=== PATIENT | female | born 1970 | race Caucasian/White ===

== ENCOUNTER → 2017-11-25 16:17 | Outpatient (CLI) | payer BC, SELFPAY ==
[2017-11-25 17:17] LABS: Absolute Lymphocyte Count 2.31 X10^3/ul (0.83-4.51); Absolute Neutrophil Count 5.2 X10^3/uL (2.0-7.7); Basophil# 0.01 X10^3/uL; Basophil% 0.1 % (0-1); Eosinophil# 0.13 X10^3/uL; Eosinophils% 1.6 % (0-5); Hematocrit 34.6 % (37-47); Hemoglobin 10.7 g/dl (12.0-15.0); Lymphocyte # 2.31 X10^3/ul (4.0); Lymphocyte % 28.3 % (19-41); Mean Corp Hgb Conc 30.9 g/gl (32-36); Mean Corpuscular Hgb 23.4 pg (27.0-32.0); Mean Corpuscular Volume 75.7 fL (81-99); Mean Platelet Vol. 10.3 fl (6.2-12.0); Monocyte# 0.49 X10^3/uL; Neutrophil # 5.16 X10^3/uL (2.7-7.7); Neutrophil % 63.4 % (47-70); Platelet Count 249 K/mm3 (150-450); RBC Distribution Width CV 15.3 % (11.6-14.6); RBC Distribution Width SD 42.1 fl (35.1-43.9); Red Blood Count 4.57 M/mm3 (4.2-5.4); White Blood Count 8.2 K/mm3 (4.4-11.0)
[2017-11-25 17:18] LABS: POSITIVE COUNT NO; POSITIVE DIFFERENTIAL NO; POSITIVE MORPHOLOGY NO
[2017-11-25 17:54] LABS: Vitamin D,25 Hydroxy 13.1 ng/mL (19.95-100.01)
[2017-11-25 18:09] LABS: Iron 28 ug/dL (50-170); T4 Free Direct 0.64 ng/dL (0.76-1.46)
== END ==
PROVIDERS: Family Provider Family Medicine; PCP Family Medicine; Visit Provider Family Medicine
DX: E03.9 Hypothyroidism, unspecified (principal); E55.9 Vitamin D deficiency, unspecified; D50.9 Iron deficiency anemia, unspecified
CPT/HCPCS: 36415; 82306; 83540; 84439; 84443; 85025

== ENCOUNTER → 2017-12-26 10:25 | Outpatient (CLI) | payer BC, SELFPAY ==
--- NOTE | 2017-12-26 10:29 | RAD_ITS ---
STUDY: X-RAY CHEST REASON FOR EXAM: Female, 47 years old. Cough TECHNIQUE: Frontal and lateral views of the chest. COMPARISON: 05/31/2013. FINDINGS: The lungs are clear and expanded. There is no demonstrated pleural abnormality. Normal size heart. Normal mediastinum and jad. Normal visualized pulmonary arteries. Normal visualized aortic arch and descending thoracic aorta. Normal visualized thoracic spine. Normal visualized ribs, clavicles, and shoulders. There is no demonstrated abnormality of the visualized soft tissue structures of the upper abdomen. RAD/Chest PA and Lateral IMPRESSION: No acute cardiopulmonary disease. Electronically Signed: Ren Dejesus DO at 0:02 EDT , Service support ,
== END ==
PROVIDERS: Family Provider Family Medicine; PCP Family Medicine; Visit Provider Family Medicine
DX: R05 Cough (principal); R06.2 Wheezing
CPT/HCPCS: 71046

== ENCOUNTER → 2018-01-09 16:23 | Outpatient (CLI) | payer BC, SELFPAY ==
[2018-01-09 17:20] LABS: Absolute Lymphocyte Count 1.72 X10^3/ul (0.83-4.51); Absolute Neutrophil Count 3.3 X10^3/uL (2.0-7.7); Basophil# 0.01 X10^3/uL; Basophil% 0.2 % (0-1); Eosinophil# 0.15 X10^3/uL; Eosinophils% 2.7 % (0-5); Hematocrit 34.7 % (37-47); Hemoglobin 10.8 g/dl (12.0-15.0); Lymphocyte # 1.72 X10^3/ul (4.0); Lymphocyte % 30.6 % (19-41); Mean Corp Hgb Conc 31.1 g/gl (32-36); Mean Corpuscular Hgb 24.2 pg (27.0-32.0); Mean Corpuscular Volume 77.8 fL (81-99); Mean Platelet Vol. 10.7 fl (6.2-12.0); Monocyte# 0.37 X10^3/uL; Monocyte% 6.6 % (0-10); Neutrophil # 3.34 X10^3/uL (2.7-7.7); Neutrophil % 59.4 % (47-70); POSITIVE COUNT NO; POSITIVE DIFFERENTIAL NO; POSITIVE MORPHOLOGY NO; Platelet Count 193 K/mm3 (150-450); RBC Distribution Width CV 15.9 % (11.6-14.6); RBC Distribution Width SD 45.4 fl (35.1-43.9); Red Blood Count 4.46 M/mm3 (4.2-5.4); White Blood Count 5.6 K/mm3 (4.4-11.0)
[2018-01-09 17:52] LABS: Ferritin 28 ng/mL (8-252); Iron 66 ug/dL (50-170); T4 Free Direct 1.11 ng/dL (0.76-1.46); Thyroid Stim Hormone (TSH) 1.41 uIU/mL (0.358-3.74)
[2018-01-09 17:58] LABS: Vitamin D,25 Hydroxy 26.2 ng/mL (29.95-100.01)
== END ==
PROVIDERS: Family Provider Family Medicine; PCP Family Medicine; Visit Provider Family Medicine
DX: E03.9 Hypothyroidism, unspecified (principal); D50.9 Iron deficiency anemia, unspecified; E55.9 Vitamin D deficiency, unspecified
CPT/HCPCS: 36415; 82306; 82728; 83540; 84439; 84443; 85025

== ENCOUNTER 2018-08-02 08:00 | Outpatient (RCR) | payer BC, SELFPAY ==
--- OUTSIDE RECORDS SUMMARY | 2018-07-26 08:49 | XMS RPT_ITS ---
:1970 Author Organization OHIP Support Name Relationship Address Phone BARBASOL Unavailable [address] + [place] [address] MARY CARMEN MCDANIELS Unavailable [address] + [place] [address] BARBAS[facility] Unavailable [address] + [place] [address] BRODWOFF, ANGELA Unavailable [address] + [place] [address] [facility]BAS[facility] Unavailable [address] + [place] [address] BRODWOFF, ANGELA Unavailable [address] + [place] [address] BARBAS[facility] Unavailable [address] + [place] [address] BRODWOFF, ANGELA Unavailable [address] + [facility] [place] [address] BARBASOL Unavailable [address] + [place] [address] BRODWOFF, ANGELA Unavailable [address] + [place] [address] BARBASOL Unavailable [address] + [place] [address] BRODWOFF, ANGELA Unavailable [address] + [place] [address] BARBASOL Unavailable [address] + [place] [address] BRODWOFF, ANGELA Unavailable [address] + [place] [address] BARBAS[facility] Unavailable [address] + [place] [address] BRODWOFF, ANGELA Unavailable [address] + [facility] [place] [address] BARBASOL Unavailable [address] + [place] [address] BRODWOFF, ANGELA Unavailable [address] + [facility] [place] [address] BARBASOL Unavailable [address] + [place] [address] BRODWOFF, ANGELA Unavailable [address] + [place] [address] BARBASOL Unavailable [address] + [place] [address] BRODWOFF, ANGELA Unavailable [address] + [place] [address] Care Team Providers Name Role Phone Justen Harris Attending Unavailable Steven, Justen Primary Care Unavailable Ellie Hinson Attending Unavailable Steven, Justen Primary Care Unavailable Osito Arteaga Attending Unavailable Osito Arteaga Attending Unavailable Justen Harris Attending Unavailable Steven, Justen Primary Care Unavailable Bne Fitzpatrick Attending Unavailable Steven, Justen Referring Unavailable Ben Fitzpatrick Attending Unavailable Justen Harris Referring Unavailable Justen Harris Primary Care Unavailable Steven, Justen Attending Unavailable Steven, Justen Primary Care Unavailable Justen Harris Attending Unavailable Steven, Justen Primary Care Unavailable Steven, Justen Attending Unavailable Steven, Justen Primary Care Unavailable Christopher Murphy Attending Unavailable Christopher Murphy Referring Unavailable Justen Harris Primary Care Unavailable PROBLEMS PROBLEMS DATE TYPE CONDITION / CODE ATTENDING STATUS SOURCE 01/09/2018 Unknown E03.9 - Justen Harris Active [place] Hypothyroidism, Community unspecified / Hospital E03.9(ICD-10) Repository 01/09/2018 Unknown E55.9 - Vitamin D Justen Harris Active [place] deficiency, Community unspecified / Hospital E55.9(ICD-10) Repository 01/09/2018 Unknown D50.9 - Iron Justen Harris Active [place] deficiency Community anemia, Hospital unspecified / Repository D50.9(ICD-10) 09/15/2017 Unknown R13.10 - Jsuten Harris Active [place] Dysphagia, Community unspecified / Hospital R13.10(ICD-10) Repository 09/07/2017 Unknown ENCNTR SCREEN Osito Arteaga Active [place] MAMMOGRAM FOR [facility] MALIGNANT Hospital NEOPLASM OF Repository BREAST / Z12.31(ICD-10) 09/06/2017 Unknown ENCOUNTER FOR Osito Arteaga Active [place] SCREENING FOR [facility] MALIGNANT Hospital NEOPLASM OF Repository CERVIX / Z12.4(ICD-10) 09/06/2017 Unknown PAIN IN RIGHT EusebiaEllie courtney Active [place] LOWER LEG / Community M79.661(ICD-10) Hospital Repository PROCEDURES PROCEDURES No Procedure Records FoundRESULTS RESULTS CBC W/DIFF, AUTOMATED Collected: 01/09/2018 Status: F Source: [place] 4:24 PM [facility] REPOSITORY TYPE CODE TESTS RESULT OUT OF RANGE REFERENCE UNITS LAB L100.1000 Normal 4.4-11.0 K/mm3 WBC 5.6 LAB L100.1200 Normal 4.2-5.4 M/mm3 RBC 4.46 LAB L100.1300 Low 12.0-15.0 g/dl HGB 10.8 LAB L100.1400 Low 37-47 % HCT 34.7 LAB L100.1500 Low 81-99 fL MCV 77.8 LAB L100.1600 Low 27.0-32.0 pg MCH 24.2 LAB L100.1700 Low 32-36 g/gl MCHC 31.1 LAB L100.1810 High 11.6-14.6 % RDW 15.9 CV LAB L100.1820 High 35.1-43.9 fl RDW 45.4 SD LAB L100.1900 Normal 150-450 K/mm3 PLT 193 LAB L100.2000 Normal 6.2-12.0 fl MPV 10.7 LAB L100.2100 Normal 47-70 % NEUT% 59.4 LAB L100.2200 Normal 19-41 % LY% 30.6 LAB L100.2300 Normal 0-10 % MONO% 6.6 LAB L100.2400 Normal 0-5 % EO% 2.7 LAB L100.2500 Normal 0-1 % BASO% 0.2 LAB L100.2550 Normal 0.0-0.9 % IM 0.500 GRAN % Result Comment: IG% - Immature Granulocytes (promyelocytes, myelocytes and metamyelocytes) > 1% indicates that a LEFT SHIFT is Present. LAB L100.2620 Normal 2.0-7.7 X10 3/uL Absolute Neut 3.3 LAB L100.2720 Normal 0.83-4.51 X10 3/ul Absolute Lymph 1.72 Performed By: #### L100.0100 #### [facility] [address] [place], [address] THYROID STIM HORMONE Collected: 01/09/2018 Status: F Source: [place] (TSH) 4:24 PM [facility] REPOSITORY TYPE CODE TESTS RESULT OUT OF RANGE REFERENCE UNITS LAB L501.9520 Normal 0.358-3.74 uIU/mL TSH 1.41 Performed By: #### L501.9520, L503.6150, L503.6550, L506.0400 #### [facility] [address] [place], [place], [address] IRON Collected: 01/09/2018 Status: F Source: [place] 4:24 PM [facility] REPOSITORY TYPE CODE TESTS RESULT OUT OF RANGE REFERENCE UNITS LAB L503.6150 Normal 50-170 ug/dL IRON 66 Performed By: #### L501.9520, L503.6150, L503.6550, L506.0400 #### [facility] [address] [place], [place], [id number] (080) FERRITIN Collected: 01/09/2018 Status: F Source: [place] 4:24 PM [facility] REPOSITORY TYPE CODE TESTS RESULT OUT OF RANGE REFERENCE UNITS LAB L503.6550 Normal 8-252 ng/mL FERRITIN 28 Performed By: #### L501.9520, L503.6150, L503.6550, L506.0400 #### [facility] [address] [place], [address] T4 FREE DIRECT Collected: 01/09/2018 Status: F Source: [place] 4:24 PM [facility] REPOSITORY TYPE CODE TESTS RESULT OUT OF RANGE REFERENCE UNITS LAB L506.0400 Normal 0.76-1.46 ng/dL T4 FREE 1.11 DIRECT Performed By: #### L501.9520, L503.6150, L503.6550, L506.0400 #### [facility] [address] [place], [address] VITAMIN D,25 HYDROXY Collected: 01/09/2018 Status: F Source: [place] 4:24 PM [facility] REPOSITORY TYPE CODE TESTS RESULT OUT OF REFERENCE UNITS RANGE LAB L506.1000 Low 29.95-100.01 ng/mL Vitamin D 26.2 25-OH Result Comment: Vitamin D 25(OH) Status Range Deficiency <20 ng/mL (50nmol/L) Insuffciency 20 - 30 ng/mL (50 - 75 nmol/L) Sufficiency 30 - 100 ng/mL (75 - 250 nmol/L) Toxicity >100 ng/mL (>250 nmol/L) Performed By: #### L506.1000 #### [facility] [address] [place], [address] CHEST PA AND LATERAL Observed: 12/26/2017 Status: F Source: [place] 10:29 AM [facility] REPOSITORY [facility]ENTERIm[facility] [id number] [address]Guubl PA and LateralMR#: [id number] Acct: [id number]: CHARO RIZVI Rep #: [id number]: 1970 F 47 From: Ren JoséCP: Justen Harris Status: REG CLIStudy: Chest PA and Lateral Date of Exam: 12/26/17Exam# [id number] Ordering Dr: Justen Harris MDSTUDY: X-RAY CHESTREASON FOR EXAM: Female, 47 years old. CoughTECHNIQUE: Frontal and lateral views of the chest.COMPARISON: 05/31/2013. FINDINGS:The lungs are clear and expanded. There is no demonstrated pleuralabnormality.Normal size heart. Normal mediastinum and jad. Normal visualizedpulmonary arteries. Normal visualized aortic arch and descending thoracicaorta.Normal visualized thoracic spine. Normal visualized ribs, clavicles, andshoulders.There is no demonstrated abnormality of the visualized soft tissuestructures of the upper abdomen. ORDER #: [id number] RAD/Chest PA and LateralIMPRESSION:No acute cardiopulmonary disease.Electronically Signed:Ren Dejesus, [id number] at 0:02 EDTTel , Service support , GT: Justen Harris Team Member:Signed CBC W/DIFF, AUTOMATED Collected: 11/25/2017 Status: F Source: [place] 4:20 PM [facility] REPOSITORY TYPE CODE TESTS RESULT OUT OF RANGE REFERENCE UNITS LAB L100.1000 Normal 4.4-11.0 K/mm3 WBC 8.2 LAB L100.1200 Normal 4.2-5.4 M/mm3 RBC 4.57 LAB L100.1300 Low 12.0-15.0 g/dl HGB 10.7 LAB L100.1400 Low 37-47 % HCT 34.6 LAB L100.1500 Low 81-99 fL MCV 75.7 LAB L100.1600 Low 27.0-32.0 pg MCH 23.4 LAB L100.1700 Low 32-36 g/gl MCHC 30.9 LAB L100.1810 High 11.6-14.6 % RDW 15.3 CV LAB L100.1820 Normal 35.1-43.9 fl RDW 42.1 SD LAB L100.1900 Normal 150-450 K/mm3 PLT 249 LAB L100.2000 Normal 6.2-12.0 fl MPV 10.3 LAB L100.2100 Normal 47-70 % NEUT% 63.4 LAB L100.2200 Normal 19-41 % LY% 28.3 LAB L100.2300 Normal 0-10 % MONO% 6.0 LAB L100.2400 Normal 0-5 % EO% 1.6 LAB L100.2500 Normal 0-1 % BASO% 0.1 LAB L100.2550 Normal 0.0-0.9 % IM 0.600 GRAN % Result Comment: IG% - Immature Granulocytes (promyelocytes, myelocytes and metamyelocytes) > 1% indicates that a LEFT SHIFT is Present. LAB L100.2620 Normal 2.0-7.7 X10 3/uL Absolute Neut 5.2 LAB L100.2720 Normal 0.83-4.51 X10 3/ul Absolute Lymph 2.31 Performed By: #### L100.0100 #### [facility] [address] [place], [address] VITAMIN D,25 HYDROXY Collected: 11/25/2017 Status: F Source: [place] 4:20 PM [facility] REPOSITORY TYPE CODE TESTS RESULT OUT OF REFERENCE UNITS RANGE LAB L506.1000 Low 19.95-100.01 ng/mL Vitamin D 13.1 25-OH Result Comment: Vitamin D 25(OH) Status Range Deficiency <20 ng/mL (50nmol/L) Insuffciency 20 - 30 ng/mL (50 - 75 nmol/L) Sufficiency 30 - 100 ng/mL (75 - 250 nmol/L) Toxicity >100 ng/mL (>250 nmol/L) Performed By: #### L506.1000 #### [facility] [place], [address] THYROID STIM HORMONE Collected: 11/25/2017 Status: F Source: [place] (TSH) 4:20 PM [facility] REPOSITORY TYPE CODE TESTS RESULT OUT OF RANGE REFERENCE UNITS LAB L501.9520 High 0.358-3.74 uIU/mL TSH 18.60 Performed By: #### L501.9520, L503.6150, L506.0400 #### [facility] [place], [address] IRON Collected: 11/25/2017 Status: F Source: [place] 4:20 PM [facility] REPOSITORY TYPE CODE TESTS RESULT OUT OF RANGE REFERENCE UNITS LAB L503.6150 Low 50-170 ug/dL IRON 28 Performed By: #### L501.9520, L503.6150, L506.0400 #### [facility] [address] [place], [address] T4 FREE DIRECT Collected: 11/25/2017 Status: F Source: [place] 4:20 PM [facility] REPOSITORY TYPE CODE TESTS RESULT OUT OF REFERENCE UNITS RANGE LAB L506.0400 Low 0.76-1.46 ng/dL T4 FREE 0.64 DIRECT Performed By: #### L501.9520, L503.6150, L506.0400 #### [facility] [address] [place], [address] SURGERY VISIT REPORT Observed: 10/11/2017 Status: F Source: [place] 1:20 PM [facility] REPOSITORY [place] [facility] [address] [place] [address] [place] [address] [phone] VISITDate of Service: 10/07/17MR#: [id number] Acct: [id number]: CHARO RIZVI Rep #: [id number]: 1970 Provider: Ben Fitzpatrick MDAge/Sex: 47/F Location[facility].WSAStatus: SignedIntakeVital Signs10/07/17 Height 5 ft 1 in10/07/17 Weight: 185 lb 4 oz10/07/17 Body Mass Index (BMI) 34.9IntakeVisit Reasons: Thyroid NoduleChief Complaint: thyroid noduleInterpreter Required: NoIs patient in pain?: NoAllergiescefazolin [From Anc] Allergy (Verified 10/07/17 09:34)Hivescodeine Allergy (Verified 10/07/17 09:34)OtherMedicationsCyanocobalamin (Vitamin B-12) [Vitamin B-12] 3,000 mcg PO BID 11/24/16 [History Qcpghniot73/29/17]Ergocalciferol [Vitamin D] 50,000 unit PO MOWEFR 11/24/16 [History Confirmed 10/07/17]levothyroxine 137 mcg capsule 137 mcg PO ONCE cap 10/04/17 [History Confirmed 10/07/17]Is last menstrual period known: NoPost menopausal: NoPatient : NoPFSHMedical History Multiple thyroid nodules (Acute)Iron deficiency anemia (Acute)Osteoarthritis (Acute)Vitamin D deficiency (Acute)Hypothyroidism (Acute)Gastritis and duodenitis (Acute)Right upper quadrant pain (Acute)Laceration of left hand (Inactive)Surgical History S/P knee surgery (Acute)S/P rotator cuff repair (Acute)S/P section (Acute)S/P thyroid biopsy (Acute)S/P tonsillectomy (Acute)Family HistoryFather Heart diseaseDiabetesMother COPD (chronic obstructive pulmonary disease)Social HistorySmoking Status: Never smokersecond hand exposure: Noalcohol intake: current alcohol intake frequency: holidays/special occasions onlysubstance use type: does not usecaffeine: Yesseatbelt use: alwaysHPIHPIHPI: CHARO RIZVI, is a 47 F who presents to the office today for a second opinion withregards to her left thyroid ultrasound. [facility] a nodule measuring 10 mm x 8 mm x 7 mm and anothersubcentimeter nodule on the left side and on the right side there was no demonstrated nodules.Patient had a fine-needle aspiration done of the left thyroid nodule on 04/29/[address] Anton.This came back consistent with chronic lymphocytic thyroiditis. Patient has had no difficultywith her voice no anterior neck pain.ROSGeneralGeneral: Yes weight change and fatigue;no appetite, colon cancer, breast cancer or weaknessHEENTHEENT: Yes difficulty swallowing;no eye injury, eye surgery, swollen glands or hoarsenessEndoEndocrine: Yes thyroid disease;no diabetes mellitus, thyroid cancer, Hair loss, heat intolerance or cold intoleranceSkinSkin: No rash or changing molesBreastBreast: No left breast lump, right breast lump, nipple discharge, breast pain, abnormalmammogram, abnormal US or breast enlargementMuscMusculoskeletal: Yes rheumatoid arthritis;no back problems, arthritis, gout or joint painCardioCardiovascular: Yes murmur;no pacemaker, heart disease, atrial fibrillation, high blood pressure, heart attack, heartstent, palpitations, shortness of breat with exertion or chest painPsychPsychiatric: No depression, anxiety or hearing voicesRespRespiratory: No shortness of breath, No sleep apnea, No cough, No COPD, No asthma, Noemphysema, No wheezingGastroGastrointestinal: No abdominal pain, No nausea or vomiting, No diarrhea, No constipation, Noblood in stool, No acid reflux, No hemorrhoids, No ulcers, Yes gallbladder problem, Noblack,tarry stoolsHemaHematologic: No blood thinners, No blood disorders, No bleeding, Yes anemia, No blood clotsNeuroNeurologic: No system reviewed and no additional complaints, except as docu, No as per HPI, Noabnormal walking, No abnormal hearing, No abnormal movements, No abnormal speech, No behavioralchanges, No burning sensations, No confusion, No seizure-like activity, No unsteadiness, Nodizziness, No localized weakness, No frequent falls, No headache(s), No lack of coordination,No loss of vision, No memory loss, No numbness, No other visual disturbances, No radiatingpain, No restless legs, No sensory deficit, No fainting, No tingling, No tremor(s), Noweakness, No otherExamNeckOther: The thyroid shows no hard palpable nodules. It is smooth and supple in nature. Thereis no lymphadenopathy on either side.ChestBreast Palpation: No nipple dischargeCardioHeart Sounds: murmurAssessment AND PlanProblems1. Multiple thyroid nodules E04.2PlanAt this point the patient only needs to have yearly thyroid ultrasounds. There is no need torepeat a fine-needle aspiration at this time. The patient should remain on her Levoxyl at hercurrent dose. If the nodules grow by more than 20% or new nodules grow that are larger than acentimeter repeat fine-needle aspirations will need to be performed.10/11/17 1320 <Electronically signed by Ben Fitzpatrick MD>Date Ben CHANGosigner Signature: Date (if applicable)CC: Justen Harris THYROID Observed: 09/15/2017 Status: F Source: [place] 5[facility]18 PM [facility]Im[facility] [id number] [place] [address]HqjxpvxHX#: [id number] Acct: [id number]: CHARO RIZVI Sergey Rep #: [id number]: 1970 F 47 From: Jose Montanez MDPCP: Justen Harris Status: REG CLIStudy: Thyroid Date of Exam: 09/15/17Exam# [id number] Ordering Dr: Justen Harris MDSTUDY: THYROID ULTRASOUNDREASON FOR EXAM: Female, 47 years old. Thyroid noduleTECHNIQUE: Ultrasound evaluation of the thyroid was performed withreal-time and static ward-scale imaging.COMPARISON: Ultrasound of April 15, 2015 FINDINGS:RIGHT LOBE: The right lobe of the thyroid gland measures 4.3 x 1.5 x 1.1cm. There is a heterogeneous echotexture. There are no demonstrated solid,cystic or complex lesions.LEFT LOBE: The left lobe of the thyroid gland measures 4.5 x 1.4 x 1.5 cm.There is a heterogeneous echotexture. 2 nodules are noted. The largestmeasures 10 x 8 x 7 mm. Is noted in the inferior pole. The lesion issolid with regular margins and aline nodular doppler flow.ISTHMUS: The isthmus measures 3 mm. . ORDER #: [id number] US/ThyroidIMPRESSION:Stable left thyroid nodule.Both thyroid lobes appear heterogeneous.Electronically Signed:Jose Montanez MD at 21:51 ESTTel , Service support , JI: Justen Harris Team Member:Signed SCREENING MAMM (CAD), Observed: 09/06/2017 Status: F Source: [place] BILAT 4:53 PM [facility] REPOSITORY [facility]ENTERImaging [id number] [place] [address]XJVYSYKTR MAMM (CAD), BILATMR#: [id number] Acct: [id number]: CHARO RIZVI Rep #: [id number]: 1970 F 47 From: Alphonso Pierre [facility] CENTERCP: Status: REG CLIStudy: SCREENING MAMM (CAD), BILAT Date of Exam: 09/06/17Exam# [id number] Ordering Dr: Osito Arteaga MDMAMMOGRAPHY - BILATERAL SCREENINGREASON FOR EXAM: Female, 47 years old. Routine annual screeningexamination.PERTINENT HISTORY: Non-contributory.TECHNIQUE: Digital examination. Mediolateral oblique (MLO) andcraniocaudad (CC) views of both breasts were obtained, along with 3-Dtomosynthesis. CAD: CAD was performed on this study.COMPARISON: 2009 FINDINGS:Breast Density: Scattered fibroglandular densities.There are no dominant masses or suspicious calcifications.No other significant abnormalities are identified. There has been nosignificant change since the prior study. ORDER #: [id number] HPBI/SCREENING MAMM (CAD), BILATIMPRESSION:Stable bilateral screening mammogram. Yearly follow-up mammogramrecommended. (A) ASSESSMENT CATEGORY:BIRADS Category 2: Benign. A letter regarding these results will be sentto the patient by the facility within 30 days.FW6Qcynulhivruee 10% of breast cancers are not detected by mammography. Anormal mammogram should not delay biopsy of a clinically suspiciousabnormality.[id number] Signed:Herson Pierre MD at 7:54 ESTTel , Service support , QG: Osito Arteaga MD Team Member:Signed PAP I-G HPV HI Collected: 08/23/2017 Status: F Source: [place] RISK 4:30 PM [facility] REPOSITORY Order Comment: CYTOLOGY INFORMATION:THIS IS A CORRECTED ORDER!- CLINICAL INFORMATION:- DATE LMP/MENOPAUSE: 08/10/17 LMP- COLLECTION VIAL: Thin Prep Vial- PURCHASING ADMINISTRATOR SOURCE: CERVICAL/ENDOCERVICAL- COLLECTION TECHNIQUE: BRUSH/SPATULASpecimen Comment: [id number] Comment: No. of containers..01 ThinPrep Vial TYPE CODE TESTS RESULT OUT OF RANGE REFERENCE UNITS LAB L7400.0800 Normal . DIAGN Comment Result Comment: NEGATIVE FOR INTRAEPITHELIAL LESION AND MALIGNANCY. LAB L7400.0900 Normal . ADEQ Comment Result Comment: Satisfactory for evaluation. Endocervical and/or squamous metaplastic cells (endocervical component) are present. LAB L7400.1400 Normal . PERFORM Comment Result Comment: Malissa Lemos Certified Medicine Aide (ASCP) LAB L7400.2575 Normal . TEST Comment METHOD Result Comment: This liquid based ThinPrep(R) pap test was screened with the use of an image guided system. LAB L7400.2600 Normal . COMM . LAB L7400.2700 Normal . PAPSMR Comment Result Comment: The Pap smear is a screening test designed to aid in the detection of premalignant and malignant conditions of the uterine cervix. It is not a diagnostic procedure and should not be used as the sole means of detecting cervical cancer. Both false-positive and false-negative reports do occur. LAB L7400.2950 Normal Negative HPV Negative HC,HGH RISK Result Comment: This high-risk HPV test detects thirteen high-risk types (16/18/31/33/35/39/45/51/52/56/58/59/68) without differentiation. Performed at: - [facility] [id number] Field Service Consultant: Jade Jane MD, Phone: [phone] Performed at: =[facility] [id number] Field Service Consultant: Jade Jane MD, Phone: [phone] Performed By: #### L7400.0375 #### [facility] (refer to report for specific site) refer to report for address and phone number VENOUS DUPLEX LOWER Observed: 08/07/2017 Status: F Source: [place] EXTREMITY 9:38 AM [facility] REPOSITORY [facility]ENTERCardiovascular [id number] [place] [address]Fqddjq Duplex US, Epmwdbzczx10/27/17 1641MR#: [id number] Acct: [id number]: CHARO RIZVI Rep #: [id number]: 1970 47 From: Gustabo Soni MDAttending Dr: Ellie Hinson Status: REG CLIOrdering Dr: Ellie Hinson Date: 08/05/17Location: [facility] Sex: F CAdmitted:Reason For Study: PAINRIGHTGSV is normal.CFV is compressible, spontaneous, phasic,competent and demonstrates normalaugmentation.FV is compressible, spontaneous, phasic,competent and demonstrates normalaugmentation.POP V is compressible, spontaneous, phasic,competent and demonstrates normalaugmentation.T/P Trunk is compressible.PTV is compressible.RT PerV is compressible.ProcedureExam performed in department.A preliminary report was called and/or faxedto ELLIE HINSON.Interpretation SummaryDeep veins of the right lower extremity are patent and compressible segmentally. There is noevidence of right lower extremity deep vein thrombosis. Valvular competence appears intactwithinthe proximal deep venous system on the right . The right greater saphenous vein appears patentandcompressible segmentally. Ordering Physician: Elizabeth HinsoneReferring Physician: JUSTEN HARRISPerformed By: Alisa Echavarria RDCS, RVT 08/07/17 0938Date Gustabo Soni [facility]: Ellie Harris Date Dictated: 08/05/17 1641Date Transcribed: 08/07/17 0938Transcriptionist:Signed ALLERGIES ALLERGIES DATE TYPE / CODE NAME / CODE REACTION SEVERITY SOURCE 10/07/2017 Drug codeine/F006 Other Unknown [place] [facility] Allergy/4160 [id number]([place] [id number](SNOMED M) Repository CT) 10/07/2017 Drug cefazolin/F0 Hives Unknown [place] [facility] Allergy/4160 [id number]([place] [id number](SNOMED ORM) Repository CT) 11/24/2016 Drug codeine/F006 Other [place] [facility] Allergy/4160 955101([place] [address](SNOMED M) Repository CT) 11/24/2016 Drug cefazolin/F0 Hives [place] [facility] Allergy/4160 [id number]([place] [address](SNOMED ORM) Repository CT) ENCOUNTERS ENCOUNTERS ADMIT/DISCHARGE ACCOUNT ADMITTING ENCOUNTER LOCATION SOURCE NUMBER CLASS 07/26/2018 [id number] Ambulatory [place] [facility] ing:PT Repository 01/11/2018 [id number] Amb[place] [facility] ing:LAB.FUTUR Repository E 01/09/2018 [id number] Ambulatory [place] [facility] ing:LAB.FUTUR Repository E 12/26/2017 [id number] [place] [facility] ing:HPRAD Repository 11/25/2017 [id number] Ambulatory [place] [facility] ing:BFHLAB Repository 10/07/2017/ [id number] Ambulatory [facility] [place] [facility] Repository 09/23/2017 [id number] Ambulatory BMSBuilding:B [place] [facility] Repository 09/15/2017 [id number] Ambulatory [place] [facility] ing:US Repository 09/06/2017 [id number] Ambulatory [place] [facility] ing:BI Repository 08/23/2017 [id number] Ambulatory [place] [facility] ing:LABSPEC Repository 08/05/2017 [id number] Ambulatory [place] [facility] ing:[facility] Repository PAYERS PAYERS ENCOUNTER GUARANTOR PAYER SUBSCRIBER SOURCE 07/26/2018 CHARO R Primary CHARO R Allen [id number] Insurance:ANTHEMPolic GREGANDOB: Community [address] y Number: [id number] [id number] Repository [address]Ljk: (330) Date:4765-72-18KC [phone] () [id number], [place] [address]CE: 07/26/2018 Secondary CHARO R Allen Insurance:[facility] PACKAGE GREGANDOB: [facility] Number: [id number] Hospital [id number] Repository Date:2018-07-25 07/26/2018 Tertiary NOT GIVENUNK Cutler Insurance:SELF PAY [facility] Number: Effective Repository Date:2018-07-25 01/11/2018 CHARO R Primary CHARO R Cutler [id number] Insurance:ANTHEMPolic GREGANDOB: Community [address] y Number: [id number], [place] [id number] Repository 4[address]Mgc: (330) Date:2254-63-11IS [phone] () [id number], [place] [address]MW: 01/11/2018 Secondary NOT GIVENUNK Allen Insurance:SELF PAY [facility] Number: Effective Repository Date:2018-01-11 01/09/2018 CHARO R Primary CHARO R Cutler [id number] Insurance:ANTHEMPolic GREGANDOB: Community [address] y Number: [id number], [place] [id number] Repository [address]Ocr: (330) Date:8290-84-62OE [phone] () 476144CMCKMPZ, [place] [address]NZ: 01/09/2018 Secondary NOT GIVENUNK [place] Insurance:SELF [facility]Y [facility] Effective Repository Date:2017-12-01 12/26/2017 CHARO R Primary CHARO Villa [id number] Insurance:ANTHEMPolic GREGANDOB: Community [address] y Number: [id number], [place] [id number] Repository [address]17[address]Fwm: (330) Date:6356-77-43FD [phone] () [address] [place] [address]JY: 12/26/2017 Secondary NOT GIVENUNK Cutler Insurance:SELF PAY [facility]: Effective Repository Date:2017-12-26 11/25/2017 CHARO Sergey Primary CHARO Villa [id number] Insurance:ANTHEMPolic GREGANDOB: Community [address] y Number: [id number], [place] [id number] Repository [address]Soq: (330) Date:4429-46-58VJ [phone] () [address] [place] [address]MB: 11/25/2017 Secondary NOT GIVENUNK Cutler Insurance:SELF PAY [facility] Number: Effective Repository Date:2017-05-20 10/07/2017 CHARO Rincon Primary CHARO Villa [id number] Insurance:ANTHEMPolic GREGANDOB: Community [address] y Number: [id number], [place] [id number] Repository [address]Fnc: (330) Date:4042-16-86CG [phone] () [id number] [place] [address]GT: 10/07/2017 Secondary NOT GIVENUNK Allen Insurance:SELF PAY [facility] Number: Effective Repository Date:2017-10-06 09/23/2017 Charo Rincon Primary Charo Villa [id number] Insurance:ANTHEMPolic GreganDOB: Community [address] y Number: [id number], [place] [id number] Repository [address]Slj: (330) Date:4847-49-54TK [phone] (HP) [id number], [place] [address]GD: 09/23/2017 Secondary NOT GIVENUNK Allen Insurance:SELF PAY [facility] Number: Effective Repository Date:2017-09-22 09/15/2017 Charo R Primary Charo R Allen [id number] Insurance:ANTHEMPolic GreganDOB: Community [address] y Number: [id number], [place] [id number] Repository [address]Non: (330) Date:3549-75-16CZ [phone] () [id number], [place] [address]GE: 09/15/2017 Secondary NOT GIVENUNK Allen Insurance:SELF PAY [facility] Number: Effective Repository Date:2017-09-10 09/06/2017 CHARO R Primary CHARO R Allen [id number] Insurance:ANTHEMPolic GREGANDOB: Community [address] y Number: [id number], [place] [id number] Repository [address]Pdu: (330) Date:0402-98-50OD [phone] () [id number], [place] [address]VV: 08/23/2017 CHARO R Primary CHARO R Allen [id number] Insurance:ANTHEMPolic GREGANDOB: Community [address] y Number: [id number], [place] [id number] Repository [address]Uvh: (330) Date:8930-39-30YF [phone] () [id number], [place] [address]TH: 08/05/2017 CHARO R Primary CHARO R Allen [id number] Insurance:ANTHEMPolic GREGANDOB: Community [address] y Number: [id number], [place] [id number] Repository [address]Ofx: (330) Date:2377-19-11MJ [phone] () [id number] HENSLEY [address]DA:
--- NOTE | 2018-07-26 09:20 | HP.PTEVAL ---
Patient's Visit Information SINA RIZVI is a 48 year old F referred to Physical Therapy by Christopher Murphy MD with a diagnosis of BPPV. Date of Evaluation: 07/26/18 Physical Therapist: Christopher Diaz DPT, OC - Visit Plan Frequency: 1-2x /Week Duration: 2-4 Weeks Plan: 1-2x/week x2-4 for positional treatments and progression of activity back to work. - Subjective Subjective: Vertigo since Tuesday(has had it in the past). Was at work and noticed feeling off when driving backwards. Bent over and she spun for 30 seconds. Feels Ok when not spinning. Increased frequency over the weekend. Nauseated that night. Tried some self maneuvers btu worse on tuesday. Lying down still sucks. Walking is OK. Turning sucks. Saw Dr. Murphy yesterday and has R BPPV. Sleeping is not good due to dizzyness. 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 Hobbies include playing with [employer] whcih is not happening due to dizzyness. Balance is only an issue when spinning, otherwise is good. - Objective Walks well and I, transfers I. 4/5 UE strength,. C/S aROM WFL and without pain but hesitant to look up. - R hallpike and + L hallpike looks possible downward torsional nystagmus and treated with L Ric x 3 today. - Goals Goal 1:: Abolish dizzyness with bed transfers adn positional testing. Goal Time Frame: 2-4 Weeks Goal 2:: Pt safe and feel ready to return to work. Goal Time Frame: 2-4 Weeks - Rehabilitation Potential Physical Therapy Diagnosis: B. PPV R anterior canal. Rehabilitation Potential: Good - Anticipated Interventions Patient/Client Instruction: Educate patient on: Condition, Plan of Care For the Purpose of:: To increase tolerance to activity/condition/position Comment: positional treatment and activity progression For the Purpose of:: To increase tolerance to activity/condition/position, To reduce risk of recurrence Thank you for the opportunity to evaluate your patient. For Medicare and Medicare HMO plans, please review the plan of care and approve it. It will need to be FAXED BACK to us at [phone] for Medicare purposes. Please let me know if there are questions or concerns regarding this plan of care. Physician Signature: Date:
--- NOTE | 2018-07-26 09:25 | HP.PTEVAL ---
Patient's Visit Information SINA RIZVI is a 48 year old F referred to Physical Therapy by Christopher Murphy MD with a diagnosis of BPPV. Date of Evaluation: 07/26/18 Physical Therapist: Christopher Diaz DPT, OC - Visit Plan Frequency: 1-2x /Week Duration: 2-4 Weeks Plan: 1-2x/week x2-4 for positional treatments and progression of activity back to work. - Subjective Subjective: Vertigo since Tuesday(has had it in the past). Was at work and noticed feeling off when driving backwards. Bent over and she spun for 30 seconds. Feels Ok when not spinning. Increased frequency over the weekend. Nauseated that night. Tried some self maneuvers btu worse on tuesday. Lying down still sucks. Walking is OK. Turning sucks. Saw Dr. Murphy yesterday and has R BPPV. Sleeping is not good due to dizzyness. 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 Hobbies include playing with [employer] whcih is not happening due to dizzyness. Balance is only an issue when spinning, otherwise is good. - Objective Walks well and I, transfers I. 4/5 UE strength,. C/S aROM WFL and without pain but hesitant to look up. - R hallpike and + L hallpike looks possible downward torsional nystagmus and treated with L Ric x 3 today. - Goals Goal 1:: Abolish dizzyness with bed transfers adn positional testing. Goal Time Frame: 2-4 Weeks Goal 2:: Pt safe and feel ready to return to work. Goal Time Frame: 2-4 Weeks - Rehabilitation Potential Physical Therapy Diagnosis: BPPV L anterior canal. Rehabilitation Potential: Good - Anticipated Interventions Patient/Client Instruction: Educate patient on: Condition, Plan of Care For the Purpose of:: To increase tolerance to activity/condition/position Comment: positional treatment and activity progression For the Purpose of:: To increase tolerance to activity/condition/position, To reduce risk of recurrence Thank you for the opportunity to evaluate your patient. For Medicare and Medicare HMO plans, please review the plan of care and approve it. It will need to be FAXED BACK to us at [phone] for Medicare purposes. Please let me know if there are questions or concerns regarding this plan of care. Physician Signature: Date:
--- NOTE | 2018-08-02 08:26 | HP.PTREVAL ---
Christopher Murphy MD, It has been my pleasure to treat SINA RIZVI over the last 4 visits for BPPV. Please see the progress note below for an update on the physical therapy plan of care! Subjective: Feels better for the most part throughout day. Brief encounters of dizzyness sitting up in the morning. Getds it upon arising in the morning and each time she got up last night.(6x) Objective/Function: No nystagmus with either hallpike however right hallpiek did have asymmetrical quick 1-2 second dizziness. No other dizzyness with MSQ positions except for slightly with head nods and up from each knee for 1-2 quick seconds. OVERALL MUCH BETTER AT 90+% AND BALANCE IS NORMAL ACCORDING TO FGA. LIKELY LARRY AND READY TO RETURN TO WORK, EDUCATED ON MINIMIZING HEAD MOVEMENT MUCH POSSIBLE UNTIL HOME EXERCISES ARE SYMPTOM FREE. Plan Plan: WILL CONTINUE FOLLOW UPS UNTIL DIZZYNESS ABOLISHED OR NO OBVIOUS PROGRESS. Goals Goal 1:: Abolish dizzyness with bed transfers adn positional testing. Goal Time Frame: 2-4 Weeks Goal Progress: Progressing Goal 2:: Pt safe and feel ready to return to work. Goal Time Frame: 2-4 Weeks Goal Progress: Goal Met Anticipated Interventions Patient/Client Instruction: Educate patient on: Condition, Plan of Care For the Purpose of:: To increase tolerance to activity/condition/position Comment: positional treatment and activity progression For the Purpose of:: To increase tolerance to activity/condition/position, To reduce risk of recurrence Please do not hesitate to contact me at [phone] by phone or if you have questions or concerns regarding this new plan of care! Sincerely, Christopher Diaz, CATY, OC
--- NOTE | 2018-09-22 14:17 | HP.PT.NRP ---
HP - Discharge Summary (1) - Patient Information SINA RIZVI was seen in my office for initial evaluation on 07/26/18. The following Plan of Care was established for this patient: Initial Frequency: 1-2x /Week Initial Duration: 2-4 Weeks - Anticipated Interventions Patient/Client Instruction: Educate patient on: Condition, Plan of Care For the Purpose of:: To increase tolerance to activity/condition/position For the Purpose of:: To increase tolerance to activity/condition/position, To reduce risk of recurrence This patient was last seen in our office 08/02/18. Pertinent comments regarding their Physical therapy will appear below: Pt seen 4 visits of positional treatments and was 90% better. Was to continue weekly follow ups but did not attend any further visits. At this point it has been over 6 weeks and I will discontinue due to nonattendance. At this point I will be discontinuing this patient from physical therapy. I would be happy to see this patient again in the future if found appropriate by the physician. Thank you! Christopher Diaz, DPT, OCS, CSCS
== END 2018-08-02 19:00 | disposition home or self-care (01) ==
LOC: PT 08:00
PROVIDERS: Family Provider Family Medicine; PCP Family Medicine; Referring Provider Otolaryngology; Visit Provider Otolaryngology
DX: H81.11 Benign paroxysmal vertigo, right ear (principal)
CPT/HCPCS: 97161; 97530

== ENCOUNTER → 2018-08-29 15:33 | Outpatient (CLI) | payer BC, SELFPAY ==
[2018-08-29 17:36] LABS: Absolute Lymphocyte Count 2.02 X10^3/ul (0.83-4.51); Absolute Neutrophil Count 3.8 X10^3/uL (2.0-7.7); Basophil# 0.02 X10^3/uL; Basophil% 0.3 % (0-1); Eosinophil# 0.07 X10^3/uL; Eosinophils% 1.1 % (0-5); Hematocrit 34.9 % (37-47); Lymphocyte # 2.02 X10^3/ul (4.0); Lymphocyte % 32.1 % (19-41); Mean Corp Hgb Conc 31.5 g/gl (32-36); Mean Corpuscular Hgb 24.9 pg (27.0-32.0); Mean Platelet Vol. 11.5 fl (6.2-12.0); Monocyte# 0.36 X10^3/uL; Monocyte% 5.7 % (0-10); Neutrophil # 3.78 X10^3/uL (2.7-7.7); Neutrophil % 60.2 % (47-70); Platelet Count 265 K/mm3 (150-450); RBC Distribution Width SD 42.4 fl (35.1-43.9); Red Blood Count 4.42 M/mm3 (4.2-5.4); White Blood Count 6.3 K/mm3 (4.4-11.0)
[2018-08-29 17:38] LABS: POSITIVE COUNT NO; POSITIVE DIFFERENTIAL NO; POSITIVE MORPHOLOGY NO
[2018-08-29 18:03] LABS: Iron 40 ug/dL (50-170); T4 Free Direct 1.23 ng/dL (0.76-1.46); Thyroid Stim Hormone (TSH) 0.84 uIU/mL (0.358-3.74)
[2018-08-29 18:09] LABS: Vitamin D,25 Hydroxy 19.7 ng/mL (29.95-100.01)
== END ==
PROVIDERS: Family Provider Family Medicine; PCP Family Medicine; Visit Provider Family Medicine
DX: E03.9 Hypothyroidism, unspecified (principal); E55.9 Vitamin D deficiency, unspecified; D50.9 Iron deficiency anemia, unspecified
CPT/HCPCS: 36415; 82306; 83540; 84439; 84443; 85025

== ENCOUNTER → 2018-12-07 16:15 | Outpatient (CLI) | payer BC, SELFPAY ==
[2018-12-04 15:15] VITALS: BMI 34.9
--- NOTE | 2018-12-07 16:22 | RAD_ITS ---
STUDY: X-RAY - THORACIC SPINE REASON FOR EXAM: Female, 48 years old. Back pain. Lump. TECHNIQUE: 3 view(s) of the thoracic spine were obtained. COMPARISON: None. FINDINGS: Normal kyphosis of the thoracic spine. There is a mild dextroscoliosis with convexity T10. There is multilevel endplate spondylosis of the thoracic vertebrae. There is multilevel disc space narrowing of the thoracic spine. There is no evidence of acute fracture or loss of vertebral axial height. The soft tissue structures are unremarkable. RAD/Thoracic Spine 3 Views IMPRESSION: Degenerative changes of the thoracic spine without acute fracture or subluxation. Electronically Signed: Kaden Gay DO at 23:52 EST Tel [phone], Service support ,
--- NOTE | 2018-12-07 16:31 | MRI_ITS ---
HISTORY: painful lump on back marked with bead, c/o burning, numbness and tingling TECHNIQUE: Multiplanar and multisequence MR images of the lumbar spine. IV Contrast dosage and agent: 10 cc Gadavist. COMPARISON: CT abdomen pelvis 11/24/16. FINDINGS: # of images incl. paperwork: 189 No mass or other abnormality is evident adjacent to the marker on the skin to the right of midline posteriorly at the level of the L1 vertebral body. No abnormal enhancement. No fracture or abnormal signal in the vertebrae. Alignment anatomic. Conus medullaris terminates at the level of the L1 superior endplate with normal contour and signal. Disc height and signal preserved. Multilevel mild bilateral facet degeneration. No significant spinal canal or foraminal narrowing. No compression of the cauda equina or nerve roots. MRI/Spine Lumbar W/WO Contrast IMPRESSION: No acute or concerning findings. No etiology for the patient's symptoms identified. at 1953 Reported and signed by: Garret Beatty MD Electronically Signed: Garret Beatty, at 19:52 EST Tel , Service support ,
== END ==
LOC: MRI 16:17
PROVIDERS: Family Provider Family Medicine; PCP Family Medicine; Referring Provider Physician Assistant; Visit Provider Physician Assistant
DX: R20.0 Anesthesia of skin (principal); R20.2 Paresthesia of skin
CPT/HCPCS: 72072; 72158; A9585

== ENCOUNTER 2018-12-29 08:41 | Day surgery (SDC) | payer BC, SELFPAY ==
[2018-12-08 13:45] VITALS: BMI 34.9
[2018-12-29] VITALS (8 sets, daily range): BP systolic 93–139; BP diastolic 62–91; PULSE 65–77; RESP 16; TEMP 36.7–37.5; O2SAT 91–98; BMI 37.3
--- NOTE | 2018-12-29 11:00 | MASS_PTH ---
PATIENT: GARRISON BRANDON LOC: [facility] [place] U#:[id number] AGE/SX: 48/F ROOM: RE12/29/[address]: Dr. Ben Fitzpatrick MD : 1970 BED: DIS: 12/29/2018 SPEC #: [id number] RECD: 12/29/18 16:10 STATUS: CRIS SARA #: [id number] BRADLY: 12/29/18 11:[address]: Ben Fitzpatrick DEPT: SURGICAL PATHOLOGY RECD BY: Ulysses Nunes ENTERED: 01/01/19 12:58 SP TYPE: Mass OTHR DR: Dr. Giuliano Harris MD Tissues: Back, NOS Procedures: Surgery Specimen Level IV HEADER OPERATION: Excision mass lower back PRE-OP DIAGNOSIS: Subcutaneous mass right lower back TISSUE SUBMITTED: Subcutaneous mass right lower back MICROSCOPIC DIAGNOSIS Soft tissue mass of right lower back, excision: Mature adipose tissue consistent with lipoma. AM:anuradha 01/02/19 MICROSCOPIC DESCRIPTION Slides are reviewed. GROSS DESCRIPTION Received in fixative is one container labeled with the patient's name and designated subcutaneous mass of right lower back. The specimen consists of an irregular piece of adipose tissue measuring 4.5 x 2 x 2 cm. The external surface is inked. Sections reveal yellow adipose cut surfaces without areas of hemorrhage, necrosis or cystic degeneration. Laundry Route Driver sections are submitted in two cassettes. / SJ:anuradha 01/01/19 TC:1 CPT: 23812
[2018-12-29] MEDS: Bupivacaine Mpf 0.5% 30 ML VIAL (11:21)
--- NOTE | 2018-12-29 11:31 | PCM.OPRPT ---
Problem List (1) Lesion of subcutaneous tissue Status: Acute Report of Operation Date of Procedure: 12/29/18 Pre-Operative Diagnosis: 4 cm of subcutaneous tissue of right lower back Post-Operative Diagnosis: Same Surgery/Procedure Performed:: Excision of a 4 cm subcutaneous lesion of right deep back Type of Anesthesia:: Local MAC Anesthesiologist: Joe García Estimated Blood Loss (mL): < 5 cc Description of Procedure: Patient came into the operating room and placed in the prone position. Her right lower back area was sterilely prepped draped in usual fashion. Local was injected. A 6 cm incision was made. Dissection was carried down fatty lesion was taken out from the subcutaneous tissue all the way down to the deep external fascia of the lower back muscles. Electrocautery was used for good hemostasis. I injected local all around the cavity. Cavity was brought together with deep dermal stitches of 3-0 Vicryl. Running 4-0 Monocryl on the skin. Steri-Strips were applied. Sterile dressings were applied. The patient tolerated the procedure well. - Admit VTE Documentation VTE Present on Admission: No VTE Mechan Device Prophylaxis: SCD's VTE Pharm Prophylaxis ordered?: No Reason prophylaxis not ordered:: Treatment Not Indicated
--- NOTE | 2018-12-29 11:35 | DCINST_ITS ---
Discharge Diet: Light diet - advance as tolerated - If you have questions about your diet instructions, please talk to your doctor. Discharge Activity: May Not Drive - for 1 week or while taking narcotic pain medicine. May shower in (days): 1 Lifting Restrictions: 10 pounds Call your doctor if your incision/area has: Continuous Slow Oozing, Sudden Increased Bleeding, Increased Pain/ Swelling, Increased Redness, Foul Smelling Discharge Call your doctor if you observe: Fever of 101 or Higher Suture Line Care: Avoid Pulling/Pushing, Avoid Pinching/Bending Additional Dressing/Incision Instructions:: Change or remove dressing in 4 days. Leave steri-strips in place for 1 week. Allergies/Adverse Reactions: Allergies cefazolin [From Anc] Allergy (Verified 12/29/18 09:19) Hives codeine Allergy (Verified 12/29/18 09:19) Other Medications to take at Discharge Cyanocobalamin (Vitamin B-12) [Vitamin B-12] 3,000 mcg PO DAILY 11/24/16 Ergocalciferol [Vitamin D] 50,000 unit PO MOWEFR 11/24/16 levothyroxine 137 mcg capsule 137 mcg PO ONCE cap 10/04/17 Oxycodone HCl/Acetaminophen [Percocet 5/325] 1 - 2 tab PO Q4H PRN PRN 6 Days #30 tab 12/29/18 The following prescriptions were given: Oxycodone HCl/Acetaminophen [Percocet 5/325] 1 - 2 tab PO Q4H PRN PRN 6 Days #30 tab PRN Reason: Pain Primary Care Physician: Giuliano Harris MD [Primary Care Provider] - Test Results: Test results from this visit will be discussed in further detail at your follow- up appointment, if applicable. Please Follow Up With: Ben Fitzpatrick MD - [phone] When: Call to make an appointment to be seen in about 10 days.
== END 2018-12-29 13:10 | disposition home or self-care (01) ==
LOC: SDC 08:44 → AC 08:44
PROVIDERS: Family Provider Family Medicine; PCP Family Medicine; Referring Provider Surgery; Visit Provider Surgery
PROC: (CPT 11404; principal; 2018-12-29 10:45)
DX: L98.8 Other specified disorders of the skin and subcutaneous tissue (principal); D50.9 Iron deficiency anemia, unspecified; E03.9 Hypothyroidism, unspecified; E04.1 Nontoxic single thyroid nodule; Z79.899 Other long term (current) drug therapy
CPT/HCPCS: 11404; 12032; 88305; J7120; J2405

== ENCOUNTER → 2019-01-30 | Outpatient (CLI) | payer BC, SELFPAY ==
[2018-12-29 09:12] VITALS: BMI 37.3
[2019-01-30 15:23] LABS: Absolute Lymphocyte Count 1.58 X10^3/ul (0.83-4.51); Absolute Neutrophil Count 6.2 X10^3/uL (2.0-7.7); Basophil# 0.01 X10^3/uL; Basophil% 0.1 % (0-1); Eosinophil# 0.07 X10^3/uL; Eosinophils% 0.8 % (0-5); Hematocrit 38.6 % (37-47); Hemoglobin 12.3 g/dl (12.0-15.0); Lymphocyte # 1.58 X10^3/ul (4.0); Lymphocyte % 18.6 % (19-41); Mean Corp Hgb Conc 31.9 g/gl (32-36); Mean Corpuscular Hgb 24.9 pg (27.0-32.0); Mean Corpuscular Volume 78.1 fL (81-99); Mean Platelet Vol. 10.9 fl (6.2-12.0); Monocyte# 0.56 X10^3/uL; Monocyte% 6.6 % (0-10); Neutrophil # 6.24 X10^3/uL (2.7-7.7); Neutrophil % 73.4 % (47-70); Platelet Count 235 K/mm3 (150-450); RBC Distribution Width CV 14.9 % (11.6-14.6); Red Blood Count 4.94 M/mm3 (4.2-5.4); White Blood Count 8.5 K/mm3 (4.4-11.0)
[2019-01-30 15:30] LABS: POSITIVE COUNT NO; POSITIVE DIFFERENTIAL NO; POSITIVE MORPHOLOGY NO
[2019-01-30 15:42] LABS: Iron 49 ug/dL (50-170); T4 Free Direct 1.37 ng/dL (0.76-1.46); Thyroid Stim Hormone (TSH) 0.28 uIU/mL (0.358-3.74)
== END | disposition home or self-care (01) ==
LOC: LAB.FUTURE 11:32
PROVIDERS: Family Provider Family Medicine; PCP Family Medicine; Visit Provider Family Medicine
DX: E03.9 Hypothyroidism, unspecified (principal); E55.9 Vitamin D deficiency, unspecified; D50.9 Iron deficiency anemia, unspecified
CPT/HCPCS: 36415; 82306; 83540; 84439; 84443; 85025

== ENCOUNTER → 2019-02-13 | Outpatient (CLI) | payer BC, SELFPAY ==
[2018-12-29 09:12] VITALS: BMI 37.3
[2019-02-13 17:46] LABS: Follicle Stimulating Hormone 38.7 mIU/mL
[2019-02-20 10:07] LABS: HPV HC, High Risk Negative (Negative)
== END | disposition home or self-care (01) ==
LOC: WOBLAB 16:04
PROVIDERS: Visit Provider Obstetrics & Gynecology
DX: N92.5 Other specified irregular menstruation (principal); Z12.4 Encounter for screening for malignant neoplasm of cervix
CPT/HCPCS: 36415; 83001; 87624; 88175; G0145

== ENCOUNTER → 2019-03-08 | Outpatient (CLI) | payer BC, SELFPAY ==
[2018-12-29 09:12] VITALS: BMI 37.3
--- NOTE | 2019-03-08 16:31 | BI_ITS ---
MAMMOGRAPHY - BILATERAL SCREENING REASON FOR EXAM: Female, 48 years old. Routine annual screening examination. PERTINENT HISTORY: Non-contributory. TECHNIQUE: Digital bilateral breast zhao (3D mammographic acquisition) in the CC and MLO projections. 2-D mediolateral oblique (MLO) and craniocaudad (CC) views of both breasts were obtained. CAD: Full Field Digital Mammography with Computer Added Detection was performed. COMPARISON: Comparison is made with prior study dated September 06, 2017. FINDINGS: Breast Composition: The breasts are heterogeneously dense, which may obscure small masses. There are no dominant masses or suspicious calcifications. No other significant abnormalities are identified. There has been no significant change since the prior study. BI/SCREENING MAMM (CAD), BILAT IMPRESSION: Stable bilateral screening mammogram. Yearly follow-up mammogram recommended. (A) ASSESSMENT CATEGORY: BIRADS Category 1: Negative. A letter regarding these results will be sent to the patient by the facility within 30 days. Approximately 10% of breast cancers are not detected by mammography. A normal mammogram should not delay biopsy of a clinically suspicious abnormality. [id number] Electronically Signed: Donta Rainey, at 8:19 EDT , Service support ,
== END | disposition home or self-care (01) ==
LOC: OPBI 16:30
PROVIDERS: Family Provider Family Medicine; PCP Family Medicine; Referring Provider Obstetrics & Gynecology; Visit Provider Obstetrics & Gynecology
DX: Z12.31 Encounter for screening mammogram for malignant neoplasm of breast (principal)
CPT/HCPCS: 77063; 77067

== ENCOUNTER → 2019-03-19 | Outpatient (CLI) | payer BC, SELFPAY ==
[2018-12-29 09:12] VITALS: BMI 37.3
[2019-03-19 18:06] LABS: 24H Urine Creat. Total Vol. 2.75 L; 24HR. Urine Creatinine 1.89 g/24 HR (0.70-1.90)
== END | disposition home or self-care (01) ==
LOC: LAB.FUTURE 16:45
PROVIDERS: Family Provider Family Medicine; PCP Family Medicine; Referring Provider Internal Medicine Endocrinology, Diabetes & Metabolism; Visit Provider Internal Medicine Endocrinology, Diabetes & Metabolism
DX: E27.9 Disorder of adrenal gland, unspecified (principal)
CPT/HCPCS: 81050; 82530; 82570; 83497

== ENCOUNTER → 2019-04-27 | Outpatient (CLI) | payer OTHER, SELFPAY ==
[2018-12-29 09:12] VITALS: BMI 37.3
[2019-04-27 15:51] LABS: Absolute Lymphocyte Count 2.86 X10^3/uL (0.83-4.51); Absolute Neutrophil Count 7.9 X10^3/uL (2.0-7.7); Basophil# 0.05 X10^3/uL; Basophil% 0.4 % (0-1); Eosinophil# 0.13 X10^3/uL; Eosinophils% 1.1 % (0-5); Hematocrit 38.1 % (37-47); Hemoglobin 12.3 g/dL (12.0-15.0); Lymphocyte # 2.86 X10^3/ul (4.0); Mean Corp Hgb Conc 32.3 g/dL (32-36); Mean Corpuscular Hgb 25.4 pg (27.0-32.0); Mean Corpuscular Volume 78.7 fL (81-99); Mean Platelet Vol. 10.2 fl (6.2-12.0); Monocyte# 0.82 X10^3/uL; Monocyte% 6.9 % (0-10); NRBC Flagged by Analyzer 0 % (0-5); Neutrophil # 7.89 X10^3/uL (2.7-7.7); Neutrophil % 66.2 % (47-70); Platelet Count 268 K/mm3 (150-450); RBC Distribution Width CV 15.3 % (11.6-14.6); RBC Distribution Width SD 43.2 fl (35.1-43.9); Red Blood Count 4.84 M/mm3 (4.2-5.4); White Blood Count 11.9 K/mm3 (4.4-11.0)
[2019-04-27 16:31] LABS: Anion Gap 4 (5-15); BUN 14 mg/dL (7-18); BUN/Creat Ratio 15.7 RATIO (10-20); Calcium,Total 8.9 mg/dL (8.5-10.1); Chloride 102 mmol/L (98-107); Creatinine, Serum 0.89 mg/dL (0.55-1.02); EST Glomerular Filtration Rate 71 mL/min (>60); Est Glom Filt Rate - Afr Amer 86 mL/min (>60); Glucose 106 mg/dL (74-106); Iron 39 ug/dL (50-170); Potassium 3.9 mmol/L (3.5-5.1); Sodium Level 136 mmol/L (136-145); Vitamin B12 389 pg/mL (211-911); Vitamin D,25 Hydroxy 56.3 ng/mL (29.95-100.01)
== END | disposition home or self-care (01) ==
LOC: LAB 15:35
PROVIDERS: Family Provider Family Medicine; PCP Family Medicine; Referring Provider Internal Medicine Endocrinology, Diabetes & Metabolism; Visit Provider Internal Medicine Endocrinology, Diabetes & Metabolism
DX: E03.8 Other specified hypothyroidism (principal); E55.9 Vitamin D deficiency, unspecified; E61.1 Iron deficiency; D51.3 Other dietary vitamin B12 deficiency anemia
CPT/HCPCS: 36415; 80048; 82306; 82607; 83540; 84443; 85025

== ENCOUNTER → 2019-05-26 | Outpatient (CLI) | payer OTHER, SELFPAY ==
[2018-12-29 09:12] VITALS: BMI 37.3
[2019-05-26 08:50] LABS: Anion Gap 5 (5-15); BUN 8 mg/dL (7-18); BUN/Creat Ratio 9.9 RATIO (10-20); Chloride 107 mmol/L (98-107); Creatinine, Serum 0.81 mg/dL (0.55-1.02); EST Glomerular Filtration Rate 79 mL/min (>60); Est Glom Filt Rate - Afr Amer 96 mL/min (>60); Glucose 162 mg/dL (74-106); Potassium 4.2 mmol/L (3.5-5.1); Sodium Level 140 mmol/L (136-145)
[2019-05-28 09:30] LABS: PTHIN 78.7 pg/mL (18.4-80.1)
== END | disposition home or self-care (01) ==
LOC: LAB 07:49
PROVIDERS: Family Provider Family Medicine; PCP Family Medicine; Referring Provider Internal Medicine Endocrinology, Diabetes & Metabolism; Visit Provider Internal Medicine Endocrinology, Diabetes & Metabolism
DX: E03.8 Other specified hypothyroidism (principal); E21.5 Disorder of parathyroid gland, unspecified; E27.9 Disorder of adrenal gland, unspecified; E34.0 Carcinoid syndrome
CPT/HCPCS: 36415; 80048; 83970

== ENCOUNTER → 2019-05-28 | Outpatient (CLI) | payer OTHER, SELFPAY ==
[2018-12-29 09:12] VITALS: BMI 37.3
[2019-05-28 18:35] LABS: 24HR. Urine Creatinine 1.54 g/24 HR (0.70-1.90)
[2019-06-04 13:41] LABS: Cortisol, Free 24Ur 9 ug/24 hr (6-42); Cortisol, Urinary Free 4 ug/L (Undefined)
== END | disposition home or self-care (01) ==
PROVIDERS: Family Provider Family Medicine; PCP Family Medicine; Referring Provider Internal Medicine Endocrinology, Diabetes & Metabolism; Visit Provider Internal Medicine Endocrinology, Diabetes & Metabolism
DX: E03.8 Other specified hypothyroidism (principal); E34.0 Carcinoid syndrome; E21.5 Disorder of parathyroid gland, unspecified; E27.9 Disorder of adrenal gland, unspecified
CPT/HCPCS: 81050; 82530; 82570

== ENCOUNTER → 2019-07-30 | Outpatient (CLI) | payer OTHER, SELFPAY ==
[2018-12-29 09:12] VITALS: BMI 37.3
[2019-07-30 17:49] LABS: PTHIN 107.7 pg/mL (18.4-80.1)
[2019-07-30 17:50] LABS: Vitamin D,25 Hydroxy 31.6 ng/mL (29.95-100.01)
[2019-07-30 17:52] LABS: ALB/GLOB Ratio 1.1 RATIO (0.9-2.4); AST(SGOT) 63 U/L (15-37); Alanine Aminotransfer ALT/SGPT 91 U/L (13-56); Albumin, Serum 3.8 g/dL (3.2-5.0); Alkaline Phosphatase 86 U/L (45-117); Anion Gap 6 (5-15); BUN 12 mg/dL (7-18); BUN/Creat Ratio 16.7 RATIO (10-20); Calcium,Total 8.4 mg/dL (8.5-10.1); Chloride 105 mmol/L (98-107); Cholesterol 162 mg/dL (200); Creatinine, Serum 0.72 mg/dL (0.55-1.02); EST Glomerular Filtration Rate 91 mL/min (>60); Est Glom Filt Rate - Afr Amer 111 mL/min (>60); Globulin 3.5 g/dL (2.2-4.2); Glucose 81 mg/dL (74-106); High Density Lipoprotein 38 mg/dL; Potassium 3.9 mmol/L (3.5-5.1); Protein, Total 7.3 g/dL (6.4-8.2); Sodium Level 140 mmol/L (136-145); Thyroid Stim Hormone (TSH) 5.14 uIU/mL (0.358-3.74); Triglycerides 291 mg/dL; Very Low Density Lipoprotein 58 mg/dL (5-40)
== END | disposition home or self-care (01) ==
LOC: LAB 16:15
PROVIDERS: Family Provider Family Medicine; PCP Family Medicine; Referring Provider Nurse Practitioner Adult Health; Visit Provider Nurse Practitioner Adult Health
DX: E11.9 Type 2 diabetes mellitus without complications (principal); E78.2 Mixed hyperlipidemia; E55.9 Vitamin D deficiency, unspecified; E03.8 Other specified hypothyroidism
CPT/HCPCS: 36415; 80053; 80061; 82306; 83970; 84443

== ENCOUNTER → 2019-09-29 09:34 | Outpatient (CLI) | payer OTHER, SELFPAY ==
[2018-12-29 09:12] VITALS: BMI 37.3
[2019-09-29 10:34] LABS: ALB/GLOB Ratio 1.1 RATIO (0.9-2.4); AST(SGOT) 57 U/L (15-37); Alanine Aminotransfer ALT/SGPT 94 U/L (13-56); Albumin, Serum 4.1 g/dL (3.2-5.0); Alkaline Phosphatase 84 U/L (45-117); Anion Gap 3 (5-15); BUN 14 mg/dL (7-18); BUN/Creat Ratio 19.3 RATIO (10-20); Calcium,Total 9.5 mg/dL (8.5-10.1); Chloride 108 mmol/L (98-107); Creatinine, Serum 0.73 mg/dL (0.55-1.02); EST Glomerular Filtration Rate 90 mL/min (>60); Est Glom Filt Rate - Afr Amer 109 mL/min (>60); Globulin 3.7 g/dL (2.2-4.2); Glucose 109 mg/dL (74-106); Hemoglobin A1c 5.7 % (4.2-6.3); Potassium 4.2 mmol/L (3.5-5.1); Protein, Total 7.8 g/dL (6.4-8.2); Sodium Level 141 mmol/L (136-145)
[2019-10-01 09:32] LABS: Vitamin D,25 Hydroxy 54.6 ng/mL (29.95-100.01)
[2019-10-01 09:33] LABS: PTHIN 47.7 pg/mL (18.4-80.1)
== END ==
PROVIDERS: Family Provider Family Medicine; PCP Family Medicine; Referring Provider Internal Medicine Endocrinology, Diabetes & Metabolism; Visit Provider Internal Medicine Endocrinology, Diabetes & Metabolism
DX: E11.9 Type 2 diabetes mellitus without complications (principal); E55.9 Vitamin D deficiency, unspecified; E03.8 Other specified hypothyroidism
CPT/HCPCS: 36415; 80053; 82306; 83036; 83970; 84443

== ENCOUNTER 2020-01-10 22:08 | Emergency (ER) | payer OTHER, SELFPAY ==
[2018-12-29 09:12] VITALS: BMI 37.3
[2020-01-10 22:09] VITALS: BP 160/86; PULSE 90; RESP 16; TEMP 36.7; O2SAT 98; BMI 33.4
--- NOTE | 2020-01-10 22:42 | ED.VISSUMM ---
- ER Visit Summary Date of Service: 01/10/20 Chief Complaint: Atraumatic right lower leg calf pain History of Present Illness: The patient is a 49 F history of thyroid disease. Patient states for about 2 weeks she is developed atraumatic right calf pain. Denies any fall, trauma or injury. No prior history. She is never had a DVT or PE. She denies any recent travel surgery or immobilization. No chest pain or shortness of breath. Physical Examination: Middle-aged female no acute distress vital signs stable afebrile. Pulse ox 98% on room air no signs hypoxia. HEENT exam unremarkable. Lungs clear to auscultation. Heart regular rhythm no murmur. Abdomen soft nontender. Normal bowel sounds no peritoneal signs. Moving all 4 extremities. She does have tenderness to the posterior aspect of her right calf and also mild swelling. Right calf is slightly larger than the left. There is no pitting edema. Right foot is neurovascular intact with normal DP pulse. The thigh and inguinal region are nontender. There is no redness or streaks. There is no swelling above the knee. Neurologically she is awake and alert with no focal motor deficits. Test Results: Noninvasive study right lower extremity shows a 4 cm Hartley's cyst in the right calf. No DVT. Read by the radiologist. Emergency Department Course and Treatment: Patient has no history of trauma. Has pain and swelling in her right calf. DVT is in the differential and ultrasound is being obtained. Treatment Plan: Discussed test results with patient. Ice and elevate right calf. Motrin for pain. Follow-up. Disposition: Discharge Impression: Acute atraumatic right calf pain This note was generated with Droidhen dictation software. It may contain incorrect words, spelling, and punctuation that were not noted in review of the chart prior to signing ED Disposition - Plan for ED Patient: Referrals: Giuliano Harris MD [Primary Care Provider] -
--- NOTE | 2020-01-10 22:44 | US_ITS ---
STUDY: VENOUS DOPPLER ULTRASOUND - RIGHT LOWER EXTREMITY REASON FOR EXAM: Female, 49 years old. RT CALF PAIN MEDIAL X 2 WEEKS TECHNIQUE: Ultrasound evaluation of the deep vein system to include recinos-scale imaging and compression was performed. Recinos-scale imaging and Doppler sonographic evaluation, including duplex spectral analysis and qualitative color flow sonography, was performed. COMPARISON: None. FINDINGS: Common Femoral Vein: Normal compression, spontaneity and augmentation. Normal color Doppler. Common Femoral Vein/Greater Saphenous Junction: Normal compression, spontaneity and augmentation. Normal color Doppler. Deep Femoral Vein: Normal compression, spontaneity and augmentation. Normal color Doppler. Femoral Proximal: Normal compression, spontaneity and augmentation. Normal color Doppler. Femoral Middle: Normal compression, spontaneity and augmentation. Normal color Doppler. Femoral Distal: Normal compression, spontaneity and augmentation. Normal color Doppler. Popliteal Vein: Normal compression, spontaneity and augmentation. Normal color Doppler. Posterior Tibial Vein: Normal compression, spontaneity and augmentation. Normal color Doppler. Peroneal Vein: Normal compression, spontaneity and augmentation. Normal color Doppler. 4.4 cm Hartley cyst. US/Venous Duplex Imag/Limited/Uni IMPRESSION: No DVT is detected. 4.4 cm Hartley cyst. Electronically Signed: Shola Mitchell MD at 23:26 EDT Tel , Service support ,
--- NOTE | 2020-01-10 23:37 | ED.DEP ---
ED Disposition - Plan for ED Patient: Disposition: Home or Assisted Living Instructions: ED Cyst Hartley Referrals: Giuliano Harris MD [Primary Care Provider] - 1 Week Frankie Peres MD [STAFF PHYSICIAN] - 1 Week Additional Instructions: Ice and elevate right calf. Motrin for pain and swelling. Follow-up with either your primary care physician or an orthopedic physician. You have what is called a Hartley's cyst which is a fluid-filled area in your right calf. Typically these are resolved. Occasionally they need surgical intervention.
== END 2020-01-10 23:51 | disposition home or self-care (01) ==
PROVIDERS: Emergency Provider Emergency Medicine; PCP Family Medicine
DX: M71.21 Synovial cyst of popliteal space [Baker], right knee (principal)
CPT/HCPCS: 93971; 99282

== ENCOUNTER → 2020-02-01 | Outpatient (CLI) | payer OTHER, SELFPAY ==
[2020-01-10 22:09] VITALS: BMI 33.4
[2020-02-01 10:51] LABS: Hemoglobin A1c 5.7 % (4.2-6.3)
[2020-02-01 10:58] LABS: AST(SGOT) 26 U/L (15-37); Alanine Aminotransfer ALT/SGPT 47 U/L (13-56); Anion Gap 5 (5-15); BUN 13 mg/dL (7-18); BUN/Creat Ratio 18.8 RATIO (10-20); Calcium,Total 9.1 mg/dL (8.5-10.1); Chloride 102 mmol/L (98-107); Cholesterol 208 mg/dL (200); Creatinine, Serum 0.69 mg/dL (0.55-1.02); EST Glomerular Filtration Rate 95 mL/min (>60); Est Glom Filt Rate - Afr Amer 115 mL/min (>60); Glucose 95 mg/dL (74-106); High Density Lipoprotein 63 mg/dL; Potassium 4.2 mmol/L (3.5-5.1); Sodium Level 136 mmol/L (136-145); Triglycerides 200 mg/dL; Very Low Density Lipoprotein 40 mg/dL (5-40)
== END | disposition home or self-care (01) ==
LOC: LAB 09:45
PROVIDERS: PCP Family Medicine; Referring Provider Internal Medicine Endocrinology, Diabetes & Metabolism; Visit Provider Internal Medicine Endocrinology, Diabetes & Metabolism
DX: E11.9 Type 2 diabetes mellitus without complications (principal); E78.2 Mixed hyperlipidemia; Z79.84 Long term (current) use of oral hypoglycemic drugs
CPT/HCPCS: 36415; 80048; 80061; 83036; 84450; 84460

== ENCOUNTER → 2020-06-27 | Outpatient (CLI) | payer BC, SELFPAY ==
[2020-06-27 09:11] LABS: PTHIN 99.1 pg/mL (18.4-80.1)
[2020-06-27 09:16] LABS: Hemoglobin A1c 5.2 % (3.8-5.6)
[2020-06-27 09:26] LABS: AST(SGOT) 19 U/L (15-37); Alanine Aminotransfer ALT/SGPT 30 U/L (13-56); Anion Gap 4 (5-15); BUN 15 mg/dL (7-18); BUN/Creat Ratio 22.1 RATIO (10-20); Calcium,Total 8.9 mg/dL (8.5-10.1); Chloride 108 mmol/L (98-107); Creatinine, Serum 0.68 mg/dL (0.55-1.02); EST Glomerular Filtration Rate 97 mL/min (>60); Est Glom Filt Rate - Afr Amer 117 mL/min (>60); Glucose 102 mg/dL (74-106); Potassium 4.1 mmol/L (3.5-5.1); Sodium Level 141 mmol/L (136-145); Thyroid Stim Hormone (TSH) 2.83 uIU/mL (0.358-3.74)
== END | disposition home or self-care (01) ==
LOC: LAB 07:27
PROVIDERS: PCP Family Medicine; Referring Provider Internal Medicine Endocrinology, Diabetes & Metabolism; Visit Provider Internal Medicine Endocrinology, Diabetes & Metabolism
DX: E03.8 Other specified hypothyroidism (principal); E11.9 Type 2 diabetes mellitus without complications; E21.1 Secondary hyperparathyroidism, not elsewhere classified; E55.9 Vitamin D deficiency, unspecified
CPT/HCPCS: 36415; 80048; 82306; 83036; 83970; 84443; 84450; 84460

== ENCOUNTER 2020-07-06 14:26 | Emergency (ER) | payer BC, SELFPAY ==
[2020-07-06 14:28] VITALS: BP 140/92; PULSE 97; RESP 18; TEMP 36.6; O2SAT 97; BMI 31.8
--- NOTE | 2020-07-06 14:37 | ED.VIS.UPPEX ---
History of Present Illness Informant: Patient Occurred: Today Mechanism/Context: Incised Onset: Today Context: Sudden Onset Timing: Continuous Quality of Pain: Throbbing Location: Left ring finger Current Severity: Moderate Maximum Severity: Moderate Worsened by: Movement Relieved by: Nothing Associated Symptoms: Negative for: Parasthesia, Weakness, Loss of Funtion Narrative: 50-year-old [id number] female presents to the emergency department with a laceration to her left ring finger. This occurred just prior to arrival with a molding line operator. Unable to get bleeding stopped at home. She is not on a blood thinner. Denies numbness tingling or weakness. She denies any other injuries. Unknown last tetanus immunization. Tetanus Immunization: Unknown Prior similar symptoms: No Recent Illness/Hospitalization: No <Viral Moore - Last Filed: 07/06/20 15:02> <Christopher Rivas - Last Filed: 07/06/20 15:11> Chief Complaint: Laceration Past Medical History Prior records reviewed: Yes Past Medical History: - - Iron deficiency anemia and hypothyroidism Surgical History: tonsillectomy, - - Lives: With Family Smoking Status: Never smoker Alcohol: Occasional Drugs: None - Family History Maternal Family History: Family History (Last Reviewed 01/08/19 @ 08:19 by Susan Chilel) Father Heart disease Diabetes Mother COPD (chronic obstructive pulmonary disease) Family History: Reports: No pertinent history <Viral Moore - Last Filed: 07/06/20 15:02> - Family History Maternal Family History: Family History (Last Reviewed 01/08/19 @ 08:19 by Susan Chilel) Father Heart disease Diabetes Mother COPD (chronic obstructive pulmonary disease) <Christopher Rivas - Last Filed: 07/06/20 15:11> - Allergies and Home Meds Allergies/Adverse Reactions: Allergies cefazolin [From Anc] Allergy (Verified 07/06/20 14:30) Hives codeine Allergy (Verified 07/06/20 14:30) Other Primary Care Physician: Giuliano Harris MD [Primary Care Provider] - Review of Systems All systems negative except as indicated General: Denies: Chills, Fever, Sweats Eyes: Denies: Visual changes - bilaterally, Diplopia ENT: Denies: Rhinorrhea, Sore throat Cardiovascular: Denies: Chest pain, Palpitations Respiratory: Denies: Dyspnea, Cough, Dyspnea on exertion Gastrointestinal: Denies: Abdominal pain, Nausea, Vomiting, Diarrhea, Melena, Hematochezia Genitourinary: Denies: Dysuria, Hematuria, Frequency Musculoskeletal: Reports: Extremity Pain. Denies: Back pain, Swelling Skin: Reports: Wounds. Denies: Rash, Abscess, Abrasions Neurological: Denies: Headache, Weakness, Parasthesia, Numbness <Viral Moore - Last Filed: 07/06/20 15:02> Physical Exam Vital Signs/Narrative: Vital Signs Temp Pulse Resp BP Pulse Ox 07/06/20 14:28 97.8 F 97 18 140/92 H 97 Inital Vital Signs reviewed: Yes Left Hand: - - Patient has a skin a avulsion left ring finger distal fingertip that is superficial but it did also remove the very distal medial aspect of the fingernail. There is mild active bleeding. She has normal sensation throughout her left ring finger. Her capillary refill is normal. Her two-point discrimination was normal. She has full active flexion and extension at the MCP, PIP and DIP joint of the left ring finger. There are no other injuries noted of the left hand. Her radial pulse was normal General: Well nourished, Well developed Head: Normocephalic, Atraumatic Eyes: Perrl, EOMI ENT: No Trauma, Moist Mucous Membranes Neck: Nontender, Full ROM Cardiovascular: Regular rate, Regular rhythm, No murmurs Respiratory: No distress, CTA bilaterally, Chest nontender Abdomen: Soft, Nontender, Nondistended, Normal bowel sounds Back: Nontender Skin: Normal color, No rash Neurological: Alert, Oriented x3, Cranial nerves II-XII grossly intact, Normal Strength, Normal Sensation Psychological: Normal affect <Viral Moore - Last Filed: 07/06/20 15:02> Vital Signs/Narrative: Vital Signs Temp Pulse Resp BP Pulse Ox 07/06/20 14:28 97.8 F 97 18 140/92 H 97 <Christopher Rivas - Last Filed: 07/06/20 15:11> Diagnostic/Tx/Re-eval - Medical Decision Making Patient's tetanus was updated. Patient has a avulsion of her fingertip and it did avulsed part of the nail. There is no evidence of laceration that would require repair. I held pressure for about 5 or 10 minutes and the bleeding slowed down significantly. I then applied Gelfoam and a pressure dressing. Discussed with patient elevation and proper wound care signs of infection to monitor for and the importance of close follow-up with her primary care physician. <Viral Moore - Last Filed: 07/06/20 15:02> - Medical Decision Making Patient was seen with me. I did a [id number] examination with the patient. Patient presents with a laceration to her left ring finger that occurred today. Patient was using a molding line operator when it slipped and she cut her left ring finger. Patient is unsure of her last tetanus. Patient states the bleeding has been persistent. Patient denies any paresthesias or weakness. Vital signs are stable. Patient is afebrile. Patient is in no acute distress. Skin is warm and dry. There is a 1 cm diameter avulsion laceration with loss of tissue over the tip of the left ring finger on the radial aspect. There is mild bleeding noted. There are no foreign bodies noted. Sensation was intact light touch in all digits. Capillary refill is less than 2 seconds in all digits. There is full range of motion of the PIP, DIP, and MP joints of the left ring finger. Patient was given a tetanus booster. The wound was cleaned. Gelfoam dressing was applied. Patient was instructed to keep the finger elevated. Patient was instructed to follow-up with her primary care physician in 5 to 7 days. Patient understood and was agreeable with the plan. All questions were answered. <Christopher Rivas - Last Filed: 07/06/20 15:11> ED Disposition <Viral Moore - Last Filed: 07/06/20 15:02> <Christopher Rivas - Last Filed: 07/06/20 15:11> - Plan for ED Patient: Disposition: Home or Assisted Living Diagnosis: Fingertip avulsion, nail avulsion ring finger Instructions: ED AVULSION LACERATION Referrals: Giuliano Harris MD [Primary Care Provider] -
[2020-07-06] MEDS: Diphth,Pertuss(Acell),Tet Vac 0.5 ML Vial IM (14:56)
[2020-07-06] MEDS: Gelfoam 12-7 MM Sponge (1) 1 EACH TP (14:57)
== END 2020-07-06 15:54 | disposition home or self-care (01) ==
LOC: ED 15:05
PROVIDERS: Emergency Provider Physician Assistant Medical; PCP Family Medicine
DX: S61.315A Laceration without foreign body of left ring finger with damage to nail, initial encounter (principal); E03.9 Hypothyroidism, unspecified; D50.9 Iron deficiency anemia, unspecified; Z79.899 Other long term (current) drug therapy; Z23 Encounter for immunization; W27.4XXA Contact with kitchen utensil, initial encounter; Y93.9 Activity, unspecified; Y92.000 Kitchen of unspecified non-institutional (private) residence as the place of occurrence of the external cause; Y99.8 Other external cause status
CPT/HCPCS: 90471; 90715; 99283

== ENCOUNTER → 2020-07-25 | Outpatient (CLI) | payer BC, SELFPAY ==
[2020-07-06 14:28] VITALS: BMI 31.8
[2020-07-25 10:43] LABS: Anion Gap 3 (5-15); BUN 18 mg/dL (7-18); BUN/Creat Ratio 25.1 RATIO (10-20); Calcium,Total 8.9 mg/dL (8.5-10.1); Chloride 110 mmol/L (98-107); Creatinine, Serum 0.72 mg/dL (0.55-1.02); EST Glomerular Filtration Rate 91 mL/min (>60); Est Glom Filt Rate - Afr Amer 110 mL/min (>60); Glucose 90 mg/dL (74-106); Potassium 4.2 mmol/L (3.5-5.1); Sodium Level 141 mmol/L (136-145)
== END | disposition home or self-care (01) ==
PROVIDERS: PCP Family Medicine; Referring Provider Internal Medicine Endocrinology, Diabetes & Metabolism; Visit Provider Internal Medicine Endocrinology, Diabetes & Metabolism
DX: E11.9 Type 2 diabetes mellitus without complications (principal)
CPT/HCPCS: 36415; 80048

== ENCOUNTER 2020-08-06 23:33 | Emergency (ER) | payer BC, SELFPAY ==
[2020-08-06 23:34] VITALS: BP 158/90; PULSE 94; RESP 15; O2SAT 98
[2020-08-06 23:35] VITALS: BP 158/90; PULSE 92; RESP 17; TEMP 36.7; O2SAT 99; BMI 30.3
--- NOTE | 2020-08-06 23:36 | ED.RN ---
pt evens Arroyo phone number [phone] for pt updates.
--- NOTE | 2020-08-06 23:37 | ED.DCSUM_ITS ---
History of Present Illness Chief Complaint: Allergic Reaction Informant: Patient Onset: Today Context: Sudden Onset Timing: Continuous Current Severity: Mild Maximum Severity: Severe Narrative: The patient is a 50-year-old female who presents to the emergency department with allergic reaction. Patient states that she was in her home. She states that she opened her screen door to be fell onto her right thumb. She was stung. Within 6 minutes, she began to feel short of breath and lightheaded. She was also nauseated. On squad arrival, she was hypoxic and hypotensive. She was given IM epi with almost immediate symptomatic improvement. On arrival, the patient states she is feeling markedly improved. She did receive Zofran and 25 mg of Benadryl in route. Patient states she is never had to use an EpiPen before. 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 She is otherwise been in her normal state of h ealth. Prior similar symptoms: No Recent Illness/Hospitalization: No Past Medical History - Allergies and Home Meds Allergies/Adverse Reactions: Allergies bee venom protein (honey bee) Allergy (Verified 08/06/20 23:35) Anaphylaxis cefazolin [From Ancef] Allergy (Verified 08/06/20 23:35) Hives codeine Allergy (Verified 08/06/20 23:35) Other Primary Care Physician: Giuliano Harris MD [Primary Care Provider] - Prior records reviewed: Yes Past Medical History: - - Raissa's Surgical History: tonsillectomy, - - Smoking Status: Never smoker - Family History Maternal Family History: Family History (Last Reviewed 01/08/19 @ 08:19 by Susan Chilel) Father Heart disease Diabetes Mother COPD (chronic obstructive pulmonary disease) Family History: Reports: No pertinent history Review of Systems General: Denies: Chills, Fever, Sweats Eyes: Denies: Visual changes - bilaterally, Diplopia ENT: Denies: Rhinorrhea, Sore throat Cardiovascular: Denies: Chest pain, Palpitations Respiratory: Reports: Cough. Denies: Dyspnea, Dyspnea on exertion Gastrointestinal: Reports: Nausea. Denies: Abdominal pain, Vomiting, Diarrhea, Melena, Hematochezia Genitourinary: Denies: Dysuria, Hematuria, Frequency Musculoskeletal: Denies: Back pain, Extremity Pain Skin: Denies: Rash, Wounds Neurological: Denies: Headache, Weakness, Numbness Physical Exam Inital Vital Signs reviewed: Yes General: Well nourished, Well developed, No Acute Distress Head: Normocephalic, Atraumatic Eyes: Perrl, EOMI ENT: Moist mucous membranes, No rhinorrhea Neck: Supple, Nontender Cardiovascular: Regular rate, Regular rhythm, No murmurs Respiratory: No distress, CTA bilaterally, Chest nontender Abdomen: Soft, Nontender, Nondistended, Normal bowel sounds Back: Nontender, Normal Inspection Extremities: Nontender, No edema Skin: Normal color, No rash Neurological: Alert, Oriented x3, Cranial nerves II-XII grossly intact, Normal Strength, Normal Sensation Psychological: Normal affect, Normal Mood Diagnostic/Tx/Re-eval - Medical Decision Making The patient presents with allergic reaction to bee sting. She did receive epinephrine in route. On arrival, she is feeling markedly improved. Patient was given Benadryl, Solu-Medrol, and Pepcid. As she did receive epi, plan will be for 4-hour observation. The patient has been frequently reevaluated and is resting comfortably. At the 2-hour eunice, she has no evidence of rebound anaphylaxis. We will continue to observe the patient. If she continues to do well, the patient will be discharged with an EpiPen and a continued prednisone burst. She is comfortable with this plan of care. Impression 1. 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
[2020-08-06] MEDS: DiphenhydrAMINE 50 MG/ML Syringe 25 MG IV (23:45)
[2020-08-06] MEDS: MethylPREDNISolone 125 MG/2 ML Vial IV (23:45)
[2020-08-06] MEDS: 0.9% Normal Saline 1,000 ML 1000 ML IV (23:45)
[2020-08-06] MEDS: Famotidine 200 MG/20 ML MDV 20 MG in 0.9% Normal Saline (Pres. free 8 ML 300 MG IV (23:50)
[2020-08-07 00:34] VITALS: BP 130/75; PULSE 85; RESP 14; O2SAT 96
[2020-08-07 01:00] VITALS: BP 123/82; PULSE 85; RESP 16; O2SAT 99
[2020-08-07 02:11] VITALS: BP 131/77; PULSE 73; RESP 17; O2SAT 95
== END 2020-08-07 03:04 | disposition home or self-care (01) ==
PROVIDERS: Emergency Provider Emergency Medicine; PCP Family Medicine
DX: T63.441A Toxic effect of venom of bees, accidental (unintentional), initial encounter (principal); T78.2XXA Anaphylactic shock, unspecified, initial encounter
CPT/HCPCS: 96361; 96374; 96375; 99285; J7030; J3490

== ENCOUNTER → 2020-08-11 17:32 | Outpatient (CLI) | payer BC, SELFPAY ==
[2020-08-06 23:35] VITALS: BMI 30.3
== END ==
PROVIDERS: PCP Family Medicine; Referring Provider Physician Assistant; Visit Provider Physician Assistant
DX: Z11.59 Encounter for screening for other viral diseases (principal)
CPT/HCPCS: 87635; C9803; U0003

== ENCOUNTER → 2020-09-30 06:52 | Outpatient (CLI) | payer BC, SELFPAY ==
[2020-09-30 07:45] LABS: AST(SGOT) 15 U/L (15-37); Alanine Aminotransfer ALT/SGPT 22 U/L (13-56); Anion Gap 6 (5-15); BUN 14 mg/dL (7-18); Calcium,Total 9.3 mg/dL (8.5-10.1); Chloride 104 mmol/L (98-107); Creatinine, Serum 0.56 mg/dL (0.55-1.02); EST Glomerular Filtration Rate 121 mL/min (>60); Est Glom Filt Rate - Afr Amer 146 mL/min (>60); Glucose 100 mg/dL (74-106); Potassium 4.4 mmol/L (3.5-5.1); Sodium Level 139 mmol/L (136-145); Thyroid Stim Hormone (TSH) 0.11 uIU/mL (0.358-3.74)
[2020-09-30 09:27] LABS: PTHIN 52.9 pg/mL (18.4-80.1)
== END ==
PROVIDERS: PCP Family Medicine; Referring Provider Internal Medicine Endocrinology, Diabetes & Metabolism; Visit Provider Internal Medicine Endocrinology, Diabetes & Metabolism
DX: E11.9 Type 2 diabetes mellitus without complications (principal); E04.2 Nontoxic multinodular goiter; E21.1 Secondary hyperparathyroidism, not elsewhere classified
CPT/HCPCS: 36415; 80048; 83970; 84443; 84450; 84460

== ENCOUNTER → 2020-12-05 06:49 | Outpatient (CLI) | payer OTHER, SELFPAY ==
[2020-12-05 08:30] LABS: Thyroid Stim Hormone (TSH) 0.33 uIU/mL (0.358-3.74)
== END ==
PROVIDERS: PCP Family Medicine; Referring Provider Internal Medicine Endocrinology, Diabetes & Metabolism; Visit Provider Internal Medicine Endocrinology, Diabetes & Metabolism
DX: E11.9 Type 2 diabetes mellitus without complications (principal)
CPT/HCPCS: 36415; 84443

== ENCOUNTER → 2021-01-31 08:33 | Outpatient (CLI) | payer OTHER, SELFPAY ==
[2021-01-31 10:09] LABS: Hemoglobin A1c 5.5 % (3.8-5.6)
[2021-01-31 10:32] LABS: AST(SGOT) 21 U/L (15-37); Alanine Aminotransfer ALT/SGPT 31 U/L (13-56); Anion Gap 5 (5-15); BUN 17 mg/dL (7-18); BUN/Creat Ratio 27.4 RATIO (10-20); Calcium,Total 8.8 mg/dL (8.5-10.1); Chloride 104 mmol/L (98-107); Cholesterol 207 mg/dL (200); Creatinine, Serum 0.62 mg/dL (0.55-1.02); EST Glomerular Filtration Rate 108 mL/min (>60); Est Glom Filt Rate - Afr Amer 130 mL/min (>60); Glucose 104 mg/dL (74-106); High Density Lipoprotein 58 mg/dL; Potassium 4.1 mmol/L (3.5-5.1); Sodium Level 138 mmol/L (136-145); Thyroid Stim Hormone (TSH) 2.17 uIU/mL (0.358-3.74); Triglycerides 149 mg/dL; Very Low Density Lipoprotein 30 mg/dL (5-40)
[2021-02-02 08:49] LABS: PTHIN 70.6 pg/mL (18.4-80.1)
[2021-02-02 08:51] LABS: Vitamin D,25 Hydroxy 60.3 ng/mL
== END ==
PROVIDERS: PCP Family Medicine; Referring Provider Internal Medicine Endocrinology, Diabetes & Metabolism; Visit Provider Internal Medicine Endocrinology, Diabetes & Metabolism
DX: E11.9 Type 2 diabetes mellitus without complications (principal); E03.8 Other specified hypothyroidism; E78.2 Mixed hyperlipidemia; E21.1 Secondary hyperparathyroidism, not elsewhere classified; E55.9 Vitamin D deficiency, unspecified
CPT/HCPCS: 36415; 80048; 80061; 82306; 83036; 83970; 84443; 84450; 84460

== ENCOUNTER → 2021-02-13 13:28 | Outpatient (CLI) | payer OTHER, SELFPAY ==
--- NOTE | 2021-02-13 13:31 | BI_ITS ---
MAMMOGRAPHY - BILATERAL SCREENING REASON FOR EXAM: Female, 50 years old. Routine annual screening examination. PERTINENT HISTORY: Non-contributory. TECHNIQUE: Digital bilateral breast kate (3D mammographic acquisition) in the CC and MLO projections. 2-D mediolateral oblique (MLO) and craniocaudad (CC) views of both breasts were obtained. CAD: Full Field Digital Mammography with Computer Added Detection was performed. COMPARISON: Comparison is made with prior study dated 03/08/2019 and 09/06/2017. FINDINGS: Breast Composition: The breasts are heterogeneously dense, which may obscure small masses. There are no dominant masses or suspicious calcifications. No other significant abnormalities are identified. There has been no significant change since the prior study. BI/SCRN MAMM (CAD)W/KATE BILAT IMPRESSION: Stable bilateral screening mammogram. Yearly follow-up mammogram recommended. (A) ASSESSMENT CATEGORY: BIRADS Category 1: Negative. A letter regarding these results will be sent to the patient by the facility within 30 days. Approximately 10% of breast cancers are not detected by mammography. A normal mammogram should not delay biopsy of a clinically suspicious abnormality. [id number] Electronically Signed: Donta Rainey MD at 14:20 EDT , Service support ,
== END ==
PROVIDERS: PCP Family Medicine; Referring Provider Obstetrics & Gynecology; Visit Provider Obstetrics & Gynecology
DX: Z01.419 Encounter for gynecological examination (general) (routine) without abnormal findings (principal); Z12.31 Encounter for screening mammogram for malignant neoplasm of breast
CPT/HCPCS: 77063; 77067

== ENCOUNTER → 2021-07-01 12:44 | Outpatient (CLI) | payer OTHER, SELFPAY ==
--- NOTE | 2021-07-01 12:50 | STEWCON_ITS ---
Reason For Study: Chest Pain; Dyspnea; Palpitations Stress Results Protocol: Scotty Protocol WITH DEFINITY Maximum Predicted HR: 168 bpm Target HR: 143 bpm % Maximum Predicted HR: 103 % DurationHeart Rate Stage (mm:ss) (bpm) BP Comment Baseline 76 122/78No Chest Pain; 4 ML Diluted Definity Scotty Protocol Stage I 3:00 123 142/70No Chest Pain Scotty Protocol Stage II 3:00 136 158/66No Chest Pain; Mild Dyspnea Scotty Protocol Stage III 3:00 141 160/68Chest Bubbles; Mild Dyspnea Scotty Protocol Stage IV 0:30 173 / Chest Bubbles; Moderate Dyspnea Recovery 100 126/70No Chest Pain; No Dyspnea Stress Duration: 9:30 mm:ss Maximum Stress HR: 173 bpm METS: 11 Baseline Echocardiogram Findings Stress Echo Wall motion Data Resting WM Intermediate WM Stress WM ECHO/Stress Test Echo W/Contrast Interpretation Summary Exercise stress echocardiogram. Resting EKG demonstrates normal sinus rhythm with a rate of 76 bpm normal inter vals are noted resting blood pressure is 122/78 mmHg. The patient exercised according to regul ar Scotty protocol for a total duration of 9 minutes and 30 seconds. Patient completed 30 seconds into stage IV of the Scotty protocol. The maximum heart rate attained was 173 bpm which was 102% of m aximum. Heart rate the maximum workload was 11.6 metabolic equivalents. At rest there were no ST o r T wave changes noted to suggest ischemia and at peak exercise nonspecific ST changes were note d with did not meet the criteria for ischemia. Test was terminated due to the target heart rate poli ng achieved. The peak blood pressure was 160/68 mmHg which is a normal blood pressure response to exe rcise. Rate-pressure product was 22,560. Stress echocardiogram demonstrated preserved ejection fraction at rest with an estimated ejection fraction of 55%. Definity was used to enhance image. The patient exercised and at peak exercise Definity enhanced images were obtained with reduction in low ventricular cavity size and peaking of ejection fraction of approximately 65%. No wall motion abnormalities were noted . The patient experienced moderate dyspnea at peak exercise. Conclusion: Normal exercise stress echocardiogram with no EKG or echocardiographic criteria for ischemia at a high workload Ordering Physician: Giuliano Harris Referring Physician: Kedar Mo Performed By: Atul Patel RCS
== END ==
PROVIDERS: PCP Family Medicine; Referring Provider Family Medicine; Visit Provider Family Medicine
DX: R07.89 Other chest pain (principal); R00.2 Palpitations; Z82.49 Family history of ischemic heart disease and other diseases of the circulatory system
CPT/HCPCS: 93017; 93350; Q9957; A4216; C8928; J3490

== ENCOUNTER → 2021-08-08 10:10 | Outpatient (CLI) | payer OTHER, SELFPAY ==
[2021-08-08 11:17] LABS: AST(SGOT) 37 U/L (15-37); Alanine Aminotransfer ALT/SGPT 54 U/L (13-56); Anion Gap 8 (5-15); BUN 14 mg/dL (7-18); BUN/Creat Ratio 17.9 RATIO (10-20); Calcium,Total 8.7 mg/dL (8.5-10.1); Chloride 104 mmol/L (98-107); Creatinine, Serum 0.78 mg/dL (0.55-1.02); EST Glomerular Filtration Rate 82 mL/min (>60); Est Glom Filt Rate - Afr Amer 100 mL/min (>60); Glucose 123 mg/dL (74-106); Sodium Level 138 mmol/L (136-145); Thyroid Stim Hormone (TSH) 0.79 uIU/mL (0.358-3.74)
[2021-08-10 10:36] LABS: PTHIN 66.8 pg/mL (18.4-80.1)
[2021-08-10 10:37] LABS: Vitamin D,25 Hydroxy 44.5 ng/mL
== END ==
PROVIDERS: PCP Family Medicine; Referring Provider Internal Medicine Endocrinology, Diabetes & Metabolism; Visit Provider Internal Medicine Endocrinology, Diabetes & Metabolism
DX: E11.9 Type 2 diabetes mellitus without complications (principal); E03.8 Other specified hypothyroidism; E21.1 Secondary hyperparathyroidism, not elsewhere classified; E55.9 Vitamin D deficiency, unspecified
CPT/HCPCS: 36415; 80048; 82306; 83970; 84443; 84450; 84460

== ENCOUNTER 2021-12-11 07:06 | Outpatient (CLI) | payer OTHER, SELFPAY ==
[2021-12-11 07:48] LABS: Hemoglobin A1c 5.7 % (3.8-5.6)
[2021-12-11 07:54] LABS: AST(SGOT) 29 U/L (15-37); Alanine Aminotransfer ALT/SGPT 55 U/L (13-56); Anion Gap 3 (5-15); BUN 18 mg/dL (7-18); BUN/Creat Ratio 28.6 RATIO (10-20); Chloride 107 mmol/L (98-107); Cholesterol 191 mg/dL (200); Creatinine, Serum 0.63 mg/dL (0.55-1.02); EST Glomerular Filtration Rate 105 mL/min (>60); Est Glom Filt Rate - Afr Amer 127 mL/min (>60); Glucose 121 mg/dL (74-106); High Density Lipoprotein 49 mg/dL; Potassium 4.1 mmol/L (3.5-5.1); Sodium Level 140 mmol/L (136-145); Thyroid Stim Hormone (TSH) 2.54 uIU/mL (0.358-3.74); Triglycerides 129 mg/dL; Very Low Density Lipoprotein 26 mg/dL (5-40)
[2021-12-11 07:56] LABS: Microalbumin,Random Urine 9.5 mg/L (NO RANGE EST.); Microalbumin:Creatinine Ratio 9.2 mg/g CRE (<30 mg/g CRE)
== END 2021-12-11 23:59 | disposition home or self-care (01) ==
LOC: LAB 07:08
PROVIDERS: PCP Family Medicine; Referring Provider Internal Medicine Endocrinology, Diabetes & Metabolism; Visit Provider Internal Medicine Endocrinology, Diabetes & Metabolism
DX: E11.9 Type 2 diabetes mellitus without complications (principal); E04.2 Nontoxic multinodular goiter; E78.2 Mixed hyperlipidemia
CPT/HCPCS: 36415; 80048; 80061; 82043; 82570; 83036; 84443; 84450; 84460

== ENCOUNTER → 2022-04-16 | Outpatient (CLI) | payer OTHER, SELFPAY ==
--- NOTE | 2022-04-16 08:08 | BI_ITS ---
MAMMOGRAPHY - BILATERAL SCREENING REASON FOR EXAM: Female, 52 years old. Routine annual screening examination. PERTINENT HISTORY: Non-contributory. TECHNIQUE: Digital bilateral breast kate (3D mammographic acquisition) in the CC and MLO projections. 2-D mediolateral oblique (MLO) and craniocaudad (CC) views of both breasts were obtained. CAD: Full Field Digital Mammography with Computer Added Detection was performed. COMPARISON: Comparison is made with prior study dated 02/13/2021 and 03/08/2019. FINDINGS: Breast Composition: The breasts are heterogeneously dense, which may obscure small masses. There are no dominant masses or suspicious calcifications. No other significant abnormalities are identified. There has been no significant change since the prior study. BI/SCRN MAMM (CAD)W/KATE BILAT IMPRESSION: Stable bilateral screening mammogram. Yearly follow-up mammogram recommended. (A) ASSESSMENT CATEGORY: BIRADS Category 1: Negative. A letter regarding these results will be sent to the patient by the facility within 30 days. Approximately 10% of breast cancers are not detected by mammography. A normal mammogram should not delay biopsy of a clinically suspicious abnormality. [id number] Electronically Signed: Donta Rainey MD at 9:00 EDT ,
[2022-04-16 08:58] LABS: Hemoglobin A1c 5.8 % (3.8-5.6)
[2022-04-16 09:11] LABS: Vitamin D,25 Hydroxy 36.5 ng/mL
[2022-04-16 09:33] LABS: AST(SGOT) 32 U/L (15-37); Alanine Aminotransfer ALT/SGPT 47 U/L (13-56); Anion Gap 3 (5-15); BUN 16 mg/dL (7-18); BUN/Creat Ratio 25.6 RATIO (10-20); Chloride 109 mmol/L (98-107); Cholesterol 186 mg/dL (200); Creatinine, Serum 0.62 mg/dL (0.55-1.02); EST Glomerular Filtration Rate 106 mL/min (>60); Est Glom Filt Rate - Afr Amer 128 mL/min (>60); Glucose 113 mg/dL (74-106); High Density Lipoprotein 50 mg/dL; Potassium 3.9 mmol/L (3.5-5.1); Sodium Level 139 mmol/L (136-145); Triglycerides 136 mg/dL; Very Low Density Lipoprotein 27 mg/dL (5-40)
[2022-04-17 08:49] LABS: PTHIN 76.5 pg/mL (18.4-80.1)
== END | disposition home or self-care (01) ==
LOC: OPBI 08:07
PROVIDERS: PCP Family Medicine; Referring Provider Obstetrics & Gynecology; Visit Provider Obstetrics & Gynecology
DX: Z12.31 Encounter for screening mammogram for malignant neoplasm of breast (principal); E21.1 Secondary hyperparathyroidism, not elsewhere classified; E11.9 Type 2 diabetes mellitus without complications; E78.2 Mixed hyperlipidemia; E55.9 Vitamin D deficiency, unspecified; E03.8 Other specified hypothyroidism; N95.1 Menopausal and female climacteric states; Z79.890 Hormone replacement therapy
CPT/HCPCS: 36415; 77063; 77067; 80048; 80061; 82306; 83036; 83970; 84443; 84450; 84460

== ENCOUNTER → 2022-10-05 | Outpatient (CLI) | payer OTHER, SELFPAY ==
[2022-10-05 17:28] LABS: Hemoglobin A1c 5.8 % (3.8-5.6)
[2022-10-05 17:46] LABS: AST(SGOT) 42 U/L (15-37); Alanine Aminotransfer ALT/SGPT 71 U/L (13-56); Anion Gap 2 (5-15); BUN 14 mg/dL (7-18); BUN/Creat Ratio 19.4 RATIO (10-20); Calcium,Total 9.4 mg/dL (8.5-10.1); Chloride 108 mmol/L (98-107); Creatinine, Serum 0.72 mg/dL (0.55-1.02); EST Glomerular Filtration Rate 90 mL/min (>60); Est Glom Filt Rate - Afr Amer 108 mL/min (>60); Glucose 99 mg/dL (74-106); Potassium 3.7 mmol/L (3.5-5.1); Sodium Level 142 mmol/L (136-145); Thyroid Stim Hormone (TSH) 1.07 uIU/mL (0.358-3.74)
== END | disposition home or self-care (01) ==
LOC: LAB 16:08
PROVIDERS: PCP Family Medicine; Referring Provider Internal Medicine Endocrinology, Diabetes & Metabolism; Visit Provider Internal Medicine Endocrinology, Diabetes & Metabolism
DX: E11.9 Type 2 diabetes mellitus without complications (principal); E03.8 Other specified hypothyroidism
CPT/HCPCS: 36415; 80048; 83036; 84443; 84450; 84460

== ENCOUNTER → 2022-10-22 | Outpatient (CLI) | payer OTHER, SELFPAY ==
[2022-10-22 11:51] LABS: AST(SGOT) 44 U/L (15-37); Alanine Aminotransfer ALT/SGPT 79 U/L (13-56); Albumin, Serum 3.8 g/dL (3.2-5.0); Alkaline Phosphatase 89 U/L (45-117); Globulin 3.8 g/dL (2.2-4.2); Protein, Total 7.6 g/dL (6.4-8.2)
== END | disposition home or self-care (01) ==
LOC: LAB 10:47
PROVIDERS: PCP Family Medicine; Visit Provider Internal Medicine Endocrinology, Diabetes & Metabolism
DX: R94.5 Abnormal results of liver function studies (principal)
CPT/HCPCS: 36415; 80076

== ENCOUNTER → 2022-10-29 | Outpatient (CLI) | payer OTHER, SELFPAY ==
--- NOTE | 2022-10-29 07:19 | US_ITS ---
EXAM: US ABDOMEN LIMITED, RIGHT UPPER QUADRANT CLINICAL INDICATION: ABN LIVER FUNCTION TECHNIQUE: Real-time ultrasound of the right upper quadrant with image documentation. This report was created using [employer] report generation technology. COMPARISON: None. FINDINGS: LIVER: Liver echogenicity appears increased suggesting diffuse parenchymal liver disease, likely steatosis. No intrahepatic biliary ductal dilation. GALLBLADDER: 10 mm gallstone noted. No gallbladder wall thickening is demonstrated. No pericholecystic fluid. Negative sonographic Kelley''s sign. COMMON BILE DUCT: Unremarkable as visualized. The proximal common bile duct is within normal limits for the patient''s age. PANCREAS: Unremarkable as visualized. No focal abnormality is demonstrated in the pancreas. No pancreatic ductal dilatation. RIGHT KIDNEY: Normal. There is no hydronephrosis. No shadowing calculus. No focal lesion or perinephric collection is demonstrated. US/Abdomen Limited IMPRESSION: 1. Cholelithiasis. 2. Parenchymal liver disease, likely steatosis. Electronically Signed: Galileo Pruitt MD at 9:39 EST ,
== END | disposition home or self-care (01) ==
LOC: US 07:16
PROVIDERS: PCP Family Medicine; Referring Provider Internal Medicine Endocrinology, Diabetes & Metabolism; Visit Provider Internal Medicine Endocrinology, Diabetes & Metabolism
DX: K80.20 Calculus of gallbladder without cholecystitis without obstruction (principal); K76.9 Liver disease, unspecified; R94.5 Abnormal results of liver function studies
CPT/HCPCS: 76705

== ENCOUNTER → 2023-02-05 | Outpatient (CLI) | payer OTHER, SELFPAY ==
[2023-02-05 10:48] LABS: Hemoglobin A1c 5.8 % (3.8-5.6)
[2023-02-05 11:00] LABS: Microalbumin,Random Urine 11.1 mg/L (NO RANGE EST.)
[2023-02-05 11:02] LABS: AST(SGOT) 48 U/L (15-37); Alanine Aminotransfer ALT/SGPT 85 U/L (13-56); Anion Gap 5 (5-15); BUN 15 mg/dL (7-18); BUN/Creat Ratio 23.9 RATIO (10-20); Calcium,Total 8.9 mg/dL (8.5-10.1); Chloride 105 mmol/L (98-107); Cholesterol 204 mg/dL (200); Creatinine, Serum 0.63 mg/dL (0.55-1.02); EST Glomerular Filtration Rate 105 mL/min (>60); Est Glom Filt Rate - Afr Amer 127 mL/min (>60); Glucose 116 mg/dL (74-106); High Density Lipoprotein 60 mg/dL; Sodium Level 138 mmol/L (136-145); Thyroid Stim Hormone (TSH) 2.77 uIU/mL (0.358-3.74); Triglycerides 121 mg/dL; Very Low Density Lipoprotein 24 mg/dL (5-40)
== END | disposition home or self-care (01) ==
LOC: LAB 09:30
PROVIDERS: Referring Provider Internal Medicine Endocrinology, Diabetes & Metabolism; Visit Provider Internal Medicine Endocrinology, Diabetes & Metabolism
DX: E11.9 Type 2 diabetes mellitus without complications (principal); E21.1 Secondary hyperparathyroidism, not elsewhere classified; E78.2 Mixed hyperlipidemia; E04.2 Nontoxic multinodular goiter; E55.9 Vitamin D deficiency, unspecified
CPT/HCPCS: 36415; 80048; 80061; 82043; 82652; 83036; 83970; 84443; 84450; 84460

== ENCOUNTER → 2023-05-06 | Outpatient (CLI) | payer OTHER, SELFPAY ==
--- NOTE | 2023-05-06 13:28 | BI_ITS ---
MAMMOGRAPHY - BILATERAL SCREENING REASON FOR EXAM: Female, 53 years old. Routine annual screening examination. PERTINENT HISTORY: Non-contributory. TECHNIQUE: Digital bilateral breast kate (3D mammographic acquisition) in the CC and MLO projections. 2-D mediolateral oblique (MLO) and craniocaudad (CC) views of both breasts were obtained. CAD: Full Field Digital Mammography with Computer Added Detection was performed. COMPARISON: Comparison is made with prior study dated April 16, 2022 and February 13, 2021. FINDINGS: Breast Composition: The breasts are heterogeneously dense, which may obscure small masses. There are no dominant masses or suspicious calcifications. No other significant abnormalities are identified. There has been no significant change since the prior study. BI/SCRN MAMM (CAD)W/KATE BILAT IMPRESSION: Stable bilateral screening mammogram. Yearly follow-up mammogram recommended. (A) ASSESSMENT CATEGORY: BIRADS Category 1: Negative. A letter regarding these results will be sent to the patient by the facility within 30 days. Approximately 10% of breast cancers are not detected by mammography. A normal mammogram should not delay biopsy of a clinically suspicious abnormality. [id number] Electronically Signed: Donta Rainey MD at 14:23 EDT ,
== END | disposition home or self-care (01) ==
LOC: OPBI 13:26
PROVIDERS: PCP Nurse Practitioner Family; Referring Provider Nurse Practitioner Family; Visit Provider Nurse Practitioner Family
DX: Z12.31 Encounter for screening mammogram for malignant neoplasm of breast (principal)
CPT/HCPCS: 77063; 77067

== ENCOUNTER → 2023-10-11 | Outpatient (CLI) | payer OTHER, SELFPAY ==
[2023-10-11 17:14] LABS: Vitamin D,25 Hydroxy 30.3 ng/mL
[2023-10-11 17:15] LABS: Hemoglobin A1c 5.6 % (3.8-5.6)
[2023-10-11 17:23] LABS: AST(SGOT) 28 U/L (15-37); Alanine Aminotransfer ALT/SGPT 60 U/L (13-56); Anion Gap 4 (5-15); BUN 13 mg/dL (7-18); BUN/Creat Ratio 21.2 RATIO (10-20); Chloride 106 mmol/L (98-107); Creatinine, Serum 0.61 mg/dL (0.55-1.02); EST Glomerular Filtration Rate 108 mL/min (>60); Est Glom Filt Rate - Afr Amer 130 mL/min (>60); Glucose 117 mg/dL (74-106); Potassium 4.1 mmol/L (3.5-5.1); Sodium Level 140 mmol/L (136-145); Thyroid Stim Hormone (TSH) 0.25 uIU/mL (0.358-3.74)
--- OUTSIDE RECORDS SUMMARY | 2023-10-11 18:04 | XMS RPT_ITS | CCD ---
Author Name Unknown Address [address] [place] [address] Organization [facility] Care Team Providers Care Manager Car Name Role Phone ETHEL SNEED DR Attending Unavailable ETHEL SNEED DR Admitting Unavailable JUSTEN HARRIS MD Consulting Unavailable ETHEL SNEED DR Primary Care Unavailable PROVIDER, UNKNOWN Consulting Unavailable ETHEL SNEED DR Primary Care Unavailable ETHEL SNEED DR Attending Unavailable JUSTEN HARRIS MD Consulting Unavailable ETHEL SNEED DR Admitting Unavailable PROVIDER, UNKNOWN Consulting Unavailable ETHEL SNEED DR Attending Unavailable ETHEL SNEED DR Admitting Unavailable JUSTEN HARRIS MD Consulting Unavailable ETHEL SNEED DR Primary Care Unavailable PROVIDER, UNKNOWN Consulting Unavailable Justen Harris Unavailable [phone] Arden Petty Unavailable Unavailable Arden Petty Attending Unavailable Dr. Justen Harris Primary Care Unavail able No, Physician Primary Care Provider Unavailabl ELLE Avendaño Admitting Unavailable ELLE MARQUES Referring Unavailable NO, PHYSICIAN Primary Care Unavailable ELLE MARQUES Attending Unavailable NO, PHYSICIAN Primary Care Unavailable NO, PHYSICIAN Primary Care Unavailable ENRIKE BLANC Attending Unavailab ENRIKE Mayen Admitting Unavailab le NO, PHYSICIAN Primary Care Unavailable MAHESH SALAS Attending Unavailable Allergies Allergy Classification Reported Allergen(s) Allergy Type Date of Onset Reaction(s) Facility (4 sources) ceFAZolin; Translations: [CEFAZOLIN] Drug Allergy 3 [facility] Repository (4 sources) Codeine; Translations: [CODEINE] Drug Allergy 7 [facility] Repository (1 source) BEE STING; Translations: [BEE STING] Propensity to adverse reactions (disorder) [facility] Repository (1 source) Bee/Wasp/Ant venom Anaphylaxis [facility] (5 sources) ceFAZolin Drug Allergy 3 Unknown, Hives [facility] (5 sources) Codeine Drug Allergy 7 Hives, Other (See Comments) [facility] (7 sources) Bee Venom Protein (Honey Bee); Translations: [BEE VENOM PROTEIN (HONEY BEE)] Propensity to adverse reactions to drug 3 Unknown [facility] (3 sources) KIWI; Translations: [KIWI] Propensity to adverse reactions to drug (disorder) 3 Anaphylaxis [facility] Repository Medications Current Medications Medication Drug Class(es) Dates Sig (Normalized) Sig (Original) aspirin 81 mg oral tablet (1 source) Platelet Aggregation Inhibitor, Nonsteroidal Anti-inflammatory Drug take 1 tablet by mouth once daily aspirin 81 mg oral tablet ; 1 tab(s) orally once a day Quantity: 0 Refills: 0 Ordered: 02-Jun-2022 Emily Smith Generic Substitution Allowed calcitriol 0.57119 mg oral capsule (5 sources) Vitamin D3 Analog Start: 05-13-2023 take 1 capsule by mouth once daily calcitrioL (ROCALTROL) 0.25 MCG capsule Take 1 (one) capsule (0.25 mcg total) by mouth daily . 0 05/13/2023 Active Problems Active Problems Problem Classification Problem Date Documented Da te Episodic/Chronic Complication of device; implant or graft (9 sources) Pain; Translations: [Pain due to internal orthopedic prosthetic devices, implants and grafts, initial encounter] Onset: 05-24-2023 05-25-2023 Episodic Diabetes mellitus without complication (1 source) Type 2 diabetes mellitus without complications; Translations: [Type 2 diabetes mellitus without complications] Onset: 08-18-2020 Chronic Nonspecific chest pain (6 sources) Atypical chest pain; Translations: [Other chest pain] Onset: 06-02-2022 06-02-2022 Episodic Nutritional deficiencies (3 sources) Vitamin D deficiency; Translations: [Vitamin D deficiency, unspecified] Onset: 08-21-2018 05-25-2023 Chronic Osteoarthritis (6 sources) Bilateral post-traumatic osteoarthritis of knee; Translations: [Osteoarthritis] Onset: 08-18-2020 05-25-2023 Chronic Other bone disease and musculoskeletal deformities (1 source) Costal chondritis; Translations: [Tietze's disease] 06-02-2022 Episodic Other connective tissue disease (5 sources) Triggering of digit; Translations: [Trigger finger, right middle finger] Onset: 06-15-2023 05-25-2023 Episodic Other connective tissue disease (2 sources) Trigger finger, unspecified finger; Translations: [Trigger finger, unspecified finger] Onset: 05-24-2023 Episodic Other connective tissue disease (2 sources) Trigger finger, right middle finger; Translations: [Trigger finger, right middle finger] Onset: 06-15-2023 Episodic Other lower respiratory disease (1 source) Nodule of lung; Translations: [Solitary pulmonary nodule] 06-02-2022 Episodic Thyroid disorders (2 sources) Hypothyroidism, unspecified; Translations: [Hypothyroidism, unspecified] Onset: 08-18-2020 Chronic Unclassified (2 sources) CHEST PRESSURE 06-02-2022 Past or Other Problems Problem Classification Problem Date Documented Da te Episodic/Chronic Cardiac dysrhythmias (1 source) Palpitations; Translations: [Palpitations] Onset: 06-02-2022 Episodic Malaise and fatigue (1 source) Other malaise; Translations: [Other malaise] Onset: 06-02-2022 Episodic Other aftercare (1 source) manager long term care (current) use of aspirin; Translations: [manager long term care (current) use of aspirin] Onset: 06-02-2022 Episodic Other bone disease and musculoskeletal deformities (1 source) Chondrocostal junction syndrome [Tietze]; Translations: [Chondrocostal junction syndrome [Tietze]] Onset: 06-02-2022 Episodic Other lower respiratory disease (1 source) Solitary pulmonary nodule; Translations: [Solitary pulmonary nodule] Onset: 06-02-2022 Episodic Results Test Name Value Interpretation Reference Range Facil it Vital Signs Date Time Vital Sign Value Performing Clinician Facility 05-24-2023 14:58-0400 Body height 154.9 cm Elle Marques COMMERCIAL LOAN ANALYST Work Phone: [facility] 05-24-2023 14:58-0400 Body mass index (BMI) [Ratio] 35.52 kg/m2 Elle Jerald COMMERCIAL LOAN ANALYST Work Phone: [facility] 05-24-2023 14:58-0400 Body weight 85.28 kg Elle Jerald COMMERCIAL LOAN ANALYST Work Phone: [facility] 06-02-2022 15:15-0400 Diastolic blood pressure 80 mm[Hg] Justen Harris Other Phone: [facility] 06-02-2022 15:15-0400 Heart rate 82 /min Justen Harris Other Phone: [facility] 06-02-2022 15:15-0400 Respiratory rate 15 /min Justen Harris Other Phone: [facility] 06-02-2022 15:15-0400 SaO2% (BldA) [Mass fraction] 96 % Justen Harris Other Phone: [facility] 06-02-2022 15:15-0400 Systolic blood pressure 132 mm[Hg] Justen Harris Other Phone: [facility] 06-02-2022 11:26-0400 Body height 154.9 cm Justen Harris Other Phone: [facility] 06-02-2022 11:26-0400 Body temperature 98.06 [degF] Justen Harris Other Phone: [facility] 06-02-2022 11:26-0400 Body weight 86.3 kg Justen Harris Other Phone: [facility] Encounters Encounter Date Encounter Type Care Provider Facility Start: 07-22-2023 End: 07-22-2023 Postop follow up visit related to original px Enrike Blanc MD Work Phone: [facility] Procedures Date Procedure Procedure Detail Performing Clinician Start: 06-02-2022 End: 06-02-2022 EKG impression Arden Petty Plan of Treatment Date Care Activity Detail Author Start: 07-06-2030 Tetanus vaccination Tetanus: Every 10yrs [facility] Start: 07-22-2023 End: 07-22-2023 Follow-up encounter 07/22/2023 1:15 PM EDT Follow-Up [facility] [address] [place] [id number] Enrike Blanc MD [address] [place] [address] [facility] Start: 07-08-2023 Subsequent hospital visit by physician 07/08/2023 Hospital Encounter [facility] [address] [place] [id number] Enrike Blanc MD [address] [place] [address] [facility] Start: 06-10-2023 COVID-19 Vaccine ( season) COVID-19 Vaccine ( season) [facility] Start: 06-10-2023 Influenza vaccination Sequential Influenza Vaccine (#1) [facility] Start: 09-24-2021 COVID-19 Vaccine (2 - Booster for Shawn series) COVID-19 Vaccine (2 - Booster for Shawn series) [facility] Start: 2019 Administration of herpes zoster vaccine Zoster Vaccines (1 of 2) [facility] Start: 2019 Screening for malignant neoplasm of colon [facility] Start: 2009 Screening for malignant neoplasm of breast Mammogram [facility] Start: 1990 Screening for malignant neoplasm of cervix Pap Smear [facility] Start: 1987 Hepatitis C screening Hepatitis C Screening [facility] Start: 1984 HIV screening HIV Screening [facility] Start: 1981 Depression screening using PHQ-9 (Patient Health Questionnaire 9) score Depression Screening (PHQ-2/9) [facility] Start: 1979 Diabetic foot examination Foot Exam [facility] Start: 1979 Glaucoma screening Diabetic Eye Exam [facility] Start: 1979 Urine screening for protein Urine Microalbumin [facility] Start: 1972 History and physical examination, annual for health maintenance Wellness Visit [facility] Start: 1969 Hemoglobin A1c measurement A1C [facility] Start: 1969 Screening for malignant neoplasm of colon [facility] HARDWARE REMOVAL UPP ER EXTREMITY HARDWARE REMOVAL UPPER EXTREMITY Trigger middle finger of right hand Painful orthopaedic hardware (HCC) [facility] Payers Date Payer Category Payer [employer] ( and others) [id number] 2023 Unknown 2023 Unknown [id number] 1970 Unknown [id number] 1970 Unknown [id number] 1970 Unknown [id number] 1970 Unknown [id number] 1970 Unknown [id number] 1970 Unknown [id number] 1970 Unknown [id number] 1970 Unknown [id number] Unknown [id number] Social History Date Type Detail Facility [facility] Tobacco smoking consumption unknown [facility] Start: 05-24-2023 Tobacco smoking status NHIS Never smoked tobacco [facility] Start: 05-24-2023 Tobacco use and exposure Smokeless tobacco non-user [facility] Start: 05-24-2023 End: 07-24-2023 Alcohol intake Ex-drinker (finding) [facility] Start: 05-24-2023 End: 07-24-2023 History of Social function [facility] Start: 05-24-2023 End: 07-24-2023 Tobacco use panel [facility] Start: 1970 Sex Assigned At Not on file [facility] Start: 05-23-2023 Gender identity Identifies as female gender (finding) [facility] Start: 05-23-2023 Sexual orientation Heterosexual (finding) [facility] History of Present illness Narrative 07-24-2023 Enrike Blanc MD - 07/24/2023 9:35 AM EDT Note Date & Type Note Facility 07-24-2023 History of Presen t illness Narrative Charo comes in today for followup of her hardware removal of her right 5th finger and her right 3rd finger trigger release. Wound is healed. No signs of infection. No DVT signs or symptoms. Good range of motion of the hand. IMPRESSION Two weeks status post hardware removal and trigger finger release, right hand. PLAN She will do activity as tolerated, local wound care. I will see her on a p.r.n. basis. documented in this encounter [facility] History of Present illness Narrative 05-25-2023 Araseli Mccall MA - 05/25/2023 11:28 AM EDT Note Date & Type Note Facility 05-25-2023 History of Presen t illness Narrative I called Charo to let her know our electrical electronics technician would be giving her a call to schedule her trigger release and hardware removal surgery in 10 to 14 days patient was understanding. documented in this encounter [facility] History of Present illness Narrative 05-25-2023 Elle Marques CNP - 05/25/2023 8:33 AM EDT Note Date & Type Note Facility 05-25-2023 History of Presen t illness Narrative Formatting of this note is different fro m the original. Images from the original note were not included. [facility] [address] [facility] [address] [facility] [id number] Chief Complaint Patient presents with Right Hand - Pain Charo Walker, 53-year-old female, presents to the office today for right hand pain. There is 2 separate things that she is complained about today. The first is being trigger finger of the middle and ring fingers. She does report that the middle finger is substantially worse than the ring finger. She is having periods of where it is getting stuck and she physically has to pull it straight. She denies any injury to the hand or the fingers. She reports this has been going on for the last couple of months but is becoming more troublesome and interfering in her everyday activities. Her second concern today is in the fifth metacarpal area. She does have a history of a boxer fracture repair about 20 years ago. She states she is had increasing pain along the ulnar side of the hand. She states that she can feel the hardware and when she bumps that hand it is extraordinarily painful. She is also noticed decreased range of motion in the pinky finger over the last couple of years. The patient's past medical history, surgical history, social history, family history, medications and allergies were reviewed with the patient today and are available in the chart for further review. Allergies Allergen Reactions Ancef [Cefazolin] Unknown Bee Venom Protein (Honey Bee) Unknown Codeine Hives and Other (See Comments) chest pain Current Outpatient Medications: calcitrioL (ROCALTROL) 0.25 MCG capsule, Take 1 (one) capsule (0.25 mcg total) by mouth daily ., Disp: , Rfl: levothyroxine (SYNTHROID, LEVOTHROID) 150 MCG tablet, Take 1 (one) tablet (150 mcg total) by mouth daily ., Disp: , Rfl: Past Medical History: Diagnosis Date Disease of thyroid gland Past Surgical History: Procedure Laterality Date SECTION, CLASSIC HAND SURGERY KNEE SURGERY Social History Socioeconomic History Marital status: Tobacco Use Smoking status: Never Smokeless tobacco: Never Substance and Sexual Activity Alcohol use: Not Currently Drug use: Not Currently ROS: Review of Systems Constitutional: Negative for activity change and fatigue. HENT: Negative for congestion, hearing loss and trouble swallowing. Eyes: Negative for visual disturbance. Respiratory: Negative for chest tightness and shortness of breath. Cardiovascular: Negative for chest pain and palpitations. Gastrointestinal: Negative for abdominal pain, diarrhea, nausea and vomiting. Endocrine: Negative for polydipsia, polyphagia and polyuria. Genitourinary: Negative for decreased urine volume, difficulty urinating and hematuria. Musculoskeletal: Positive for arthralgias and myalgias. Negative for joint swelling. Skin: Negative for color change, rash and wound. Allergic/Immunologic: Negative for immunocompromised state. Neurological: Negative for dizziness, weakness, light-headedness and numbness. Hematological: Does not bruise/bleed easily. Psychiatric/Behavioral: Negative for confusion and sleep disturbance. The patient is not nervous/anxious. PE: Physical Exam Constitutional: Appearance: She is well-developed. HENT: Head: Normocephalic. Eyes: Pupils: Pupils are equal, round, and reactive to light. Cardiovascular: Rate and Rhythm: Normal rate and regular rhythm. Pulmonary: Effort: Pulmonary effort is normal. Breath sounds: Normal breath sounds. Abdominal: General: Bowel sounds are normal. Palpations: Abdomen is soft. Musculoskeletal: Right hand: Tenderness and bony tenderness present. Decreased range of motion. Decreased strength. Normal pulse. Hands: Cervical back: Normal range of motion and neck supple. Comments: Decreased range of motion in the fifth MCP joint. Upon extension there is significant catching in the middle finger. Skin: General: Skin is warm and dry. Neurological: Mental Status: She is alert and oriented to person, place, and time. Imaging: Right hand: No acute fracture or dislocation. Prior ORIF of the fifth metacarpal with migration of one of the screws. Assessment/Plan: After examination and reviewing the patient x-ray images we discussed treatment options for both the trigger finger as well as the hand. I did speak with Dr. Blanc and he has more than happy to go ahead with hardware removal in addition to the trigger finger release surgery. The office will contact the patient to schedule this in approximately 10 to 14 days. I am more than happy to see her back if needed prior to surgery. documented in this encounter [facility] Evaluation note Note Date & Type Note Facility documented in this encounter [facility] Evaluation note Note Date & Type Note Facility documented in this encounter [facility] Evaluation note Note Date & Type Note Facility documented in this encounter [facility] Summary Purpose Family History No Family History Records FoundNo Family History Records FoundNo Family History Records FoundNo Family History Records FoundNo Family History Records FoundNo Family History Records FoundNo Family History Records Found Advance Directives No Advanced Directives Records FoundNo Advanced Directives Records FoundNo Advanced Directives Records FoundNo Advanced Directives Records FoundNo Advanced Directives Records FoundNo Advanced Directives Records FoundNo Advanced Directives Records Found Hospital Course Note [facility] DISCHARGE SUMMARY NAME ACCOUNT SEX AGE ADMIT DISCHARGE PT MED. RECORD# NUMBER DATE DATE TYPE CHARO RIZVI [id number] F [id number] 08/18/20 2 [id number] ROOM: 206MS DATE OF : 1970 ATTENDING PHYSICIAN: Ethel Sneed PROGRESS NOTE/DISCHARGE SUMMARY ADMITTING DIAGNOSIS: Knee replacement. FINAL DIAGNOSES: 1. Right and left knee replacement for arthritis. 2. Hypothyroidism. PROCEDURES: Right and left total knee replacement on August 18, 2020. HOSPITAL COURSE: The patient is postoperative day #1 from bilateral knee replacement. She is feeling well. She denies chest pain or shortness of breath. No productive cough. She did get some sleep last night. She is planning on discharge to home later today. She is hoping for home physical therapy. She is seen with her present. PHYSICAL EXAMINATION: Vital signs are reviewed. T-max is 100.2. TC is 98.6. Nursing summary sheet reviewed. The patient's right and left knee bandage is on, clean and dry. The right knee had no bloody drai (more content not included)... Additional Source Comments INFORMATION SOURCE (unrecogn ized section and content) DATE CREATED AUTHOR AUTHOR'S ORGANIZ ATION 08/25/2020 [facility] DATE CREATED AUTHOR AUTHOR'S ORGANIZ ATION 02/15/2021 [facility] DATE CREATED AUTHOR AUTHOR'S ORGANIZ ATION 09/07/2022 [facility] DATE CREATED AUTHOR AUTHOR'S ORGANIZ ATION 05/28/2023 [facility] DATE CREATED AUTHOR AUTHOR'S ORGANIZ ATION 07/15/2023 [facility] DATE CREATED AUTHOR AUTHOR'S ORGANIZ ATION 07/15/2023 [facility] <item> Privacy Markings (unrecogniz ed section and content) Section Author: Maria Teresa Power PROHIBITION ON REDISCLOSURE OF CONFIDENTIAL INFORMATION This notice accompanies a disclosure of information concerning a client made to you with the consent of such client. Care Teams (unrecognized sec tion and content) Manager Car Relationship Specialty Start Date End Date No, Physician [facility] PCP - General 05/24/23 Manager Car Relationship Specialty Start Date End Date No, Physician [facility] PCP - General 05/24/23 Manager Car Relationship Specialty Start Date End Date No, Physician [facility] PCP - General 05/24/23 Reason for Visit (unrecogniz ed section and content) Reason Comments Follow-up Suture / Staple Removal Wound Check FOR RECORDS PERTAINING TO PATIENTS WHO ARE OR HAVE BEEN ENROLLED IN A CHEMICAL DEPENDENCY/SUBSTANCEABUSE PROGRAM, SOME INFORMATION MAY BE OMITTED. This clinical summary was aggregated from multiple sources. Caution should be exercised in using it in the provision of clinical care. This summary normalizes information from multiple sources, and as a consequence, information in this document may materially change the coding, format and clinical context of patient data. In addition, data may be omitted in some cases. CLINICAL DECISIONS SHOULD BE BASED ON THE PRIMARY CLINICAL RECORDS. [facility] [employer] [facility]. provides no warranty or guarantee of the accuracy or completeness of information in this document.
[2023-10-12 09:31] LABS: PTHIN 68.9 pg/mL (18.4-80.1)
== END | disposition home or self-care (01) ==
LOC: LAB 15:34
PROVIDERS: PCP Nurse Practitioner Family; Referring Provider Internal Medicine Endocrinology, Diabetes & Metabolism; Visit Provider Internal Medicine Endocrinology, Diabetes & Metabolism
DX: E11.9 Type 2 diabetes mellitus without complications (principal); E21.1 Secondary hyperparathyroidism, not elsewhere classified; E03.8 Other specified hypothyroidism; E55.9 Vitamin D deficiency, unspecified
CPT/HCPCS: 36415; 80048; 82306; 83036; 83970; 84443; 84450; 84460

== ENCOUNTER → 2024-04-13 | Outpatient (CLI) | payer OTHER, SELFPAY ==
--- NOTE | 2024-04-13 10:50 | RAD_ITS ---
INDICATION: ARTHRITIS EXAMINATION/TECHNIQUE: X-RAY - LEFT XR Hand Min 3 Views 3 VIEWS COMPARISON: No relevant prior comparison study available FINDINGS: SOFT TISSUES: No soft tissue swelling or gas. No radiopaque foreign body. BONES/JOINTS: No acute fracture or subluxation.. Normal alignment. Preservation of the joint space.. No sclerotic or destructive changes observed. RAD/Hand Min 3 Views IMPRESSION: Unremarkable examination. Electronically Signed: Kelvin Cruz MD at 11:41 EDT ,
== END | disposition home or self-care (01) ==
LOC: RAD 10:41
PROVIDERS: PCP Nurse Practitioner Family; Referring Provider Nurse Practitioner Family; Visit Provider Nurse Practitioner Family
DX: M79.642 Pain in left hand (principal); M67.442 Ganglion, left hand
CPT/HCPCS: 73130

== ENCOUNTER → 2024-05-18 | Outpatient (CLI) | payer OTHER, SELFPAY ==
--- NOTE | 2024-05-18 07:46 | BI_ITS ---
MAMMOGRAPHY - BILATERAL SCREENING 3-D TOMOSYNTHESIS REASON FOR EXAM: Female, 54 years old. SCREENING PERTINENT HISTORY: No significant family history. TECHNIQUE: 2-D mammograms and 3-D Tomosynthesis of the breast (s) were performed. CAD was performed. COMPARISON: 05/06/2023 FINDINGS: The breast composition is heterogeneously dense that can obscure small breast masses. Scattered benign calcifications are seen. No dense spiculated masses or suspicious microcalcifications are identified. No architectural distortion is identified. There is no skin thickening or retraction. There has been no significant change since the prior study. BI/SCRN MAMM (CAD)W/KATE BILAT IMPRESSION: No mammographic signs of malignancy. Routine yearly mammograms recommended. ASSESSMENT CATEGORY: BIRADS Category 1: Negative. A letter regarding these results will be sent to the patient by the facility within 30 days. FOLLOW UP RECOMMENDATION: Yearly follow up mammogram recommended. (A) Approximately 10% of breast cancers are not detected by mammography. A normal mammogram should not delay biopsy of a clinically suspicious abnormality. Electronically Signed: Piter Iverson MD at 13:43 EDT ,
== END | disposition home or self-care (01) ==
PROVIDERS: PCP Nurse Practitioner Family; Referring Provider Obstetrics & Gynecology; Visit Provider Obstetrics & Gynecology
DX: Z12.31 Encounter for screening mammogram for malignant neoplasm of breast (principal)
CPT/HCPCS: 77063; 77067

== ENCOUNTER → 2024-05-29 | Outpatient (CLI) | payer OTHER, SELFPAY ==
[2024-05-29 07:42] LABS: AST(SGOT) 59 U/L (15-37); Alanine Aminotransfer ALT/SGPT 103 U/L (13-56); Anion Gap 4 (5-15); BUN 12 mg/dL (7-18); BUN/Creat Ratio 16.6 RATIO (10-20); Calcium,Total 9.3 mg/dL (8.5-10.1); Chloride 108 mmol/L (98-107); Cholesterol 207 mg/dL (200); Creatinine, Serum 0.72 mg/dL (0.55-1.02); EST Glomerular Filtration Rate 89 mL/min (>60); Est Glom Filt Rate - Afr Amer 107 mL/min (>60); Glucose 129 mg/dL (74-106); High Density Lipoprotein 52 mg/dL; Potassium 4.3 mmol/L (3.5-5.1); Sodium Level 139 mmol/L (136-145); Triglycerides 205 mg/dL; Very Low Density Lipoprotein 41 mg/dL (5-40)
[2024-05-29 08:15] LABS: Microalbumin,Random Urine 11.1 mg/L (NO RANGE EST.); Microalbumin:Creatinine Ratio 11.6 mg/g CRE (<30 mg/g CRE)
[2024-05-29 08:57] LABS: PTHIN 87.6 pg/mL (18.4-80.1)
[2024-05-29 09:01] LABS: Vitamin D,25 Hydroxy 49.7 ng/mL
[2024-05-29 14:09] LABS: Hemoglobin A1c 5.9 % (3.8-5.6)
== END | disposition home or self-care (01) ==
LOC: LAB 06:06
PROVIDERS: PCP Nurse Practitioner Family; Referring Provider Internal Medicine Endocrinology, Diabetes & Metabolism; Visit Provider Internal Medicine Endocrinology, Diabetes & Metabolism
DX: E11.9 Type 2 diabetes mellitus without complications (principal); E78.2 Mixed hyperlipidemia; E03.8 Other specified hypothyroidism; E21.1 Secondary hyperparathyroidism, not elsewhere classified; E55.9 Vitamin D deficiency, unspecified
CPT/HCPCS: 36415; 80048; 80061; 82043; 82306; 82570; 83036; 83970; 84443; 84450; 84460

== ENCOUNTER → 2024-06-04 | Outpatient (CLI) | payer OTHER, SELFPAY ==
--- NOTE | 2024-06-04 12:20 | RAD_ITS ---
STUDY: X-RAY - CERVICAL SPINE REASON FOR EXAM: Female, 54 years old. NECK PAIN, ASSESS ALIGNMENT OF DISC SPACE TECHNIQUE: 5 view(s) of the cervical spine were obtained including oblique views. COMPARISON: None FINDINGS: Normal anterior atlantoaxial articulation. Normal odontoid process. There is straightening of the normal cervical lordosis. Marked degree of disc space narrowing and spondylosis at the C5-C6 and C6-C7 levels. Normal disc space heights. Normal visualized intervertebral neuroforamina. Calcified left cervical lymph nodes. RAD/Cerv Spine 4 or 5 Views IMPRESSION: Marked degree of disc space narrowing and spondylosis at the C5-C6 and C6-C7 levels. Straightening of the normal cervical lordosis. Calcified left cervical lymph nodes. Electronically Signed: Donta Rainey MD at 12:44 EDT ,
== END | disposition home or self-care (01) ==
LOC: RAD 12:03
PROVIDERS: PCP Nurse Practitioner Family; Referring Provider Nurse Practitioner Family; Visit Provider Nurse Practitioner Family
DX: M54.2 Cervicalgia (principal)
CPT/HCPCS: 72050

== ENCOUNTER → 2024-06-08 | Outpatient (CLI) | payer OTHER, SELFPAY ==
--- NOTE | 2024-06-08 09:53 | US_ITS ---
STUDY: THYROID ULTRASOUND REASON FOR EXAM: Female, 54 years old. History of Raissa''s disease. TECHNIQUE: Ultrasound evaluation of the thyroid was performed with real-time and static ward-scale imaging. COMPARISON: Comparison is made with prior study dated September 15, 2017. FINDINGS: RIGHT LOBE: The right lobe of the thyroid gland measures 4 cm x 1.2 cm x 1.1 cm. There is a heterogeneous echotexture. There are no demonstrated solid, cystic or complex lesions. LEFT LOBE: The left lobe of the thyroid gland measures 4.3 cm x 1.2 cm x 1.5 cm. There is a heterogeneous echotexture. There are no demonstrated solid, cystic or complex lesions. ISTHMUS: The isthmus measures 2 mm. The regional lymph nodes are normal. US/Thyroid IMPRESSION: Heterogeneous echotexture of both lobes of the thyroid gland. No solid or cystic lesion is seen. Electronically Signed: Donta Rainey MD at 14:47 EDT ,
== END | disposition home or self-care (01) ==
LOC: US 09:51
PROVIDERS: PCP Nurse Practitioner Family; Referring Provider Nurse Practitioner Family; Visit Provider Nurse Practitioner Family
DX: E04.2 Nontoxic multinodular goiter (principal); I89.8 Other specified noninfective disorders of lymphatic vessels and lymph nodes
CPT/HCPCS: 76536

== ENCOUNTER → 2024-08-18 | Outpatient (CLI) | payer OTHER, SELFPAY ==
[2024-08-18 08:25] LABS: AST(SGOT) 43 U/L (15-37); Alanine Aminotransfer ALT/SGPT 67 U/L (13-56); Anion Gap 5 (5-15); BUN 16 mg/dL (7-18); BUN/Creat Ratio 25.6 RATIO (10-20); Calcium,Total 8.9 mg/dL (8.5-10.1); Chloride 108 mmol/L (98-107); Creatinine, Serum 0.62 mg/dL (0.55-1.02); EST Glomerular Filtration Rate 105 mL/min (>60); Est Glom Filt Rate - Afr Amer 127 mL/min (>60); Glucose 127 mg/dL (74-106); Potassium 4.3 mmol/L (3.5-5.1); Sodium Level 140 mmol/L (136-145); Thyroid Stim Hormone (TSH) 0.059 uIU/mL (0.358-3.740)
[2024-08-20 08:18] LABS: PTHIN 65.7 pg/mL (18.4-80.1)
== END | disposition home or self-care (01) ==
LOC: LAB 07:36
PROVIDERS: PCP Nurse Practitioner Family; Referring Provider Internal Medicine Endocrinology, Diabetes & Metabolism; Visit Provider Internal Medicine Endocrinology, Diabetes & Metabolism
DX: E11.9 Type 2 diabetes mellitus without complications (principal); E21.1 Secondary hyperparathyroidism, not elsewhere classified
CPT/HCPCS: 36415; 80048; 83970; 84443; 84450; 84460

== ENCOUNTER → 2024-09-28 | Outpatient (CLI) | payer OTHER, SELFPAY ==
--- NOTE | 2024-09-28 09:48 | RAD_ITS ---
INDICATION: ASSESS VERTBRAL ALIGNMENT DISC SPACE EXAMINATION/TECHNIQUE: X-RAY - RIGHT XR Hip Unilateral with Pelvis when performed; 2-3 Views COMPARISON: None. FINDINGS: No acute fracture or malalignment. No blastic or lytic lesions. Mild degenerative changes of the bilateral hips. The soft tissues are unremarkable. RAD/HIP, UNI W/ Pelvis 2-3 Views IMPRESSION: No acute radiographic abnormalities. Mild degenerative changes of the bilateral hips. Electronically Signed: Yeyo Olea MD at 17:59 EST ,
--- NOTE | 2024-09-28 09:48 | RAD_ITS ---
STUDY: X-RAY - LUMBAR SPINE REASON FOR EXAM: Female, 54 years old. Radiating low back pain TECHNIQUE: 4 view(s) of the lumbar spine were obtained. COMPARISON: None FINDINGS: Normal lumbar lordosis. There is no substantial scoliosis. There is a normal alignment of the vertebrae. There is multilevel endplate spondylosis of the lumbar vertebrae. Mild disc space narrowing. There is no demonstrated fracture. The soft tissue structures are unremarkable. RAD/Lumbar Spine 2 or 3 Views IMPRESSION: Mild degenerative changes, no acute findings Electronically Signed: Herson Pierre MD at 11:32 EST ,
== END | disposition home or self-care (01) ==
LOC: RAD 09:40
PROVIDERS: PCP Nurse Practitioner Family; Referring Provider Nurse Practitioner Family; Visit Provider Nurse Practitioner Family
DX: M25.551 Pain in right hip (principal); M54.31 Sciatica, right side
CPT/HCPCS: 72100; 73502

== ENCOUNTER → 2024-10-09 | Outpatient (CLI) | payer OTHER, SELFPAY ==
[2024-10-09 10:18] LABS: PTHIN 105.9 pg/mL (18.4-80.1)
[2024-10-09 10:23] LABS: Vitamin D,25 Hydroxy 67.1 ng/mL
[2024-10-09 10:28] LABS: Hemoglobin A1c 5.5 % (3.8-5.6)
[2024-10-09 10:50] LABS: AST(SGOT) 21 U/L (15-37); Alanine Aminotransfer ALT/SGPT 33 U/L (13-56); Anion Gap 6 (5-15); BUN 15 mg/dL (7-18); BUN/Creat Ratio 22.2 RATIO (10-20); Calcium,Total 8.8 mg/dL (8.5-10.1); Chloride 106 mmol/L (98-107); Cholesterol 193 mg/dL (200); Creatinine, Serum 0.68 mg/dL (0.55-1.02); EST Glomerular Filtration Rate 96 mL/min (>60); Est Glom Filt Rate - Afr Amer 116 mL/min (>60); Glucose 109 mg/dL (74-106); High Density Lipoprotein 51 mg/dL; Sodium Level 139 mmol/L (136-145); Triglycerides 237 mg/dL; Very Low Density Lipoprotein 47 mg/dL (5-40)
== END | disposition home or self-care (01) ==
LOC: LAB 09:11
PROVIDERS: PCP Nurse Practitioner Family; Referring Provider Internal Medicine Endocrinology, Diabetes & Metabolism; Visit Provider Internal Medicine Endocrinology, Diabetes & Metabolism
DX: E11.9 Type 2 diabetes mellitus without complications (principal); E03.8 Other specified hypothyroidism; E55.9 Vitamin D deficiency, unspecified; E21.1 Secondary hyperparathyroidism, not elsewhere classified; E78.2 Mixed hyperlipidemia
CPT/HCPCS: 36415; 80048; 80061; 82306; 83036; 83970; 84443; 84450; 84460

== ENCOUNTER → 2024-12-07 | Outpatient (CLI) | payer OTHER, SELFPAY ==
[2024-12-07 09:09] LABS: PTHIN 55 pg/mL (11-61)
== END | disposition home or self-care (01) ==
LOC: LAB 06:55
PROVIDERS: PCP Nurse Practitioner Family
DX: E21.1 Secondary hyperparathyroidism, not elsewhere classified (principal)
CPT/HCPCS: 36415; 83970

== ENCOUNTER → 2025-01-19 | Outpatient (CLI) | payer OTHER, SELFPAY ==
--- NOTE | 2025-01-19 08:00 | MRI_ITS ---
PROCEDURE: SPINE LUMBAR (ROUTINE) 01/19/2025 REASON FOR EXAM: SCIATICIA PAIN TECHNIQUE: Multiplaner MRI of the lumbar spine performed without contrast. Multiple pulse sequences were obtained. COMPARISON: None FINDINGS: Vertebral body heights are within normal limits. Negative for fracture or marrow replacement. Alignment is within normal limits. Conus medullaris is intact and terminates at L1. No paraspinal mass. L1-2: No focal disc abnormality, spinal stenosis or foraminal narrowing. L2-3: No focal disc abnormality, spinal stenosis or foraminal narrowing. L3-4: No focal disc abnormality, spinal stenosis or foraminal narrowing. L4-5: Minimal posterior disc bulge. Mild bilateral facet arthrosis. No significant spinal stenosis or foraminal narrowing. L5-S1: Minimal posterior disc bulge. Mild bilateral facet arthrosis. No significant spinal stenosis or foraminal narrowing. MRI/Spine Lumbar (Routine) IMPRESSION: No significant spinal stenosis or foraminal narrowing. Reading Location: [facility]
== END | disposition home or self-care (01) ==
LOC: MRI 07:21
PROVIDERS: PCP Nurse Practitioner Family; Referring Provider Nurse Practitioner Family; Visit Provider Nurse Practitioner Family
DX: M54.31 Sciatica, right side (principal)
CPT/HCPCS: 72148

== ENCOUNTER → 2025-02-09 | Outpatient (CLI) | payer OTHER, SELFPAY ==
[2025-02-09 08:36] LABS: PTHIN 59 pg/mL (11-61)
[2025-02-09 08:47] LABS: AST(SGOT) 24 U/L (<=31); Alanine Aminotransfer ALT/SGPT 28 U/L (<=34); Anion Gap 10 (5-15); BUN 11 mg/dL (4-19); Calcium,Total 9.7 mg/dL (7.6-11.0); Carbon Dioxide 26.3 mmol/L (21.0-32.0); Chloride 104 mmol/L (98-108); Creatinine, Serum 0.62 mg/dL (0.70-1.20); EST Glomerular Filtration Rate 105 (>60); Glucose 109 mg/dL (70-99); Potassium 4.5 mmol/L (3.3-5.1); Sodium Level 139 mmol/L (133-145)
[2025-02-09 12:11] LABS: Cholesterol 200 mg/dL (<=200); High Density Lipoprotein 44 mg/dL; Low Density Lipoprotein Calc. 105 mg/dL; Triglycerides 254 mg/dL; Very Low Density Lipoprotein 51 mg/dL (5-40); cholesterol:hdl ratio screen 4.54
[2025-02-09 12:33] LABS: Hemoglobin A1c 5.4 % (<=5.6)
== END | disposition home or self-care (01) ==
LOC: LAB 07:47
PROVIDERS: PCP Nurse Practitioner Family; Referring Provider Internal Medicine Endocrinology, Diabetes & Metabolism; Visit Provider Internal Medicine Endocrinology, Diabetes & Metabolism
DX: E11.9 Type 2 diabetes mellitus without complications (principal); E78.2 Mixed hyperlipidemia; E04.2 Nontoxic multinodular goiter; E21.1 Secondary hyperparathyroidism, not elsewhere classified; E55.9 Vitamin D deficiency, unspecified
CPT/HCPCS: 36415; 80048; 80061; 82306; 83036; 83970; 84443; 84450; 84460

== ENCOUNTER → 2025-03-29 | Outpatient (CLI) | payer OTHER, SELFPAY ==
--- NOTE | 2025-03-29 07:17 | EKG12_ITS ---
Test Reason : THYROID Blood Pressure : */* mmHG Vent. Rate : 69 BPM Atrial Rate : 69 BPM P-R Int : 152 ms QRS Dur : 74 ms QT Int : 370 ms P-R-T Axes : 36 12 62 degrees QTcB Int : 396 ms Normal sinus rhythm Normal ECG When compared with ECG of 31-May-2013 16:19, No significant change was found Confirmed by BLANCHE JO, JUANITA ([id number]), photo editor DEANGELO MAGANA ([id number]) on 04/02/2025 6:42:48 AM Referred By: Ivette Barton Confirmed By: JUANITA MANCIA MD
--- OUTSIDE RECORDS SUMMARY | 2025-03-29 07:20 | XMS RPT_ITS | CCD ---
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 Name Role Phone FRANKIE SNEED DR Attending Unavailable FRANKIE SNEED DR Admitting Unavailable GIULIANO HARRIS MD Consulting Unavailable FRANKIE SNEED DR Primary Care Unavailable PROVIDER, UNKNOWN Consulting Unavailable FRANKIE SNEED DR Primary Care Unavailable FRANKIE SNEED DR Attending Unavailable GIULIANO HARRIS MD Consulting Unavailable FRANKIE SNEED DR Admitting Unavailable PROVIDER, UNKNOWN Consulting Unavailable FRANKIE SNEED DR Attending Unavailable FRANKIE SNEED DR Admitting Unavailable GIULIANO HARRIS MD Consulting Unavailable FRANKIE SNEED DR Primary Care Unavailable PROVIDER, UNKNOWN Consulting Unavailable Giuliano Harris Unavailable [phone] Seymour Callejas Unavailable Unavailable Seymour Callejas Attending Unavailable Dr. Giuliano Harris Primary Care Unavail able No, Physician Primary Care Provider UnavailALISA Gonzales Admitting Unavailable ALISA MARQUES Referring Unavailable NO, PHYSICIAN Primary Care Unavailable ALISA MARQUES Attending Unavailable NO, PHYSICIAN Primary Care Unavailable NO, PHYSICIAN Primary Care Unavailable ENRIKE MCGEE Attending Unavailab ENRIKE Mayen Admitting Unavailab Charlie JO, IGULIANO Primary Care Physician [phone] CLAUDETTE ARTEAGA MD Attending Unavailable GIULIANO HARRIS MD Primary Care Unavailable MAHESH SALAS Attending Unavailable MARION, TATUM Primary Care Unavailable Marion SCREEN VENT BINDER-C, Tatum Primary Care Provider Marion SCREEN VENT BINDER-C, Tatum Attending Provider Marion SCREEN VENT BINDER-C, Tatum Referring Provider [phone] Mick JO, Dr. Steele Attending Provider Dr. Ivette Barton MD Referring Provider HOLDEN PERALTA Attending Provider HOLDEN PERALTA Referring Provider Marion SCREEN VENT BINDER-C, Tatum Primary Care Provider [phone] Marion SCREEN VENT BINDER-C, Tatum Attending Provider Marion SCREEN VENT BINDER-C, Tatum Referring Provider Mick JO, Dr. Steele Attending Provider Dr. Ivette Barton MD Referring Provider YEATER, GARRISON Attending Unavailable YEATER, GARRISON Referring Unavailable Marion, Tatum Primary Care Unavailable Marion, Tatum Attending Unavailable Marion, Tatum Referring Unavailable Marion, Tatum Primary Care Unavailable MickIvette gonzalez Attending Unavailable Mick, Ivette Referring Unavailable Marion, Tatum Primary Care Unavailable Marion, Tatum Primary Care Unavailable Marion, Tatum Attending Unavailable Marion, Tatum Referring Unavailable MickIvette gonzalez Attending Unavailable Mick, Ivette Referring Unavailable Marion, Tatum Primary Care Unavailable Marion, Tatum Primary Care Unavailable SealsClaudette E Attending Unavailable Seals, Claudette E Referring Unavailable Marion, Tatum Primary Care Unavailable MickIvette gonzalez Attending Unavailable Mick, Ivette Referring Unavailable Marion, Tatum Primary Care Unavailable Marion, Tatum Attending Unavailable Marion, Tatum Referring Unavailable Marion, Tatum Primary Care Unavailable Marion, Tatum Attending Unavailable Marion, Tatum Referring Unavailable Marion, Tatum Primary Care Unavailable Ivette Barton Attending Unavailable Mick, Ivette Referring Unavailable Marion, Tatum Attending Unavailable Marion, Attum Referring Unavailable Marion, Tatum Primary Care Unavailable MickNorie Attending Unavailable Mick, Ivette Referring Unavailable Marion, Tatum Primary Care Unavailable Allergies Allergy Classification Reported Allergen(s) Allergy Type Date of Onset Reaction(s) Facility (4 sources) ceFAZolin; Translations: [CEFAZOLIN] Drug Allergy 3 [facility] Repository (4 sources) Codeine; Translations: [CODEINE] Drug Allergy 7 [facility] Repository (1 source) BEE STING; Translations: [BEE STING] Propensity to adverse reactions (disorder) [facility] Repository (16 sources) ceFAZolin; Translations: [cefazolin] Drug Allergy 0 Unknown, Hives [facility] Work Phone: (16 sources) Codeine; Translations: [codeine] Drug Allergy 7 Hives, Other (See Comments) [facility] Work Phone: (17 sources) bee venom protein (honey bee); Translations: [BEE VENOM PROTEIN (HONEY BEE)] Allergy to substance 0 Unknown [facility] (2 sources) Bee/Wasp/Ant venom Anaphylaxis [facility] (3 sources) KIWI; Translations: [KIWI] Propensity to adverse reactions to drug (disorder) 3 Anaphylaxis [facility] Repository (1 source) ceFAZolin Drug Allergy 0 [facility] (1 source) Codeine Drug Allergy 0 [facility] (1 source) bee venom protein (honey bee) Drug allergy (disorder) 0 [facility] Repository Medications Current Medications Medication Drug Class(es) Dates Sig (Normalized) Sig (Original) aspirin 81 mg oral tablet (2 sources) Platelet Aggregation Inhibitor, Nonsteroidal Anti-inflammatory Drug Start: 02-05-2021 Aspirin Low Dose 81 mg oral tablet, chewable Dose : 81 mg = 1 tab(s), Chewed, qDay, 0 Refill(s) Start Date: 02/05/21 Status: Ordered calcitriol 0.46262 mg oral capsule (6 sources) Vitamin D3 Analog Start: 05-13-2023 take 1 capsule by mouth once daily calcitrioL (ROCALTROL) 0.25 MCG capsule Take 1 (one) capsule (0.25 mcg total) by mouth daily . 0 05/13/2023 Active Start: 02-18-2022 take 1 capsule by mo ut once daily calcitriol 0.25 mcg oral capsule take 1 capsule by mouth once daily (ON TUESDAY, TUESDAY, TUESDAY, TUESDAY, AND TUESDAY) Start Date: 02/18/22 Status: Ordered calcitriol 0.25 mcg oral capsule ; 1 cap(s) orally Tuesday, Tuesday, and Tuesday, Tuesday and Tuesday Quantity: 0 Refills: 0 Ordered: 02-Jun-2022 Emily Smith Generic Substitution Allowed cholecalciferol 0.05 mg oral tablet (1 source) Vitamin D cholecalciferol, vitamin D3, (Vitamin D3) 50 mcg (2,000 unit) Tab Take 400 Units by mouth . 0 Active Clobetasol (1 source) Corticosteroid Start : 05-07 End: 07-06 clobetasol 0.05% topical cream Apply 1 edi, Topical, BID, Apply twice daily until symptoms resolve then once every 2 days, X 30 day(s), # 45 gram(s), 1 Refill(s), [id number], Cream, 155, cm, 05/07/24 11:44:00 EDT, Height, 89.9, kg, 05/07/24 11:44:00 EDT, Dosing Weight Start Date: 05/07/24 Stop Date: 07/06/24 Status: Ordered [id number] 0.3 ml EPINEPHrine 1 mg/ml auto-injector (11 sources) alpha-Adrenergic Agonist, beta-Adrenergic Agonist, Catecholamine Start : 08-07 inject 0.3 mg by intramuscular injection once Epinephrine 0.3 MG syringe Active 0.3 mg IM ONE TIME 2 August 07, 2020 12:00am EPINEPHrine 0.1 mg injectable kit ; 1 dose(s) injectable , As Needed Quantity: 0 Refills: 0 Ordered: 02-Jun-2022 Emily Smith Generic Substitution Allowed ergocalciferol 1.25 mg oral capsule (11 sources) Provitamin D2 Compound Start: 11-24-2016 Ergocalciferol (Shila min D2) 50,000 UNIT capsule Active 52941 U PO MOWEFR November 24, 2016 1:00am Vitamin D2 1.25 mg (50,000 intl units) oral capsule ; 1 cap(s) orally 2 times a week Quantity: 0 Refills: 0 Ordered: 02-Jun-2022 Emily Smith Generic Substitution Allowed ibuprofen 600 mg oral tablet (1 source) Nonsteroidal Anti-inflammatory Drug Start: 06-02-2022 End: 06-11-2022 take 1 tablet by mouth three times daily at mealtime IBU 600 mg oral tablet ; 1 tab(s) orally 3 times a day Quantity: 30 Refills: 0 Ordered: 02-Jun-2022 MalindaSeymour Start: 02-Jun-2022 End: 11-Jun-2022 Generic Substitution Allowed Comments: Do not take this drug if you are .It is very important that you take or use this exactly as directed. Do not skip doses or discontinue unless directed by your doctor.May cause drowsiness or dizziness.Obtain medical advice before taking any non-prescription drugs as some may affect the action of this medication.Take with food or milk. Comment on above: Do not take this allan g if you are .It is very important that you take or use this exactly as directed. Do not skip doses or discontinue unless directed by your doctor.May cause drowsiness or dizziness.Obtain medical advice before taking any non-prescription drugs as some may affect the action of this medication.Take with food or milk. levothyroxine sodium 0.15 mg oral tablet (20 sources) l-Thyroxine Start: 02-18-2022 levothyroxine 150 mcg (0.15 mg) oral tablet TAKE 1/2 TABLET BY MOUTH TUESDAY, 1 TABLET ONCE DAILY TUESDAY - TUESDAY Start Date: 02/18/22 Status: Ordered Start: 01-10-2020 take 1 tablet by aaron th once daily Levothyroxine 150 MCG tablet Active 150 ug PO DAILY January 10, 2020 12:00am Start: 05-27-2016 End: 10-04-2017 take 1 tablet by mouth once daily Levothyroxine 112 MCG tablet Discontinued 112 ug PO DAILY May 27, 2016 12:00am October 04, 2017 11:52am take 1 tablet by aaron th once daily levothyroxine 150 mcg (0.15 mg) oral tablet ; 1 tab(s) orally once a day Quantity: 0 Refills: 0 Ordered: 02-Jun-2022 Emily Smith Generic Substitution Allowed predniSONE 20 mg oral tablet (10 sources) Start: 08-07-2020 take 2 tablets by mouth once daily at mealtime Prednisone 20 MG tablet Active 40 mg PO DAILY August 07, 2020 12:00am With food Start: 08-07-2020 take 40 mg by mouth once daily at mealtime Prednisone Active 40 MG PO DAILY August 06, 2020 11:00pm With food vitamin B12 (11 sources) Vitamin B12 Start: 02-05-2021 Vitamin B12 0 Refill(s) Start Date: 02/05/21 Status: Ordered Start: 11-24-2016 take 3 tablets by mo uth once daily Cyanocobalamin (Vitamin B-12) 1,000 MCG tablet Active 3000 ug PO DAILY November 24, 2016 1:00am Start: 11-24-2016 take 3000 ug by mout h once daily Cyanocobalamin (Vitamin B-12) Active 3000 MCG PO DAILY November 24, 2016 12:00am Vitamin D2 1.25 mg (50,000 intl units) oral capsule (1 source) Start: 02-18-2022 take 1 capsule by mouth two times weekly Vitamin D2 1.25 mg (50,000 intl units) oral capsule take 1 capsule by mouth two times a week Start Date: 02/18/22 Status: Ordered Completed/Discontinued Medications Medication Drug Class(es) Dates Sig (Normalized) Sig (Original) acetaminophen 325 mg / oxyCODONE hydrochloride 5 mg oral tablet (20 sources) Opioid Agonist Start: 12-29-2018 End: 01-04-2019 Oxycodone-Acetamino phen 1 TABLET tablet Discontinued 1 - 2 {tbl} PO EVERY 4 HOURS NEEDED as needed for Pain 08 04December 29, 2018 12:00am January 03, 2019 12:00am January 04, 2019 12:08am Start: 12-29-2018 End: 01-04-2019 take 1 tablet by mouth every four hours as needed Oxycodone-Acetaminophen Discontinued 1 - 2 TABLET PO EVERY 4 HOURS NEEDED 30 December 28, 2018 11:00pm January 03, 2019 11:08pm Start: 11-26-2016 End: 10-07-2017 Oxycodone-Acetaminophen 1 TA BLET tablet Discontinued 1 - 2 {tbl} PO EVERY 4 HOURS NEEDED as needed for Pain November 26, 2016 1:00am October 07, 2017 10:34am Start: 11-26-2016 End: 10-07-2017 take 1 tablet by mouth every four hours as needed Oxycodone-Acetaminophen Discontinued 1 - 2 TABLET PO EVERY 4 HOURS NEEDED 40 November 26, 2016 12:00am October 07, 2017 9:34am estradiol 0.1 mg/ml vaginal cream (1 source) Estrogen Start: 02-18-2022 End: 07-18-2022 Estrace Vaginal 0.1 mg/g vaginal cream 1 gram(s), Vaginal, qDay, # 42.5 gram(s), 4 Refill(s), [facility]acy: [id number], 153, cm, 02/18/22 8:29:00 EDT, Height Start Date: 02/18/22 Stop Date: 07/18/22 Status: Ordered estrogens, conjugated (jail) 0.3 mg / medroxyPROGESTERone acetate 1.5 mg oral tablet (2 sources) Progestin, Estrogen Start: 06-03-2022 End: 10-01-2022 take 1 tablet by mouth once daily Prempro 0.3 mg-1.5 mg oral tablet Dose = 1 tab(s), Oral, qDay, # 60 tab(s), 1 Refill(s), Pharmacy: [facility] #[id number], 153, cm, 02/18/22 8:29:00 EDT, Height Start Date: 06/03/22 Stop Date: 10/01/22 Status: Ordered take 1 tablet by aaron once daily after dinner Prempro 0.45 mg-1.5 mg oral tablet ; 1 tab(s) orally once a day, after dinner Quantity: 0 Refills: 0 Ordered: 02-Jun-2022 Emily Smith Generic Substitution Allowed pantoprazole 40 mg delayed release oral tablet (10 sources) Proton Pump Inhibitor Start: 11-26-2016 End: 10-07-2017 take 1 tablet by mouth twice daily Pantoprazole 40 MG tablet Discontinued 40 mg PO TWICE A DAY 60 November 26, 2016 1:00am October 07, 2017 10:34am sucralfate 1000 mg oral tablet (10 sources) Aluminum Complex Start: 11-26-2016 End: 10-07-2017 take 1 tablet by mouth four times daily Sucralfate 1 GM tablet Discontinued 1 g PO 4 TIMES DAILY 120 November 26, 2016 1:00am October 07, 2017 10:34am Problems Active Problems Problem Classification Problem Date Documented Date Episodic/Chronic Abdominal pain (10 sources) Right upper quadrant pain; Translations: [Right upper quadrant pain] 12-29-2018 Episodic Complication of device; implant or graft (9 sources) Pain; Translations: [Pain due to internal orthopedic prosthetic devices, implants and grafts, initial encounter] Onset: 05-24-2023 05-25-2023 Episodic Deficiency and other anemia (10 sources) Iron deficiency anemia; Translations: [Iron deficiency anemia, unspecified] 12-29-2018 Episodic Diabetes mellitus without complication (3 sources) Type 2 diabetes mellitus without complications; Translations: [Type 2 diabetes mellitus without complications] Onset: 08-18-2020 Chronic Gastritis and duodenitis (10 sources) Gastroduodenitis; Translations: [Gastroduodenitis, unspecified, without bleeding] 12-29-2018 Episodic Nutritional deficiencies (13 sources) Vitamin D deficiency; Translations: [Vitamin D deficiency, unspecified] Onset: 08-21-2018 12-29-2018 Chronic Open wounds of extremities (20 sources) Traumatic amputation of fingertip; Translations: [Unspecified open wound of unspecified finger without damage to nail, initial encounter] 07-07-2020 Episodic Osteoarthritis (16 sources) Bilateral post-traumatic osteoarthritis of knee; Translations: [Osteoarthritis] Onset: 08-18-2020 12-29-2018 Chronic Other bone disease and musculoskeletal deformities [...] right middle finger] Onset: 06-15-2023 Episodic Other endocrine disorders (1 source) Secondary hyperparathyroidism, not elsewhere classified; Translations: [Secondary hyperparathyroidism, not elsewhere classified] Onset: 12-20-2024 Chronic Other lower respiratory disease (1 source) Nodule of lung; Translations: [Solitary pulmonary nodule] 06-02-2022 Episodic Other skin disorders (10 sources) Disorder of subcutaneous tissue; Translations: [Disorder of the skin and subcutaneous tissue, unspecified] 07-06-2020 Episodic Residual codes; unclassified (9 sources) Past history of procedure; Translations: [Other specified postprocedural states] 01-08-2019 Episodic Spondylosis; intervertebral disc disorders; other back problems (4 sources) Sciatica, right side; Translations: [Cervicalgia] Onset: 06-16-2024 Episodic Thyroid disorders (20 sources) Hypothyroidism, unspecified; Translations: [Multinodular goiter] Onset: 08-18-2020 12-29-2018 Chronic Unclassified (2 sources) CHEST PRESSURE 06-02-2022 Comment on above: CHEST PRESSURE Unclassified (1 source) Costochondritis 06-02-2022 Unclassified (1 source) Lung nodule 06-02-2022 Unclassified (1 source) Contact with and (suspected) exposure to COVID-19; Translations: [Contact with and (suspected) exposure to COVID-19] Onset: 06-02-2022 Unclassified (1 source) Patient encounter status 05-07-2024 Past or Other Problems Problem Classification Problem Date Documented Da te Episodic/Chronic Cardiac dysrhythmias (1 source) Palpitations; Translations: [Palpitations] Onset: 06-02-2022 Episodic Malaise and fatigue (1 source) Other malaise; Translations: [Other malaise] Onset: 06-02-2022 Episodic Nonspecific chest pain (4 sources) Atypical chest pain; Translations: [Other chest pain] Onset: 06-02-2022 06-02-2022 Episodic Other aftercare (1 source) MCFP (current) use of aspirin; Translations: [MCFP (current) use of aspirin] Onset: 06-02-2022 Episodic Other bone disease and musculoskeletal deformities (1 source) Chondrocostal junction syndrome [Tietze]; Translations: [Chondrocostal junction syndrome [Tietze]] Onset: 06-02-2022 Episodic Other connective tissue disease (1 source) Pain in left hand; Translations: [Pain in left hand] Onset: 04-25-2024 Episodic Other lower respiratory disease (1 source) Solitary pulmonary nodule; Translations: [Solitary pulmonary nodule] Onset: 06-02-2022 Episodic Other non-traumatic joint disorders (1 source) Pain in right hip; Translations: [Pain in right hip] Onset: 11-01-2024 Episodic Other screening for suspected conditions (not mental disorders or infectious disease) (1 source) Encounter for screening mammogram for malignant neoplasm of breast; Translations: [Encounter for screening mammogram for malignant neoplasm of breast] Onset: 06-15-2024 Episodic Results Test Name Value Interpretation Reference Range Facility AST(SGOT)on 02-09-2025 AST [Catalytic activity/Vol] 24 U/L Normal <=31 [facility] Comment on above: Performed By: #### L 501.4405, L506.1000, L500.2500, L509.1000, L501.9520, L501.9985, L501.4100, L500.4100 #### [facility] [address], [place], [id number] [phone] Alanine Aminotransferas (SGP T)on 02-09-2025 ALT [Catalytic activity/Vol] 28 U/L Normal <=34 [facility] Comment on above: Performed By: #### L 501.4405, L506.1000, L500.2500, L509.1000, L501.9520, L501.9985, L501.4100, L500.4100 #### [facility] [address], [place], [id number] Anion gap in Serum or Plasma Ordered By: Ivette Barton on 02-09-2025 Anion gap [Moles/Vol] 10 mmol/L - [facility] BUN/creatinine ratioOrdered By: Ivette Barton on 02-09-2025 Urea nitrogen/Creatinine [Mass ratio] 18.0 mg/mg - [facility] Basic Metabolic Profile (BMP )on 02-09-2025 BUN/CRE 18.0 RATIO Normal - [facility] Comment on above: Performed By: #### L 509.1000, L501.4100, L500.4100, L501.9520, L501.9985, L500.2500, L501.4405, L506.1001 #### [facility] [address] [facility] [place], [place], [id number] Calcium [Mass/Vol] 9.7 mg/dL Normal 7.6-11.0 [facility] Comment on above: Performed By: #### L 509.1000, L501.4100, L500.4100, L501.9520, L501.9985, L500.2500, L501.4405, L506.1001 #### [facility] [address] [place], [address] Chloride [Moles/Vol] 104 mmol/L Normal 98-108 [facility] Comment on above: Performed By: #### L 509.1000, L501.4100, L500.4100, L501.9520, L501.9985, L500.2500, L501.4405, L506.1001 #### [facility] [address] [place], [address] CO2 [Moles/Vol] 26.3 mmol/L Normal 21.0-32.0 [facility] Comment on above: Performed By: #### L 509.1000, L501.4100, L500.4100, L501.9520, L501.9985, L500.2500, L501.4405, L506.1001 #### [facility] [address] [place], [address] Creatinine [Mass/Vol] 0.62 mg/dL Low 0.70-1.20 [facility] Comment on above: Performed By: #### L 509.1000, L501.4100, L500.4100, L501.9520, L501.9985, L500.2500, L501.4405, L506.1001 #### [facility] [address] [place], [address] GAP 10 Normal 5-15 [facility] Comment on above: Performed By: #### L 509.1000, L501.4100, L500.4100, L501.9520, L501.9985, L500.2500, L501.4405, L506.1001 #### [facility] [address] [place], [address] GFR/1.73 sq M.predicted among non-blacks MDRD (S/P/Bld) [Vol rate/Area] 105 mL/min/{1.73_m2} Normal >60 [facility] Comment on above: Result Comment: mL/m in/1.73m2 CKD-EPI Creatinine Equation (2020) Performed By: #### L 509.1000, L501.4100, L500.4100, L501.9520, L501.9985, L500.2500, L501.4405, L506.1001 #### [facility] [address] [place], [address] Glucose [Mass/Vol] 109 mg/dL High 70-99 [facility] Comment on above: Performed By: #### L 509.1000, L501.4100, L500.4100, L501.9520, L501.9985, L500.2500, L501.4405, L506.1001 #### [facility] [address] [place], [address] Potassium [Moles/Vol] 4.5 mmol/L Normal 3.3-5.1 [facility] Comment on above: Performed By: #### L 509.1000, L501.4100, L500.4100, L501.9520, L501.9985, L500.2500, L501.4405, L506.1001 #### [facility] [address] [place], [address] Sodium [Moles/Vol] 139 mmol/L Normal 133-145 [facility] Comment on above: Performed By: #### L 509.1000, L501.4100, L500.4100, L501.9520, L501.9985, L500.2500, L501.4405, L506.1001 #### [facility] [address] [place], [address] Urea nitrogen [Mass/Vol] 11 mg/dL Normal 4-19 [facility] Comment on above: Performed By: #### L 509.1000, L501.4100, L500.4100, L501.9520, L501.9985, L500.2500, L501.4405, L506.1001 #### [facility] [address] [place], [place], [id number] Calculated very low density lipoprotein (VLDL) cholesterol measurementOrdered By: Ivette Barton on 02-09-2025 Calculated very low density lipoprotein (VLDL) cholesterol measurement 51 mg/dL High 5-40 [facility] Carbon dioxide, total [Moles /volume] in Central venous bloodOrdered By: Ivette Barton on 02-09-2025 CO2 [Moles/Vol] 26.3 mmol/L 21.0-32.0 [facility] Chloride assayOrdered By: Nikki Barton on 02-09-2025 Chloride [Moles/Vol] 104 mmol/L 98-108 [facility] Glomerular filtration rate ( GFR) estimation/1.73 sq m using serum, plasma, or whole bOrdered By: Ivette Barton on 02-09-2025 GFR/1.73 sq M.predicted among non-blacks MDRD (S/P/Bld) [Vol rate/Area] 105 mL/min/{1.73_m2} >60 [facility] Comment on above: mL/min/1.73m2 CKD-EP I Creatinine Equation (2020) Hemoglobin A1con 02-09-2025 HbA1c (Bld) [Mass fraction] 5.4 % Normal <=5.6 [facility] Comment on above: Result Comment: Norm al < 5.7 % Prediabetic 5.7 - 6.4 % Diabetic >or= 6.5 % Please note range changes. Performed By: #### L 501.4405, L506.1000, L500.2500, L509.1000, L501.9520, L501.9985, L501.4100, L500.4100 #### [facility] [address] [place], [place], [id number] Hemoglobin A1c percentageOrd ered By: Ivette Barton on 02-09-2025 HbA1c (Bld) [Mass fraction] 5.4 % <5.7 [facility] Comment on above: Normal < 5.7 % Predi abetic 5.7 - 6.4 % Diabetic >or= 6.5 % Please note range changes. LDL calc ser/plasOrdered By: Ivette Barton on 02-09-2025 Cholesterol in LDL [Mass/Vol] 105 mg/dL [facility] Comment on above: Qlljpscoms=556-289 m g/dL & Higher Kvre=101 mg/dL or greater Laboratory - Chemistry and C hemistry - challengeOrdered By: Ivette Barton on 02-09-2025 AST [Catalytic activity/Vol] 24 U/L <32 [facility] Lipid Profileon 02-09-2025 CHOL:HDL 4.54 Normal [facility] Comment on above: Performed By: #### L 501.4405, L506.1000, L500.2500, L509.1000, L501.9520, L501.9985, L501.4100, L500.4100 #### [facility] [address] [place], [address] ([phone]) Cholesterol [Mass/Vol] 200 mg/dL Normal <=200 [facility] Comment on above: Result Comment: Chol esterol level, Desirable <200 mg/dL Borderline high cholesterol 200-239 mg/dL High cholesterol >=240 mg/dL Recommendations of the NCEP Adult Treatment Panel for the following risk-cutoff thresholds for the [place] population. Performed By: #### L 501.4405, L506.1000, L500.2500, L509.1000, L501.9520, L501.9985, L501.4100, L500.4100 #### [facility] [address] [place], [phone] Cholesterol in HDL [Mass/Vol] 44 mg/dL Normal [facility] Comment on above: Result Comment: Kathie onal Cholesterol Education Program (NCEP) guidelines: <40 mg/dL: Low HDL-cholesterol (major risk factor for CHD) >= 60 mg/dL: High HDL-cholesterol (negative risk factor for CHD) HDL-cholesterol is affected by a number of factors, e.g. smoking, exercise, hormones, sex and age. Performed By: #### L 501.4405, L506.1000, L500.2500, L509.1000, L501.9520, L501.9985, L501.4100, L500.4100 #### [facility] [address] [place], [address] Cholesterol in LDL [Mass/Vol] 105 mg/dL Normal [facility] Comment on above: Result Comment: Bord xcipbn=139-472 mg/dL Higher Puya=666 mg/dL or greater Performed By: #### L 501.4405, L506.1000, L500.2500, L509.1000, L501.9520, L501.9985, L501.4100, L500.4100 #### [facility] [address] [place], [address] Cholesterol in VLDL [Mass/Vol] 51 mg/dL High 5-40 [facility] Comment on above: Performed By: #### L 501.4405, L506.1000, L500.2500, L509.1000, L501.9520, L501.9985, L501.4100, L500.4100 #### [facility] [address] [place], [address] Triglyceride [Mass/Vol] 254 mg/dL High [facility] Comment on above: Result Comment: The drugs N-Acetylcysteine and Metamizole may falsely depress this assay. Normal range: <150 mg/dL Borderline High: 150-199 mg/dL High: 200-499 mg/dL Very High: >500 mg/dL Performed By: #### L 501.4405, L506.1000, L500.2500, L509.1000, L501.9520, L501.9985, L501.4100, L500.4100 #### [facility] [address] [place], [address] PTHINon 02-09-2025 PTH 59 pg/mL Normal 11-61 [facility] Comment on above: Performed By: #### L 509.1000, L501.4100, L500.4100, L501.9520, L501.9985, L500.2500, L501.4405, L506.1001 #### [facility] [address] [place], [address] Potassium measurement (mass/ volume)Ordered By: Ivette Barton on 02-09-2025 Potassium (Unsp spec) [Mass/Vol] 4.5 mmol/L 3.3-5.1 [facility] Screening total cholesterol/ high density lipoprotein (HDL) cholesterol ratioOrdered By: Ivette Barton on 02-09-2025 Cholesterol.total/Cho lesterol in HDL [Mass ratio] 4.54 {ratio} [facility] Serum creatinine measurement (mass/volume)Ordered By: Ivette Barton on 02-09-2025 Creatinine [Mass/Vol] 0.62 mg/dL Low 0.70-1.20 [facility] Serum glucose measurement (m ass/volume)Ordered By: Ivette Barton on 02-09-2025 Glucose [Mass/Vol] 109 mg/dL High 70-99 [facility] Serum or plasma alanine tubbs otransferase (ALT) measurementOrdered By: Ivette Barton on 02-09-2025 ALT [Catalytic activity/Vol] 28 U/L <35 [facility] Serum or plasma calcium will urement (mass/volume)Ordered By: Ivette Barton on 02-09-2025 Calcium [Mass/Vol] 9.7 mg/dL 7.6-11.0 [facility] Serum or plasma cholesterol in HDL measurement (mass/volume)Ordered By: Ivette Barton on 02-09-2025 Cholesterol in HDL [Mass/Vol] 44 mg/dL >40 [facility] Comment on above: National Cholesterol Education Program (NCEP) guidelines:<40 mg/dL: Low HDL-cholesterol (major risk factor for CHD)>= 60 mg/dL: High HDL-cholesterol (negative risk factor for CHD)HDL-cholesterol is affected by a number of factors, e.g. smoking, exercise, hormones, sex and age. Serum or plasma cholesterol measurement (mass/volume)Ordered By: Ivette Barton on 02-09-2025 Cholesterol [Mass/Vol] 200 mg/dL <201 [facility] Comment on above: Cholesterol level, D esirable <200 mg/dLBorderline high cholesterol 200-239 mg/dLHigh cholesterol >=240 mg/dLRecommendations of the NCEP Adult Treatment Panel for the following risk-cutoff thresholds for the [place] population. Serum or plasma urea nitroge n measurement (mass/volume)Ordered By: Ivette Barton on 02-09-2025 Urea nitrogen [Mass/Vol] 11 mg/dL 4-19 [facility] Sodium levelOrdered By: Chau Barton on 02-09-2025 Sodium [Moles/Vol] 139 mmol/L 133-145 [facility] TSH DL <= 0.005 mIU/L QnOrde red By: Ivette Barton on 02-09-2025 TSH Qn 2.550 uIU/mL 0.300-4.200 [facility] Thyroid Stim Hormone (TSH)on 02-09-2025 TSH 2.550 uIU/mL Normal 0.300-4.200 [facility] Comment on above: Performed By: #### L 501.4405, L506.1000, L500.2500, L509.1000, L501.9520, L501.9985, L501.4100, L500.4100 #### [facility] [address] [place] [address]. [place], [address] Triglycerides measurementOrd ered By: Ivette Barton on 02-09-2025 Triglyceride [Mass/Vol] 254 mg/dL High <199 [facility] Comment on above: The drugs N-Acetylcy steine and Metamizole may falsely depress this assay. Normal range: <150 mg/dLBorderline High: 150-199 mg/dLHigh: 200-499 mg/dLVery High: >500 mg/dL Vitamin D,25 Hydroxyon 02-09 Vitamin D 25-OH 89.0 ng/mL Normal 30-100 [facility] Comment on above: Result Comment: Shila min D Status Deficiency: <20 ng/mL (50nmol/L) Insufficiency: 20-30 ng/mL (50-75 nmol/L) Sufficiency: 30-100 ng/mL (75-250 nmol/L) Toxicity: >100 ng/mL (>250 nmol/L) Performed By: #### L 501.4405, L506.1000, L500.2500, L509.1000, L501.9520, L501.9985, L501.4100, L500.4100 #### [facility] [address] [facility] [place], [place], [address] Magnetic resonance imaging r eportOrdered By: Vinnie Ferraro on 01-19-2025 Study report [facility] Imaging Services [address] [place], [place] [address] Spine Lumbar (Routine) MR#: [id number] Acct: [id number] Name: ROMAGARRISON WILLIAN Rep #: [id number] : 1970 F 54 From: Laz Ferraro DO PCP: LIGIA Romero Status: REG CLI Study:Spine Lumbar (Routine) Date of Exam: 01/19/25 Exam# [id number] Ordering Dr: Ra cinda Stevens PROCEDURE: SPINE LUMBAR (ROUTINE) 01/19/2025 REASON FOR EXAM: SCIATICIA PAIN TECHNIQUE: Multiplaner MRI of the lumbar spine performed without contrast. Multiple pulse sequences were obtained. COMPARISON: None FINDINGS: Vertebral body heights are within normal limits. Negative for fracture or marrow replacement. Alignment is within normal limits. Conus medullaris is intact and terminates at L1. No paraspinal mass. L1-2: No focal disc abnormality, spinal stenosis or foraminal narrowing. L2-3: No focal disc abnormality, spinal stenosis or foraminal narrowing. L3-4: No focal disc abnormality, spinal stenosis or foraminal narrowing. L4-5: Minimal posterior disc bulge. Mild bilateral facet arthrosis. No significant spinal stenosis or foraminal narrowing. L5-S1: Minimal posterior disc bulge. Mild bilateral facet arthrosis. No significant spinal stenosis or foraminal narrowing. MRI/Spine Lumbar (Routine) IMPRESSION: No significant spinal stenosis or foraminal narrowing. Reading Location: [facility] CC: LIGIA Stevens ~ [employer] Consultant: Signed [facility] Spine Lumbar (Routine)on Spine Lumbar (Routine) [facility] Imaging Services [address] [place] [address] Spine Lumbar (Routine) MR#: [id number] Acct: [id number] Name: GARRISON WALKER Rep #: [id number] : 1970 F 54 From: Vinnie Kohler PCP: LIGIA Romero Status: REG CLI Study: Spine Lumbar (Routine) Date of Exam: 01/19/25 Exam# [id number] Ordering Dr: Tatum Stevens PROCEDURE: SPINE LUMBAR (ROUTINE) 01/19/2025 REASON FOR EXAM: SCIATICIA PAIN TECHNIQUE: Multiplaner MRI of the lumbar spine performed without contrast. Multiple pulse sequences were obtained. COMPARISON: None FINDINGS: Vertebral body heights are within normal limits. Negative for fracture or marrow replacement. Alignment is within normal limits. Conus medullaris is intact and terminates at L1. No paraspinal mass. L1-2: No focal disc abnormality, spinal stenosis or foraminal narrowing. L2-3: No focal disc abnormality, spinal stenosis or foraminal narrowing. L3-4: No focal disc abnormality, spinal stenosis or foraminal narrowing. L4-5: Minimal posterior disc bulge. Mild bilateral facet arthrosis. No significant spinal stenosis or foraminal narrowing. L5-S1: Minimal posterior disc bulge. Mild bilateral facet arthrosis. No significant spinal stenosis or foraminal narrowing. MRI/Spine Lumbar (Routine) IMPRESSION: No significant spinal stenosis or foraminal narrowing. Reading Location: [facility] CC: LIGIA Stevens [employer] Consultant: Signed Normal [facility] Intact parathyroid hormone ( iPTH) measurementon 12-07-2024 Parathyroid Hormone (Intact) 55 pg/mL [facility] PTHINon 12-07-2024 PTH 55 pg/mL Normal [facility] Comment on above: Performed By: #### L 501.4405, L506.1000, L500.2500, L509.1000, L501.9520, L501.9985, L501.4100, L500.4100 #### [facility] [address] [place], [address] [id number] DOrdered By: Marlene Barton on 10-09-2024 Vitamin D 25-Hydroxy 67.1 ng/mL [facility] Comment on above: Vitamin D 25(OH) Sta tus Range Deficiency <20 ng/mL (50nmol/L) Insufficiency 20 - 30 ng/mL (50 - 75 nmol/L) Sufficiency 30 - 100 ng/mL (75 - 250 nmol/L) Toxicity >100 ng/mL (>250 nmol/L) AST(SGOT)on 10-09-2024 AST [Catalytic activity/Vol] 21 U/L Normal 15-37 [facility] Comment on above: Performed By: #### L 501.4405, L506.1000, L500.2500, L509.1000, L501.9520, L501.9985, L501.4100, L500.4100 #### [facility] [address] [place], [address] Alanine Aminotransferas (SGP T)on 10-09-2024 ALT [Catalytic activity/Vol] 33 U/L Normal 13-56 [facility] Comment on above: Performed By: #### L 501.4405, L506.1000, L500.2500, L509.1000, L501.9520, L501.9985, L501.4100, L500.4100 #### [facility] [address] [place], [address] Basic Metabolic Profile (BMP )on 10-09-2024 BUN/CRE 22.2 RATIO High 10-20 [facility] Comment on above: Performed By: #### L 501.4405, L506.1000, L500.2500, L509.1000, L501.9520, L501.9985, L501.4100, L500.4100 #### [facility] [address] [place], [address] CA,Total 8.8 mg/dL Normal 8.5-10.1 [facility] Comment on above: Performed By: #### L 501.4405, L506.1000, L500.2500, L509.1000, L501.9520, L501.9985, L501.4100, L500.4100 #### [facility] [address] [place], [address] Chloride [Moles/Vol] 106 mmol/L Normal 98-107 [facility] Comment on above: Performed By: #### L 501.4405, L506.1000, L500.2500, L509.1000, L501.9520, L501.9985, L501.4100, L500.4100 #### [facility] [address] [place], [address] CO2 [Moles/Vol] 27.0 mmol/L Normal 21.0-32.0 [facility] Comment on above: Performed By: #### L 501.4405, L506.1000, L500.2500, L509.1000, L501.9520, L501.9985, L501.4100, L500.4100 #### [facility] [address] [place], [address] Creatinine [Mass/Vol] 0.68 mg/dL Normal 0.55-1.02 [facility] Comment on above: Result Comment: The validity of the calculated GFR GFRAA in patients over 70 years has not been determined. Clinical correlation is essential. Performed By: #### L 501.4405, L506.1000, L500.2500, L509.1000, L501.9520, L501.9985, L501.4100, L500.4100 #### [facility] [address] [place], [address] EST GFR - AA 116 mL/min Normal >60 [facility] Comment on above: Result Comment: Afri can [place] GFR Calc Performed By: #### L 501.4405, L506.1000, L500.2500, L509.1000, L501.9520, L501.9985, L501.4100, L500.4100 #### [facility] [address] [place], [address] GAP 6 Normal 5-15 [facility] Comment on above: Performed By: #### L 501.4405, L506.1000, L500.2500, L509.1000, L501.9520, L501.9985, L501.4100, L500.4100 #### [facility] [address] [place], [address] (639) GFR/1.73 sq M.predicted among non-blacks MDRD (S/P/Bld) [Vol rate/Area] 96 mL/min/{1.73_m2} Normal >60 [facility] Comment on above: Result Comment: Non- GFR Calc Performed By: #### L 501.4405, L506.1000, L500.2500, L509.1000, L501.9520, L501.9985, L501.4100, L500.4100 #### [facility] [address] [place], [address] (980) Glucose [Mass/Vol] 109 mg/dL High 74-106 [facility] Comment on above: Result Comment: Fast ing Glucose result from 100 to 125 mg/dL suggests IMPAIRED HOMEOSTASIS per A.D.A. criteria. Performed By: #### L 501.4405, L506.1000, L500.2500, L509.1000, L501.9520, L501.9985, L501.4100, L500.4100 #### [facility] [address] [place], [address] (457) Potassium [Moles/Vol] 4.0 mmol/L Normal 3.5-5.1 [facility] Comment on above: Performed By: #### L 501.4405, L506.1000, L500.2500, L509.1000, L501.9520, L501.9985, L501.4100, L500.4100 #### [facility] [address] [place], [address] Sodium [Moles/Vol] 139 mmol/L Normal 136-145 [facility] Comment on above: Performed By: #### L 501.4405, L506.1000, L500.2500, L509.1000, L501.9520, L501.9985, L501.4100, L500.4100 #### [facility] [address] [place], [address] Urea nitrogen [Mass/Vol] 15 mg/dL Normal 7-18 [facility] Comment on above: Performed By: #### L 501.4405, L506.1000, L500.2500, L509.1000, L501.9520, L501.9985, L501.4100, L500.4100 #### [facility] [address] [facility] [place], [address] Blood urea nitrogen (BUN)/cr eatinine ratioOrdered By: Ivette Barton on 10-09-2024 Urea nitrogen/Creatinine [Mass ratio] 22.2 mg/mg High 10-20 [facility] Carbon dioxide measurementOr dered By: Ivette Barton on 10-09-2024 CO2 [Moles/Vol] 27.0 mmol/L 21.0-32.0 [facility] Chloride measurementOrdered By: Ivette Barton on 10-09-2024 Chloride [Moles/Vol] 106 mmol/L 98-107 [facility] Estimated glomerular filtrat ion rate (GFR) AmericanOrdered By: Ivette Barton on 10-09-2024 Estimated GFR (MDRD) Amer 116 mL/min >60 [facility] Comment on above: GFR Calc Glomerular filtration rate ( GFR) estimationOrdered By: Ivette Barton on 10-09-2024 Estimated GFR (MDRD) Non-Af Amer 96 mL/min >60 [facility] Comment on above: Non- GFR Calc Glucose measurementOrdered B y: Ivette Barton on 10-09-2024 Glucose [Mass/Vol] 109 mg/dL High 74-106 [facility] Comment on above: Fasting Glucose resu lt from 100 to 125 mg/dL suggests IMPAIRED HOMEOSTASIS per A.D.A. criteria. Hemoglobin A1con 10-09-2024 HbA1c (Bld) [Mass fraction] 5.5 % Normal 3.8-5.6 [facility] Comment on above: Result Comment: Norm al < 5.7 % Prediabetic 5.7 - 6.4 % Diabetic >or= 6.5 % Please note range changes. Performed By: #### L 501.4405, L506.1000, L500.2500, L509.1000, L501.9520, L501.9985, L501.4100, L500.4100 #### [facility] [address] [place], [address] Hemoglobin A1c percentageOrd ered By: Ivette Barton on 10-09-2024 HbA1c (Bld) [Mass fraction] 5.5 % 3.8-5.6 [facility] Comment on above: Normal < 5.7 % Predi abetic 5.7 - 6.4 % Diabetic >or= 6.5 % Please note range changes. High density lipoprotein (HD L) measurementOrdered By: Ivette Barton on 10-09-2024 Cholesterol in HDL [Mass/Vol] 51 mg/dL >40 [facility] Comment on above: The drugs N-Acetylcy steine and Metamizole may falsely depress this assay. Reference Range HDL <40 mg/dL Low HDL Cholesterol HDL >or= 60 mg/dL High HDL Cholesterol Intact parathyroid hormone ( iPTH) measurementOrdered By: Ivette Barton on 10-09-2024 Parathyroid Hormone (Intact) 105.9 pg/mL High 18.4-80.1 [facility] - Chemistry and C hemistry - challengeOrdered By: Ivette Barton on 10-09-2024 AST [Catalytic activity/Vol] 21 U/L 15-37 [facility] Lipid Profileon 10-09-2024 Cholesterol [Mass/Vol] 193 mg/dL Normal 200 [facility] Comment on above: Result Comment: <200 mg/dL Desirable 200-240 mg/dL Borderline >240 mg/dL High Risk Performed By: #### L 501.4405, L506.1000, L500.2500, L509.1000, L501.9520, L501.9985, L501.4100, L500.4100 #### [facility] [address] [place], [address] Cholesterol in HDL [Mass/Vol] 51 mg/dL Normal [facility] Comment on above: Result Comment: The drugs N-Acetylcysteine and Metamizole may falsely depress this assay. Reference Range HDL <40 mg/dL Low HDL Cholesterol HDL >or= 60 mg/dL High HDL Cholesterol Performed By: #### L 501.4405, L506.1000, L500.2500, L509.1000, L501.9520, L501.9985, L501.4100, L500.4100 #### [facility] [address] [place], [address] Cholesterol in LDL [Mass/Vol] 95 mg/dL Normal 0-130 [facility] Comment on above: Performed By: #### L 501.4405, L506.1000, L500.2500, L509.1000, L501.9520, L501.9985, L501.4100, L500.4100 #### [facility] [address] [place], [address] Cholesterol in VLDL [Mass/Vol] 47 mg/dL High 5-40 [facility] Comment on above: Performed By: #### L 501.4405, L506.1000, L500.2500, L509.1000, L501.9520, L501.9985, L501.4100, L500.4100 #### [facility] [address] [place], [place], [address] Triglyceride [Mass/Vol] 237 mg/dL High [facility] Comment on above: Result Comment: The drugs N-Acetylcysteine and Metamizole may falsely depress this assay. Serum Triglycerides Reference Interval Normal <150 mg/dL Borderline high 150 - 199 mg/dL High 200 - 499 mg/dL Very High > or = 500 mg/dL Performed By: #### L 501.4405, L506.1000, L500.2500, L509.1000, L501.9520, L501.9985, L501.4100, L500.4100 #### [facility] [address] [place], [place], [address] Low density lipoprotein (LDL ) cholesterol measurementOrdered By: Ivette Barton on 10-09-2024 Cholesterol in LDL [Mass/Vol] 95 mg/dL 0-130 [facility] PTHINon 10-09-2024 PTH 105.9 pg/mL High 18.4-80.1 [facility] Comment on above: Performed By: #### L 501.4405, L506.1000, L500.2500, L509.1000, L501.9520, L501.9985, L501.4100, L500.4100 #### [facility] [address] [place], [place], [address] Potassium measurementOrdered By: Ivette Barton on 10-09-2024 Potassium [Moles/Vol] 4.0 mmol/L 3.5-5.1 [facility] Serum anion gap measurementO rdered By: Ivette Barton on 10-09-2024 Anion gap [Moles/Vol] 6 mmol/L 5-15 [facility] Serum or plasma alanine tubbs otransferase (ALT) measurementOrdered By: Ivette Barton on 10-09-2024 ALT [Catalytic activity/Vol] 33 U/L 13-56 [facility] Serum or plasma calcium will urement (mass/volume)Ordered By: Ivette Barton on 10-09-2024 Calcium [Mass/Vol] 8.8 mg/dL 8.5-10.1 [facility] Serum or plasma cholesterol measurement (mass/volume)Ordered By: Ivette Barton on 10-09-2024 Cholesterol [Mass/Vol] 193 mg/dL <200 [facility] Comment on above: <200 mg/dL Desirable 200-240 mg/dL Borderline >240 mg/dL High Risk Serum or plasma creatinine m easurement (mass/volume)Ordered By: Ivette Barton on 10-09-2024 Creatinine [Mass/Vol] 0.68 mg/dL 0.55-1.02 [facility] Comment on above: The validity of the calculated GFR & GFRAA in patients over 70 years has not been determined. Clinical correlation is essential. Serum or plasma urea nitroge n measurement (mass/volume)Ordered By: Ivette Barton on 10-09-2024 Urea nitrogen [Mass/Vol] 15 mg/dL 7-18 [facility] Sodium levelOrdered By: Chau Barton on 10-09-2024 Sodium [Moles/Vol] 139 mmol/L 136-145 [facility] TSH QnOrdered By: Ivette cancino on 10-09-2024 Thyroid Stimulating Hormone (TSH) 0.620 uIU/mL 0.358-3.740 [facility] Thyroid Stim Hormone (TSH)on 10-09-2024 TSH 0.620 uIU/mL Normal 0.358-3.740 [facility] Comment on above: Performed By: #### L 501.4405, L506.1000, L500.2500, L509.1000, L501.9520, L501.9985, L501.4100, L500.4100 #### [facility] [address] [place], [address] Triglycerides measurementOrd ered By: Ivette Barton on 10-09-2024 Triglyceride [Mass/Vol] 237 mg/dL High <199 [facility] Comment on above: The drugs N-Acetylcy steine and Metamizole may falsely depress this assay.Serum Triglycerides Reference Interval Normal <150 mg/dL Borderline high 150 - 199 mg/dL High 200 - 499 mg/dL Very High > or = 500 mg/dL Very low density lipoprotein (VLDL) cholesterol measurementOrdered By: Ivette Barton on 10-09-2024 VLDL Cholesterol 47 mg/dL High 5-40 [facility] Vitamin D,25 Hydroxyon 10-09 Vitamin D 25-OH 67.1 ng/mL Normal [facility] Comment on above: Result Comment: Shila min D 25(OH) Status Range Deficiency <20 ng/mL (50nmol/L) Insufficiency 20 - 30 ng/mL (50 - 75 nmol/L) Sufficiency 30 - 100 ng/mL (75 - 250 nmol/L) Toxicity >100 ng/mL (>250 nmol/L) Performed By: #### L 501.4405, L506.1000, L500.2500, L509.1000, L501.9520, L501.9985, L501.4100, L500.4100 #### [facility] [address] [place], [address] HIP, UNI W/ Pelvis 2-3 Views on 09-28-2024 HIP, UNI W/ Pelvis 2-3 Views [facility] Imaging Services [address] [place] [address] HIP, UNI W/ Pelvis 2-3 Views MR#: [id number] Acct: [id number] Name: GARRISON WALKER Rep #: [id number] : 1970 F 54 From: Yeyo wilburn MD PCP: LIGIA Romero Status: REG CLI Study: HIP, UNI W/ Pelvis 2-3 Views Date of Exam: Exam# [id number] Ordering Dr: Tatum StevensC [id number] INDICATION: ASSESS VERTBRAL ALIGNMENT DISC SPACE EXAMINATION/TECHNIQUE: X-RAY - RIGHT XR Hip Unilateral with Pelvis when performed; 2-3 Views COMPARISON: None. FINDINGS: No acute fracture or malalignment. No blastic or lytic lesions. Mild degenerative changes of the bilateral hips. The soft tissues are unremarkable. RAD/HIP, UNI W/ Pelvis 2-3 Views IMPRESSION: No acute radiographic abnormalities. Mild degenerative changes of the bilateral hips. Electronically Signed: Yeyo Olea MD at 17:59 EST , CC: LIGIA Stevens [employer] Consultant: Signed Normal [facility] Lumbar Spine 2 or 3 Viewson 09-28-2024 Lumbar Spine 2 or 3 Views [facility] Imaging Services [address] [place] [address] Lumbar Spine 2 or 3 Views MR#: [id number] Acct: [id number] Name: GARRISON WALKER Rep #: [id number] : 1970 F 54 From: Alphonso Pierre MD PCP: LIGIA Romero Status: REG CLI Study: Lumbar Spine 2 or 3 Views Date of Exam: Exam# [id number] Ordering Dr: Tatum Stevens [id number] STUDY: X-RAY - LUMBAR SPINE REASON FOR EXAM: Female, 54 years old. Radiating low back pain TECHNIQUE: 4 view(s) of the lumbar spine were obtained. COMPARISON: None FINDINGS: Normal lumbar lordosis. There is no substantial scoliosis. There is a normal alignment of the vertebrae. There is multilevel endplate spondylosis of the lumbar vertebrae. Mild disc space narrowing. There is no demonstrated fracture. The soft tissue structures are unremarkable. RAD/Lumbar Spine 2 or 3 Views IMPRESSION: Mild degenerative changes, no acute findings Electronically Signed: Herson Pierre MD at 11:32 EST , CC: LIGIA Stevens [employer] Consultant: Signed Normal [facility] ED Prov Noteon 09-03-2024 ED Prov Note HPI: 09/03/2024, Time: @GONZALEZ@ Sina Walker is a 54 y.o. female presenting to the ED for pain in right hip radiating down leg, beginning 2 weeks ago. The complaint has been 2 weeks, moderate in severity, and worsened by changing position. And ambulating. No midline pain and no fever or chills or recent instrumentation or surgeries. No known injury ROS: Pertinent positives and negatives are stated within HPI, all other systems reviewed and are negative. - PAST HISTORY - Past Medical History: @[facility]@ Past Surgical History: has a past surgical history that includes section, classic; Total knee arthroplasty (Bilateral); Hand surgery; Knee arthroscopy w/ meniscectomy (Bilateral); and Hardware Removal Upper Extremity (Right, 07/08/2023). Social History: reports that she has never smoked. She has never used smokeless tobacco. She reports that she does not currently use alcohol. She reports that she does not use drugs. Family History: family history is not on file. The patient's home medications have been reviewed. Allergies: Kiwi, Ancef [cefazolin], Bee venom protein (honey bee), and Codeine ------ RESULTS ----- All laboratory and radiology results have been personally reviewed by myself LABS: Results for orders placed or performed during the hospital encounter of 06/23/23 ECG 12- Lead Collection Time: 06/23/23 3:50 PM Result Value Ref Range Ventricular Rate 70 BPM Atrial Rate 70 BPM P-R Interval 170 ms QRS Duration 78 ms Q-T Interval 378 ms QTC Calculation (Bezet) 408 ms P [place] 34 degrees R [place] 10 degrees T [place] 32 degrees POC CBC and Differential Collection Time: 06/23/23 4:05 PM Result Value Ref Range WBC 7.58 4.50 - 11.00 K/mcL RBC 5.04 4.00 - 5.20 M/mcL Hemoglobin 12.4 12.0 - 16.0 g/dL Hematocrit 38.0 36.0 - 46.0 % MCV 75.4 (L) 80.0 - 100.0 fL MCH 24.6 (L) 26.0 - 34.0 pg MCHC 32.6 31.0 - 37.0 g/dL RDW - CV 14.2 11.6 - 14.8 % Platelets 252 150 - 400 K/mcL MPV 10.5 9.4 - 12.4 fL Neutrophils 60.2 % Lymphocytes 30.9 % Monocytes 6.5 % Eosinophils 1.6 % Basophils 0.3 % IG Percent 0.50 % Neutrophils Abs 4.57 1.70 - 7.00 K/mcL Lymphocytes Abs 2.34 0.90 - 4.00 K/mcL Monocytes Abs 0.49 0.30 - 0.90 K/mcL Eosinophils Abs 0.12 0.00 - 0.50 K/mcL Basophils Abs 0.02 0.00 - 0.30 K/mcL IG Absolute 0.04 0.00 - 0.30 K/mcL POC Basic Metabolic Panel Collection Time: 06/23/23 4:10 PM Result Value Ref Range Glucose 103 (H) 65 - 99 mg/dL BUN 17 8 - 25 mg/dL Creatinine 0.55 0.40 - 1.10 mg/dL GFR 109 >=60 mL/min/1.73 m2 Sodium 144 135 - 145 mmol/L Potassium 3.7 3.5 - 5.1 mmol/L Chloride 107 98 - 108 mmol/L TCO2 27 21 - 32 mmol/L Ionized Calcium 4.7 4.5 - 5.3 mg/dL POC Troponin I Collection Time: 06/23/23 4:30 PM Result Value Ref Range Troponin I <0.05 <0.05 ng/mL RADIOLOGY: Interpreted by Radiologist. No orders to display --- NURSING NOTES AND VITALS REVIEWED ----- The nursing notes within the ED encounter and vital signs as below have been reviewed. BP (!) 138/100 Pulse 98 Resp 16 Wt 81.6 kg (180 lb) SpO2 97% BMI 34.01 kg/m Oxygen Saturation Interpretation: Normal -------PHYSICAL EXAM Constitutional/General : Alert and oriented x3, well appearing, non toxic in NAD Head: NC/AT Eyes: PERRL, EOMI Mouth: Oropharynx clear, handling secretions, no trismus Neck: Supple, full ROM, no meningeal signs Pulmonary: Lungs clear to auscultation bilaterally, no wheezes, rales, or rhonchi. Not in respiratory distress Cardiovascular: Regular rate and rhythm, no murmurs, gallops, or rubs. 2+ distal pulses Abdomen: Soft, non tender, non distended, Extremities: Moves all extremities x 4. Warm and well perfused Skin: warm and dry without rash Neurologic: GCS 15, Psych: Normal Affect Low back: Moderate tenderness to palpation over the right posterior superior iliac spine and sciatic notch consistent with sciatica pain, no midline tenderness -------- ED COURSE/MEDICAL DECISION MAKING ------ Medications - No data to display Medical Decision Making: Will treat with Toradol here and send home with Toradol baclofen and lidocaine patches Counseling: The emergency provider has spoken with the patient and discussed today's results, in addition to providing specific details for the plan of care and counseling regarding the diagnosis and prognosis. Questions are answered at this time and they are agreeable with the plan. IMPRESSION AND DISPOSITION IMPRESSION 1. Sciatica of right side DISPOSITION Di (more content not included)... Normal [facility] PTHINon 08-20-2024 PTH 65.7 pg/mL Normal 18.4-80.1 [facility] Comment on above: Performed By: #### L 501.4405, L506.1000, L500.2500, L509.1000, L501.9520, L501.9985, L501.4100, L500.4100 #### [facility] [address] [place], [place], [phone] AST(SGOT)on 08-18-2024 AST [Catalytic activity/Vol] 43 U/L High 15-37 [facility] Comment on above: Performed By: #### L 501.4405, L506.1000, L500.2500, L509.1000, L501.9520, L501.9985, L501.4100, L500.4100 #### [facility] [address] [place], [place], [phone] Alanine Aminotransferas (SGP T)on 08-18-2024 ALT [Catalytic activity/Vol] 67 U/L High 13-56 [facility] Comment on above: Performed By: #### L 501.4405, L506.1000, L500.2500, L509.1000, L501.9520, L501.9985, L501.4100, L500.4100 #### [facility] [address] [facility] [place], [address] Basic Metabolic Profile (BMP )on 08-18-2024 BUN/CRE 25.6 RATIO High 10-20 [facility] Comment on above: Performed By: #### L 501.4405, L506.1000, L500.2500, L509.1000, L501.9520, L501.9985, L501.4100, L500.4100 #### [facility] [address] [place], [address] CA,Total 8.9 mg/dL Normal 8.5-10.1 [facility] Comment on above: Performed By: #### L 501.4405, L506.1000, L500.2500, L509.1000, L501.9520, L501.9985, L501.4100, L500.4100 #### [facility] [address] [place], [address] Chloride [Moles/Vol] 108 mmol/L High 98-107 [facility] Comment on above: Performed By: #### L 501.4405, L506.1000, L500.2500, L509.1000, L501.9520, L501.9985, L501.4100, L500.4100 #### [facility] [address] [place], [address] CO2 [Moles/Vol] 27.0 mmol/L Normal 21.0-32.0 [facility] Comment on above: Performed By: #### L 501.4405, L506.1000, L500.2500, L509.1000, L501.9520, L501.9985, L501.4100, L500.4100 #### [facility] [address] [place], [address] Creatinine [Mass/Vol] 0.62 mg/dL Normal 0.55-1.02 [facility] Comment on above: Result Comment: The validity of the calculated GFR GFRAA in patients over 70 years has not been determined. Clinical correlation is essential. Performed By: #### L 501.4405, L506.1000, L500.2500, L509.1000, L501.9520, L501.9985, L501.4100, L500.4100 #### [facility] [address] [place], [place], [id number] EST GFR - AA 127 mL/min Normal >60 [facility] Comment on above: Result Comment: Afri can Bhutanese GFR Calc Performed By: #### L 501.4405, L506.1000, L500.2500, L509.1000, L501.9520, L501.9985, L501.4100, L500.4100 #### [facility] [address] [place], [address] GAP 5 Normal 5-15 [facility] Comment on above: Performed By: #### L 501.4405, L506.1000, L500.2500, L509.1000, L501.9520, L501.9985, L501.4100, L500.4100 #### [facility] [address] [place], [place], [phone] GFR/1.73 sq M.predicted among non-blacks MDRD (S/P/Bld) [Vol rate/Area] 105 mL/min/{1.73_m2} Normal >60 [facility] Comment on above: Result Comment: Non- GFR Calc Performed By: #### L 501.4405, L506.1000, L500.2500, L509.1000, L501.9520, L501.9985, L501.4100, L500.4100 #### [facility] [address] [place], [place], [id number] Glucose [Mass/Vol] 127 mg/dL High 74-106 [facility] Comment on above: Result Comment: Fast ing Glucose result greater than or equal to 126 mg/dL suggests DIABETES MELLITUS per A.D.A. criteria. Performed By: #### L 501.4405, L506.1000, L500.2500, L509.1000, L501.9520, L501.9985, L501.4100, L500.4100 #### [facility] [address] [place], [address] Potassium [Moles/Vol] 4.3 mmol/L Normal 3.5-5.1 [facility] Comment on above: Performed By: #### L 501.4405, L506.1000, L500.2500, L509.1000, L501.9520, L501.9985, L501.4100, L500.4100 #### [facility] [address] [place], [address] Sodium [Moles/Vol] 140 mmol/L Normal 136-145 [facility] Comment on above: Performed By: #### L 501.4405, L506.1000, L500.2500, L509.1000, L501.9520, L501.9985, L501.4100, L500.4100 #### [facility] [address] [place], [address] Urea nitrogen [Mass/Vol] 16 mg/dL Normal 7-18 [facility] Comment on above: Performed By: #### L 501.4405, L506.1000, L500.2500, L509.1000, L501.9520, L501.9985, L501.4100, L500.4100 #### [facility] [address] [place], [address] Thyroid Stim Hormone (TSH)on 08-18-2024 TSH 0.059 uIU/mL Low 0.358-3.740 [facility] Comment on above: Performed By: #### L 501.4405, L506.1000, L500.2500, L509.1000, L501.9520, L501.9985, L501.4100, L500.4100 #### [facility] [address] [place], [address] Thyroidon 06-08-2024 Thyroid [facility] Services [address] [place], [place] [address] Thyroid MR#: [id number] Acct: [id number] Name: GARRISON WALKER Rep #: [id number] : 1970 F 54 From: Donta dennis MD PCP: LIGIA Romero Status: REG CLI Study: Thyroid Date of Exam: 06/08/24 Exam# [id number] Ordering Dr: Tatum Stevens [id number] STUDY: THYROID ULTRASOUND REASON FOR EXAM: Female, 54 years old. History of Raissa''s disease. TECHNIQUE: Ultrasound evaluation of the thyroid was performed with real-time and static ward-scale imaging. COMPARISON: Comparison is made with prior study dated September 15, 2017. FINDINGS: RIGHT LOBE: The right lobe of the thyroid gland measures 4 cm x 1.2 cm x 1.1 cm. There is a heterogeneous echotexture. There are no demonstrated solid, cystic or complex lesions. LEFT LOBE: The left lobe of the thyroid gland measures 4.3 cm x 1.2 cm x 1.5 cm. There is a heterogeneous echotexture. There are no demonstrated solid, cystic or complex lesions. ISTHMUS: The isthmus measures 2 mm. The regional lymph nodes are normal. US/Thyroid IMPRESSION: Heterogeneous echotexture of both lobes of the thyroid gland. No solid or cystic lesion is seen. Electronically Signed: Donta Rainey MD at 14:47 EDT , CC: LIGIA Stevens [employer] Consultant: Signed Normal [facility] Cerv Spine 4 or 5 Viewson Cerv Spine 4 or 5 Views [facility] Services [address] [place] [address] Cerv Spine 4 or 5 Views MR#: [id number] Acct: [id number] Name: GARRISON WALKER Rep #: [id number] : 1970 F 54 From: Donta dennis MD PCP: LIGIA Romero Status: REG CLI Study: Cerv Spine 4 or 5 Views Date of Exam: 06/04/24 Exam# [id number] Ordering Dr: Tatum Stevens [id number] STUDY: X-RAY - CERVICAL SPINE REASON FOR EXAM: Female, 54 years old. NECK PAIN, ASSESS ALIGNMENT OF DISC SPACE TECHNIQUE: 5 view(s) of the cervical spine were obtained including oblique views. COMPARISON: None FINDINGS: Normal anterior atlantoaxial articulation. Normal odontoid process. There is straightening of the normal cervical lordosis. Marked degree of disc space narrowing and spondylosis at the C5-C6 and C6-C7 levels. Normal disc space heights. Normal visualized intervertebral neuroforamina. Calcified left cervical lymph nodes. RAD/Cerv Spine 4 or 5 Views IMPRESSION: Marked degree of disc space narrowing and spondylosis at the C5-C6 and C6-C7 levels. Straightening of the normal cervical lordosis. Calcified left cervical lymph nodes. Electronically Signed: Donta Rainey MD at 12:44 EDT , CC: LIGIA Stevens [employer] Consultant: Signed Normal [facility] AST(SGOT)on 05-29-2024 AST [Catalytic activity/Vol] 59 U/L High 15-37 [facility] Comment on above: Performed By: #### L 501.4405, L506.1000, L500.2500, L509.1000, L501.9520, L501.9985, L501.4100, L500.4100 #### [facility] [address] [place], [address] Alanine Aminotransferas (SGP T)on 05-29-2024 ALT [Catalytic activity/Vol] 103 U/L High 13-56 [facility] Comment on above: Performed By: #### L 501.4405, L506.1000, L500.2500, L509.1000, L501.9520, L501.9985, L501.4100, L500.4100 #### [facility] [address] [place], [address] Basic Metabolic Profile (BMP )on 05-29-2024 BUN/CRE 16.6 RATIO Normal - [facility] Comment on above: Performed By: #### L 501.4405, L506.1000, L500.2500, L509.1000, L501.9520, L501.9985, L501.4100, L500.4100 #### [facility] [address] [place], [address] CA,Total 9.3 mg/dL Normal 8.5-10.1 [facility] Comment on above: Performed By: #### L 501.4405, L506.1000, L500.2500, L509.1000, L501.9520, L501.9985, L501.4100, L500.4100 #### [facility] [address] [place], [address] Chloride [Moles/Vol] 108 mmol/L High 98-107 [facility] Comment on above: Performed By: #### L 501.4405, L506.1000, L500.2500, L509.1000, L501.9520, L501.9985, L501.4100, L500.4100 #### [facility] [address] [place], [address] CO2 [Moles/Vol] 27.0 mmol/L Normal 21.0-32.0 [facility] Comment on above: Performed By: #### L 501.4405, L506.1000, L500.2500, L509.1000, L501.9520, L501.9985, L501.4100, L500.4100 #### [facility] [address] [place], [address] Creatinine [Mass/Vol] 0.72 mg/dL Normal 0.55-1.02 [facility] Comment on above: Result Comment: The validity of the calculated GFR GFRAA in patients over 70 years has not been determined. Clinical correlation is essential. Performed By: #### L 501.4405, L506.1000, L500.2500, L509.1000, L501.9520, L501.9985, L501.4100, L500.4100 #### [facility] [address] [place], [address] EST GFR - AA 107 mL/min Normal >60 [facility] Comment on above: Result Comment: Afri can Bhutanese GFR Calc Performed By: #### L 501.4405, L506.1000, L500.2500, L509.1000, L501.9520, L501.9985, L501.4100, L500.4100 #### [facility] [address] [place], [address] GAP 4 Low 5-15 [facility] Comment on above: Performed By: #### L 501.4405, L506.1000, L500.2500, L509.1000, L501.9520, L501.9985, L501.4100, L500.4100 #### [facility] [address] [place], [address] GFR/1.73 sq M.predicted among non-blacks MDRD (S/P/Bld) [Vol rate/Area] 89 mL/min/{1.73_m2} Normal >60 [facility] Comment on above: Result Comment: Non- GFR Calc Performed By: #### L 501.4405, L506.1000, L500.2500, L509.1000, L501.9520, L501.9985, L501.4100, L500.4100 #### [facility] [address] [place], [address] Glucose [Mass/Vol] 129 mg/dL High 74-106 [facility] Comment on above: Result Comment: Fast ing Glucose result greater than or equal to 126 mg/dL suggests DIABETES MELLITUS per A.D.A. criteria. Performed By: #### L 501.4405, L506.1000, L500.2500, L509.1000, L501.9520, L501.9985, L501.4100, L500.4100 #### [facility] [address] [place], [address] Potassium [Moles/Vol] 4.3 mmol/L Normal 3.5-5.1 [facility] Comment on above: Performed By: #### L 501.4405, L506.1000, L500.2500, L509.1000, L501.9520, L501.9985, L501.4100, L500.4100 #### [facility] [address] [place], [address] Sodium [Moles/Vol] 139 mmol/L Normal 136-145 [facility] Comment on above: Performed By: #### L 501.4405, L506.1000, L500.2500, L509.1000, L501.9520, L501.9985, L501.4100, L500.4100 #### [facility] [address] [place], [address] Urea nitrogen [Mass/Vol] 12 mg/dL Normal 7-18 [facility] Comment on above: Performed By: #### L 501.4405, L506.1000, L500.2500, L509.1000, L501.9520, L501.9985, L501.4100, L500.4100 #### [facility] [address] [place], [address] Hemoglobin A1con 05-29-2024 HbA1c (Bld) [Mass fraction] 5.9 % High 3.8-5.6 [facility] Comment on above: Result Comment: Norm al < 5.7 % Prediabetic 5.7 - 6.4 % Diabetic >or= 6.5 % Please note range changes. Performed By: #### L 501.4405, L506.1000, L500.2500, L509.1000, L501.9520, L501.9985, L501.4100, L500.4100 #### [facility] [address] [place], [place], [id number] Lipid Profileon 05-29-2024 Cholesterol [Mass/Vol] 207 mg/dL High 200 [facility] Comment on above: Result Comment: <200 mg/dL Desirable 200-240 mg/dL Borderline >240 mg/dL High Risk Performed By: #### L 501.4405, L506.1000, L500.2500, L509.1000, L501.9520, L501.9985, L501.4100, L500.4100 #### [facility] [address] [place], [place], [id number] Cholesterol in HDL [Mass/Vol] 52 mg/dL Normal [facility] Comment on above: Result Comment: The drugs N-Acetylcysteine and Metamizole may falsely depress this assay. Reference Range HDL <40 mg/dL Low HDL Cholesterol HDL >or= 60 mg/dL High HDL Cholesterol Performed By: #### L 501.4405, L506.1000, L500.2500, L509.1000, L501.9520, L501.9985, L501.4100, L500.4100 #### [facility] [address] [place], [address] Cholesterol in LDL [Mass/Vol] 114 mg/dL Normal 0-130 [facility] Comment on above: Performed By: #### L 501.4405, L506.1000, L500.2500, L509.1000, L501.9520, L501.9985, L501.4100, L500.4100 #### [facility] [address] [facility], [address] Cholesterol in VLDL [Mass/Vol] 41 mg/dL High 5-40 [facility] Comment on above: Performed By: #### L 501.4405, L506.1000, L500.2500, L509.1000, L501.9520, L501.9985, L501.4100, L500.4100 #### [facility] [address] [place], [address] Triglyceride [Mass/Vol] 205 mg/dL High [facility] Comment on above: Result Comment: The drugs N-Acetylcysteine and Metamizole may falsely depress this assay. Serum Triglycerides Reference Interval Normal <150 mg/dL Borderline high 150 - 199 mg/dL High 200 - 499 mg/dL Very High > or = 500 mg/dL Performed By: #### L 501.4405, L506.1000, L500.2500, L509.1000, L501.9520, L501.9985, L501.4100, L500.4100 #### [facility] [address] [facility] [place], [address] Microalb:Creat Ratio,Random URon 05-29-2024 Creatinine [Mass/Vol] 95.50 mg/dL Normal NO RAN GE EST. [facility] Comment on above: Performed By: #### L 501.4405, L506.1000, L500.2500, L509.1000, L501.9520, L501.9985, L501.4100, L500.4100 #### [facility] [address] [facility] [place], [address] MALB:CRE 11.6 mg/g CRE Normal <30 mg/g CRE [facility] Comment on above: Performed By: #### L 501.4405, L506.1000, L500.2500, L509.1000, L501.9520, L501.9985, L501.4100, L500.4100 #### [facility] [address] [place], [address] MICROALBUMIN,UR 11.1 mg/L Normal NO RANGE EST. [facility] Comment on above: Performed By: #### L 501.4405, L506.1000, L500.2500, L509.1000, L501.9520, L501.9985, L501.4100, L500.4100 #### [facility] [address] [place], [address] PTHINon 05-29-2024 PTH 87.6 pg/mL High 18.4-80.1 [facility] Comment on above: Performed By: #### L 501.4405, L506.1000, L500.2500, L509.1000, L501.9520, L501.9985, L501.4100, L500.4100 #### [facility] [address] [place], [address] Thyroid Stim Hormone (TSH)on 05-29-2024 TSH 3.350 uIU/mL Normal 0.358-3.740 [facility] Comment on above: Performed By: #### L 501.4405, L506.1000, L500.2500, L509.1000, L501.9520, L501.9985, L501.4100, L500.4100 #### [facility] [address] [place], [address] Vitamin D,25 Hydroxyon 05-29 Vitamin D 25-OH 49.7 ng/mL Normal [facility] Comment on above: Result Comment: Shila min D 25(OH) Status Range Deficiency <20 ng/mL (50nmol/L) Insufficiency 20 - 30 ng/mL (50 - 75 nmol/L) Sufficiency 30 - 100 ng/mL (75 - 250 nmol/L) Toxicity >100 ng/mL (>250 nmol/L) Performed By: #### L 501.4405, L506.1000, L500.2500, L509.1000, L501.9520, L501.9985, L501.4100, L500.4100 #### [facility] [address] [place], [address] SCRN MAMM (CAD)W/JOHN BILATo n 05-18-2024 SCRN MAMM (CAD)W/JOHN BILAT [facility] Imaging Services [address] [place] [address] SCRN MAMM (CAD)W/JOHN BILAT MR#: [id number] Acct: [id number] Name: GARRISON WALKER Rep #: [id number] : 1970 F 54 From: Piter Iverson MD PCP: LIGIA Romero Status: REG CLI Study: SCRN MAMM (CAD)W/JOHN BILAT Date of Exam: 07/03 Exam# [id number] Ordering Dr: Claudette Arteaga [place] [id number] MAMMOGRAPHY - BILATERAL SCREENING 3-D TOMOSYNTHESIS REASON FOR EXAM: Female, 54 years old. SCREENING PERTINENT HISTORY: No significant family history. TECHNIQUE: 2-D mammograms and 3-D Tomosynthesis of the breast (s) were performed. CAD was performed. COMPARISON: 05/06/2023 FINDINGS: The breast composition is heterogeneously dense that can obscure small breast masses. Scattered benign calcifications are seen. No dense spiculated masses or suspicious microcalcifications are identified. No architectural distortion is identified. There is no skin thickening or retraction. There has been no significant change since the prior study. BI/SCRN MAMM (CAD)W/JOHN BILAT IMPRESSION: No mammographic signs of malignancy. Routine yearly mammograms recommended. ASSESSMENT CATEGORY: BIRADS Category 1: Negative. A letter regarding these results will be sent to the patient by the facility within 30 days. FOLLOW UP RECOMMENDATION: Yearly follow up mammogram recommended. (A) Approximately 10% of breast cancers are not detected by mammography. A normal mammogram should not delay biopsy of a clinically suspicious abnormality. Electronically Signed: Piter Iverson MD at 13:43 EDT , CC: LIGIA Stevens; Dr. Claudette Arteaga MD [employer] Consultant: Signed Normal [facility] Cytology Reporton 2023 [facility]er Cytology Report . Pathology Reports Accession: Collected Date/Time: Received Date/Time: Pathologist: [id number] 05/07/2024 12:06 EDT 05/07/2024 18:00 EDT [facility] Cytology Report SPECIMEN: Specimen Description: Liquid Prep w/ HPV Specimen: Cervical/Endocervical Screening or Diagnostic: Screening RELEVANT HISTORY: LMP: 2021 SPECIMEN ADEQUACY: SATISFACTORY FOR EVALUATION Endocervical/Transform ational zone component present INTERPRETATION/RESULTS : NEGATIVE FOR INTRAEPITHELIAL LESION OR MALIGNANCY HIGH RISK HPV TESTING: Event Code Result HPV Interp See Interp HPVN HPV Interp Text: High Risk HPV Typing: NEGATIVE HPV types 16, 18, 31, 33, 35, 39, 45, 51, 52, 56, 58, 59, 66 and 68 DNA were undetectable or below the pre-set threshold. The mishel High-Risk HPV DNA Test is not intended for use as a screening device for Pap normal women under age 30 and is not intended to substitute for regular Pap screening. The mishel High-Risk HPV DNA Test is designed to augment existing methods for the detection of cervical disease and should be used in conjunction with clinical information derived from other diagnostic and screening tests, physical examinations and full medical history in accordance with appropriate patient management procedures. NOTE: A negative result does not preclude the presence of HPV infection because results depend on adequate specimen collection, absence of inhibitors and sufficient DNA to be detected. As of: 05/09/24 14:50 EDT COMMENT: This Pap Test was successfully processed and evaluated with the assistance of the PeerformPrep Test Imaging System. Pathology Reports Accession: Collected Date/Time: Received Date/Time: Pathologist: [id number] 05/07/2024 12:06 EDT 05/07/2024 18:00 EDT Electronically Signed by Pathology report verified by [facility] Screened by: [place] Electronically signed by Miriam LYLES (ASCP) Sign-Out Date: 05/09/2024 14:50 Performing Lab: [facility], [address] [place] [address] Pathology Dept Disclaimer The Pap test is a screening test for cervical cancer. As evidenced by published data, it is subject to both inherent false negative and false positive results. Your patient's results should be interpreted in context with pertinent clinical history including gynecological examination. Normal [facility] ([place]) HPVon 05-09-2024 HPV Interp Normal See Interp HPVN [facility] ([place]) Comment on above: Order Comment: Order placed by AP_HPV_ORDER rule from [id number] Result Comment: High Risk HPV Typing: NEGATIVE HPV types 16, 18, 31, 33, 35, 39, 45, 51, 52, 56, 58, 59, 66 and 68 DNA were undetectable or below the pre-set threshold. The mishel High-Risk HPV DNA Test is not intended for use as a screening device for Pap normal women under age 30 and is not intended to substitute for regular Pap screening. The mishel High-Risk HPV DNA Test is designed to augment existing methods for the detection of cervical disease and should be used in conjunction with clinical information derived from other diagnostic and screening tests, physical examinations and full medical history in accordance with appropriate patient management procedures. NOTE: A negative result does not preclude the presence of HPV infection because results depend on adequate specimen collection, absence of inhibitors and sufficient DNA to be detected. See Interp HPVN Performed By: #### H PV #### [place] [address] HPV Source Cervix Normal [facility] ([place]) Comment on above: Order Comment: Order placed by AP_HPV_ORDER rule from [id number] Performed By: #### H PV #### [place] [address] LABORATORYOrdered By: Win Zavala on 05-07-2024 HPV Interp High Risk HPV Typing : NEGATIVEHPV types 16, 18, 31, 33, 35, 39, 45, 51, 52, 56, 58, 59, 66 and 68 DNA wereundetectable or below the pre-set threshold.The mishel High-Risk HPV DNA Test is not intended for use as a screening device forPap normal women under age 30 and is not intended to substitute for regular Papscreening.The mishel High-Risk HPV DNA Test is designed to augment existing methods for thedetection of cervical disease and should be used in conjunction with clinicalinformation derived from other diagnostic and screening tests, physical examinationsand full medical history in accordance with appropriate patient managementprocedures.N OTE: A negative result does not preclude the presence of HPV infection because resultsdepend on adequate specimen collection, absence of inhibitors and sufficientDNA to be detected. Normal See Interp HPVN Auto Viro/Sero SS Specimen source Nom (Unsp spec) Cervix (05/07/24 12:06 PM) Normal Auto Viro/Sero SS Hand Min 3 Viewson 4 Hand Min 3 Views [facility] Imaging Services [address] [place], [place] [address] Hand Min 3 Views MR#: [id number] Acct: [id number] Name: GRARISON WALKER Rep #: [id number] : 1970 F 54 From: Kelvin Bernardo PCP: LIGIA Romero Status: REG CLI Study: Hand Min 3 Views Date of Exam: 04/13/24 Exam# [id number] Ordering Dr: Tatum Stevens [id number] INDICATION: ARTHRITIS EXAMINATION/TECHNIQUE: X-RAY - LEFT XR Hand Min 3 Views 3 VIEWS COMPARISON: No relevant prior comparison study available FINDINGS: SOFT TISSUES: No soft tissue swelling or gas. No radiopaque foreign body. BONES/JOINTS: No acute fracture or subluxation.. Normal alignment. Preservation of the joint space.. No sclerotic or destructive changes observed. RAD/Hand Min 3 Views IMPRESSION: Unremarkable examination. Electronically Signed: Kelvin Cruz MD at 11:41 EDT , CC: LIGIA Stevens [employer] Consultant: Signed Normal [facility] Basophil percentageOrdered B y: Ivette Barton on 10-11-2023 Chloride [Moles/Vol] 106 mmol/L 98-107 [facility] Glucose [Mass/Vol] 117 mg/dL 74-106 [facility] Comment on above: Fasting Glucose resu lt from 100 to 125 mg/dL suggests IMPAIRED HOMEOSTASIS per A.D.A. criteria. Potassium [Moles/Vol] 4.1 mmol/L 3.5-5.1 [facility] Sodium [Moles/Vol] 140 mmol/L 136-145 [facility] Laboratory - Chemistry and C hemistry - challengeOrdered By: Ivette Barton on 10-11-2023 ALT [Catalytic activity/Vol] 60 U/L 13-56 [facility] CO2 [Moles/Vol] 30.0 mmol/L 21.0-32.0 [facility] Urea nitrogen/Creatinine [Mass ratio] 21.2 mg/mg 10-20 [facility] No Panel InformationOrdered By: Ivette Barton on 10-11-2023 Estimated GFR (MDRD) Amer 130 mL/min >60 [facility] Comment on above: GFR Calc Estimated GFR (MDRD) Non-Af Amer 108 mL/min >60 [facility] Comment on above: Non- GFR Calc Parathyroid Hormone (Intact) 68.9 pg/mL 18.4-80.1 [facility] Thyroid Stimulating Hormone (TSH) 0.25 uIU/mL 0.358-3.74 [facility] Vitamin D 25-Hydroxy 30.3 ng/mL [facility] Comment on above: Vitamin D 25(OH) Sta tus Range Deficiency <20 ng/mL (50nmol/L) Insufficiency 20 - 30 ng/mL (50 - 75 nmol/L) Sufficiency 30 - 100 ng/mL (75 - 250 nmol/L) Toxicity >100 ng/mL (>250 nmol/L) Serum or plasma calcium will urement (mass/volume)Ordered By: Ivette Barton on 10-11-2023 Calcium [Mass/Vol] 9.0 mg/dL 8.5-10.1 [facility] Serum or plasma creatinine m easurement (mass/volume)Ordered By: Ivette Barton on 10-11-2023 Creatinine [Mass/Vol] 0.61 mg/dL 0.55-1.02 [facility] Comment on above: The validity of the calculated GFR & GFRAA in patients over 70 years has not been determined. Clinical correlation is essential. Serum or plasma urea nitroge n measurement (mass/volume)Ordered By: Ivette Barton on 10-11-2023 Urea nitrogen [Mass/Vol] 13 mg/dL 7-18 [facility] Thin prep Papanicolaou smear with manual screeningOrdered By: Ivette Barton on 10-11-2023 Thin prep Papanicolaou smear with manual screening 28 U/L 15-37 [facility] Thin prep Papanicolaou smear with manual screening 4 5-15 [facility] Whole blood hemoglobin A1c/t otal hemoglobin ratio (mass fraction)Ordered By: Ivette Barton on 10-11-2023 HbA1c (Bld) [Mass fraction] 5.6 % 3.8-5.6 [facility] Comment on above: Normal < 5.7 % Predi abetic 5.7 - 6.4 % Diabetic >or= 6.5 % Please note range changes. XR OR HAND RIGHT 2 VIEWSon 0 07-08-2023 XR OR HAND RIGHT 2 VIEWS EXAMINATION: XR OR HAND RIGHT 2 VIEWS HISTORY: HARDWARE REMOVAL COMPARISON: 05/24/2023 IMPRESSION: FINDINGS/ 1. Intraoperative fluoroscopic image demonstrates removal of hardware at the 5th metacarpal. Workstation ID: [id number] Dictated by: KYLE MARK on Sat Jul 09, 2023 12:16:59 AM EDT Transcribed by: KYLE MARK on Sat Jul 09, 2023 12:16:59 AM EDT Finalized by: KYLE MARK on [facility] Jul 09, 2023 12:16:59 AM EDT Normal [facility] Comment on above: Order Comment: Injur y/Trauma or Illness?:Illness/Other How long have you had these symptoms (acute/chronic)?:Unknown Reason for exam?:HARDWARE REMOVAL Type of Exam?:Subsequent/Follow-up Additional signs and symptoms?:R HAND PAIN Fluoro time in minutes:0.02 Fluoro dose in mGy?:0.03 XR HAND RIGHT 3+ VIEWS (SINDHU DARD)on 05-24-2023 XR HAND RIGHT 3+ VIEWS (STANDARD) EXAMINATION: XR HAND RIGHT 3+ VIEWS (STANDARD) 05/24/2023 3:13 pm HISTORY: ORDERING SYSTEM PROVIDED HISTORY: Trigger finger, TECHNOLOGIST PROVIDED HISTORY: Illness/Other Reason for exam: 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 FINDINGS: Changes of internal fixation with plate and screws involving the 5th metacarpal. No acute fracture or dislocation.The joint spaces are well preserved.Unremarkable soft tissues. IMPRESSION: No acute osseous abnormality. 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 Barton on 02-05-2023 Chloride [Moles/Vol] 105 mmol/L 98-107 [facility] Cholesterol [Mass/Vol] 204 mg/dL <200 [facility] Comment on above: <200 mg/dL Desirable 200-240 mg/dL Borderline >240 mg/dL High Risk Glucose [Mass/Vol] 116 mg/dL 74-106 [facility] Comment on above: Fasting Glucose resu lt from 100 to 125 mg/dL suggests IMPAIRED HOMEOSTASIS per A.D.A. criteria. Potassium [Moles/Vol] 4.0 mmol/L 3.5-5.1 [facility] Sodium [Moles/Vol] 138 mmol/L 136-145 [facility] Triglyceride [Mass/Vol] 121 mg/dL <199 [facility] Comment on above: The drugs N-Acetylcy steine and Metamizole may falsely depress this assay.Serum Triglycerides Reference Interval Normal <150 mg/dL Borderline high 150 - 199 mg/dL High 200 - 499 mg/dL Very High > or = 500 mg/dL Laboratory - Chemistry and C hemistry - challengeOrdered By: Dr. Barton on 02-05-2023 ALT [Catalytic activity/Vol] 85 U/L 13-56 [facility] CO2 [Moles/Vol] 28.0 mmol/L 21.0-32.0 [facility] Urea nitrogen/Creatinine [Mass ratio] 23.9 mg/mg 10-20 [facility] No Panel InformationOrdered By: Dr. Barton on 02-05-2023 Estimated GFR (MDRD) Amer 127 mL/min >60 [facility] Comment on above: GFR Calc Estimated GFR (MDRD) Non-Af Amer 105 mL/min >60 [facility] Comment on above: Non- GFR Calc Parathyroid Hormone (Intact) 82.0 pg/mL 18.4-80.1 [facility] Thyroid Stimulating Hormone (TSH) 2.77 uIU/mL 0.358-3.74 [facility] No Panel InformationOrdered By: Ivette Barton on 02-05-2023 Miscellaneous Test See comment [facility] Comment on above: TEST RESULTS LIMITSV itamin D, 25-HydroxyVitamin D, 25-Hydroxy 43.4 ng/mL 30.0-100.0Vitamin D deficiency has been defined by the [place] [employer] and an Endocrine Society practice guideline as alevel of serum 25-OH vitamin D less than 20 ng/mL (1,2).The Endocrine Society went on to further define vitamin Dinsufficiency as a level between 21 and 29 ng/mL (2).1. IOM ([place] [employer]). 2010. Dietary reference intakes for calcium and D. [place]: The National Academies Press.2. Irbahima MF, Abbie SIERRA, Nallely SHEPHERD, et al. Evaluation, treatment, and prevention of vitamin D deficiency: an Endocrine Society clinical practice guideline. JCEM. 2010; 96(7):1911-30. TESTING PERFORMED AT [facility]. ORIGINAL REPORT ON FILE IN LAB CONTAINS ADDITIONAL TEST SITE INFORMATION. Serum or plasma calcitriol m easurement (mass/volume)Ordered By: Dr. Barton on 02-05-2023 1,25-dihydroxyvitamin D3 [Mass/Vol] 100.0 pg/mL 24.8-81.5 [facility] Comment on above: Performed at: [address] [id number] Director: Matthew Fierro MD, Phone: [phone] Serum or plasma calcium will urement (mass/volume)Ordered By: Dr. Barton on 02-05-2023 Calcium [Mass/Vol] 8.9 mg/dL 8.5-10.1 [facility] Serum or plasma cholesterol in HDL measurement (mass/volume)Ordered By: Dr. Barton on 02-05-2023 Cholesterol in HDL [Mass/Vol] 60 mg/dL >40 [facility] Comment on above: The drugs N-Acetylcy steine and Metamizole may falsely depress this assay. Reference Range HDL <40 mg/dL Low HDL Cholesterol HDL >or= 60 mg/dL High HDL Cholesterol Serum or plasma cholesterol in VLDL measurement (mass/volume)Ordered By: Dr. Barton on 02-05-2023 Cholesterol in VLDL [Mass/Vol] 24 mg/dL 5-40 [facility] Serum or plasma creatinine m easurement (mass/volume)Ordered By: Dr. Barton on 02-05-2023 Creatinine [Mass/Vol] 0.63 mg/dL 0.55-1.02 [facility] Comment on above: The validity of the calculated GFR & GFRAA in patients over 70 years has not been determined. Clinical correlation is essential. Serum or plasma low density lipoprotein (LDL) cholesterol measurement (mass/volume)Ordered By: Dr. Barton on 02-05-2023 Cholesterol in LDL [Mass/Vol] 120 mg/dL 0-130 [facility] Serum or plasma urea nitroge n measurement (mass/volume)Ordered By: Dr. Barton on 02-05-2023 Urea nitrogen [Mass/Vol] 15 mg/dL 7-18 [facility] Thin prep Papanicolaou smear with manual screeningOrdered By: Dr. Barton on 02-05-2023 Thin prep Papanicolaou smear with manual screening 48 U/L 15-37 [facility] Thin prep Papanicolaou smear with manual screening 5 5-15 [facility] Thin prep Papanicolaou smear with manual screening 11.1 mg/L NO RANGE EST. [facility] Whole blood hemoglobin A1c/t otal hemoglobin ratio (mass fraction)Ordered By: Dr. Barton on 02-05-2023 HbA1c (Bld) [Mass fraction] 5.8 % 3.8-5.6 [facility] Comment on above: Normal < 5.7 % Predi abetic 5.7 - 6.4 % Diabetic >or= 6.5 % Please note range changes. Basophil percentageOrdered B y: Dr. Barton on 10-22-2022 Bilirubin [Mass/Vol] 0.40 mg/dL 0.20-1.00 [facility] Comment on above: For patients on eltr ombopag therapy, use of Dimension Mcintosh TBIL is not recommended. Protein [Mass/Vol] 7.6 g/dL 6.4-8.2 [facility] Direct bilirubinOrdered By: Dr. Barton on 10-22-2022 Bilirubin.direct [Mass/Vol] 0.10 mg/dL 0.00-0.30 [facility] Laboratory - Chemistry and C hemistry - challengeOrdered By: Dr. Barton on 10-22-2022 ALP [Catalytic activity/Vol] 89 U/L 45-117 [facility] ALT [Catalytic activity/Vol] 79 U/L [facility] Globulin (S) [Mass/Vol] 3.8 g/dL 2.2-4.2 [facility] Serum or plasma albumin will urement (mass/volume)Ordered By: Dr. Barton on 10-22-2022 Albumin [Mass/Vol] 3.8 g/dL 3.2-5.0 [facility] Thin prep Papanicolaou smear with manual screeningOrdered By: Dr. Barton on 10-22-2022 Thin prep Papanicolaou smear with manual screening 44 U/L 15-37 [facility] Basophil percentageOrdered B y: Dr. Barton on 10-05-2022 Chloride [Moles/Vol] 108 mmol/L 98-107 [facility] Glucose [Mass/Vol] 99 mg/dL 74-106 [facility] Potassium [Moles/Vol] 3.7 mmol/L 3.5-5.1 [facility] Sodium [Moles/Vol] 142 mmol/L 136-145 [facility] Laboratory - Chemistry and C hemistry - challengeOrdered By: Dr. Barton on 10-05-2022 ALT [Catalytic activity/Vol] 71 U/L [facility] CO2 [Moles/Vol] 32.0 mmol/L 21.0-32.0 [facility] Urea nitrogen/Creatinine [Mass ratio] 19.4 mg/mg 10-20 [facility] No Panel InformationOrdered By: Dr. Barton on 10-05-2022 Estimated GFR (MDRD) Amer 108 mL/min >60 [facility] Comment on above: GFR Calc Estimated GFR (MDRD) Non-Af Amer 90 mL/min >60 [facility] Comment on above: Non- GFR Calc Thyroid Stimulating Hormone (TSH) 1.07 uIU/mL 0.358-3.74 [facility] Serum or plasma calcium will urement (mass/volume)Ordered By: Dr. Barton on 10-05-2022 Calcium [Mass/Vol] 9.4 mg/dL 8.5-10.1 [facility] Serum or plasma creatinine m easurement (mass/volume)Ordered By: Dr. Barton on 10-05-2022 Creatinine [Mass/Vol] 0.72 mg/dL 0.55-1.02 [facility] Comment on above: The validity of the calculated GFR & GFRAA in patients over 70 years has not been determined. Clinical correlation is essential. Serum or plasma urea nitroge n measurement (mass/volume)Ordered By: Dr. Barton on 10-05-2022 Urea nitrogen [Mass/Vol] 14 mg/dL 7-18 [facility] Thin prep Papanicolaou smear with manual screeningOrdered By: Dr. Barton on 10-05-2022 Thin prep Papanicolaou smear with manual screening 42 U/L 15 [facility] Thin prep Papanicolaou smear with manual screening 2 5-15 [facility] Whole blood hemoglobin A1c/t otal hemoglobin ratio (mass fraction)Ordered By: Dr. Barton on 10-05-2022 HbA1c (Bld) [Mass fraction] 5.8 % 3.8-5.6 [facility] Comment on above: Normal < 5.7 % Predi abetic 5.7 - 6.4 % Diabetic >or= 6.5 % Please note range changes. BASIC METABOLIC PANELon 05-11 Anion gap [Moles/Vol] 12 mmol/L Normal 10 - 20 [facility] Comment on above: Performed By: #### B MP #### [address] [address] Calcium [Mass/Vol] 8.8 mg/dL Normal 8.6 - 10.3 [facility] Comment on above: Performed By: #### B MP #### [address] [address] Chloride [Moles/Vol] 104 mmol/L Normal 98 - 107 [facility] Comment on above: Performed By: #### B MP #### [address] [address] Creatinine [Mass/Vol] 0.62 mg/dL Normal 0.50 - 1.05 [facility] Comment on above: Performed By: #### B MP #### [address] [address] eGFR FEMALE >90 Normal >90 [facility] Comment on above: Result Comment: CALC ULATIONS OF ESTIMATED GFR ARE PERFORMED USING THE 2020 CKD-EPI STUDY REFIT EQUATION WITHOUT THE RACE VARIABLE FOR THE IDMS-TRACEABLE CREATININE METHODS. https://jasn.asnjournals.org/content//ASN.184212 1483 Performed By: #### B MP #### [address] [address] Glucose [Mass/Vol] 102 mg/dL High 74 - 99 [facility] Comment on above: Performed By: #### B MP #### [address] [address] HCO3 (Bld) [Moles/Vol] 27 mmol/L Normal 21 - 32 [facility] Comment on above: Performed By: #### B MP #### [address] [address] Potassium [Moles/Vol] 3.8 mmol/L Normal 3.5 - 5.3 [facility] Comment on above: Performed By: #### B MP #### [address] [address] Sodium [Moles/Vol] 139 mmol/L Normal 136 - 145 [facility] Comment on above: Performed By: #### B MP #### [address] [address] Urea nitrogen [Mass/Vol] 13 mg/dL Normal 6 - 23 [facility] Comment on above: Performed By: #### B MP #### [address] [address] CBC AND DIFFERENTIALon 06-02 Basophils (Bld) [#/Vol] 0.00 10*3/uL Normal 0.00 - 0.10 [facility] Comment on above: Performed By: #### C BCDF #### [address] [address] Basophils/100 WBC (Bld) 0.4 % Normal 0.0 - 2.0 [facility] Comment on above: Performed By: #### C BCDF #### [address] [address] Eosinophils (Bld) [#/Vol] 0.10 10*3/uL Normal 0.00 - 0.70 [facility] Comment on above: Performed By: #### C BCDF #### [address] [address] Eosinophils/100 WBC (Bld) 1.5 % Normal 0.0 - 6.0 [facility] Comment on above: Performed By: #### C BCDF #### [address] [address] Erythrocyte distribution width (RBC) [Ratio] 15.7 % High 11.5 - 14.5 [facility] Comment on above: Performed By: #### C BCDF #### [address] [address] Hematocrit (Bld) [Volume fraction] 36.1 % Normal 36.0 - 46.0 [facility] Comment on above: Performed By: #### C BCDF #### [address] [address] Hemoglobin (Bld) [Mass/Vol] 11.8 g/dL Low 12.0 - 16.0 [facility] Comment on above: Performed By: #### C BCDF #### [address] [address] Lymphocytes (Bld) [#/Vol] 1.90 10*3/uL Normal 1.20 - 4.80 [facility] Comment on above: Performed By: #### C BCDF #### [address] [address] Lymphocytes/100 WBC (Bld) 22.8 % Normal 13.0 - 44.0 [facility] Comment on above: Performed By: #### C BCDF #### [address] [address] MCHC (RBC) [Mass/Vol] 32.7 g/dL Normal 32.0 - 36.0 [facility] Comment on above: Performed By: #### C BCDF #### [address] [address] MCV (RBC) [Entitic vol] 76 fL Low 80 - 100 [facility] Comment on above: Performed By: #### C BCDF #### [address] [address] Monocytes (Bld) [#/Vol] 0.60 10*3/uL Normal 0.10 - 1.00 [facility] Comment on above: Performed By: #### C BCDF #### [address] [address] Monocytes/100 WBC (Bld) 7.0 % Normal 2.0 - 10.0 [facility] Comment on above: Performed By: #### C BCDF #### [address] [address] Neutrophils (Bld) [#/Vol] 5.60 10*3/uL Normal 1.20 - 7.70 [facility] Comment on above: Result Comment: Perc ent differential counts (%) should be interpreted in the context of the absolute cell counts (cells/L). Performed By: #### C BCDF #### [address] [address] Neutrophils/100 WBC (Bld) 68.3 % Normal 40.0 - 80.0 [facility] Comment on above: Performed By: #### C BCDF #### [address] [address] NUCLEATED RBC 0.1 /100 WBC Normal [facility] Comment on above: Performed By: #### C BCDF #### [address] [address] Platelets (Bld) [#/Vol] 185 10*3/uL Normal 150 - 450 [facility] Comment on above: Performed By: #### C BCDF #### [address] [address] RBC 4.76 x10E12/L Normal 4.00 - 5.20 [facility] Comment on above: Performed By: #### C BCDF #### [address] [place] [address] WBC (Bld) [#/Vol] 8.2 10*3/uL Normal 4.4 - 11.3 [facility] Comment on above: Performed By: #### C BCDF #### [address] [place] [address] CHEST 2 VIEW PA AND LATon CHEST 2 VIEW PA AND LAT Patient Name: SINA WALKER STUDY: TH CHEST 2 VIEW PA AND LAT; 06/02/2022 9:44 am INDICATION: CHEST PAIN/LEFT SIDED . COMPARISON: 05/12/2020 ACCESSION NUMBER(S): [id number] ORDERING CLINICIAN: SEYMOUR CALLEJAS FINDINGS: CHEST/LUNGS: The cardiac and mediastinal silhouettes are unchanged in size and configuration. No focal areas of consolidation are noted. No effusion or pneumothorax is seen. UPPER ABDOMEN: No remarkable upper abdominal findings. OSSEOUS STRUCTURES: No acute changes. IMPRESSION: No radiographic evidence of an acute cardiopulmonary process. Electronically signed by: JHOANA WOODWARD MD Normal [facility] CORONAVIRUS 2019 BY PCRon SARS-CoV-2 (COVID-19) RNA KAY+probe Ql (Unsp spec) Not detected Normal Not Detected [facility] Comment on above: Result Comment: . This test has received FDA Emergency Use Authorization (EUA) and has been verified by [facility]. This test is only authorized for the duration of time that circumstances exist to justify the authorization of the emergency use of in vitro diagnostic tests for the detection of SARS-CoV-2 virus and/or diagnosis of COVID-19 infection under section 564(b)(1) of the Act, 21 U.S.C. 360bbb-3(b)(1), unless the authorization is terminated or revoked sooner. [facility] is certified under CLIA-88 as qualified to perform high complexity testing. Testing is performed in the [facility] laboratory located at [address] [place] [address]. SARS-CoV-2/Flu/RSV Multiplex Test: Fact sheet for providers: https://www.fda.gov/media/244934/download Fact sheet for patients: https://www.fda.gov/media/607932/download Performed By: #### C OV19 #### [address] [address] Lab Specimen Source Nasal, Nasopharyngeal Normal [facility] Comment on above: Performed By: #### C OV19 #### [address] [address] [address] ANGIO CHEST FOR PEon 08- CT ANGIO CHEST FOR PE Patient Name: SINA WALKER STUDY: CT ANGIO CHEST FOR PE; 06/02/2022 12:11 pm INDICATION: CP/SOB/+d dIMER . COMPARISON: None. ACCESSION NUMBER(S): [id number] ORDERING CLINICIAN: SEYMOUR CALLEJAS TECHNIQUE: Helical data acquisition of the chest was obtained following the intravenous administration of 75 ml of contrast/Omnipaque 350. Images were reformatted in axial, coronal, and sagittal planes. 3D post processing was performed on an independent workstation and volume rendered images of the pulmonary arteries were created and utilized in the interpretation. FINDINGS: POTENTIAL LIMITATIONS OF THE STUDY: Respiratory motion artifact. HEART AND VESSELS: No filling defects are identified within the pulmonary arteries to indicate the presence of a pulmonary embolism. Please note that some of the subsegmental pulmonary arterial branches could not be adequately evaluated secondary to the limitations described above. The aorta is normal in course and caliber. Heart appears mildly enlarged. No pericardial effusion is seen. MEDIASTINUM AND DANN, LOWER NECK AND AXILLA: The visualized thyroid gland is within normal limits. No evidence of thoracic lymphadenopathy by CT criteria. Esophagus appears within normal limits as seen. LUNGS AND AIRWAYS: The trachea and central airways are patent. No endobronchial lesion. No focal areas of consolidation are noted. No effusion or pneumothorax is seen. 3 mm nodule in the right upper lobe, image 44 of 150. 3 mm subpleural nodule in the right middle lobe, image 74. These are of doubtful clinical significance in a low risk patient. In a high risk patient, a 12 month follow-up CT can be offered. Mild areas of atelectasis and/or scarring. UPPER ABDOMEN: The visualized subdiaphragmatic structures demonstrate no acute abnormality. CHEST WALL AND OSSEOUS STRUCTURES: Degenerative changes. No acute process. IMPRESSION: No evidence of a pulmonary embolism. Incidental findings as above. Electronically signed by: JHOANA WOODWARD MD [facility] Covid 19 Resultson 2 SARS-CoV-2 (COVID-19) RNA KAY+probe Ql (Unsp spec) NEGATIVE COVID-19 Test Coronaviruses are common world-wide and are the cause of many common colds. SARS-COV2 is a new coronavirus that began circulating worldwide in 2019 so we are calling it COVID-19. It has been estimated that four out of five patients with COVID-19 will recover at home without the need for medical attention. Symptoms of COVID-19 may include cough, fever, shortness of breath, loss of taste or smell and other flu-like symptoms including chills, sore muscles, sore throat, and headache. Severe illness is more common in older people and people with other health problems such as high blood pressure, obesity, and immune system problems. If the test is positive, you have COVID-19. You will be contacted by the ordering physicians office and instructed to remain on home isolation, in accordance with CDC guidelines. You may also be contacted by the [facility] to see if any of your close contacts may have been exposed to the virus and need to quarantine. If the test is negative, you likely do not have COVID-19 at this time, but you still may have a different illness that can spread to other people (like Influenza, or the Flu) and could still be at risk for getting COVID-19. We recommend that you stay away from other people to limit the spread of illness until your symptoms are improving and you are fever-free for 24 hours without the use of fever lowering medications such as acetaminophen or ibuprofen. No test is 100% accurate so if you are still concerned you may have COVID-19, talk to your doctor about the need to continue to stay away from others. Medicines Unless your provider told you not to use the following: Acetaminophen (Tylenol and others) is generally safe. Anti-inflammatory medications, such as Ibuprofen (Advil or Motrin) or Naproxen (Aleve) can also be used. Uiax-lwq-xhjqyxq cough and cold medicines can be used according to the instructions on the package. Some xlbq-wfe-aomxomq medicines also contain acetaminophen. Make sure you are not taking more than your recommended dose. For those not hospitalized, there is no specific treatment available for this illness. Antibiotics do not treat Coronaviruses. Follow-Up Follow up with your doctor by scheduling a virtual visit or consider follow-up at one of our urgent care fever clinics. If you are having difficulty breathing, or are very weak and having difficulty standing, this is a medical emergency. Call 911 or have someone take you to the nearest emergency room immediately. If possible, wear a facemask. Additional guidance from the CDC for patients who tested POSITIVE for COVID-19 How to isolate: Isolate yourself in a specific room at home and limit your contact with others. Use a separate bathroom from other members of the household, when possible. Leave home only to get essential medical care. Do not go to work, school or public areas. Avoid using public transportation, ride-sharing, or taxis. Restrict contact with pets and other animals. If you must care for your pet or be around animals while you are sick, wash your hands before and after your interaction and wear a facemask. Make sure that shared spaces in the home have good airflow, such as by an air conditioner or an opened window, weather permitting. Personal Hygiene Procedures: Wear a face mask when in the same room as other people or pets. If a face mask interferes with your breathing, others should wear a mask when sharing space with you. Frequent hand-washing: wash your hands with soap and water for at least 20 seconds. If soap and water are not available, use alcohol-based hand pump operator. Avoid touching your eyes, nose, and mouth with unwashed hands. Household Hygiene Procedures: Avoid sharing personal household items such as dishes, glassware, cups, eating utensils, towels or bedding with other people or pets in your home. After use, these items should be washed with soap and hot water. Disinfect all high-touch surfaces every day with antibacterial cleaning solutions such as Lysol wipes, bleach, cleansers, etc. High-touch surfaces include tabletops, doorknobs, bathroom fixtures, toilets, phones, keyboards, tablets and bedside tables. Immediately clean any surfaces that may have blood, poop or body fluids on them, using antibacterial cleaning solutions such as Lysol wipes, bleach, cleansers, etc. If clothing or bedding come into contact with blood, poop or body fluids, they should be washed immediately. Follow the directions on the laundry detergent and clothing labels but hot water is recommended when possible. Stopping home isolation precautions: If possible, consult your doctor before stopping home isolation precautions. According to the CDC, you can discontinue home isolation precautions when you have met both of these criteria: Your fever and respiratory symptoms have been gone for 24 judi (more content not included)... Normal [facility] D-DIMER, VTE EXCLUSIONon D-DIMER, VTE EXCLUSION 521 ng/mL FEU Abnormal < or = 500 [facility] Comment on above: Result Comment: The VTE Exclusion D-Dimer assay is reported in ng/mL Fibrinogen Equivalent Units (FEU). Per manufacturers instructions for use, a value of less than 500 ng/mL (FEU) may help to exclude DVT or PE in outpatients when the assay is used with a clinical pretest probability assessment. 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 She complains some left-sided chest pain that is been off and on intermittently for at least the last 3 weeks. She complains some pressure sensation at times. Other times it is pleuritic and sharp. She denies any shortness of breath cough congestion fever chills. She has had no nausea or vomiting. No radiation to her back. She had a stress test 1 year ago that was negative. She was seen in the emergency department in May 2020 for cardiac work-up which was also negative. Denies any swelling of her lower legs no history of DVT in the past she denies any cardiac history or hypertension. 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 Patient states she has been having occasion mid-sternal chest pressure with pain under her left rib and under left shoulder blade in back, she also states she has had periods of nausea with pain. patient started on new hormone therapy medication about 3 months prior. When she asked her doctor about it being the issue she was told to come to the ED.)(1). Triage Information: Most recent Vital Sign Value Date Temp (F): 98.2 06-02-2022 09:26 Temp (C): 36.7 06-02-2022 09:26 Heart Rate (beats/min): 83 06-02-2022 09:26 Respirations (breaths/min): 15 06-02-2022 09:26 SpO2 (%): 98 06-02-2022 09:26 BP Systolic (mm Hg): 144 06-02-2022 09:26 BP Diastolic (mm Hg): 83 06-02-2022 09:26 PAST MEDICAL HISTORY ALLERGIES/INTOLERANCES : Allergy Allergen: codeine Type: Drug Reaction: Hives/Urticaria Allergen: Ancef Type: Drug Reaction: Hives/Urticaria Allergen: Bee Stings Type: Environment Reaction: Anaphylaxis HEALTH HISTORY: No documented data. OUTPATIENT MEDICATIONS: Home Medications Review Status for Reconciliation: Complete Med Status: Patient Currently Takes Medications Drug Name: calcitriol 0.25 mcg oral capsule Instructions: 1 cap(s) orally Tuesday, Tuesday, and Tuesday, Tuesday and Tuesday Drug Name: Prempro 0.45 mg-1.5 mg oral tablet Instructions: 1 tab(s) orally once a day, after dinner Drug Name: Vitamin D2 1.25 mg (50,000 intl units) oral capsule Instructions: 1 cap(s) orally 2 times a week Drug Name: levothyroxine 150 mcg (0.15 mg) oral tablet Instructions: 1 tab(s) orally once a day Drug Name: aspirin 81 mg oral tablet Instructions: 1 tab(s) orally once a day Drug Name: EPINEPHrine 0.1 mg injectable kit Instructions: 1 dose(s) injectable , As Needed SIGNIFICANT EVENTS: Past Medical History Description:Hypothyroi d REVIEW OF SYSTEMS CONSTITUTIONAL: POSITIVE for: malaise Negative for: chills, fever and weakness EYES: Negative for: redness ENMTEars: Negative for: pain Nose: Negative for: congestion and discharge Throat/Neck: Negative for: neck pain and neck stiffness CARDIOVASCULAR: POSITIVE for: chest pain and palpitations RESPIRATORY: POSITIVE for: pleuritic chest pain Negative for: cough, dyspnea and wheezing GASTROINTESTINAL: Negative for: abdominal pain, nausea and vomiting; GENITOURINARY: Negative for: dysuria and frequency; INTEGUMENTARY: Negative for: petechiae and rash NEUROLOGICAL: Negative for: altered mental status, dizziness and headache; HEME/LYMPH: Negative for: anemia and easy bleeding All other systems reviewed and are negative PHYSICAL EXAM CONSTITUTIONAL: Well appearing, well nourished, awake, alert, oriented to person, place, time/situation and in no apparent distress. PT Without any dyspnea or tachypnea in no acute discomfort currently HENMT: Airway patent, ears with clear tympanic membranes bilaterally. Nasal mucosa clear. Mouth with normal mucosa. Throat has no vesicles, no oropharyngeal exudates and uvula is midline. Face with no lymph node enlargement. NECK With no nuchal rigidity or adenopathy EYES: Clear bilaterally, pupils equal, round and reactive to light. CARDIOVASCULAR: Normal rate, regular rhythm. Heart sounds S1, S2. No murmurs, rubs or gallops. PMI non-displaced. She does have some chest wall tenderness along the left sternal border that reproduces some of her pain RESPIRATORY: Breath sounds clear and equal bilaterally. No dyspnea or tachypnea no rales rhonchi wheezes people patient is able speak full sentences GASTROINTESTINAL: Abdomen soft, non-distended, no rebound, no guarding. Bowel sounds normal in all 4 quadrants. MUSCULOSKELETAL: Spine appears normal, range of motion is not limited, no muscle or joint tenderness. NEUROLOGICAL: Alert and oriented, no focal deficits, no motor or sensor (more content not included)... Normal [facility] TROPONIN I, HIGH SENSITIVITY on 06-02-2022 TROPONIN I, HIGH SENSITIVITY 3 ng/L Normal 0 - 13 [facility] Comment on above: Result Comment: . Less than 99th percentile of normal range cutoff- Female and children under 18 years old <14 ng/L; Male <21 ng/L: Negative Repeat testing should be performed if clinically indicated. . Female and children under 18 years old 14-50 ng/L; Male 21-50 ng/L: Consistent with possible cardiac damage and possible increased clinical risk. Serial measurements may help to assess extent of myocardial damage. . >50 ng/L: Consistent with cardiac damage, increased clinical risk and myocardial infarction. Serial measurements may help assess extent of myocardial damage. . NOTE: Children less than 1 year old may have higher baseline troponin levels and results should be interpreted in conjunction with the overall clinical context. . NOTE: Troponin I testing is performed using a different testing methodology at [facility] than at other [facility]. Direct result comparisons should only be made within the same method. Performed By: #### T [facility] #### [address] [place] [id number] Triage - EDon 06-02-2022 Triage - ED Quick Triage: Are You no Have You Given In The Last 6 Weeksno Are You Currently Breastfeedingno The patient and/or guardian verbally acknowledges placement for services into the following (when Urgent Care Service hours are operating):emergency department Chart Review: ARRIVAL INFORMATION Mode of Arrival: private vehicle CHIEF COMPLAINT SINA WALKER is a Female patient with a chief complaint of chest pain (Patient to ED reference chest pressure. Patient states she has been having occasion mid-sternal chest pressure with pain under her left rib and under left shoulder blade in back, she also states she has had periods of nausea with pain. patient started on new hormone therapy medication about 3 months prior. When she asked her doctor about it being the issue she was told to come to the ED.). Onset of the Complaint: 12-May-2022 07:00 Triage Date/Time: 02-Jun-2022 09:26 ALEIDA: 2 Pain Rating (0-10): 5 = Moderate Vital Signs: Temperature: 98.2F ( 36.7C) taken temporal Blood Pressure: 144/83 Mean: Heart Rate: 83 Respiratory Rate: 15 Pulse Oximetry: 98% on room air, no respiratory support. Height: 5 feet 1.00 inches. 154.9 CM Weight: 190.2 pounds. Calculated 86.3 kg. (stated) Calculated BMI (kg/m2): 35.967 Calculated BSA (m2) 1.93 [place] Coma Scale: Best Eye Response: (E4) spontaneous Best Motor Response: (M6) obeys commands Best Verbal Response: (V5) oriented [place] Score: 15 [place] Assessment Qualifiers: patient not sedated/intubated Cough lasting greater than 3 weeks: no Allergies: yes Patient has homicidal thoughts: no Symptoms Are Negative For: anxiety, chills, diaphoresis, dyspnea, headache, loss of consciousness, nausea, numbness, pain, tingling and weakness Risk Screens Suicide Risk Screen In the Past Month: Have you wished you were or wished you could go to sleep and not wake up no In the Past Month: Have you had any actual thoughts of killing yourself no In Your Lifetime: Have you ever done anything, started to do anything, or prepared to do anything to end your life no Leigh Fall Scale Screening Has the patient fallen before (or is the patient in the ED as a result of a fall) has not had a fall Does the patient have an impaired gait does not have impaired gait Is the patient cognitively impaired not cognitively impaired Interventions: Leigh Fall Interventions: LOW INTERVENTIONS: *patient oriented to surroundings and call system, * patient/family falls education completed and documented, *patients fall status communicated during bedside handoff, *whiteboard updated, *mode of toileting discussed with patient, *bed in low position with brakes locked, *call light in reach, * non-skid footwear TRAVEL HISTORY Travel History Coronavirus Screening: no exposure or symptoms Travel Exposure History: NO travel to International locations in the past 30 days PAIN Pain Scale Used: ADDIE Pain Rating (0-10): 5 = Moderate Past Medical History: Past Medical History Reviewedyes Electronic Signatures: Claudette Mendoza (EMT-P) (Signed 02-Jun-2022 09:31) Entered: Risk Screens, Pain, Travel History, Chart Review, Scores Authored: Quick Triage, Risk Screens, Pain, Travel History, Chart Review, Scores Luda Castro (CULLEN) (Signed 02-Jun-2022 09:51) Authored: Quick Triage, Chart Review, Past Medical History Last Updated: 02-Jun-2022 09:51 by Luda Castro (CULLEN) [facility] percentageon 2021 Chloride [Moles/Vol] 109 mmol/L 98-107 [facility] Work Phone: Cholesterol [Mass/Vol] 186 mg/dL <200 [facility] Work Phone: Comment on above: <200 mg/dL Desirable 200-240 mg/dL Borderline >240 mg/dL High Risk Glucose [Mass/Vol] 113 mg/dL 74-106 [facility] Work Phone: Comment on above: Fasting Glucose resu lt from 100 to 125 mg/dL suggests IMPAIRED HOMEOSTASIS per A.D.A. criteria. Potassium [Moles/Vol] 3.9 mmol/L 3.5-5.1 [facility] Work Phone: Sodium [Moles/Vol] 139 mmol/L 136-145 [facility] Work Phone: Triglyceride [Mass/Vol] 136 mg/dL <199 [facility] Work Phone: Comment on above: The drugs N-Acetylcy steine and Metamizole may falsely depress this assay.Serum Triglycerides Reference Interval Normal <150 mg/dL Borderline high 150 - 199 mg/dL High 200 - 499 mg/dL Very High > or = 500 mg/dL Laboratory - Chemistry and C hemistry - challengeon 04-16-2022 ALT [Catalytic activity/Vol] 47 U/L 13-56 [facility] Work Phone: CO2 [Moles/Vol] 27.0 mmol/L 21.0-32.0 [facility] Work Phone: Urea nitrogen/Creatinine [Mass ratio] 25.6 mg/mg 10-20 [facility] Work Phone: No Panel Informationon 04-16 Estimated GFR (MDRD) Amer 128 mL/min >60 [facility] Work Phone: Comment on above: GFR Calc Estimated GFR (MDRD) Non-Af Amer 106 mL/min >60 [facility] Work Phone: Comment on above: Non- GFR Calc Parathyroid Hormone (Intact) 76.5 pg/mL 18.4-80.1 [facility] Work Phone: Thyroid Stimulating Hormone (TSH) 4.80 uIU/mL 0.358-3.74 [facility] Work Phone: Vitamin D 25-Hydroxy 36.5 ng/mL [facility] Work Phone: Comment on above: Vitamin D 25(OH) Sta tus Range Deficiency <20 ng/mL (50nmol/L) Insufficiency 20 - 30 ng/mL (50 - 75 nmol/L) Sufficiency 30 - 100 ng/mL (75 - 250 nmol/L) Toxicity >100 ng/mL (>250 nmol/L) Serum or plasma calcium will urement (mass/volume)on 04-16-2022 Calcium [Mass/Vol] 9.0 mg/dL 8.5-10.1 [facility] Work Phone: Serum or plasma cholesterol in HDL measurement (mass/volume)on 04-16-2022 Cholesterol in HDL [Mass/Vol] 50 mg/dL >40 [facility] Work Phone: Comment on above: The drugs N-Acetylcy steine and Metamizole may falsely depress this assay. Reference Range HDL <40 mg/dL Low HDL Cholesterol HDL >or= 60 mg/dL High HDL Cholesterol Serum or plasma cholesterol in VLDL measurement (mass/volume)on 04-16-2022 Cholesterol in VLDL [Mass/Vol] 27 mg/dL 5-40 [facility] Work Phone: Serum or plasma creatinine m easurement (mass/volume)on 04-16-2022 Creatinine [Mass/Vol] 0.62 mg/dL 0.55-1.02 [facility] Work Phone: Comment on above: The validity of the calculated GFR & GFRAA in patients over 70 years has not been determined. Clinical correlation is essential. Serum or plasma low density lipoprotein (LDL) cholesterol measurement (mass/volume)on 04-16-2022 Cholesterol in LDL [Mass/Vol] 109 mg/dL 0-130 [facility] Work Phone: Serum or plasma urea nitroge n measurement (mass/volume)on 04-16-2022 Urea nitrogen [Mass/Vol] 16 mg/dL 7-18 [facility] Work Phone: Thin prep Papanicolaou smear with manual screeningon 04-16-2022 Thin prep Papanicolaou smear with manual screening 32 U/L 15-37 [facility] Work Phone: Thin prep Papanicolaou smear with manual screening 3 5-15 [facility] Work Phone: Whole blood hemoglobin A1c/t otal hemoglobin ratio (mass fraction)on 04-16-2022 HbA1c (Bld) [Mass fraction] 5.8 % 3.8-5.6 [facility] Work Phone: Comment on above: Normal < 5.7 % Predi abetic 5.7 - 6.4 % Diabetic >or= 6.5 % Please note range changes. BMP with eGFRon 08-19-2020 Age - Reported 50 years Normal [facility] Comment on above: Performed By: #### 2 [id number] #### [facility],[address] [place] [address]8591 Anion gap [Moles/Vol] 10 mmol/L Normal 10 - 20 [facility] Comment on above: Performed By: #### 2 [id number] #### [facility],[address] [place] [address] 87973 Calcium [Mass/Vol] 8.1 mg/dL Low 8.5 - 10.1 [facility] Comment on above: Performed By: #### 2 54659 #### [facility],[address] [place] [address] 81728 Chloride [Moles/Vol] 100 mmol/L Normal 98 - 107 [facility] Comment on above: Performed By: #### 2 [id number] #### [facility],[address] [place] [address] 85849 CO2 [Moles/Vol] 27.3 mmol/L Normal 21.0 - 32.0 [facility] Comment on above: Performed By: #### 2 82550 #### [facility],[address] [place] [address] 75430 Creatinine [Mass/Vol] 0.6 mg/dL Normal 0.5 - 1.0 [facility] Comment on above: Performed By: #### 2 62945 #### [facility],[address] [place] [address] 16654 GFR/1.73 sq M predicted among non-blacks MDRD (S/P/Bld) [Vol rate/Area] Normal [facility] Comment on above: Result Comment: BASI C METABOLIC PANEL Performed By: #### 2 27132 #### [facility],[address] [place] [address] 02633 GFR/1.73 sq M predicted among non-blacks MDRD (S/P/Bld) [Vol rate/Area] mL/min/{1.73_m2} Normal 60 - 999 [facility] Comment on above: Result Comment: ACCO RDING TO THE NATIONAL KIDNEY DISEASE EDUCATION PROGRAM(NKDE), A NORMAL eGFR IS A VALUE GREATER THAN OR EQUAL TO 60 ML/MIN/1.73 SQ METERS. CHRONIC KIDNEY DISEASE: <60mL/MIN/1.73 SQ METERS KIDNEY FAILURE: <15mL/MIN/1.73 SQ METERS THIS TEST SHOULD ONLY BE USED FOR PATIENTS 18 YEARS OF AGE AND OLDER. Performed By: #### 2 02067 #### [facility],[address] [place] [address] 82400 Glucose [Mass/Vol] 102 mg/dL Normal 74 - 106 [facility] Comment on above: Performed By: #### 2 67983 #### [facility],[address] [place] [address] 23572 Potassium [Moles/Vol] 3.9 mmol/L Normal 3.5 - 5.1 [facility] Comment on above: Performed By: #### 2 79801 #### [facility],[address] [place] [address] 54662 Sodium [Moles/Vol] 133 mmol/L Low 136 - 145 [facility] Comment on above: Performed By: #### 2 94245 #### [facility],[address] [place] [address] Urea nitrogen [Mass/Vol] 9 mg/dL Normal 7 - 18 [facility] Comment on above: Performed By: #### 2 31012 #### [facility],[address] [place] [address] CBC + DIFFon 08-19-2020 Basophils (Bld) [#/Vol] 0.00 x10EE3/UL Normal 0.00 - 0.10 [facility] Comment on above: Performed By: #### 2 99670 #### [facility],[address] [place] [address] 11615 Basophils/100 WBC (Bld) 0.3 % Normal 0.0 - 2.0 [facility] Comment on above: Performed By: #### 2 06832 #### [facility],[address] [place] [address] CBC + DIFF Normal [facility] Comment on above: Result Comment: CBC- COMPLETE BLOOD COUNT Performed By: #### 2 85225 #### [facility],[address] [place], [place] [id number] Eosinophils (Bld) [#/Vol] 0.10 x10EE3/UL Normal 0.00 - 0.50 [facility] Comment on above: Performed By: #### 2 84997 #### [facility],[address] [place] [address] 44085 Eosinophils/100 WBC (Bld) 1.4 % Normal 0.0 - 7.0 [facility] Comment on above: Performed By: #### 2 49796 #### [facility],[address] [place] [address] Erythrocyte distribution width (RBC) [Ratio] 15.0 % Normal 12.0 - 15.6 [facility] Comment on above: Performed By: #### 2 82219 #### [facility],[address] [place] [address] 99768 Hematocrit (Bld) [Volume fraction] 27.7 % Low 34.0 - 46.0 [facility] Comment on above: Performed By: #### 2 52087 #### [facility],[address] [place] [address] 39757 Hemoglobin (Bld) [Mass/Vol] 9.4 g/dL Low 12.0 - 16.0 [facility] Comment on above: Performed By: #### 2 51191 #### [facility],[address] [place] [address] 68472 Lymphocytes (Bld) [#/Vol] 1.10 x10EE3/UL Normal 0.80 - 2.80 [facility] Comment on above: Performed By: #### 2 64269 #### [facility],[address] [place] [address] 14190 Lymphocytes/100 WBC (Bld) 11.6 % Low 20.0 - 45.0 [facility] Comment on above: Performed By: #### 2 74145 #### [facility],[address] [place] [address] 07207 MANUAL DIFF N/A Normal [facility] Comment on above: Performed By: #### 2 42591 #### [facility],[address] [place] [address] 80966 MCH (RBC) [Entitic mass] 26 pg Low 27 - 33 [facility] Comment on above: Performed By: #### 2 33859 #### [facility],[address] [place] [address] 42521 MCHC (RBC) [Mass/Vol] 34 X10 3 Normal 32 - 36 [facility] Comment on above: Performed By: #### 2 97437 #### [facility],[address] [place] [address] 56682 MCV (RBC) [Entitic vol] 76 fL Low 80 - 99 [facility] Comment on above: Performed By: #### 2 71198 #### [facility],[address] [place] [address] 45221 Monocytes (Bld) [#/Vol] 0.80 x10EE3/UL Normal 0.20 - 1.00 [facility] Comment on above: Performed By: #### 2 37306 #### [facility],[address] [place] [address] 39817 MONOS % 8.2 % Normal 0.0 - 10.0 [facility] Comment on above: Performed By: #### 2 48786 #### [facility],[address] [place] [address] 33242 Morphology Kenneth (Bld) [Interp] N/A Normal [facility] Comment on above: Performed By: #### 2 96658 #### [address] [address] Neutrophils (Bld) [#/Vol] 7.40 x10EE3/UL High 1.50 - 7.10 [facility] Comment on above: Performed By: #### 2 91088 #### [facility],[address] [place] [address] 76028 Neutrophils/100 WBC (Bld) 78.5 % High 46.0 - 76.0 [facility] Comment on above: Performed By: #### 2 69465 #### [facility],[address] [place] [address] 54061 Platelet mean volume (Bld) [Entitic vol] 9.0 fL Normal 6.6 - 10.5 [facility] Comment on above: Result Comment: AUTO MATED DIFFERENTIAL Performed By: #### 2 38468 #### [address] [address] Platelets (Bld) [#/Vol] 185 x10EE3/UL Normal 150 - 450 [facility] Comment on above: Performed By: #### 2 92604 #### [facility],[address] [place] [address] 64195 RBC (Bld) [#/Vol] 3.64 x 10EE6/UL Low 4.10 - 5.30 J oel [facility] Comment on above: Performed By: #### 2 63218 #### [facility],[address] [place] [address] 04663 WBC (Bld) [#/Vol] 9.4 x 10EE3/UL Normal 4.5 - 10.8 Jhoana crawford [facility] Comment on above: Performed By: #### 2 [id number] #### [facility],[address] [place] [address] 14349 OPERATIVE PROCEDURESon 08-19 OPERATIVE PROCEDURES [facility] OPERATIVE REPORT NAME ACCOUNT SEX AGE ADMIT DISCHARGE PT MED. RECORD# NUMBER DATE DATE TYPE MIKEY [id number] F 50 08/18/20 2 SINA [id number] ROOM: [id number] DATE OF : 1970 DICTATING PHYSICIAN: Frankie Sneed DATE OF SURGERY: August 18, 2020 SURGEON: Frankie Sneed MD SCRAPPER: Ellie Laws PA-C./RANDY Chambers. ANESTHESIOLOGIST: Halie Jones MD ANESTHETIC: Duramorph spinal. PREOPERATIVE DIAGNOSIS: Right knee and left knee posttraumatic arthritis. POSTOPERATIVE DIAGNOSIS: Right knee and left knee posttraumatic arthritis. OPERATION PERFORMED: Right and left total knee replacement. COMPLICATIONS: None. ESTIMATED BLOOD LOSS: 150. SPECIAL MEDICATIONS: Vancomycin. INDICATIONS FOR SURGERY: The patient is a 50-year-old female with a history of severe bilateral knee pain. She has had previous surgeries. Due to persistent and progressive knee pain, posttraumatic arthritis, she wished to have surgery. Appropriate informed consent was obtained and signed. FINDINGS: Findings were consistent with bilateral knee posttraumatic arthritis. She underwent standard anterior approach of the knee followed by a cemented ConforMIS total knee replacement. We did the right knee first. Right knee had placed the pre-made tibia and femur cemented in place. The patella was a 29 mm symmetric insert. The inserts for the tibial tray corresponded with 6C, 6.1 mm of medial polyethylene and 8.4 mm of lateral polyethylene. On the left side, we did 6A polyethylene inserts corresponding with 6.1 medial and 6.5 lateral, 29 symmetric patella was also placed on the left knee. She underwent standard wound closure in layers followed by cholo followed by a Mepilex dressing. Page 1 of 3 SINA JENSEN Operative Report SINA JENSEN : 1970 assistant customer service manager, physician microbiology lab assistant, was utilized throughout the entire procedure. She helped with patient positioning, holding of limb, holding of retractors. She helped with exposure throughout. She helped with closing of the right knee while the surgeon and second microbiology lab assistant proceeded with the left knee. She also helped with closing of the left knee. Without rn surgical, surgical time would have been significantly increased. Surgical outcome could have been less optimal. DESCRIPTION OF OPERATION: The patient was taken to the OR and transferred to the OR table. She was given a spinal anesthetic with Duramorph. Appropriate timeout was performed. Driscoll catheter was placed. All her bony prominences were well-padded. Both upper thighs were well-padded. Tourniquet was applied. Both lower extremities were prepped, padded, and draped in the usual orthopedic sterile fashion for the procedure. We began on the right knee. Vancomycin was still being infiltrated. We started without a tourniquet on the right knee. A midline incision was carried through skin and subcutaneous tissue bringing us down on the extensor mechanism. Medial parapatellar arthrotomy was carried out. Straw-colored joint fluid was evacuated. Bleeding was controlled with the Bovie. We raised a sleeve of tissue off the upper medial tibia and resected some of the infrapatellar fat pad. We removed degenerative medial and lateral menisci. We removed tissue off the anterior aspect of the distal femur. We removed the ACL, we preserved the collateral ligaments. We took cartilage off the distal femur at the appropriate locations. We used the cutting system for the femur. We did the appropriate anterior, posterior, and Chamfer cuts on the femur with the help of the microbiology lab assistant. Once this was done, we went to the tibia. Posterior cruciate ligament retractor was placed. Collateral ligament protectors placed. External alignment guide was utilized. Appropriate posterior slope was built in. Cut was carried out on the upper tibia with the block in place. Bony fragment was removed. We removed bone spurs posteromedial and posterolateral aspect of the knee. We placed our femoral trial. We placed our tibial trial and allowed it to free float. We were happy with our construct. At this point, bone spurs were removed at the tibia, femur, and patella. We checked our external alignment. We pinned the tibial block. We used a drill and a punch on the tibia. We then everted the patella. We measured it, and appropriate resection was carried out leaving us a 14 mm thick patella. We decided on a 29 patella. Drill guide was held by the surgeon while the microbiology lab assistant drilled 3 holes through that. Once that was done, trial was removed. The wound was thoroughly irrigated, cleaned, and dried. We controlled bleeding at the back of the knee with the Bovie. At this point, we had placed a tourniquet up just prior to doing our bony cuts. Tourniquet was at 250 mmHg. We thoroughly irrigated, cleaned, and dried the knee. Once this was done, we cemented the tibia, femur, and patella. The cement was at the appropriate texture when we cemented. Clamp was utilized on the patella. We placed our inserts. The knee was held in full extension while the cement hardened. The microbiology lab assistant injected the pain reliving solution throughout the knee while that was going on. We did that at the beginning of the procedure as well. When the cement was adequately hard, we let the tourniquet down. Bleeding was controlled with the Bovie. We trialed and decided on the 6C inserts on the right knee. They were sequentially placed. The knee had good range of motion and the patella tracked nicely. The wound was thoroughly irrigated. Irrisept solution was utilized Page 2 of 3 SINA JENSEN Operative Report SINA JENSEN : 1970 throughout the joint. At this point, the surgeon and the second microbiology lab assistant went to the left knee to perform the same procedure there. The right knee was closed by the microbiology lab assistant using some deep 0 Vicryl, running #2 Stratafix, a mid-layer of 0 Vicryl followed by a deep layer of 0 Stratafix followed by skin cholo and a Mepilex type dressing. Nicanor wrap was placed. While that was going on, the surgeon and second microbiology lab assistant proceeded with the left knee done under the same technique using the inserts as stated above. The wound was closed the same way as the left knee. We did use the tourniquet throughout the entire time on the left side now that the vancomycin had been infiltrated. A sterile bandage was applied. She was awoken from her anesthetic, transferred back to her own bed in recovery room in satisfactory condition. She will be brought in the hospital for observation and hopefully discharged to home tomorrow. Vancomycin 15 mg/kg was utilized IV preoperatively and Xarelto 10 mg daily will be done for deep venous thrombosis prevention. Dictated By: Frankie Sneed MD 08/18/20 11:58 JOB #: [id number] Transcribed By: am 08/18/20 17:44 Electronically signed by: E-SIGN DR. FRANKIE SNEED M.D. 08/19/20 07:50 Page 3 of 3 MIKEYGARRETIE Operative Report Normal [facility] KNEE 2 VIEWS LTon 08-18-2020 KNEE 2 VIEWS [place] [id number] Patient: SINA JENSEN Phone#: : 1970 Age: 50 Gender: F Pt. Type: Out Account: [id number] Location: [facility] Ordering: FRANKIE SNEED Exam Date: 08/18/2020/12:11 Family Phys: GIULIANO HARRIS Charge Code: [id number] Physician: Newton Order #: [id number] DLP Dose#: PROCEDURE: X-RAY KNEE LT 2 VIEWS COMPARISON: None. INDICATIONS: Postoperative test. FINDINGS: BONES: Total knee prosthesis is present. The adjacent bony architecture is intact. SOFT TISSUES: Postsurgical soft tissue air is present. Skin clips are present anteriorly. EFFUSION: None visible. OTHER: Negative. CONCLUSION: 1. Total knee prosthesis. Dictated by: Jolanta Martinez MD on 08/18/2020 at 12:25 Approved by: Jolanta Martinez MD on 08/18/2020 at 12:25 Normal [facility] KNEE 2 VIEWS RTon 08-18-2020 KNEE 2 VIEWS RT [address] [address] Patient: SINA JENSEN Phone#: : 1970 Age: 50 Gender: F Pt. Type: Out Account: [id number] Location: 062 Ordering: FRANKIE SNEED Exam Date: 08/18/2020/12:07 Family Phys: GIULIANO HARRIS Charge Code: [id number] Physician: Newton Order #: [id number] DLP Dose#: PROCEDURE: X-RAY KNEE RT 2 VIEWS COMPARISON: None. INDICATIONS: Postoperative testing. FINDINGS: BONES: Total knee prosthesis is present. The adjacent bony architecture is intact. SOFT TISSUES: Postsurgical soft tissue air is present. Skin clips are present anteriorly. EFFUSION: None visible. OTHER: Negative. CONCLUSION: 1. Total knee prosthesis is present. Dictated by: Jolanta Martinez MD on 08/18/2020 at 12:27 Approved by: Jolanta Martinez MD on 08/18/2020 at 12:27 Normal [facility] BMP with eGFRon 08-08-2020 Age - Reported 50 years Normal [facility] Comment on above: Performed By: #### 2 [id number] ####[facility],[address] [place] [address] 76671 Anion gap [Moles/Vol] 9 mmol/L Low 10 - 20 [facility] Comment on above: Performed By: #### 2 39298 ####[facility],[address] [place] [address] 02214 Calcium [Mass/Vol] 9.3 mg/dL Normal 8.5 - 10.1 [facility] Comment on above: Performed By: #### 2 06992 ####[facility],[address] [place] [address] 08869 Chloride [Moles/Vol] 104 mmol/L Normal 98 - 107 [facility] Comment on above: Performed By: #### 2 73796 ####[facility],[address] [place] [address] 62855 CO2 [Moles/Vol] 30.8 mmol/L Normal 21.0 - 32.0 [facility] Comment on above: Performed By: #### 2 98144 ####[facility],[address] [place] [address] 92599 Creatinine [Mass/Vol] 0.7 mg/dL Normal 0.5 - 1.0 [facility] Comment on above: Performed By: #### 2 31229 ####[facility],[address] [place] [address] 98270 GFR/1.73 sq M predicted among non-blacks MDRD (S/P/Bld) [Vol rate/Area] mL/min/{1.73_m2} Normal 60 - 999 [facility] Comment on above: Performed By: #### 2 08708 ####[facility],[address] [place] [address] 44949 Result Comment: ACCO RDING TO THE NATIONAL KIDNEY DISEASE EDUCATION PROGRAM(NKDE), A NORMAL eGFR IS A VALUE GREATER THAN OR EQUAL TO 60 ML/MIN/1.73 SQ METERS. CHRONIC KIDNEY DISEASE: <60mL/MIN/1.73 SQ METERS KIDNEY FAILURE: <15mL/MIN/1.73 SQ METERS THIS TEST SHOULD ONLY BE USED FOR PATIENTS 18 YEARS OF AGE AND OLDER. GFR/1.73 sq M predicted among non-blacks MDRD (S/P/Bld) [Vol rate/Area] Normal [facility] Comment on above: Result Comment: BASI C METABOLIC PANEL Performed By: #### 2 26059 ####[facility],[address] [place] [address] 23459 Glucose [Mass/Vol] 84 mg/dL Normal 74 - 106 [facility] Comment on above: Performed By: #### 2 71807 ####[facility],[address] [place] [address] 57317 Potassium [Moles/Vol] 3.4 mmol/L Low 3.5 - 5.1 [facility] Comment on above: Performed By: #### 2 86955 ####[facility],[address] [place] [address] 97062 Sodium [Moles/Vol] 140 mmol/L Normal 136 - 145 [facility] Comment on above: Performed By: #### 2 16385 ####[facility] [place] [address] 75989 Urea nitrogen [Mass/Vol] 20 mg/dL High 7 - 18 [facility] Comment on above: Performed By: #### 2 27146 ####[facility],[address] [place] [address] 24628 CBC (NO DIFF)on 08-08-2020 CBC (NO DIFF) Normal [facility] Comment on above: Result Comment: CBC( WITHOUT DIFFERENTIAL) Performed By: #### 2 92728 #### [facility],[address] [place] [address] 31435 Erythrocyte distribution width (RBC) [Ratio] 15.4 % Normal 12.0 - 15.6 [facility] Comment on above: Performed By: #### 2 70137 #### [facility],[address] [place] [address] 62142 Hematocrit (Bld) [Volume fraction] 36.4 % Normal 34.0 - 46.0 [facility] Comment on above: Performed By: #### 2 77959 #### [facility],[address] [place] [address] 49141 Hemoglobin (Bld) [Mass/Vol] 12.1 g/dL Normal 12.0 - 16.0 [facility] Comment on above: Performed By: #### 2 85643 #### [facility],[address] [place] [address] 85700 MCH (RBC) [Entitic mass] 26 pg Low 27 - 33 [facility] Comment on above: Performed By: #### 2 27277 #### [facility],[address] [place] [address] 86058 MCHC (RBC) [Mass/Vol] 33 X10 3 Normal 32 - 36 [facility] Comment on above: Performed By: #### 2 32313 #### [facility],[address] [place] [address] 25401 MCV (RBC) [Entitic vol] 77 fL Low 80 - 99 [facility] Comment on above: Performed By: #### 2 78369 #### [facility],[address] [place] [address] 65813 Platelet mean volume (Bld) [Entitic vol] 8.9 fL Normal 6.6 - 10.5 [facility] Comment on above: Performed By: #### 2 44571 #### [facility],[address] [place] [address] 24611 Platelets (Bld) [#/Vol] 227 x10EE3/UL Normal 150 - 450 [facility] Comment on above: Performed By: #### 2 56604 #### [facility],[address] [place] [address] 72357 RBC (Bld) [#/Vol] 4.72 x 10EE6/UL Normal 4.10 - 5.30 [facility] Comment on above: Performed By: #### 2 55847 #### [facility],[address] [place] [address] 72815 WBC (Bld) [#/Vol] 6.7 x 10EE3/UL Normal 4.5 - 10.8 [facility] Comment on above: Performed By: #### 2 56247 #### [facility],[address] [place] [address] 93396 CHEST 2 VIEWSon 08-08-2020 CHEST 2 VIEWS [place] [address] Patient: SINA JENSEN Phone#: : 1970 Age: 50 Gender: F Pt. Type: Out Account: [id number] Location: Ordering: FRANKIE SNEED Exam Date: 08/08/2020/10:55 Family Phys: GIULIANO HARRIS Charge Code: [id number] Physician: Newton Order #: [id number] DLP Dose#: PROCEDURE: X-RAY CHEST 2 VIEWS COMPARISON: None. INDICATIONS: Pre-operative clearance. FINDINGS: LUNGS: Normal. No significant pulmonary parenchymal abnormalities. VASCULATURE: Normal. Unremarkable pulmonary vasculature. CARDIAC: Normal. No cardiac silhouette abnormality or cardiomegaly. MEDIASTINUM: Normal. No visible mass or adenopathy. PLEURA: Normal. No effusion or pleural thickening. BONES: Normal. No fracture or visible bony lesion. OTHER: Negative. CONCLUSION: No acute disease. Dictated by: Jolanta Martinez MD on 08/08/2020 at 11:19 Approved by: Jolanta Martinez MD on 08/08/2020 at 11:21 Normal [facility] CT LOWER EXTREMITY LT WOon 0 07-04-2020 CT LOWER EXTREMITY LT [place] [address] Patient: SINA JENSEN Phone#: : 1970 Age: 50 Gender: F Pt. Type: Out Account: [id number] Location: Ordering: FRANKIE SNEED Exam Date: 07/04/2020/8:09 Family Phys: GIULIANO HARRIS Charge Code: [id number] Physician: Newton Order #: [id number] DLP Dose#: 34.10 PROCEDURE: CT LOWER EXTREMITY LT WO CONTRAST COMPARISON: None. INDICATIONS: Conformis. TECHNIQUE: Multi-planar CT images were created without intravenous contrast. All CT scans at this facility use dose modulation, iterative reconstruction, and/or weight based dosing when appropriate to reduce radiation dose to as low as reasonably achievable. IV CONTRAST: No IV contrast used,0ml TOTAL DOSE: 34.10 CTDIvol(mGy) FINDINGS: BONES: There is medial compartment joint space loss with femoral and tibial medial lateral degenerative spurring. An accessory ossicles adjacent to the tip of the proximal fibula. There is lateral patellar tilt measuring 12.8 SOFT TISSUES: There is a Hartley cyst measures 5.8 x 2.1 x 2.3 cm EFFUSION: None visible. OTHER: Negative. CONCLUSION: 1. Osteoarthritis, medial greater than later 2. Hartley cyst 3. Lateral patellar tilt Dictated by: Lara Xiao MD on 07/04/2020 at 13:19 Approved by: Lara Xiao MD on 07/04/2020 at 13:19 Normal [facility] CT LOWER EXTREMITY RT WOon 0 07-04-2020 CT LOWER EXTREMITY RT [place] [address] Patient: SINA JENSEN Phone#: : 1970 Age: 50 Gender: F Pt. Type: Out Account: [id number] Location: Ordering: [facility] Exam Date: 07/04/2020/8:09 Family Phys: GIULIANO HARRIS Charge Code: [id number] Physician: Newton Order #: [id number] DLP Dose#: 34.10 PROCEDURE: CT LOWER EXTREMITY RT WO CONTRAST COMPARISON: None. INDICATIONS: Conformis. TECHNIQUE: Multi-planar CT images were created without intravenous contrast. All CT scans at this facility use dose modulation, iterative reconstruction, and/or weight based dosing when appropriate to reduce radiation dose to as low as reasonably achievable. IV CONTRAST: No IV contrast used,0ml TOTAL DOSE: 34.10 CTDIvol(mGy) FINDINGS: BONES: There is medial compartment joint space loss. There is femoral and tibial degenerative spurring. There is excess Re ossicle adjacent to the proximal fibula. There is lateral patellar tilt of 14.0. SOFT TISSUES: Negative. No visible soft tissue swelling. EFFUSION: There is a small suprapatellar joint effusion. OTHER: There is a medial posterior Hartley cyst containing thin internal septation. The Hartley cyst measures 5.2 x 1.5 x 2.2 cm. CONCLUSION: 1. Osteoarthritis, most significant in the medial compartment. 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 3. Lateral patellar tilt. Dictated by: Lara Xiao MD on 07/04/2020 at 13:23 Continued Report - Page 2 of 2 Patient: SINA JENSEN Phone#: : 1970 Age: 50 Gender: F Pt. Type: Out Account: [id number] Location: Ordering: [facility] Exam Date: 07/04/2020/8:09 Family Phys: GIULIANO HARRIS Charge Code: [id number] Physician: Newton Order #: [id number] DLP Dose#: 34.10 Approved by: Lara Xiao MD on 07/04/2020 at 13:30 Normal [facility] CNOVon 07-09-2019 CNOV Office Visit ([facility] ) SINA JENSEN ([id number]) 1970 F Date Time Provider Department 07/09/19 5:30 PM MIRIAM TAYLOR ([facility]) [facility] During your visit today, we recorded the following information about you: Temperature Pulse Respiration Blood pressure 100.1 degrees 110/minute 18/minute 130/82 Weight 89.9 kg Miriam Taylor APRN.[facility] 07/09/2019 6:07 PM Signed Subjective Sina Rincon Mikey is a 49 year old female who presents with a sore under her left breast. It is sore and itchy. She has used antibiotic ointment at home. It has been draining. She has had a temp of 101 at home. She has had cold symptoms for the past week. She took ibuprofen at home, last dose was 12 hours ago. Boyfriend in the home is MRSA carrier. Review of Systems Constitutional: Positive for fever. Musculoskeletal: Negative. Negative for myalgias. Skin: Positive for itching. BP 130/82 Pulse 110 Temp 37.8 ?C (100.1 ?F) (Tympanic) Resp 18 Wt 89.9 kg (198 lb 3.2 oz) SpO2 97% BMI 37.45 kg/m? PAST MEDICAL HISTORY Diagnosis Date - Dysmenorrhea - Dyspareunia - Excessive or frequent menstruation Heavy periods - Irregular menstrual cycle Irregular periods - Other and unspecified ovarian cyst 04/15 Ovarian cyst left PAST SURGICAL HISTORY Procedure Laterality Date - DELIVERY ONLY 1987 and 2001 , low cervical - L'SCOPE DX W/WO BRUSHINGS/WASHINGS 1992~ Laparoscopy for pain and no real findings - LIGATE FALLOPIAN TUBE 2001 Tubal ligation - PAST SURGICAL HISTORY OF knee x 5 (3 left , 2 right) - PAST SURGICAL HISTORY OF repair rt. hand - PAST SURGICAL HISTORY OF repair torn rotate cuff. - REMOVAL OF TONSILS,<12 Y/O Tonsillectomy ALLERGIES Ancef [Cefazolin Sodium]; Codeine MEDICATIONS levothyroxine (SYNTHROID) 137 mcg tablet Take 137 mcg by mouth daily before breakfast. albuterol HFA 90 mcg/Actuation INHALATION inhaler Inhale 2 Puffs as instructed every 6 hours as needed. FAMILY HISTORY Problem Relation Age of Onset - Hypertension Mother - Diabetes Father Social History Tobacco Use - Smoking status: Never Smoker - Smokeless tobacco: Never Used Substance Use Topics - Alcohol use: Yes Comment: rarely - Drug use: No Objective Physical Exam Constitutional: She is well-developed, well-nourished, and in no distress. Pulmonary/Chest: Neurological: She is alert. Skin: Skin is warm and dry. No rash noted. There is erythema. Nursing note and vitals reviewed. ASSESSMENT/PLAN: 1. Skin infection - ICD9: 686.9, ICD10: L08.9 - Begin treatment with Trimethoprim-sulfameth ozazole (Bactrim) 2 DS PO BID - No lymphangetic streaking, this was defined for patient to watch for and to seek medical care immediately if appears - SULFAMETHOXAZOLE 800 MG-TRIMETHOPRIM 160 MG TABLET - MUPIROCIN 2 % TOPICAL OINTMENT - CONSULT TO GENERAL SURGERY - warm water with epsom salt compresses 2-3 times daily. - Follow-up with your PCP in 3-5 days if symptoms have not improved or sooner if symptoms worsen - Discussed red flags and need for immediate medical evaluation if any occur. - Discussed supportive care treatment with fluids, rest and analgesia. - Discussed expected course of illness GALO Mata APRN.CNP 07/09/2019 6:07 PM Addendum ASSESSMENT/PLAN: 1. Skin infection - ICD9: 686.9, ICD10: L08.9 - Begin treatment with Trimethoprim-sulfameth ozazole (Bactrim) 2 DS PO BID - No lymphangetic streaking, this was defined for patient to watch for and to seek medical care immediately if appears - SULFAMETHOXAZOLE 800 MG-TRIMETHOPRIM 160 MG TABLET - MUPIROCIN 2 % TOPICAL OINTMENT - CONSULT TO GENERAL SURGERY - warm water with epsom salt compresses 2-3 times daily. - Follow-up with your PCP in 3-5 days if symptoms have not improved or sooner if symptoms worsen - Discussed red flags and need for immediate medical evaluation if any occur. - Discussed supportive care treatment with fluids, rest and analgesia. - Discussed expected course of illness Miriam Taylor APRN.[facility] PATIENT INFO SKIN INFECTION OVERVIEW Cellulitis is an infection of the skin and soft tissue of the skin. The infection is usually caused by bacteria that normally live on the skin, such as staphylococci (Staph) or streptococci (Strep). The infection develops when there is a break in the skin, such as a wound or injury, which may be minor. This allows bacteria to enter the skin and grow, causing infection and swelling. Most cases of cellulitis are mild and heal completely with antibiotic treatment. However, the infection can become severe and cause a bodywide infection if left untreated. It is important to seek medical care promptly if you could have a skin infection. SKIN INFECTION RISK FACTORS Certain conditions increase the risk of developing cellulitis. These include: ? Recent injury to the skin (a wound, abrasion, cut, recent shaving, or injection drug use) ? Swelling of the skin due to radiation therapy ? Current skin infection, such as athlete's foot or impetigo ? Accumulation of fluid (edema) due to poor circulation, heart failure, liver disease, or past surgery to remove lymph nodes ? Being overweight ? Chronic skin conditions, such as eczema or psoriasis However, cellulitis can also develop in people who have no known risk factors. SKIN INFECTION SYMPTOMS Cellulitis ? The most common symptom of cellulitis is pain or tenderness. Other cellulitis symptoms can include swelling, warmth, and redness in a distinct area of skin. These symptoms usually worsen and the redness may expand over the course of a few days. The skin is usually smooth and shiny rather than raised or bumpy. Fever and chills are not common. The most common areas of the body for cellulitis to develop include the legs and the arms; it can also develop around the eye, on the abdominal wall, in the mouth, and around the anus. Other skin infections ? Other types of skin infections include abscesses, furuncles (boils), and carbuncles. These usually cause a collection of pus under the skin. Skin that is raised, reddened, tender, and pus-filled may be caused by a skin infection known as methicillin-resistant Staphylococcus aureus (MRSA). DO I NEED TO BE EXAMINED? There are many types and causes of skin infections, and it is important to know the most likely cause of the infection before beginning treatment. Using the wrong treatment could allow the infection to worsen. To ensure that the correct treatment is used, it is important to be evaluated by a healthcare provider. SKIN INFECTION TREATMENT Cellulitis treatment includes antibiotics as well as treatment of any underlying condition that led to the skin infection. Elevate the area ? Elevating the arm or leg above the level of the heart can help to reduce swelling and speed healing. Keep the area clean and dry ? It is important to keep the infected area clean and dry. You can shower or bathe normally, and pat the area dry with a clean towel. You can use a bandage or gauze to protect the skin, if needed. Do not use any antibiotic ointments or creams. Antibiotics ? Most people with cellulitis are treated with an antibiotic that is taken by mouth for one to two weeks. The best antibiotic depends upon your situation. If the infection is severe, you may need to be hospitalized and treated with antibiotics given into a vein (IV). It is important to take the antibiotic exactly as recommended and to finish the entire course of treatment. Skipping doses or ending treatment early could potentially allow the bacteria to become resistant and require longer treatment. Time to heal ? The swelling, warmth, and redness should begin to improve within one to three days after starting antibiotics, although these symptoms can persist for two weeks. If the reddened area becomes larger, more swollen, or more tender, call your healthcare provider. He or she may want to reexamine you to determine if further testing or an alternate antibiotic are needed. SKIN INFECTION PROGNOSIS In most cases, you will recover completely from an episode of cellulitis without any complications. If you have skin infection risk factors talk to your healthcare provider to determine if there are steps you can take to minimize the risk of infections in the future. Referring Provider: SELF [[id number]] Allergies As of Date: 07/09/2019 Noted Allergy Reaction ANCEF (CEFAZOLIN SODIUM) 05/01/2007 4 - Hives CODEINE 05/01/2007 Comments: chest pain Date Reviewed: 07/09/2019 Reviewed by: Miriam (Ronald) Praisler-Wood - Fully Assessed Reason for Visit: sore under left breast [Other] Cmt: x 4 days-was exposed to MRSA Primary Visit Diagnosis:Skin infection [L08.9] Order(s):sulfamethoxaz ole-trimethoprim (BACTRIM DS,SEPTRA DS) 800-160 mg per tabletTake 1 tablet by mouth twice daily for 10 days.Disp: 20 tabletRfl: 0 mupirocin (BACTROBAN) 2 % ointmentApply 1 application to affected area three times daily.Disp: 1 TubeRfl: 0 CONSULT TO GENERAL SURGERY [9011] Order #: [id number]: 1 WOUND CULTURE AND GRAM STAIN [SQWCU] Order #: [id number] Prescriptions as of 07/09/2019 Sig: LEVOTHYROXINE 137 MCG TABLET Take 137 mcg by mouth daily b* SULFAMETHOXAZOLE 800 MG-TRIME* Take 1 tablet by mouth twice * MUPIROCIN 2 % TOPICAL OINTMENT Apply 1 application to affect* ALBUTEROL SULFATE HFA 90 MCG/* Inhale 2 Puffs as instructed * Patient not taking: Reported on 07/09/2019 Problem List As Of Date 07/09/2019 Noted Resolved Unspecified Peripheral Vertigo [H81.399] INVALID FOR* Excessive or Frequent Menstruation [N92.0] INVALID FOR* Irregular Menstrual Cycle [N92.6] INVALID FOR* Other instructions from your clinician: ASSESSMENT/PLAN: 1. Skin infection - ICD9: 686.9, ICD10: L08.9 - Begin treatment with Trimethoprim-sulfameth ozazole (Bactrim) 2 DS PO BID - No lymphangetic streaking, this was defined for patient to watch for and to seek medical care immediately if appears - SULFAMETHOXAZOLE 800 MG-TRIMETHOPRIM 160 MG TABLET - MUPIROCIN 2 % TOPICAL OINTMENT - CONSULT TO GENERAL SURGERY - warm water with epsom salt compresses 2-3 times daily. - Follow-up with your PCP in 3-5 days if symptoms have not improved or sooner if symptoms worsen - Discussed red flags and need for immediate medical evaluation if any occur. - Discussed supportive care treatment with fluids, rest and analgesia. - Discussed expected course of illness Miriam Taylor APRN.[employer] [facility] PATIENT INFO SKIN INFECTION OVERVIEW Cellulitis is an infection of the skin and soft tissue of the skin. The infection is usually caused by bacteria that normally live on the skin, such as staphylococci (Staph) or streptococci (Strep). The infection develops when there is a break in the skin, such as a wound or injury, which may be minor. This allows bacteria to enter the skin and grow, causing infection and swelling. Most cases of cellulitis are mild and heal completely with antibiotic treatment. However, the infection can become severe and cause a bodywide infection if left untreated. It is important to seek medical care promptly if you could have a skin infection. SKIN INFECTION RISK FACTORS Certain conditions increase the risk of developing cellulitis. These include: ? Recent injury to the skin (a wound, abrasion, cut, recent shaving, or injection drug use) ? Swelling of the skin due to radiation therapy ? Current skin infection, such as athlete's foot or impetigo ? Accumulation of fluid (edema) due to poor circulation, heart failure, liver disease, or past surgery to remove lymph nodes ? Being overweight ? Chronic skin conditions, such as eczema or psoriasis However, cellulitis can also develop in people who have no known risk factors. SKIN INFECTION SYMPTOMS Cellulitis ? The most common symptom of cellulitis is pain or tenderness. Other cellulitis symptoms can include swelling, warmth, and redness in a distinct area of skin. These symptoms usually worsen and the redness may expand over the course of a few days. The skin is usually smooth and shiny rather than raised or bumpy. Fever and chills are not common. The most common areas of the body for cellulitis to develop include the legs and the arms; it can also develop around the eye, on the abdominal wall, in the mouth, and around the anus. Other skin infections ? Other types of skin infections include abscesses, furuncles (boils), and carbuncles. These usually cause a collection of pus under the skin. Skin that is raised, reddened, tender, and pus-filled may be caused by a skin infection known as methicillin-resistant Staphylococcus aureus (MRSA). DO I NEED TO BE EXAMINED? There are many types and causes of skin infections, and it is important to know the most likely cause of the infection before beginning treatment. Using the wrong treatment could allow the infection to worsen. To ensure that the correct treatment is used, it is important to be evaluated by a healthcare provider. SKIN INFECTION TREATMENT Cellulitis treatment includes antibiotics as well as treatment of any underlying condition that led to the skin infection. Elevate the area ? Elevating the arm or leg above the level of the heart can help to reduce swelling and speed healing. Keep the area clean and dry ? It is important to keep the infected area clean and dry. You can shower or bathe normally, and pat the area dry with a clean towel. You can use a bandage or gauze to protect the skin, if needed. Do not use any antibiotic ointments or creams. Antibiotics ? Most people with cellulitis are treated with an antibiotic that is taken by mouth for one to two weeks. The best antibiotic depends upon your situation. If the infection is severe, you may need to be hospitalized and treated with antibiotics given into a vein (IV). It is important to take the antibiotic exactly as recommended and to finish the entire course of treatment. Skipping doses or ending treatment early could potentially allow the bacteria to become resistant and require longer treatment. Time to heal ? The swelling, warmth, and redness should begin to improve within one to three days after starting antibiotics, although these symptoms can persist for two weeks. If the reddened area becomes larger, more swollen, or more tender, call your healthcare provider. He or she may want to reexamine you to determine if further testing or an alternate antibiotic are needed. SKIN INFECTION PROGNOSIS In most cases, you will recover completely from an episode of cellulitis without any complications. If you have skin infection risk factors talk to your healthcare provider to determine if there are steps you can take to minimize the risk of infections in the future. Prescriptions ordered this encounter Disp Refills Start End SULFAMETHOXAZOLE 800 MG-TRIMETHOPRIM* 20 t* 0 07/09/2019 07/19/2019 Route: ORAL Sig: Take 1 tablet by mouth twice daily for 10 days. MUPIROCIN 2 % TOPICAL OINTMENT 1 Tu* 0 07/09/2019 Route: TOPICAL Sig: Apply 1 application to affected area three times daily. Encounter Status:Closed by MIRIAM TAYLOR on 07/09/19 [facility] PROGRESSon 07-09-2019 PROGRESS HNO ID: [id number] Author: Miriam Taylor Service: ? Author Type: Nurse Practitioner Type: Progress Notes Filed: 07/09/2019 6:07 PM Note Text: Subjective Sina Jensen is a 49 year old female who presents with a sore under her left breast. It is sore and itchy. She has used antibiotic ointment at home. It has been draining. She has had a temp of 101 at home. She has had cold symptoms for the past week. She took ibuprofen at home, last dose was 12 hours ago. Boyfriend in the home is MRSA carrier. Review of Systems Constitutional: Positive for fever. Musculoskeletal: Negative. Negative for myalgias. Skin: Positive for itching. BP 130/82 Pulse 110 Temp 37.8 ?C (100.1 ?F) (Tympanic) Resp 18 Wt 89.9 kg (198 lb 3.2 oz) SpO2 97% BMI 37.45 kg/m? PAST MEDICAL HISTORY Diagnosis Date - Dysmenorrhea - Dyspareunia - Excessive or frequent menstruation Heavy periods - Irregular menstrual cycle Irregular periods - Other and unspecified ovarian cyst 04/15 Ovarian cyst left PAST SURGICAL HISTORY Procedure Laterality Date - DELIVERY ONLY 1987 and 2001 , low cervical - L'SCOPE DX W/WO BRUSHINGS/WASHINGS 1992~ Laparoscopy for pain and no real findings - LIGATE FALLOPIAN TUBE 2001 Tubal ligation - PAST SURGICAL HISTORY OF knee x 5 (3 left , 2 right) - PAST SURGICAL HISTORY OF repair rt. hand - PAST SURGICAL HISTORY OF repair torn rotate cuff. - REMOVAL OF TONSILS,<12 Y/O Tonsillectomy ALLERGIES Ancef [Cefazolin Sodium]; Codeine MEDICATIONS levothyroxine (SYNTHROID) 137 mcg tablet Take 137 mcg by mouth daily before breakfast. albuterol HFA 90 mcg/Actuation INHALATION inhaler Inhale 2 Puffs as instructed every 6 hours as needed. FAMILY HISTORY Problem Relation Age of Onset - Hypertension Mother - Diabetes Father Social History Tobacco Use - Smoking status: Never Smoker - Smokeless tobacco: Never Used Substance Use Topics - Alcohol use: Yes Comment: rarely - Drug use: No Objective Physical Exam Constitutional: She is well-developed, well-nourished, and in no distress. Pulmonary/Chest: Neurological: She is alert. Skin: Skin is warm and dry. No rash noted. There is erythema. Nursing note and vitals reviewed. ASSESSMENT/PLAN: 1. Skin infection - ICD9: 686.9, ICD10: L08.9 - Begin treatment with Trimethoprim-sulfameth ozazole (Bactrim) 2 DS PO BID - No lymphangetic streaking, this was defined for patient to watch for and to seek medical care immediately if appears - SULFAMETHOXAZOLE 800 MG-TRIMETHOPRIM 160 MG TABLET - MUPIROCIN 2 % TOPICAL OINTMENT - CONSULT TO GENERAL SURGERY - warm water with epsom salt compresses 2-3 times daily. - Follow-up with your PCP in 3-5 days if symptoms have not improved or sooner if symptoms worsen - Discussed red flags and need for immediate medical evaluation if any occur. - Discussed supportive care treatment with fluids, rest and analgesia. - Discussed expected course of illness Miriam Taylor APRN.[facility] Normal [facility] Wound Culture/Stainon 2018 Wound Culture/Stain Sp. Request/Comment: - Swab Smear Result - Few Gram positive cocci in clusters --> ABNORMAL ALERT Rare Polymorphonuclear leukocytes Rare Epithelial cells Culture Result - Moderate Methicillin resistant Staphylococcus aureus --> ABNORMAL ALERT For wound culture, tissue or aspirates are superior to swab specimens. If a swab must be used, eSwab is preferred (Schreiber no. [id number]). ORGANISM: Methicillin resistant Staphylococcus aureus METHOD: Minimum inhibitory concentration(Vitek) Antibiotic Interp CAIT Status Erythromycin RESISTANT >=8 F Clindamycin SUSCEPTIBLE 0.25 F Testing for inducible clindamycin resistance was performed. Tetracycline SUSCEPTIBLE <=1 F Vancomycin SUSCEPTIBLE 1 F Oxacillin RESISTANT >=4 F Oxacillin resistant staphylococci are resistant to all beta lactam antibiotics (except new cephalosporins with anti MRSA activity). Trimeth sulfameth SUSCEPTIBLE <=10 F Gentamicin SUSCEPTIBLE <=0.5 F Rifampin SUSCEPTIBLE <=0.5 F Rifampin should not be used alone for antimicrobial therapy. Daptomycin SUSCEPTIBLE 0.5 F Linezolid SUSCEPTIBLE 2 F Doxycycline SUSCEPTIBLE <=0.5 F Critically abnormal [facility] Comment on above: Performed By: #### W CUL #### [facility] [address] [place], [place] [address] Vital Signs Date Time Vital Sign Value Performing Clinician Facility 05-24-2023 14:58-0400 Body height 154.9 cm Alisa Marques CNP Work Phone: [facility] 05-24-2023 14:58-0400 Body mass index (BMI) [Ratio] 35.52 kg/m2 Alisa Marques [employer] Work Phone: [facility] 05-24-2023 14:58-0400 Body weight 85.28 kg Alisa Marques [employer]TER Work Phone: [facility] 06-02-2022 15:15-0400 Diastolic blood pressure 80 mm[Hg] Giuliano Harris Other Phone: [facility] 06-02-2022 15:15-0400 Heart rate 82 /min Giuliano Harris Other Phone: [facility] 06-02-2022 15:15-0400 Respiratory rate 15 /min Giuliano Harris Other Phone: [facility] 06-02-2022 15:15-0400 SaO2% (BldA) [Mass fraction] 96 % Giuliano Harris Other Phone: [facility] 06-02-2022 15:15-0400 Systolic blood pressure 132 mm[Hg] Giuliano Harris Other Phone: [facility] 06-02-2022 11:26-0400 Body height 154.9 cm Giuliano Harris Other Phone: [facility] 06-02-2022 11:26-0400 Body temperature 98.06 [degF] Giuliano Harris Other Phone: [facility] 06-02-2022 11:26-0400 Body weight 86.3 kg Giuliano Harris Other Phone: [facility] Encounters Encounter Date Encounter Type Care Provider Facility Start: 03-29-2025 ambulatory Ivette Barton Facility :[facility] Start: 02-09-2025 End: 02-09-2025 ambulatory HOLDEN PERALTA Work Phone: [facility] Work Phone: Start: 02-09-2025 End: 02-09-[address] Ivette Barton MD -Laboratory Work Phone: Start: 02-09-2025 End: 02-09-2025 ambulatory Ivette Barton Facility:[facility] Start: 01-19-2025 End: 01-19-2025 ambulatory Tatum Stevens [facility] Work Phone: [facility] Work Phone: Start: 01-19-2025 End: 01-19-2025 Patient encounter procedure Tatumkaryn Stevens S[facility] -MRI - [facility] Work Phone: Start: 01-19-2025 End: 01-19-2025 ambulatory Tatum Marion Facility:[facility] Start: 12-07-2024 End: 12-07-2024 ambulatory Tatum Stevens [facility] Work Phone: [facility] Work Phone: Start: 12-07-2024 End: 12-07-2024 Patient encounter procedure Tatumkaryn Stevens [facility] Work Phone: -Laboratory Work Phone: Start: 12-07-2024 End: 12-07-2024 ambulatory GARRISON CLEMENTE Facility:[facility] Start: 10-09-2024 End: 10-09-[address] Ivette Barton MD -Laboratory Work Phone: Start: 10-09-2024 End: 10-09-2024 ambulatory Ivette Barton Facility:[facility] Start: 09-28-2024 End: 09-28-2024 Patient encounter procedure Tatum Marion [facility] -Radiology, [facility] Work Phone: Start: 09-28-2024 End: 09-28-2024 ambulatory Tatum Marion Facility:[facility] Start: 09-03-2024 End: 09-03-2024 Emergency department patient visit MAHESH SALAS [facility] Start: 08-18-2024 End: 08-18-2024 ambulatory [facility] Facility:[facility] Start: 06-08-2024 End: 06-08-2024 ambulatory [facility] Facility:[facility] Start: 06-04-2024 End: 06-04-2024 ambulatory [facility] Facility:[facility] Start: 05-29-2024 End: 05-29-2024 ambulatory [facility] Facility:[facility] Start: 05-18-2024 End: 05-18-2024 ambulatory [facility] Facility:[facility] Start: 05-07-2024 End: 05-11-2024 ambulatory CLAUDETTE ARTEAGA MD Facility:B Start: 05-07-2024 End: 05-11-2024 Encounter for gynecological examination (general) (routine) without abnormal findings CLAUDETTE ARTEAGA MD Facility:[facility] Start: 05-07-2024 End: 05-11-2024 Outreach Lab CLAUDETTE ARTEAGA MD [facility] Start: 04-13-2024 End: 04-13-2024 ambulatory [facility] Facility:[facility] Start: 10-11-2023 End: 10-11-2023 ambulatory [facility] Work Phone: Start: 10-11-2023 End: 10-11-2023 Patient encounter procedure [facility]-Laboratory Work Phone: Start: 07-22-2023 End: 07-22-2023 Postop follow up visit related to original px Enrike Mcgee MD Work Phone: [facility] Comment on above: Trigger middle finge r of right hand (Primary Dx); Painful orthopaedic hardware (HCC) Start: 07-08-2023 End: 07-08-2023 ambulatory PHYSICIAN [facility] Start: 06-15-2023 Admission to [facility] Enrike Mcgee MD Work Phone: [facility] Comment on above: Trigger middle finge r of right hand (Primary Dx); Painful orthopaedic hardware (HCC) Start: 05-25-2023 Documentation procedure Araseli munoz MA [facility] Start: 05-24-2023 End: 05-28-2023 ambulatory ALISA MARQUES [facility] Ambulatory Start: 05-24-2023 End: 05-24-2023 Office outpatient new 30 minutes Alisa Nguyencock [employer] Work Phone: [facility] Comment on above: Trigger middle finge r of right hand (Primary Dx); Painful orthopaedic hardware (HCC) Start: 05-06-2023 End: 05-06-2023 ambulatory [facility] Work Phone: Start: 05-06-2023 End: 05-06-2023 Patient encounter procedure [facility] Work Phone: Start: 02-05-2023 End: 02-05-2023 ambulatory [facility] Work Phone: Start: 02-05-2023 End: 02-05-2023 Patient encounter procedure [facility]Labor[facility] Start: 10-29-2022 End: 10-29-2022 ambulatory [facility] Work Phone: Start: 10-29-2022 End: 10-29-2022 Patient encounter procedure [facility] Start: 10-22-2022 End: 10-22-2022 ambulatory [facility] Work Phone: Start: 10-22-2022 End: 10-22-2022 Patient encounter procedure [facility] Start: 10-05-2022 End: 10-05-2022 ambulatory [facility] Work Phone: Start: 10-05-2022 End: 10-05-2022 Patient encounter procedure [facility] Start: 06-02-2022 End: 06-02-2022 Emergency department [facility] Emergency 12 Start: 04-16-2022 End: 04-16-2022 Patient encounter procedure [facility] Start: 08-18-2020 End: 08-19-2020 Patient encounter procedure FRANKIE SNEED [facility] Start: 08-08-2020 Encounter for other preprocedural examination FRANKIE SNEED [facility] Start: 08-08-2020 End: 08-08-2020 Patient encounter procedure FRANKIE DR SNEED [facility] Start: 07-04-2020 End: 07-04-2020 Patient encounter procedure FRANKIE SNEED [facility] Encounter for other preprocedural examination FRANKIE [facility] Procedures Date Procedure Procedure Detail Performing Clinician Start: 02-09-2025 Parathyroid hormone measurement HOLDEN MIStan Work Phone: Start: 02-09-2025 Vitamin D, 25-hydrox y measurement HOLDEN MIStan Work Phone: Comment on above: Vitamin D StatusDefi ciency: <20 ng/mL (50nmol/L)Insufficiency: 20-30 ng/mL (50-75 nmol/L)Sufficiency: 30-100 ng/mL (75-250 nmol/L)Toxicity: >100 ng/mL (>250 nmol/L) Start: 01-19-2025 MRI of lumbar spine Katrin Stevens [facility] Work Phone: Start: 12-07-2024 Parathyroid hormone measurement HOLDEN GAURIAVILA Work Phone: Start: 09-28-2024 Plain x-ray of pelvi s and lower extremity Tatum Stevens [facility] Work Phone: Start: 09-28-2024 X-ray of lumbar spin e, two or three views Tatum Stevens [facility] Work Phone: Start: 05-06-2023 Screening mammography Start: 10-29-2022 Ultrasonography of abdomen Start: 06-02-2022 End: 06-02-2022 EKG impression Seymour Callejas Start: 04-16-2022 Screening mammography Start: 10-10-2019 Bilateral replacemen t of knee joints CLAUDETTE ARTEAGA MD Arthroscopic knee operation CLAUDETTE ARTEAGA MD Comment on above: x3 each knee section CLAUDETTE ARTEAGA MD Comment on above: x2 H/O: section S/P sectio n H/O: surgery Hx of excision of mass Comment on above: Right lower back- Nubia tucker- 12/29/18 H/O: surgery S/P thyroid biopsy History of operative procedure on knee S/P knee surgery Comment on above: Bilateral X3 History of repair of musculotendinous cuff of shoulder S/P rotator cuff repair Comment on above: Left History of tonsillectomy S/P tonsillectom y Repair of musculoten dinous cuff of shoulder CLAUDETTE ARTEAGA MD Tonsillectomy CLAUDETTE ARTEAGA MD Plan of Treatment Date Care Activity Detail Author Start: 07-06-2030 Tetanus vaccination Tetanus: Every 10yrs [facility] Start: 07-22-2023 End: 07-22-2023 Follow-up encounter 07/22/2023 1:15 PM EDT Follow-Up [facility] [address] [place] [address] Enrike Mcgee MD [address] [place] [address] [facility] Start: 07-08-2023 Subsequent hospital visit by physician 07/08/2023 Hospital Encounter [facility] Periop [address] [place] [id number] Enrike Mcgee MD [address] [place] [id number] [facility] Start: 06-10-2023 COVID-19 Vaccine ( season) COVID-19 Vaccine ( season) [facility] Start: 06-10-2023 Influenza vaccination Sequential Influenza Vaccine (#1) [facility] Start: 02-09-2023 [facility] Start: 09-24-2021 COVID-19 Vaccine (2 - Booster for Shawn series) COVID-19 Vaccine (2 - Booster for Shawn series) [facility] Start: 2019 Administration of herpes zoster vaccine Zoster Vaccines (1 of 2) [facility] Start: 2019 Screening for malignant neoplasm of colon Flexible sigmoidoscopy [facility] Start: 2009 Screening for malignant neoplasm of breast Mammogram [facility] Start: 1990 Screening for malignant neoplasm of cervix Pap Smear [facility] Start: 1987 Hepatitis C screening Hepatitis C Screening [facility] Start: 1984 HIV screening HIV Screening [facility] Start: 1981 Depression screening using PHQ-9 (Patient Health Questionnaire 9) score Depression Screening (PHQ-2/9) [facility] Start: 1979 Diabetic foot examination Foot Exam [facility] Start: 1979 Glaucoma screening Diabetic Eye Exam [facility] Start: 1979 Urine screening for protein Urine Microalbumin [facility] Start: 1972 History and physical examination, annual for health maintenance Wellness Visit [facility] Start: 1969 Hemoglobin A1c measurement A1C [facility] Start: 1969 Screening for malignant neoplasm of colon [facility] HARDWARE REMOVAL UPP ER EXTREMITY HARDWARE REMOVAL UPPER EXTREMITY Trigger middle finger of right hand Painful orthopaedic hardware (HCC) [facility] Procedure [facility] Immunizations Immunization Date Immunization Notes Care Provider Fa cility 07-06-2020 tetanus toxoid, redu filiberto diphtheria toxoid, and acellular pertussis vaccine, adsorbed [facility] Payers Date Payer Category Payer Self-pay [id number] 2023 [employer] ( and others) [id number] 2023 Unknown 2023 Unknown [id number] 2016 Unknown [id number] 1969 Unknown [id number] 2..840.1.984979.3.579.2.651 1969 Unknown [id number] 2.840.1.849128.3.579.2.651 1969 Unknown [id number] 2.840.1.133125.3.579.2.651 1969 Unknown [id number] 2..840.1.963588.3.579.2.1069 1969 Unknown [id number] 2.840.1.809024.3.579.2.903 1969 Unknown [id number] 2.840.1.762790.3.579.2.903 1969 Unknown [id number] 2.840.1.404363.3.579.2.903 1969 Unknown [id number] 2.840.1.570986.3.579.2.627 1969 Unknown [id number] 2.840.1.307640.3.579.2.902 Department [facility] ( and others) [facility] [id number] Unknown [id number] Unknown [id number] 2.840.1.128075.3.579.2.462 Unknown [id number] 2.840.1.437427.3.579.2.462 Unknown [id number] 2.840.1.416913.3.579.2.462 Unknown [id number] 2.840.1.493492.3.579.2.462 Unknown [id number] 2.840.1.517404.3.579.2.462 Unknown [id number] 2.840.1.971120.3.579.2.462 Unknown [id number] 2.840.1.686291.3.579.2.462 Unknown [id number] 2.840.1.373387.3.579.2.462 Unknown [id number] 2.840.1.462246.3.579.2.462 Unknown [id number] 2.840.1.142327.3.579.2.462 Unknown [id number] 2.840.1.772026.3.579.2.462 Unknown [id number] 2.16.840.1.966735.3.579.2.462 Social History Date Type Detail Facility Start: 08-06-2020 End: 08-07-2020 Tobacco smoking status NHIS Unknown if ever smoked [facility] Start: 07-06-2020 Occasional [facility] Start: 07-06-2020 None [facility] Start: 07-06-2020 With Family [facility] Start: 08-06-2020 Cigarettes [facility] Start: 1970 Sex Assigned At Female [facility] Start: 08-06-2020 End: 05-24-2023 Tobacco smoking status NHIS Never smoked tobacco [facility] Start: 05-24-2023 Tobacco use and exposure Smokeless tobacco non-user [facility] Start: 05-24-2023 End: 07-24-2023 Alcohol intake Ex-drinker (finding) [facility] Start: 05-24-2023 End: 07-24-2023 History of Social function [facility] Start: 05-24-2023 End: 07-24-2023 Tobacco use panel [facility] Start: 1970 Sex Assigned At Not on file [facility] Start: 05-23-2023 Gender identity Identifies as female gender (finding) [facility] Start: 05-23-2023 Sexual orientation Heterosexual (finding) [facility] Sex Assigned At Sex [facility] Start: 12-20-2024 End: 01-22-2025 Sex Female (finding) [facility] Clinical Notes 05-25-2023 to 05-09-2024 Enrike Sandoval MD - 07/24/2023 9:35 AM Araseli Reynolds MA - 05/25/2023 11:28 AM Alisa Ojeda CNP - 05/25/2023 8:33 AM EDT Note Date & Type Note Facility 05-09-2024 Note SATISFACTORY FOR EVALUATION Endocervical/Transformational zone component present [facility] 05-09-2024 Note SATISFACTORY FOR EVALUATION Endocervical/Transformational zone component present [facility] 05-09-2024 Note SATISFACTORY FOR EVALUATION Endocervical/Transformational zone component present [facility] 05-09-2024 Note SATISFACTORY FOR EVALUATION Endocervical/Transformational zone component present [facility] 05-09-2024 Note SATISFACTORY FOR EVALUATION Endocervical/Transformational zone component present [facility] 05-09-2024 Note SATISFACTORY FOR EVALUATION Endocervical/Transformational zone component present [facility] 05-09-2024 Note SATISFACTORY FOR EVALUATION Endocervical/Transformational zone component present [facility] 05-09-2024 Note SATISFACTORY FOR EVALUATION Endocervical/Transformational zone component present [facility] 05-07-2024 Evaluation + Plan note Future Scheduled TestsMA Mammo Screening Bilateral w/ John 05/07/24MA Mammo Screening Bilateral w/ John 05/07/24MA Mammo Screening Bilateral w/ John 05/07/24 [facility] 07-24-2023 History of Present illness Narrative Sina comes in today for followup of her [...] a p.r.n. basis. documented in this encounter [facility] 05-25-2023 History of Present illness Narrative I called Sina to let her know our rn plastic surgery would be giving her a call to schedule her trigger release and hardware removal surgery in 10 to 14 days patient was understanding. documented in this encounter [facility] 05-25-2023 History of Present illness Narrative Images from the original note were not included. [employer] [address] [facility] [address] [facility] [id number] Chief Complaint Patient presents with Right Hand - Pain Sina Walker, 53-year-old female, presents to the office [...] the hand. I did speak with Dr. Mcgee and he has more than happy to go ahead with hardware removal in addition to the trigger finger release surgery. The office will contact the patient to schedule this in approximately 10 to 14 days. I am more than happy to see her back if needed prior to surgery. documented in this encounter [facility] Evaluation note No assessment inform ation available [facility] Work Phone: Evaluation note Diagnosis Trigger middle finger of right hand- Primary Painful orthopaedic hardware (HCC) [facility] Diagnosis Trigger middle finger of right hand- Primary Painful orthopaedic hardware (HCC) [facility] Diagnosis Trigger middle finger of right hand- Primary Painful orthopaedic hardware (HCC) [facility] Narrative No data available for this section [facility] Hospital Discharge instructions No data available for this section [facility] Reason for referral (narrative)No reason for referral [facility] Work Phone: Summary Purpose Family History No Family History Records Found Relationship Condition Age at Onset Recorded Date/T maddie father Cardiac disease Unknown Diabetes mellitus Unknown mother Chronic obstructive pulmonary disease Unk nown Advance Directives No Advanced Directives Records Found Advance Directive Response Recorded Date/ Time Advance Directives No November 12:16am Living Will No August 06 11:38pm Power of Lock Fitter No August 06, 2020 11:38pm Advance Directive Response Recorded Date/ Time Advance Directives No November 11:16pm Living Will No August 06 20 10:38pm Power of Lock Fitter No August 06, 2020 10:38pm Advance Directive Response Recorded Date/ Time Advance Directives No November 12:16am Hospital Course Note [facility] DISCHARGE SUMMARY NAME ACCOUNT SEX AGE ADMIT DISCHARGE PT MED. RECORD# NUMBER DATE DATE TYPE SINA JENSEN [id number] F 50 08/18/20 2 [id number] ROOM: 206MS DATE OF : 1970 ATTENDING PHYSICIAN: Frankie Sneed PROGRESS NOTE/DISCHARGE SUMMARY ADMITTING DIAGNOSIS: Knee [...] no bloody drai (more content not included)... Chief Complaint and Reason for Visit Chief Complaint SCREENING Chief Complaint Abnormal results of liver function studies Chief Complaint Admit Date SCIATICIA January 19, 2025 7:2 0am Additional Source Comments INFORMATION SOURCE (unrecogn ized section and content) DATE CREATED AUTHOR 07/13/2019 [facility] DATE CREATED AUTHOR AUTHOR'S ORGANIZ ATION 08/25/2020 [facility] DATE CREATED AUTHOR AUTHOR'S ORGANIZ ATION 09/07/2022 [facility] DATE CREATED AUTHOR AUTHOR'S ORGANIZ ATION 05/28/2023 [facility] DATE CREATED AUTHOR AUTHOR'S ORGANIZ ATION 07/15/2023 [facility] DATE CREATED AUTHOR AUTHOR'S ORGANIZ ATION 05/20/2024 [facility] ([place] DATE CREATED AUTHOR AUTHOR'S ORGANIZ ATION 09/09/2024 [facility] DATE CREATED AUTHOR AUTHOR'S ORGANIZ ATION 03/27/2025 [facility] Goals (unrecognized section and content) Goals may be documented in a n alternate sectionGoals may be documented in an alternate sectionGoals may be documented in an alternate sectionGoals may be documented in an alternate sectionGoals may be documented in an alternate sectionGoals may be documented in an alternate sectionGoals may be documented in an alternate section No data available for this sectionGoals may be documented in an alternate sectionGoals may be documented in an alternate sectionGoals may be documented in an alternate section <item> Privacy Markings (unrecogniz ed section and content) Section Author: Maria Teresa Power PROHIBITION ON REDISCLOSURE OF CONFIDENTIAL INFORMATION This notice accompanies a disclosure of information concerning a client made to you with the consent of such client. Care Teams (unrecognized sec tion and content) Team Status: Active Member Role Status Dates Dr. Giuliano Harris MD Family Provider Active Dr. Giuliano Harris MD Primary Care Provider Active Team Status: Inactive Member Role Status Dates Dr. Giuliano Harris MD Primary Care Provider Active Dr. Ivette Barton MD Attending Provider, Referring Provider Active Team Status: Inactive Member Role Status Dates Dr. Giuliano Harris MD Primary Care Provider Active Dr. Ivette Barton MD Attending Provider Active Team Status: Active Member Role Status Dates Dr. Giuliano Harris MD Primary Care Provider Active Dr. Ivette Barton MD Attending Provider, Referring Provider Active Team Status: Active Member Role Status Dates Dr. Giuliano Harris MD Family Provider Active No Primary Care Physician Primary Care Provider Active Team Status: Inactive Member Role Status Dates No Primary Care Physician Primary Care Provider Active Dr. Ivette Barton MD Attending Provider, Referring Provider Active Team Status: Active Member Role Status Dates Dr. Giuliano Harris MD Family Provider Active Tatumkaryn Stevens SCREEN VENT BINDER-C Primary Care Provider Active Team Status: Inactive Member Role Status Dates Tatum Stevens SCREEN VENT BINDER-C Primary Care Provide r, Attending Provider, Referring Provider Active Staple Fiber Washer Relationship Specialty Start Date End Date No, Physician [facility] PCP - General 05/24/23 Staple Fiber Washer Relationship Specialty Start Date End Date No, Physician [facility] PCP - General 05/24/23 Staple Fiber Washer Relationship Specialty Start Date End Date No, Physician [facility] PCP - General 05/24/23 Staple Fiber Washer Relationship Specialty Start Date End Date No, Physician [facility] PCP - General 05/24/23 Team Status: Inactive Member Role Status Dates Tatum Stevens SCREEN VENT BINDER-C Primary Care Provider Active Dr. Ivette Barton MD Attending Provider, Referring Provider Active Team Status: Active Member Role Status Dates Tatumkaryn Stevens SCREEN VENT BINDER-C Primary Care Provider Active Team Status: Inactive Member Role Status Dates Tatumkaryn Stevens SCREEN VENT BINDER-C Primary Care Provider Active Start: September 28, 2024 End: September 28, 2024 LIGIA Romero Attending Provider Active St art: September 28, 2024 End: September 28, 2024 LIGIA Romero Referring Provider Active St art: September 28, 2024 End: September 28, 2024 Team Status: Inactive Member Role Status Dates LIGIA Romero Primary Care Provider Active Start: October 09, 2024 End: October 09, 2024 Dr. Ivette Barton MD Attending Provider Active Start: October 09, 2024 End: October 09, 2024 Dr. Ivette Barton MD Referring Provider Active Start: October 09, 2024 End: October 09, 2024 Team Status: Inactive Member Role Status Dates KATHRYN HATCH Attending Provider Active Sta rt: December 07, 2024 End: December 07, 2024 KATHRYN HATCH Referring Provider Active Sta rt: December 07, 2024 End: December 07, 2024 LIGIA Romero Primary Care Provider Active Start: December 07, 2024 End: December 07, 2024 Team Status: Inactive Member Role Status Dates DUNCAN RomeroC Primary Care Provider Active Start: January 19, 2025 End: January 19, 2025 LIGIA Romero Attending Provider Active St art: January 19, 2025 End: January 19, 2025 LIGIA Romero Referring Provider Active St art: January 19, 2025 End: January 19, 2025 Team Status: Inactive Member Role Status Dates LIGIA Romero Primary Care Provider Active Start: February 09, 2025 End: February 09, 2025 Dr. Ivette Barton MD Attending Provider Active Start: February 09, 2025 End: February 09, 2025 Dr. Ivette Barton MD Referring Provider Active Start: February 09, 2025 End: February 09, 2025 Reason for Visit (unrecogniz ed section and content) Reason Comments Pain Reason Comments Follow-up Suture / Staple Removal [...] BE BASED ON THE PRIMARY CLINICAL RECORDS. [facility] [id number] [facility]. provides no warranty or guarantee of the accuracy or completeness of information in this document.
== END | disposition home or self-care (01) ==
PROVIDERS: PCP Nurse Practitioner Family; Referring Provider Internal Medicine Endocrinology, Diabetes & Metabolism; Visit Provider Internal Medicine Endocrinology, Diabetes & Metabolism
DX: E11.9 Type 2 diabetes mellitus without complications (principal)
CPT/HCPCS: 93005

== ENCOUNTER → 2025-05-24 | Outpatient (CLI) | payer OTHER, SELFPAY ==
--- NOTE | 2025-05-24 07:11 | BI_ITS ---
EXAM: SCRN MAMM (CAD)W/KATE BILAT DATE: 05/24/2025 CLINICAL HISTORY: F, Age 55 y/o , SCREENING TECHNIQUE: SCRN MAMM (CAD)W/KATE BILAT COMPARISON: Prior exam(s) dated 05/18/2024, 04/28/2023, 04/16/2022. FINDINGS: TISSUE DENSITY: There are scattered areas of fibroglandular density. Bilateral Breast Mammographic Findings: No significant masses, calcifications or other abnormalities are identified. BI/SCRN MAMM (CAD)W/KATE BILAT IMPRESSION: There is no mammographic evidence of malignancy. OVERALL FINAL ASSESSMENT BI-RADS 1: NEGATIVE. RECOMMENDATION: Routine annual follow-up in 1 Year A letter with findings and recommendations will be mailed to the patient. Reading Location: [id number]
--- OUTSIDE RECORDS SUMMARY | 2025-05-24 07:22 | XMS RPT_ITS | CCD ---
Author Organization [facility] Care Team Providers Care Physical Therapy Aides Teacher Name Role Phone FRANKIE SNEED DR Attending [...] PROVIDER, UNKNOWN Consulting Unavailable Giuliano Harris Unavailable Seymour Callejas Unavailable Unavailable Seymour Callejas Attending Unavailable Steven, Dr. Giuliano Erwin Primary Care Unavail able No, Physician Primary Care Provider UnavailALISA Gonzales Admitting Unavailable ALISA MARQUES Referring Unavailable NO, PHYSICIAN Primary Care Unavailable ALISA MARQUES Attending Unavailable NO, PHYSICIAN Primary Care Unavailable NO, PHYSICIAN Primary Care Unavailable ENRIKE MCGEE Attending Unavailab ENRIKE Mayen Admitting Unavailab kathie HARRIS MD, GIULIANO Primary Care Physician [phone] CLAUDETTE ARTEAGA MD Attending Unavailable GIULIANO HARRIS MD Primary Care Unavailable MAHESH SALAS Attending Unavailable MARION, TATUM Primary Care Unavailable Marion ELECTRIC TRUCK CRANE OPERATOR-C, Tatum Primary Care Provider Marion ELECTRIC TRUCK CRANE OPERATOR-C, Tatum Attending Provider [phone] Marion ELECTRIC TRUCK CRANE OPERATOR-C, Tatum Referring Provider Mick JO, Dr. Steele Attending Provider Dr. Ivette Barton MD Referring Provider HOLDEN PERALTA Attending Provider HOLDEN PERALTA Referring Provider Marion ELECTRIC TRUCK CRANE OPERATOR-C, Tatum Primary Care Provider Marion ELECTRIC TRUCK CRANE OPERATOR-C, Tatum Attending Provider [phone] Marion ELECTRIC TRUCK CRANE OPERATOR-C, Tatum Referring Provider Mick JO, Dr. Steele Attending Provider Dr. Ivette Barton MD Referring Provider Ivette Barton Referring Unavailable MickIvette Attending Unavailable Marion, Tatum Primary Care Unavailable Marion, Tatum Primary Care Unavailable SealsClaudette E Attending Unavailable Seals, Claudette E Referring Unavailable Marion, Tatum Attending Unavailable Marion, Tatum Referring Unavailable Marion, Tatum Primary Care Unavailable Marion, Tatum Primary Care Unavailable Ivette Barton Attending Unavailable Mick, Ivette Referring Unavailable Marion, Tatum Primary Care Unavailable Marion, Tatum Attending Unavailable Marion, Tatum Referring Unavailable Jerman Lepe Attending Unavailable Mick, Ivette Referring Unavailable Marion, Tatum Primary Care Unavailable Marion, Tatum Primary Care Unavailable Marion, Tatum Attending Unavailable Marion, Tatum Referring Unavailable Marion, Tatum Primary Care Unavailable Ivette Barton Attending Unavailable Mick, Ivette Referring Unavailable Marion, Tatum Attending Unavailable Marion, Tatum Referring Unavailable Marion, Tatum Primary Care Unavailable Mick, Ivette Attending Unavailable Mick, Ivette Referring Unavailable Marion, Tatum Primary Care Unavailable CRYSTAL SAPP Attending Unavailable SHIVERSCRYSTAL Referring Unavailable Marion, Tatum Primary Care Unavailable Marion, Tatum Attending Unavailable Marion, Tatum Referring Unavailable Marion, Tatum Primary Care Unavailable Mick, Ivette Referring Unavailable Mick, Ivette Attending Unavailable Marion, Tatum Primary Care Unavailable Allergies Allergy Classification Reported Allergen(s) Allergy Type Date of Onset Reaction(s) Facility (4 sources) ceFAZolin; Translations: [CEFAZOLIN] Drug Allergy 3 [facility] Repository (4 sources) Codeine; Translations: [CODEINE] Drug Allergy 7 [facility] Repository (1 source) BEE STING; Translations: [BEE STING] Propensity to adverse reactions (disorder) [facility] Repository (17 sources) ceFAZolin; Translations: [cefazolin] Drug Allergy 0 Unknown, Hives [facility] Work Phone: (17 sources) Codeine; Translations: [codeine] Drug Allergy 7 Hives, Other (See Comments) [facility] Work Phone: (18 sources) bee venom protein (honey bee); Translations: [BEE VENOM PROTEIN (HONEY BEE)] Allergy to substance 0 Unknown [facility] (2 sources) Bee/Wasp/Ant venom Anaphylaxis [facility] (3 sources) KIWI; Translations: [KIWI] Propensity to adverse reactions to drug (disorder) 3 Anaphylaxis [facility] Repository (1 source) ceFAZolin Drug Allergy 0 [facility] Repository (1 source) Codeine Drug Allergy 0 [facility] Repository (1 source) bee venom protein (honey bee) Drug allergy (disorder) 0 [facility] Repository Medications Current Medications Medication Drug Class(es) Dates Sig (Normalized) Sig (Original) aspirin 81 mg oral tablet (2 sources) Platelet Aggregation Inhibitor, Nonsteroidal Anti-inflammatory Drug Start: 02-05-2021 Aspirin Low Dose 81 mg oral tablet, chewable Dose : 81 mg = 1 tab(s), Chewed, qDay, 0 Refill(s) Start Date: 02/05/21 Status: Ordered calcitriol 0.16998 mg oral capsule (6 sources) Vitamin D3 Analog Start: 05-13-2023 take 1 capsule by mouth once daily calcitrioL (ROCALTROL) 0.25 MCG capsule Take 1 (one) capsule (0.25 mcg total) by mouth daily . 0 05/13/2023 Active Start: 02-18-2022 take 1 capsule by mo [facility] once daily calcitriol 0.25 mcg oral capsule [...] day(s), # 45 gram(s), 1 Refill(s), Pharmacy: [id number], Cream, 155, cm, 05/07/24 11:44:00 EDT, Height, 89.9, kg, 05/07/24 11:44:00 EDT, Dosing Weight Start Date: 05/07/24 Stop Date: 07/06/24 Status: Ordered [id number] 0.3 ml EPINEPHrine 1 mg/ml auto-injector (12 sources) alpha-Adrenergic Agonist, beta-Adrenergic Agonist, Catecholamine Start : 08-07 inject 0.3 mg by intramuscular injection once Epinephrine 0.3 MG syringe Active 0.3 mg IM ONE TIME 2 August 07, 2020 12:00am EPINEPHrine 0.1 mg injectable kit ; 1 dose(s) injectable , As Needed Quantity: 0 Refills: 0 Ordered: 02-Jun-2022 Emily Smith Generic Substitution Allowed ergocalciferol 1.25 mg oral capsule (12 sources) Provitamin D2 Compound Start: 11-24-2016 Ergocalciferol (Shila min D2) 50,000 UNIT capsule Active 81211 U PO MOWEFR November 24, 2016 1:00am [...] day Quantity: 30 Refills: 0 Ordered: 02-Jun-2022 Seymour Callejas Start: 02-Jun-2022 End: 11-Jun-2022 Generic Substitution Allowed [...] Substitution Allowed predniSONE 20 mg oral tablet (11 sources) Start: 08-07-2020 take 2 tablets by mouth once daily at mealtime Prednisone 20 MG tablet Active 40 mg PO DAILY August 07, 2020 12:00am With food Start: 08-07-2020 take 40 mg by mouth once daily at mealtime Prednisone Active 40 MG PO DAILY August 06, 2020 11:00pm With food vitamin B12 (12 sources) Vitamin B12 Start: 02-05-2021 Vitamin B12 [...] 2 TABLET PO EVERY 4 HOURS NEEDED 08 04December 28, 2018 11:00pm January 03, 2019 11:08pm Start: 11-26-2016 End: 10-07-2017 Oxycodone-Acetaminophen 1 TA BLET tablet Discontinued 1 - 2 {tbl} PO EVERY 4 HOURS NEEDED as needed for Pain November 26, 2016 1:00am October 07, 2017 10:34am Start: 11-26-2016 End: 10-07-2017 take 1 tablet by mouth every four hours as needed Oxycodone-Acetaminophen Discontinued 1 - 2 TABLET PO EVERY 4 HOURS NEEDED November 26, 2016 12:00am October 07, 2017 9:34am estradiol 0.1 mg/ml vaginal cream (1 source) Estrogen Start: 02-18-2022 End: 07-18-2022 Estrace Vaginal 0.1 mg/g vaginal cream 1 gram(s), Vaginal, qDay, # 42.5 gram(s), 4 Refill(s), [facility]acy: [id number], 153, cm, 02/18/22 8:29:00 EDT, Height Start Date: 02/18/22 Stop Date: 07/18/22 Status: Ordered estrogens, conjugated (care home) 0.3 mg / medroxyPROGESTERone acetate 1.5 mg oral tablet (2 sources) Progestin, Estrogen Start: 06-03-2022 End: 10-01-2022 take 1 tablet by mouth once daily Prempro 0.3 mg-1.5 mg oral tablet Dose = 1 tab(s), Oral, qDay, # 60 tab(s), 1 Refill(s), [facility]acy: [id number], 153, cm, 02/18/22 8:29:00 EDT, Height Start Date: 06/03/22 Stop Date: 10/01/22 Status: Ordered take 1 tablet by aaron once daily after dinner Prempro 0.45 mg-1.5 mg oral tablet ; 1 tab(s) orally once a day, after dinner Quantity: 0 Refills: 0 Ordered: 02-Jun-2022 Emily Smith Generic Substitution Allowed pantoprazole 40 mg delayed release oral tablet (11 sources) Proton Pump Inhibitor Start: 11-26-2016 End: 10-07-2017 take 1 tablet by mouth twice daily Pantoprazole 40 MG tablet Discontinued 40 mg PO TWICE A DAY 60 November 26, 2016 1:00am October 07, 2017 10:34am sucralfate 1000 mg oral tablet (11 sources) Aluminum Complex Start: 11-26-2016 End: 10-07-2017 take 1 tablet by mouth four times daily Sucralfate 1 GM tablet Discontinued 1 g PO 4 TIMES DAILY 120 November 26, 2016 1:00am October 07, 2017 10:34am Problems Active Problems Problem Classification Problem Date Documented Date Episodic/Chronic Abdominal pain (11 sources) Right upper quadrant pain; Translations: [Right upper quadrant pain] 12-29-2018 Episodic Complication of device; implant or graft (9 sources) Pain; Translations: [Pain due to internal orthopedic prosthetic devices, implants and grafts, initial encounter] Onset: 05-24-2023 05-25-2023 Episodic Deficiency and other anemia (11 sources) Iron deficiency anemia; Translations: [Iron deficiency anemia, unspecified] 12-29-2018 Episodic Diabetes mellitus without complication (2 sources) Type 2 diabetes mellitus without complications; Translations: [Type 2 diabetes mellitus without complications] Onset: 08-18-2020 Chronic Gastritis and duodenitis (11 sources) Gastroduodenitis; Translations: [Gastroduodenitis, unspecified, without bleeding] 12-29-2018 Episodic Nutritional deficiencies (14 sources) Vitamin D deficiency; Translations: [Vitamin D deficiency, unspecified] Onset: 08-21-2018 12-29-2018 Chronic Open wounds of extremities (20 sources) Traumatic amputation of fingertip; Translations: [Unspecified open wound of unspecified finger without damage to nail, initial encounter] 07-07-2020 Episodic Osteoarthritis (17 sources) Bilateral post-traumatic osteoarthritis of knee; Translations: [...] Translations: [Solitary pulmonary nodule] 06-02-2022 Episodic Other screening for suspected conditions (not mental disorders or infectious disease) (2 sources) Encounter for other screening for malignant neoplasm of breast; Translations: [Encounter for screening mammogram for malignant neoplasm of breast] Onset: 06-15-2024 Episodic Other skin disorders (11 sources) Disorder of subcutaneous tissue; Translations: [Disorder of the skin and subcutaneous tissue, unspecified] 07-06-2020 Episodic Residual codes; unclassified (10 sources) Past history of procedure; Translations: [Other specified postprocedural states] 01-08-2019 Episodic Thyroid disorders (20 sources) Hypothyroidism, unspecified; [...] 06-02-2022 06-02-2022 Episodic Other aftercare (1 source) penitentiary (current) use of aspirin; Translations: [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) use of aspirin] Onset: 06-02-2022 Episodic Other bone disease and musculoskeletal deformities (1 source) Chondrocostal junction syndrome [Tietze]; Translations: [Chondrocostal junction syndrome [Tietze]] Onset: 06-02-2022 Episodic Other lower respiratory disease (1 source) Solitary pulmonary nodule; Translations: [Solitary pulmonary nodule] Onset: 06-02-2022 Episodic Other non-traumatic joint disorders (1 source) Pain in right hip; Translations: [Pain in right hip] Onset: 11-01-2024 Episodic Spondylosis; intervertebral disc disorders; other back problems (4 sources) Sciatica, right side; Translations: [Cervicalgia] Onset: 06-16-2024 Episodic Results Test Name Value Interpretation Reference Range Facility Electrocardiogram reportOrde red By: Kedar Mo on 04-02-2025 EKG study [facility] [address] [place] [address] 12 Lead EKG 03/29/25 0728 MR#: [id number] Acct: [id number] Name: GARRISON WALKER Rep #:[id number] : 1970 55 From: Kedar Mo MD Attending Dr: Dr. Ivette Barton MD Status: REG CLI Ordering Dr: Ivette Barton MD Date: 03/29/25 Location: PSN Sex: F C Admitted: Test Reason : THYROID Blood Pressure : */* mmHG Vent. Rate : 69 BPM Atrial Rate : 69 BPM P-R Int : 152 ms QRS Dur : 74 ms QT Int : 370 ms P-R-T Axes : 36 12 62 degrees QTcB Int : 396 ms Normal sinus rhythm Normal ECG When compared with ECG of 31-May-2013 16:19, No significant change was found Confirmed by KEDAR MO MD ([id number]), editor school photograph DEANGELO MAGANA ([id number]) on 04/02/2025 6:42:48 AM Referred By: Ivette Barton Confirmed By: KEDAR MO MD 04/02/25 0642 Date _ Kedar Mo MD CC: ELECTRIC TRUCK CRANE OPERATOR-C Tatum Stevens; Dr. Ivette Barton MD ~ Signed [facility] Other 12 Lead EKGon 03-29-2025 12 Lead EKG [facility] [address] [place] [address] 12 Lead EKG 03/29/25 0728 MR#: [id number] Acct: [id number] Name: GARRISON WALKER Rep #: [id number] : 1970 55 From: Kedar Mo MD Attending Dr: Dr. Ivette Barton MD Status: RE G CLI Ordering Dr: Ivette Barton MD Date: 03/29/25 Location: PSN Sex: F C Admitted: Test Reason : THYROID Blood Pressure : */* mmHG Vent. Rate : 69 BPM Atrial Rate : 69 BPM P-R Int : 152 ms QRS Dur : 74 ms QT Int : 370 ms P-R-T Axes : 36 12 62 degrees QTcB Int : 396 ms Normal sinus rhythm Normal ECG When compared with ECG of 31-May-2013 16:19, No significant change was found Confirmed by KEDAR MO MD ([id number]), editor school photograph DEANGELO MAGANA ([id number]) on 04/02/2025 6:42:48 AM Referred By: Ivette Barton Confirmed By: KEDAR MO MD 04/02/25641 Date Kedar Mo MD CC: ELECTRIC TRUCK CRANE OPERATOR-Sherrell Stevens; Dr. Ivette Barton MD Signed Normal [facility] AST(SGOT)on 02-09-2025 AST [Catalytic activity/Vol] 24 U/L Normal <=31 [facility] Comment on above: Performed By: #### L 509.1000, L501.4100, L500.4100, L501.9520, L501.9985, L500.2500, L501.4405, L506.1001 #### [facility] [address] [place], [address] (794) Alanine Aminotransferas (SGP T)on 02-09-2025 ALT [Catalytic activity/Vol] 28 U/L Normal <=34 [facility] Comment on above: Performed By: #### L 509.1000, L501.4100, L500.4100, L501.9520, L501.9985, L500.2500, L501.4405, L506.1001 #### [facility] [address] [place], [address] Anion gap in Serum or Plasma Ordered By: Ivette Barton on 02-09-2025 Anion gap [Moles/Vol] 10 mmol/L 5-15 [facility] BUN/creatinine ratioOrdered By: Ivette Barton on 02-09-2025 Urea nitrogen/Creatinine [Mass ratio] 18.0 mg/mg - [facility] Basic Metabolic Profile (BMP )on 02-09-2025 BUN/CRE 18.0 RATIO Normal - [facility] Comment on above: Performed By: #### L 509.1000, L501.4100, L500.4100, L501.9520, L501.9985, L500.2500, L501.4405, L506.1001 #### [facility] [address] [place], [address] Calcium [Mass/Vol] 9.7 mg/dL Normal 7.6-11.0 [facility] Comment on above: Performed By: #### L 509.1000, L501.4100, L500.4100, L501.9520, L501.9985, L500.2500, L501.4405, L506.1001 #### [facility] [address] [place], [address] Chloride [Moles/Vol] 104 mmol/L Normal 98-108 [facility] Comment on above: Performed By: #### L 509.1000, L501.4100, L500.4100, L501.9520, L501.9985, L500.2500, L501.4405, L506.1001 #### [facility] [address] [place], [address] CO2 [Moles/Vol] 26.3 mmol/L Normal 21.0-32.0 [facility] Comment on above: Performed By: #### L 509.1000, L501.4100, L500.4100, L501.9520, L501.9985, L500.2500, L501.4405, L506.1001 #### [facility] [address] [place], [address] Creatinine [Mass/Vol] 0.62 mg/dL Low 0.70-1.20 [facility] Comment on above: Performed By: #### L 509.1000, L501.4100, L500.4100, L501.9520, L501.9985, L500.2500, L501.4405, L506.1001 #### [facility] [address] [place], [address] GAP 10 Normal 5-15 [facility] Comment on above: Performed By: #### L 509.1000, L501.4100, L500.4100, L501.9520, L501.9985, L500.2500, L501.4405, L506.1001 #### [facility] [address] [place], [address] GFR/1.73 sq M.predicted among non-blacks MDRD (S/P/Bld) [Vol rate/Area] 105 mL/min/{1.73_m2} Normal >60 [facility] Comment on above: Result Comment: mL/m in/1.73m2 CKD-EPI Creatinine Equation (2020) Performed By: #### L 509.1000, L501.4100, L500.4100, L501.9520, L501.9985, L500.2500, L501.4405, L506.1001 #### [facility] [address] [place], [address] Glucose [Mass/Vol] 109 mg/dL High 70-99 [facility] Comment on above: Performed By: #### L 509.1000, L501.4100, L500.4100, L501.9520, L501.9985, L500.2500, L501.4405, L506.1001 #### [facility] [address] [place], [address] Potassium [Moles/Vol] 4.5 mmol/L Normal 3.3-5.1 [facility] Comment on above: Performed By: #### L 509.1000, L501.4100, L500.4100, L501.9520, L501.9985, L500.2500, L501.4405, L506.1001 #### [facility] [address] [place], [place], [id number] Sodium [Moles/Vol] 139 mmol/L Normal 133-145 [facility] Comment on above: Performed By: #### L 509.1000, L501.4100, L500.4100, L501.9520, L501.9985, L500.2500, L501.4405, L506.1001 #### [facility] [address] [place], [place], [id number] Urea nitrogen [Mass/Vol] 11 mg/dL Normal 4-19 [facility] Comment on above: Performed By: #### L 509.1000, L501.4100, L500.4100, L501.9520, L501.9985, L500.2500, L501.4405, L506.1001 #### [facility] [address] [place], [place], [id number] Calculated very low density lipoprotein (VLDL) cholesterol measurementOrdered By: Ivette Barotn on 02-09-2025 Calculated very low density lipoprotein (VLDL) cholesterol measurement 51 mg/dL High 5-40 [facility] Carbon dioxide, total [Moles /volume] in Central venous bloodOrdered By: Ivette Barton on 02-09-2025 CO2 [Moles/Vol] 26.3 mmol/L 21.0-32.0 [facility] Chloride assayOrdered By: Nikki Barton on 02-09-2025 Chloride [Moles/Vol] 104 mmol/L 98-108 [facility] Glomerular filtration rate ( GFR) estimation/1.73 sq m using serum, plasma, or whole bOrdered By: Ivette Barton on 02-09-2025 GFR/1.73 sq M.predicted among non-blacks MDRD (S/P/Bld) [Vol rate/Area] 105 mL/min/{1.73_m2} >60 [facility] Comment on above: mL/min/1.73m2 CKD-EP I Creatinine Equation (2020) Hemoglobin A1con 02-09-2025 HbA1c (Bld) [Mass fraction] 5.4 % Normal <=5.6 [facility] Comment on above: Result Comment: Norm al < 5.7 % Prediabetic 5.7 - 6.4 % Diabetic >or= 6.5 % Please note range changes. Performed By: #### L 509.1000, L501.4100, L500.4100, L501.9520, L501.9985, L500.2500, L501.4405, L506.1001 #### [facility] [address] [place], [address] Hemoglobin A1c percentageOrd ered By: Ivette Barton on 02-09-2025 HbA1c (Bld) [Mass fraction] 5.4 % <5.7 [facility] Comment on above: Normal < 5.7 % Predi abetic 5.7 - 6.4 % Diabetic >or= 6.5 % Please note range changes. LDL calc ser/plasOrdered By: Ivette Barton on 02-09-2025 Cholesterol in LDL [Mass/Vol] 105 mg/dL [facility] Comment on above: Wqwyqhxmhb=702-730 m g/dL & Higher Jjao=215 mg/dL or greater Laboratory - Chemistry and C hemistry - challengeOrdered By: Ivette Barton on 02-09-2025 AST [Catalytic activity/Vol] 24 U/L <32 [facility] Lipid Profileon 02-09-2025 CHOL:HDL 4.54 Normal [facility] Comment on above: Performed By: #### L 509.1000, L501.4100, L500.4100, L501.9520, L501.9985, L500.2500, L501.4405, L506.1001 #### [facility] [address] [place], [address] Cholesterol [Mass/Vol] 200 mg/dL Normal <=200 [facility] Comment on above: Result Comment: Chol esterol level, Desirable <200 mg/dL Borderline high cholesterol 200-239 mg/dL High cholesterol >=240 mg/dL Recommendations of the NCEP Adult Treatment Panel for the following risk-cutoff thresholds for the [place] population. Performed By: #### L 509.1000, L501.4100, L500.4100, L501.9520, L501.9985, L500.2500, L501.4405, L506.1001 #### [facility] [address] [place], [address] Cholesterol in HDL [Mass/Vol] 44 mg/dL Normal [facility] Comment on above: Result Comment: Kathie onal Cholesterol Education Program (NCEP) guidelines: <40 mg/dL: Low HDL-cholesterol (major risk factor for CHD) >= 60 mg/dL: High HDL-cholesterol (negative risk factor for CHD) HDL-cholesterol is affected by a number of factors, e.g. smoking, exercise, hormones, sex and age. Performed By: #### L 509.1000, L501.4100, L500.4100, L501.9520, L501.9985, L500.2500, L501.4405, L506.1001 #### [facility] [address] [place], [address] Cholesterol in LDL [Mass/Vol] 105 mg/dL Normal [facility] Comment on above: Result Comment: Bord qezljg=178-447 mg/dL Higher Mlcu=122 mg/dL or greater Performed By: #### L 509.1000, L501.4100, L500.4100, L501.9520, L501.9985, L500.2500, L501.4405, L506.1001 #### [facility] [address] [place], [address] Cholesterol in VLDL [Mass/Vol] 51 mg/dL High 5-40 [facility] Comment on above: Performed By: #### L 509.1000, L501.4100, L500.4100, L501.9520, L501.9985, L500.2500, L501.4405, L506.1001 #### [facility] [address], [address] Triglyceride [Mass/Vol] 254 mg/dL High [facility] Comment on above: Result Comment: The drugs N-Acetylcysteine and Metamizole may falsely depress this assay. Normal range: <150 mg/dL Borderline High: 150-199 mg/dL High: 200-499 mg/dL Very High: >500 mg/dL Performed By: #### L 509.1000, L501.4100, L500.4100, L501.9520, L501.9985, L500.2500, L501.4405, L506.1001 #### [facility] [address] [place], [address] PTHINon 02-09-2025 PTH 59 pg/mL Normal 11-61 [facility] Comment on above: Performed By: #### L 509.1000, L501.4100, L500.4100, L501.9520, L501.9985, L500.2500, L501.4405, L506.1001 #### [facility] [address] [facility] [place], [address] Potassium measurement (mass/ volume)Ordered By: Ivette Barton on 02-09-2025 Potassium (Unsp spec) [Mass/Vol] 4.5 mmol/L 3.3-5.1 [facility] Screening total cholesterol/ high density lipoprotein (HDL) cholesterol ratioOrdered By: Ivette Barton on 02-09-2025 Cholesterol.total/Cho lesterol in HDL [Mass ratio] 4.54 {ratio} [facility] Serum creatinine measurement (mass/volume)Ordered By: Ivette Barton on 02-09-2025 Creatinine [Mass/Vol] 0.62 mg/dL Low 0.70-1.20 [facility] Serum glucose measurement (m ass/volume)Ordered By: Ivette Barton on 02-09-2025 Glucose [Mass/Vol] 109 mg/dL High 70-99 [facility] Serum or plasma alanine tubbs otransferase (ALT) measurementOrdered By: Ivette Barton on 02-09-2025 ALT [Catalytic activity/Vol] 28 U/L <35 [facility] Serum or plasma calcium will urement (mass/volume)Ordered By: Ivette Barton on 02-09-2025 Calcium [Mass/Vol] 9.7 mg/dL 7.6-11.0 [facility] Serum or plasma cholesterol in HDL measurement (mass/volume)Ordered By: Ivette Barton on 02-09-2025 Cholesterol in HDL [Mass/Vol] 44 mg/dL >40 [facility] Comment on above: National Cholesterol Education Program (NCEP) guidelines:<40 mg/dL: Low HDL-cholesterol (major risk factor for CHD)>= 60 mg/dL: High HDL-cholesterol (negative risk factor for CHD)HDL-cholesterol is affected by a number of factors, e.g. smoking, exercise, hormones, sex and age. Serum or plasma cholesterol measurement (mass/volume)Ordered By: Ivette Batron on 02-09-2025 Cholesterol [Mass/Vol] 200 mg/dL <201 [facility] Comment on above: Cholesterol level, D esirable <200 mg/dLBorderline high cholesterol 200-239 mg/dLHigh cholesterol >=240 mg/dLRecommendations of the NCEP Adult Treatment Panel for the following risk-cutoff thresholds for the [place] population. Serum or plasma urea nitroge n measurement (mass/volume)Ordered By: Ivette Barton on 02-09-2025 Urea nitrogen [Mass/Vol] 11 mg/dL 4-19 [facility] Sodium levelOrdered By: Chua Barton on 02-09-2025 Sodium [Moles/Vol] 139 mmol/L 133-145 [facility] TSH DL <= 0.005 mIU/L QnOrde red By: Ivette Barton on 02-09-2025 TSH Qn 2.550 uIU/mL 0.300-4.200 [facility] Thyroid Stim Hormone (TSH)on 02-09-2025 TSH 2.550 uIU/mL Normal 0.300-4.200 [facility] Comment on above: Performed By: #### L 509.1000, L501.4100, L500.4100, L501.9520, L501.9985, L500.2500, L501.4405, L506.1001 #### [facility] [address] [place], [place], [id number] Triglycerides measurementOrd ered By: Ivette Barton on 02-09-2025 Triglyceride [Mass/Vol] 254 mg/dL High <199 [facility] Comment on above: The drugs N-Acetylcy steine and Metamizole may falsely depress this assay. Normal range: <150 mg/dLBorderline High: 150-199 mg/dLHigh: 200-499 mg/dLVery High: >500 mg/dL Vitamin D,25 Hydroxyon 02-09 Vitamin D 25-OH 89.0 ng/mL Normal 30-100 [facility] Comment on above: Result Comment: Shila min D Status Deficiency: <20 ng/mL (50nmol/L) Insufficiency: 20-30 ng/mL (50-75 nmol/L) Sufficiency: 30-100 ng/mL (75-250 nmol/L) Toxicity: >100 ng/mL (>250 nmol/L) Performed By: #### L 509.1000, L501.4100, L500.4100, L501.9520, L501.9985, L500.2500, L501.4405, L506.1001 #### [facility] [address] [place], [place], [id number] Magnetic resonance imaging r eportOrdered By: Vinnie Ferraro on 01-19-2025 Study report [facility] Services [address] [place], [place] [id number] Spine Lumbar (Routine) MR#: [id number] Acct: [id number] Name: GARRISON WALKER Rep #: [id number] : 1970 F 54 From: Laz Ferraro DO PCP: LIGIA Romero Status: REG CLI Study:Spine Lumbar (Routine) Date of Exam: 01/19/25 Exam# [id number] Ordering Dr: Ra cinda Stevens ELECTRIC TRUCK CRANE OPERATOR-C PROCEDURE: SPINE LUMBAR (ROUTINE) 01/19/2025 REASON FOR [...] Reading Location: [place] CC: LIGIA Stevens ~ Rotor Blade Installer: Signed [facility] Spine Lumbar (Routine)on Spine Lumbar (Routine) [facility] Imaging Services [address] [place] [address] Spine Lumbar (Routine) MR#: [id number] Acct: [id number] Name: GARRISON WALKER Rep #: [id number] : 1970 F 54 From: Vinnie Kohler PCP: LIGIA Romero Status: REG CLI Study: Spine Lumbar (Routine) Date of Exam: 01/19/25 Exam# [id number] Ordering Dr: Tatum Stevens PROCEDURE: SPINE LUMBAR [...] narrowing. Reading Location: [place] CC: LIGIA Stevens Rotor Blade Installer: Signed Normal [facility] Intact parathyroid hormone ( iPTH) measurementon 12-07-2024 Parathyroid Hormone (Intact) 55 pg/mL [facility] PTHINon 12-07-2024 PTH 55 pg/mL Normal [facility] Comment on above: Performed By: #### L 509.1000 ####[facility] [address] [place], [place], [id number] 09-LG-Mkragiu DOrdered By: Marlene Barton on 10-09-2024 Vitamin D 25-Hydroxy 67.1 ng/mL [facility] Comment on above: Vitamin D 25([place]) Sta tus Range Deficiency <20 ng/mL (50nmol/L) Insufficiency 20 - 30 ng/mL (50 - 75 nmol/L) Sufficiency 30 - 100 ng/mL (75 - 250 nmol/L) Toxicity >100 ng/mL (>250 nmol/L) AST(SGOT)on 10-09-2024 AST [Catalytic activity/Vol] 21 U/L Normal 15-37 [facility] Comment on above: Performed By: #### L 509.1000, L501.4100, L500.4100, L501.9520, L501.9985, L500.2500, L501.4405, L506.1001 #### [facility] [address] [place], [place], [id number] Alanine Aminotransferas (SGP T)on 10-09-2024 ALT [Catalytic activity/Vol] 33 U/L Normal 13-56 [facility] Comment on above: Performed By: #### L 509.1000, L501.4100, L500.4100, L501.9520, L501.9985, L500.2500, L501.4405, L506.1001 #### [facility] [address] [place], [address] Basic Metabolic Profile (BMP )on 10-09-2024 BUN/CRE 22.2 RATIO High 10-20 [facility] Comment on above: Performed By: #### L 501.4405, L506.1000, L500.2500, L509.1000, L501.9520, L501.9985, L501.4100, L500.4100 ####[facility] [address] [place], [address] CA,Total 8.8 mg/dL Normal 8.5-10.1 [facility] Comment on above: Performed By: #### L 501.4405, L506.1000, L500.2500, L509.1000, L501.9520, L501.9985, L501.4100, L500.4100 ####[facility] [address] [place], [address] Chloride [Moles/Vol] 106 mmol/L Normal 98-107 [facility] Comment on above: Performed By: #### L 501.4405, L506.1000, L500.2500, L509.1000, L501.9520, L501.9985, L501.4100, L500.4100 ####[facility] [address] [place], [address] CO2 [Moles/Vol] 27.0 mmol/L Normal 21.0-32.0 [facility] Comment on above: Performed By: #### L 501.4405, L506.1000, L500.2500, L509.1000, L501.9520, L501.9985, L501.4100, L500.4100 ####[facility] [address] [place], [place], [address] Creatinine [Mass/Vol] 0.68 mg/dL Normal 0.55-1.02 [facility] Comment on above: Result Comment: The validity of the calculated GFR GFRAA in patients over 70 years has not been determined. Clinical correlation is essential. Performed By: #### L 501.4405, L506.1000, L500.2500, L509.1000, L501.9520, L501.9985, L501.4100, L500.4100 ####[facility] [address] [place], [address] EST GFR - AA 116 mL/min Normal >60 [facility] Comment on above: Result Comment: Afri can [place] GFR Calc Performed By: #### L 501.4405, L506.1000, L500.2500, L509.1000, L501.9520, L501.9985, L501.4100, L500.4100 ####[facility] [address] [place], [place], [address] GAP 6 Normal 5-15 [facility] Comment on above: Performed By: #### L 501.4405, L506.1000, L500.2500, L509.1000, L501.9520, L501.9985, L501.4100, L500.4100 ####[facility] [address] [place], [place], [address] GFR/1.73 sq M.predicted among non-blacks MDRD (S/P/Bld) [Vol rate/Area] 96 mL/min/{1.73_m2} Normal >60 [facility] Comment on above: Result Comment: Non- GFR Calc Performed By: #### L 501.4405, L506.1000, L500.2500, L509.1000, L501.9520, L501.9985, L501.4100, L500.4100 ####[facility] [address] [place], [address] Glucose [Mass/Vol] 109 mg/dL High 74-106 [facility] Comment on above: Result Comment: Fast ing Glucose result from 100 to 125 mg/dL suggests IMPAIRED HOMEOSTASIS per A.D.A. criteria. Performed By: #### L 501.4405, L506.1000, L500.2500, L509.1000, L501.9520, L501.9985, L501.4100, L500.4100 ####[facility] [address] [place], [address] Potassium [Moles/Vol] 4.0 mmol/L Normal 3.5-5.1 [facility] Comment on above: Performed By: #### L 501.4405, L506.1000, L500.2500, L509.1000, L501.9520, L501.9985, L501.4100, L500.4100 ####[facility] [address] [place], [address] Sodium [Moles/Vol] 139 mmol/L Normal 136-145 [facility] Comment on above: Performed By: #### L 501.4405, L506.1000, L500.2500, L509.1000, L501.9520, L501.9985, L501.4100, L500.4100 ####[facility] [address] [place], [address] Urea nitrogen [Mass/Vol] 15 mg/dL Normal 7-18 [facility] Comment on above: Performed By: #### L 501.4405, L506.1000, L500.2500, L509.1000, L501.9520, L501.9985, L501.4100, L500.4100 ####[facility] [address] [place], [address] Blood urea nitrogen (BUN)/cr eatinine ratioOrdered By: Ivette Barton on 10-09-2024 Urea nitrogen/Creatinine [Mass ratio] 22.2 mg/mg High 10-20 [facility] Carbon dioxide measurementOr dered By: Ivette Barton on 10-09-2024 CO2 [Moles/Vol] 27.0 mmol/L 21.0-32.0 [facility] Chloride measurementOrdered By: Ivette Barton on 10-09-2024 Chloride [Moles/Vol] 106 mmol/L 98-107 [facility] Estimated glomerular filtrat ion rate (GFR) AmericanOrdered By: Ivette Barton on 10-09-2024 Estimated GFR (MDRD) Amer 116 mL/min >60 [facility] Comment on above: GFR Calc Glomerular filtration rate ( GFR) estimationOrdered By: Ivette Barton on 10-09-2024 Estimated GFR (MDRD) Non-Af Amer 96 mL/min >60 [facility] Comment on above: Non- GFR Calc Glucose measurementOrdered B y: Ivette Barton on 10-09-2024 Glucose [Mass/Vol] 109 mg/dL High 74-106 [facility] Comment on above: Fasting Glucose resu lt from 100 to 125 mg/dL suggests IMPAIRED HOMEOSTASIS per A.D.A. criteria. Hemoglobin A1con 10-09-2024 HbA1c (Bld) [Mass fraction] 5.5 % Normal 3.8-5.6 [facility] Comment on above: Result Comment: Norm al < 5.7 % Prediabetic 5.7 - 6.4 % Diabetic >or= 6.5 % Please note range changes. Performed By: #### L 501.4405, L506.1000, L500.2500, L509.1000, L501.9520, L501.9985, L501.4100, L500.4100 ####[facility] [address] [place], [place], [address] Hemoglobin A1c percentageOrd ered By: Ivette Barton on 10-09-2024 HbA1c (Bld) [Mass fraction] 5.5 % 3.8-5.6 [facility] Comment on above: Normal < 5.7 % Predi abetic 5.7 - 6.4 % Diabetic >or= 6.5 % Please note range changes. High density lipoprotein (HD L) measurementOrdered By: Ivette Barton on 10-09-2024 Cholesterol in HDL [Mass/Vol] 51 mg/dL >40 [facility] Comment on above: The drugs N-Acetylcy steine and Metamizole may falsely depress this assay. Reference Range HDL <40 mg/dL Low HDL Cholesterol HDL >or= 60 mg/dL High HDL Cholesterol Intact parathyroid hormone ( iPTH) measurementOrdered By: Ivette Barton on 10-09-2024 Parathyroid Hormone (Intact) 105.9 pg/mL High 18.4-80.1 [facility] - Chemistry and C hemistry - challengeOrdered By: Ivette Barton on 10-09-2024 AST [Catalytic activity/Vol] 21 U/L 15-37 [facility] Lipid Profileon 10-09-2024 Cholesterol [Mass/Vol] 193 mg/dL Normal 200 [facility] Comment on above: Result Comment: <200 mg/dL Desirable 200-240 mg/dL Borderline >240 mg/dL High Risk Performed By: #### L 509.1000, L501.4100, L500.4100, L501.9520, L501.9985, L500.2500, L501.4405, L506.1001 #### [facility] [address] [place], [address] Cholesterol in HDL [Mass/Vol] 51 mg/dL Normal [facility] Comment on above: Result Comment: The drugs N-Acetylcysteine and Metamizole may falsely depress this assay. Reference Range HDL <40 mg/dL Low HDL Cholesterol HDL >or= 60 mg/dL High HDL Cholesterol Performed By: #### L 509.1000, L501.4100, L500.4100, L501.9520, L501.9985, L500.2500, L501.4405, L506.1001 #### [facility] [address] [place], [address] Cholesterol in LDL [Mass/Vol] 95 mg/dL Normal 0-130 [facility] Comment on above: Performed By: #### L 509.1000, L501.4100, L500.4100, L501.9520, L501.9985, L500.2500, L501.4405, L506.1001 #### [facility] [address] [place], [address] Cholesterol in VLDL [Mass/Vol] 47 mg/dL High 5-40 [facility] Comment on above: Performed By: #### L 509.1000, L501.4100, L500.4100, L501.9520, L501.9985, L500.2500, L501.4405, L506.1001 #### [facility] [address] [place], [address] Triglyceride [Mass/Vol] 237 mg/dL High [facility] Comment on above: Result Comment: The drugs N-Acetylcysteine and Metamizole may falsely depress this assay. Serum Triglycerides Reference Interval Normal <150 mg/dL Borderline high 150 - 199 mg/dL High 200 - 499 mg/dL Very High > or = 500 mg/dL Performed By: #### L 509.1000, L501.4100, L500.4100, L501.9520, L501.9985, L500.2500, L501.4405, L506.1001 #### [facility] [address] [place], [address] Low density lipoprotein (LDL ) cholesterol measurementOrdered By: Ivette Barton on 10-09-2024 Cholesterol in LDL [Mass/Vol] 95 mg/dL 0-130 [facility] PTHINon 10-09-2024 PTH 105.9 pg/mL High 18.4-80.1 [facility] Comment on above: Performed By: #### L 501.4405, L506.1000, L500.2500, L509.1000, L501.9520, L501.9985, L501.4100, L500.4100 ####[facility] [address] [place], [address] Potassium measurementOrdered By: Ivette Barton on 10-09-2024 Potassium [Moles/Vol] 4.0 mmol/L 3.5-5.1 [facility] Serum anion gap measurementO rdered By: Ivette Barton on 10-09-2024 Anion gap [Moles/Vol] 6 mmol/L 5-15 [facility] Serum or plasma alanine tubbs otransferase (ALT) measurementOrdered By: Ivette Barton on 10-09-2024 ALT [Catalytic activity/Vol] 33 U/L 13-56 [facility] Serum or plasma calcium will urement (mass/volume)Ordered By: Ivette Barton on 10-09-2024 Calcium [Mass/Vol] 8.8 mg/dL 8.5-10.1 [facility] Serum or plasma cholesterol measurement (mass/volume)Ordered By: Ivette Barton on 10-09-2024 Cholesterol [Mass/Vol] 193 mg/dL <200 [facility] Comment on above: <200 mg/dL Desirable 200-240 mg/dL Borderline >240 mg/dL High Risk Serum or plasma creatinine m easurement (mass/volume)Ordered By: Ivette Barton on 10-09-2024 Creatinine [Mass/Vol] 0.68 mg/dL 0.55-1.02 [facility] Comment on above: The validity of the calculated GFR & GFRAA in patients over 70 years has not been determined. Clinical correlation is essential. Serum or plasma urea nitroge n measurement (mass/volume)Ordered By: Ivette Barton on 10-09-2024 Urea nitrogen [Mass/Vol] 15 mg/dL 7-18 [facility] Sodium levelOrdered By: Chau Barton on 10-09-2024 Sodium [Moles/Vol] 139 mmol/L 136-145 [facility] TSH QnOrdered By: Ivette cancino on 10-09-2024 Thyroid Stimulating Hormone (TSH) 0.620 uIU/mL 0.358-3.740 [facility] Thyroid Stim Hormone (TSH)on 10-09-2024 TSH 0.620 uIU/mL Normal 0.358-3.740 [facility] Comment on above: Performed By: #### L 509.1000, L501.4100, L500.4100, L501.9520, L501.9985, L500.2500, L501.4405, L506.1001 #### [facility] [address] [place], [address] Triglycerides measurementOrd ered By: Ivette Barton on 10-09-2024 Triglyceride [Mass/Vol] 237 mg/dL High <199 [facility] Comment on above: The drugs N-Acetylcy steine and Metamizole may falsely depress this assay.Serum Triglycerides Reference Interval Normal <150 mg/dL Borderline high 150 - 199 mg/dL High 200 - 499 mg/dL Very High > or = 500 mg/dL Very low density lipoprotein (VLDL) cholesterol measurementOrdered By: Ivette Barton on 10-09-2024 VLDL Cholesterol 47 mg/dL High 5-40 [facility] Vitamin D,25 Hydroxyon 10-09 Vitamin D 25-OH 67.1 ng/mL Normal [facility] Comment on above: Result Comment: Shila min D 25([place]) Status Range Deficiency <20 ng/mL (50nmol/L) Insufficiency 20 - 30 ng/mL (50 - 75 nmol/L) Sufficiency 30 - 100 ng/mL (75 - 250 nmol/L) Toxicity >100 ng/mL (>250 nmol/L) Performed By: #### L 501.4405, L506.1000, L500.2500, L509.1000, L501.9520, L501.9985, L501.4100, L500.4100 ####[facility] [address] [place], [address] HIP, UNI W/ Pelvis 2-3 Views on 09-28-2024 HIP, UNI W/ Pelvis 2-3 Views [facility] Imaging Services [address] [place] [address] HIP, UNI W/ Pelvis 2-3 Views MR#: [id number] Acct: [id number] Name: GARRISON WALKER Rep #: [id number] : 1970 F 54 From: Yeyo wilburn MD PCP: LIGIA Romero Status: REG CLI Study: HIP, UNI W/ Pelvis 2-3 Views Date of Exam: Exam# [id number] Ordering Dr: Tatum Stevens [id number] INDICATION: ASSESS VERTBRAL ALIGNMENT DISC SPACE EXAMINATION/TECHNIQUE: [...] Olea MD at 17:59 EST , CC: ELECTRIC TRUCK CRANE OPERATOR-Sherrell Stevens Rotor Blade Installer: Signed Normal [facility] Lumbar Spine 2 or 3 Viewson 09-28-2024 Lumbar Spine 2 or 3 Views [facility] Imaging Services [address] [place] [address] Lumbar Spine 2 or 3 Views MR#: [id number] Acct: [id number] Name: GARRISON WALKER Rep #: [id number] : 1970 F 54 From: Alphonso Pierre MD PCP: LIGIA Romero Status: REG CLI Study: Lumbar Spine 2 or 3 Views Date of Exam: Exam# [id number] Ordering Dr: Tatum Stevens [id number] STUDY: X-RAY - LUMBAR SPINE REASON FOR [...] at 11:32 EST , CC: LIGIA Stevens Rotor Blade Installer: Signed Normal [facility] ED Prov Noteon 09-03-2024 ED Prov Note HPI: 09/03/2024, Time: @NOWBRYNN@ Sina Aaron is a 54 y.o. female presenting to [...] - PAST HISTORY - Past Medical History: @[facility]@ Past Surgical History: has a [...] ms QTC Calculation (Bezet) 408 ms P [place] 34 degrees R [place] 10 degrees T [place] 32 degrees POC CBC and Differential Collection [...] DISPOSITION Di (more content not included)... Normal [facility] PTHINon 08-20-2024 PTH 65.7 pg/mL Normal 18.4-80.1 [facility] Comment on above: Performed By: #### L 501.9520, L501.4405, L501.4100, L500.2500, L509.1000 ####[facility] [address] [place], [address] AST(SGOT)on 08-18-2024 AST [Catalytic activity/Vol] 43 U/L High 15-37 [facility] Comment on above: Performed By: #### L 501.9520, L501.4405, L501.4100, L500.2500, L509.1000 ####[facility] [address] [place], [address] Alanine Aminotransferas (SGP T)on 08-18-2024 ALT [Catalytic activity/Vol] 67 U/L High 13-56 [facility] Comment on above: Performed By: #### L 501.9520, L501.4405, L501.4100, L500.2500, L509.1000 ####[facility] [address] [place], [address] Basic Metabolic Profile (BMP )on 08-18-2024 BUN/CRE 25.6 RATIO High 10-20 [facility] Comment on above: Performed By: #### L 501.9520, L501.4405, L501.4100, L500.2500, L509.1000 ####[facility] [address] [place], [address] CA,Total 8.9 mg/dL Normal 8.5-10.1 [facility] Comment on above: Performed By: #### L 501.9520, L501.4405, L501.4100, L500.2500, L509.1000 ####[facility] [address] [place], [address] Chloride [Moles/Vol] 108 mmol/L High 98-107 [facility] Comment on above: Performed By: #### L 501.9520, L501.4405, L501.4100, L500.2500, L509.1000 ####[facility] [address] [place], [address] CO2 [Moles/Vol] 27.0 mmol/L Normal 21.0-32.0 [facility] Comment on above: Performed By: #### L 501.9520, L501.4405, L501.4100, L500.2500, L509.1000 ####[facility] [address] [place], [address] Creatinine [Mass/Vol] 0.62 mg/dL Normal 0.55-1.02 [facility] Comment on above: Result Comment: The validity of the calculated GFR GFRAA in patients over 70 years has not been determined. Clinical correlation is essential. Performed By: #### L 501.9520, L501.4405, L501.4100, L500.2500, L509.1000 ####[facility] [address] [place], [address] EST GFR - AA 127 mL/min Normal >60 [facility] Comment on above: Result Comment: Afri can Citizen [place] GFR Calc Performed By: #### L 501.9520, L501.4405, L501.4100, L500.2500, L509.1000 ####[facility] [address] [place], [address] GAP 5 Normal 5-15 [facility] Comment on above: Performed By: #### L 501.9520, L501.4405, L501.4100, L500.2500, L509.1000 ####[facility] [address] [place], [address] GFR/1.73 sq M.predicted among non-blacks MDRD (S/P/Bld) [Vol rate/Area] 105 mL/min/{1.73_m2} Normal >60 [facility] Comment on above: Result Comment: Non- GFR Calc Performed By: #### L 501.9520, L501.4405, L501.4100, L500.2500, L509.1000 ####[facility] [address] [place], [address] Glucose [Mass/Vol] 127 mg/dL High 74-106 [facility] Comment on above: Result Comment: Fast ing Glucose result greater than or equal to 126 mg/dL suggests DIABETES MELLITUS per A.D.A. criteria. Performed By: #### L 501.9520, L501.4405, L501.4100, L500.2500, L509.1000 ####[facility] [address] [place], [address] Potassium [Moles/Vol] 4.3 mmol/L Normal 3.5-5.1 [facility] Comment on above: Performed By: #### L 501.9520, L501.4405, L501.4100, L500.2500, L509.1000 ####[facility] [address] [place], [address] Sodium [Moles/Vol] 140 mmol/L Normal 136-145 [facility] Comment on above: Performed By: #### L 501.9520, L501.4405, L501.4100, L500.2500, L509.1000 ####[facility] [address] [place], [address] Urea nitrogen [Mass/Vol] 16 mg/dL Normal 7-18 [facility] Comment on above: Performed By: #### L 501.9520, L501.4405, L501.4100, L500.2500, L509.1000 ####[facility] [address] [place], [address] Thyroid Stim Hormone (TSH)on 08-18-2024 TSH 0.059 uIU/mL Low 0.358-3.740 [facility] Comment on above: Performed By: #### L 501.9520, L501.4405, L501.4100, L500.2500, L509.1000 ####[facility] [address] [place], [address] Thyroidon 06-08-2024 Thyroid [facility] [address] [place] [address] Thyroid MR#: [id number] Acct: [id number] Name: GARRISON WALKER Rep #: [id number] : 1970 F 54 From: Donta dennis MD PCP: LIGIA Romero Status: REG CLI Study: Thyroid Date of Exam: 06/08/24 Exam# [id number] Ordering Dr: Tatum Stevens [id number] STUDY: THYROID ULTRASOUND REASON FOR EXAM: Female, [...] Signed: Donta Rainey MD at 14:47 EDT Reading Location ID and State: [address] [place] [place] [address] , Service support , CC: LIGIA Stevens Rotor Blade Installer: Signed Normal [facility] Cerv Spine 4 or 5 Viewson Cerv Spine 4 or 5 Views [facility] [address] [place], [place] [id number] Cerv Spine 4 or 5 Views MR#: [id number] Acct: [id number] Name: GARRISON WALKER Rep #: [id number] : 1970 F 54 From: Donta dennis MD PCP: LIGIA Romero Status: REG CLI Study: Cerv Spine 4 or 5 Views Date of Exam: 06/04/24 Exam# [id number] Ordering Dr: Tatum Stevens [id number] STUDY: X-RAY - CERVICAL SPINE REASON FOR [...] Signed: Donta Rainey MD at 12:44 EDT Reading Location ID and State: [address] [place] [place] [address] , Service support , CC: LIGIA Stevens Rotor Blade Installer: Signed Normal [facility] AST(SGOT)on 05-29-2024 AST [Catalytic activity/Vol] 59 U/L High 15-37 [facility] Comment on above: Performed By: #### L 509.1000, L501.4100, L500.4100, L501.9520, L501.9985, L500.2500, L501.4405, L506.1001 #### [facility] [address] [place], [place], [address] Alanine Aminotransferas (SGP T)on 05-29-2024 ALT [Catalytic activity/Vol] 103 U/L High 13-56 [facility] Comment on above: Performed By: #### L 509.1000, L501.4100, L500.4100, L501.9520, L501.9985, L500.2500, L501.4405, L506.1001 #### [facility] [address] [place], [address] Basic Metabolic Profile (BMP )on 05-29-2024 BUN/CRE 16.6 RATIO Normal -20 [facility] Comment on above: Performed By: #### L 509.1000, L501.4100, L500.4100, L501.9520, L501.9985, L500.2500, L501.4405, L506.1001 #### [facility] [address] [place], [address] CA,Total 9.3 mg/dL Normal 8.5-10.1 [facility] Comment on above: Performed By: #### L 509.1000, L501.4100, L500.4100, L501.9520, L501.9985, L500.2500, L501.4405, L506.1001 #### [facility] [address] [place], [address] Chloride [Moles/Vol] 108 mmol/L High 98-107 [facility] Comment on above: Performed By: #### L 509.1000, L501.4100, L500.4100, L501.9520, L501.9985, L500.2500, L501.4405, L506.1001 #### [facility] [address] [place], [address] CO2 [Moles/Vol] 27.0 mmol/L Normal 21.0-32.0 [facility] Comment on above: Performed By: #### L 509.1000, L501.4100, L500.4100, L501.9520, L501.9985, L500.2500, L501.4405, L506.1001 #### [facility] [address] [place], [place], [id number] Creatinine [Mass/Vol] 0.72 mg/dL Normal 0.55-1.02 [facility] Comment on above: Result Comment: The validity of the calculated GFR GFRAA in patients over 70 years has not been determined. Clinical correlation is essential. Performed By: #### L 509.1000, L501.4100, L500.4100, L501.9520, L501.9985, L500.2500, L501.4405, L506.1001 #### [facility] [address] [place], [place], [id number] (213) EST GFR - AA 107 mL/min Normal >60 [facility] Comment on above: Result Comment: Afri can Citizen Of [place] GFR Calc Performed By: #### L 509.1000, L501.4100, L500.4100, L501.9520, L501.9985, L500.2500, L501.4405, L506.1001 #### [facility] [address] [place], [place], [id number] GAP 4 Low 5-15 [facility] Comment on above: Performed By: #### L 509.1000, L501.4100, L500.4100, L501.9520, L501.9985, L500.2500, L501.4405, L506.1001 #### [facility] [address] [place], [place], [id number] (861) GFR/1.73 sq M.predicted among non-blacks MDRD (S/P/Bld) [Vol rate/Area] 89 mL/min/{1.73_m2} Normal >60 [facility] Comment on above: Result Comment: Non- GFR Calc Performed By: #### L 509.1000, L501.4100, L500.4100, L501.9520, L501.9985, L500.2500, L501.4405, L506.1001 #### [facility] [address] [place], [address] Glucose [Mass/Vol] 129 mg/dL High 74-106 [facility] Comment on above: Result Comment: Fast ing Glucose result greater than or equal to 126 mg/dL suggests DIABETES MELLITUS per A.D.A. criteria. Performed By: #### L 509.1000, L501.4100, L500.4100, L501.9520, L501.9985, L500.2500, L501.4405, L506.1001 #### [facility] [address] [place], [address] Potassium [Moles/Vol] 4.3 mmol/L Normal 3.5-5.1 [facility] Comment on above: Performed By: #### L 509.1000, L501.4100, L500.4100, L501.9520, L501.9985, L500.2500, L501.4405, L506.1001 #### [facility] [address] [place], [address] Sodium [Moles/Vol] 139 mmol/L Normal 136-145 [facility] Comment on above: Performed By: #### L 509.1000, L501.4100, L500.4100, L501.9520, L501.9985, L500.2500, L501.4405, L506.1001 #### [facility] [address] [place], [address] Urea nitrogen [Mass/Vol] 12 mg/dL Normal 7-18 [facility] Comment on above: Performed By: #### L 509.1000, L501.4100, L500.4100, L501.9520, L501.9985, L500.2500, L501.4405, L506.1001 #### [facility] [address] [place], [address] Hemoglobin A1con 05-29-2024 HbA1c (Bld) [Mass fraction] 5.9 % High 3.8-5.6 [facility] Comment on above: Result Comment: Norm al < 5.7 % Prediabetic 5.7 - 6.4 % Diabetic >or= 6.5 % Please note range changes. Performed By: #### L 509.1000, L501.4100, L500.4100, L501.9520, L501.9985, L500.2500, L501.4405, L506.1001 #### [facility] [address] [place], [address] Lipid Profileon 05-29-2024 Cholesterol [Mass/Vol] 207 mg/dL High 200 [facility] Comment on above: Result Comment: <200 mg/dL Desirable 200-240 mg/dL Borderline >240 mg/dL High Risk Performed By: #### L 509.1000, L501.4100, L500.4100, L501.9520, L501.9985, L500.2500, L501.4405, L506.1001 #### [facility] [address] [place], [address] Cholesterol in HDL [Mass/Vol] 52 mg/dL Normal [facility] Comment on above: Result Comment: The drugs N-Acetylcysteine and Metamizole may falsely depress this assay. Reference Range HDL <40 mg/dL Low HDL Cholesterol HDL >or= 60 mg/dL High HDL Cholesterol Performed By: #### L 509.1000, L501.4100, L500.4100, L501.9520, L501.9985, L500.2500, L501.4405, L506.1001 #### [facility] [address] [place], [address] Cholesterol in LDL [Mass/Vol] 114 mg/dL Normal 0-130 [facility] Comment on above: Performed By: #### L 509.1000, L501.4100, L500.4100, L501.9520, L501.9985, L500.2500, L501.4405, L506.1001 #### [facility] [address] [place], [address] Cholesterol in VLDL [Mass/Vol] 41 mg/dL High 5-40 [facility] Comment on above: Performed By: #### L 509.1000, L501.4100, L500.4100, L501.9520, L501.9985, L500.2500, L501.4405, L506.1001 #### [facility] [address] [place], [address] (645) Triglyceride [Mass/Vol] 205 mg/dL High [facility] Comment on above: Result Comment: The drugs N-Acetylcysteine and Metamizole may falsely depress this assay. Serum Triglycerides Reference Interval Normal <150 mg/dL Borderline high 150 - 199 mg/dL High 200 - 499 mg/dL Very High > or = 500 mg/dL Performed By: #### L 509.1000, L501.4100, L500.4100, L501.9520, L501.9985, L500.2500, L501.4405, L506.1001 #### [facility] [address] [place], [address] Microalb:Creat Ratio,Random URon 05-29-2024 Creatinine [Mass/Vol] 95.50 mg/dL Normal NO RAN GE EST. [facility] Comment on above: Performed By: #### L 509.1000, L501.4100, L500.4100, L501.9520, L501.9985, L500.2500, L501.4405, L506.1001 #### [facility] [address], [address] (561) MALB:CRE 11.6 mg/g CRE Normal <30 mg/g CRE [facility] Comment on above: Performed By: #### L 509.1000, L501.4100, L500.4100, L501.9520, L501.9985, L500.2500, L501.4405, L506.1001 #### [facility] [address] [place], [address] MICROALBUMIN,UR 11.1 mg/L Normal NO RANGE EST. [facility] Comment on above: Performed By: #### L 509.1000, L501.4100, L500.4100, L501.9520, L501.9985, L500.2500, L501.4405, L506.1001 #### [facility] [address] [place], [address] PTHINon 05-29-2024 PTH 87.6 pg/mL High 18.4-80.1 [facility] Comment on above: Performed By: #### L 509.1000, L501.4100, L500.4100, L501.9520, L501.9985, L500.2500, L501.4405, L506.1001 #### [facility] [address] [place], [address] Thyroid Stim Hormone (TSH)on 05-29-2024 TSH 3.350 uIU/mL Normal 0.358-3.740 [facility] Comment on above: Performed By: #### L 509.1000, L501.4100, L500.4100, L501.9520, L501.9985, L500.2500, L501.4405, L506.1001 #### [facility] [address] [place], [address] Vitamin D,25 Hydroxyon 05-29 Vitamin D 25-OH 49.7 ng/mL Normal [facility] Comment on above: Result Comment: Shila min D 25(OH) Status Range Deficiency <20 ng/mL (50nmol/L) Insufficiency 20 - 30 ng/mL (50 - 75 nmol/L) Sufficiency 30 - 100 ng/mL (75 - 250 nmol/L) Toxicity >100 ng/mL (>250 nmol/L) Performed By: #### L 509.1000, L501.4100, L500.4100, L501.9520, L501.9985, L500.2500, L501.4405, L506.1001 #### [facility] [address] [place], [address] SCRN MAMM (CAD)W/JOHN BILATo n 05-18-2024 SCRN MAMM (CAD)W/JOHN BILAT [facility] [address] [place] [address] SCRN MAMM (CAD)W/JOHN BILAT MR#: [id number] Acct: [id number] Name: GARRISON WALKER Rep #: [id number] : 1970 F 54 From: Crystal Iverson MD PCP: LIGIA Romero Status: [facility] Study: SCRN MAMM (CAD)W/JOHN BILAT Date of Exam: 07/03 Exam# [id number] Ordering Dr: Claudette Arteaga MD [id number] MAMMOGRAPHY - BILATERAL SCREENING 3-D TOMOSYNTHESIS REASON [...] of a clinically suspicious abnormality. Electronically Signed: Crystal Iverson MD at 13:43 EDT , CC: LIGIA Stevens; Dr. Claudette Arteaga MD [employer] Installer: Signed Normal [facility] Associate Professor Of Archaeology Cytology Reporton 2023 Associate Professor Of Archaeology Cytology Report . Pathology Reports Accession: Collected Date/Time: Received Date/Time: Pathologist: [id number] 05/07/2024 12:06 EDT 05/07/2024 18:00 EDT Associate Professor Of Archaeology Cytology Report SPECIMEN: Specimen Description: Liquid Prep [...] and evaluated with the assistance of the [employer] ThinPrep Test Imaging System. Pathology Reports Accession: Collected Date/Time: Received Date/Time: Pathologist: [id number] 05/07/2024 12:06 EDT 05/07/2024 18:00 EDT Electronically Signed by Pathology report verified by [facility] Screened by: [place] Electronically signed by Miriam Harvel CT (ASCP) Sign-Out Date: 05/09/2024 14:50 Performing Lab: [facility], [address] [place] [address] Pathology Dept Disclaimer The Pap test is a screening test for cervical cancer. As evidenced by published data, it is subject to both inherent false negative and false positive results. Your patient's results should be interpreted in context with pertinent clinical history including gynecological examination. Normal [facility] ([place] HPVon 05-09-2024 HPV Interp Normal See Interp HPVN [facility] [place] Comment on above: Order Comment: Order placed by AP_HPV_ORDER rule from [id number] Result Comment: High Risk HPV Typing: NEGATIVE [...] and sufficient DNA to be detected. See Inter HPVN Performed By: #### H PV #### [place] [address] HPV Source Cervix Normal [facility] [place] Comment on above: Order Comment: Order placed by AP_HPV_ORDER rule from [id number] Performed By: #### H PV #### [place] [address] LABORATORYOrdered By: Win Zavala on 05-07-2024 HPV [...] (05/07/24 12:06 PM) Normal Auto Viro/Sero SS Basophil percentageOrdered B y: Ivette Barton on 10-11-2023 Chloride [Moles/Vol] 106 mmol/L 98-107 [facility] Glucose [Mass/Vol] 117 mg/dL 74-106 [facility] Comment on above: Fasting Glucose resu lt from 100 to 125 mg/dL suggests IMPAIRED HOMEOSTASIS per A.D.A. criteria. Potassium [Moles/Vol] 4.1 mmol/L 3.5-5.1 [facility] Sodium [Moles/Vol] 140 mmol/L 136-145 [facility] - Chemistry and C hemistry - challengeOrdered By: Ivette Barton on 10-11-2023 ALT [Catalytic activity/Vol] 60 U/L 13-56 [facility] CO2 [Moles/Vol] 30.0 mmol/L 21.0-32.0 [facility] Urea nitrogen/Creatinine [Mass ratio] 21.2 mg/mg 10-20 [facility] No Panel InformationOrdered By: Ivette Barton on 10-11-2023 Estimated GFR (MDRD) Amer 130 mL/min >60 [facility] Comment on above: GFR Calc Estimated GFR (MDRD) Non-Af Amer 108 mL/min >60 [facility] Comment on above: Non- GFR Calc Parathyroid Hormone (Intact) 68.9 pg/mL 18.4-80.1 [facility] Thyroid Stimulating Hormone (TSH) 0.25 uIU/mL 0.358-3.74 [facility] Vitamin D 25-Hydroxy 30.3 ng/mL [facility] Comment on above: Vitamin D 25(OH) Sta tus Range Deficiency <20 ng/mL (50nmol/L) Insufficiency 20 - 30 ng/mL (50 - 75 nmol/L) Sufficiency 30 - 100 ng/mL (75 - 250 nmol/L) Toxicity >100 ng/mL (>250 nmol/L) Serum or plasma calcium will urement (mass/volume)Ordered By: Ivette Barton on 10-11-2023 Calcium [Mass/Vol] 9.0 mg/dL 8.5-10.1 [facility] Serum or plasma creatinine m easurement (mass/volume)Ordered By: Ivette Barton on 10-11-2023 Creatinine [Mass/Vol] 0.61 mg/dL 0.55-1.02 [facility] Comment on above: The validity of the calculated GFR & GFRAA in patients over 70 years has not been determined. Clinical correlation is essential. Serum or plasma urea nitroge n measurement (mass/volume)Ordered By: Ivette Barton on 10-11-2023 Urea nitrogen [Mass/Vol] 13 mg/dL 7-18 [facility] Thin prep Papanicolaou smear with manual screeningOrdered By: Ivette Barton on 10-11-2023 Thin prep Papanicolaou smear with manual screening 28 U/L 15-37 [facility] Thin prep Papanicolaou smear with manual screening 4 5-15 [facility] Whole blood hemoglobin A1c/t otal hemoglobin ratio (mass fraction)Ordered By: Ivette Barton on 10-11-2023 HbA1c (Bld) [Mass fraction] 5.6 % 3.8-5.6 [facility] Comment on above: Normal < 5.7 % [...] ID: [id number] Dictated by: KYLE MARK on [facility] Jul 09, 2023 12:16:59 AM EDT Transcribed by: KYLE MARK on [facility] Jul 09, 2023 12:16:59 AM EDT Finalized by: KYLE MARK on [facility] Jul 09, 2023 12:16:59 AM EDT Normal [facility] Comment on above: Order Comment: Injur y/Trauma [...] ID: [id number] Dictated by: GET CHAUDHARI on [facility] May 26, 2023 9:14:35 AM EDT Transcribed by: GET CHAUDHARI on [facility] May 26, 2023 9:14:35 AM EDT Finalized by: GET CHAUDHARI on [facility] May 26, 2023 9:14:35 AM EDT Normal [facility] Comment on above: Order Comment: Injur y/Trauma or Illness?:Illness/Other How long have you had these symptoms (acute/chronic)?:Acute 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 Barton on 02-05-2023 Chloride [Moles/Vol] 105 mmol/L 98-107 [facility] Cholesterol [Mass/Vol] 204 mg/dL <200 [facility] Comment on above: <200 mg/dL Desirable 200-240 mg/dL Borderline >240 mg/dL High Risk Glucose [Mass/Vol] 116 mg/dL 74-106 [facility] Comment on above: Fasting Glucose resu lt from 100 to 125 mg/dL suggests IMPAIRED HOMEOSTASIS per A.D.A. criteria. Potassium [Moles/Vol] 4.0 mmol/L 3.5-5.1 [facility] Sodium [Moles/Vol] 138 mmol/L 136-145 [facility] Triglyceride [Mass/Vol] 121 mg/dL <199 [facility] Comment on above: The drugs N-Acetylcy steine and Metamizole may falsely depress this assay.Serum Triglycerides Reference Interval Normal <150 mg/dL Borderline high 150 - 199 mg/dL High 200 - 499 mg/dL Very High > or = 500 mg/dL Laboratory - Chemistry and C hemistry - challengeOrdered By: Dr. Barton on 02-05-2023 ALT [Catalytic activity/Vol] 85 U/L 13-56 [facility] CO2 [Moles/Vol] 28.0 mmol/L 21.0-32.0 [facility] Urea nitrogen/Creatinine [Mass ratio] 23.9 mg/mg 10-20 [facility] No Panel InformationOrdered By: Dr. Barton on 02-05-2023 Estimated GFR (MDRD) Amer 127 mL/min >60 [facility] Comment on above: GFR Calc Estimated GFR (MDRD) Non-Af Amer 105 mL/min >60 [facility] Comment on above: Non- GFR Calc Parathyroid Hormone (Intact) 82.0 pg/mL 18.4-80.1 [facility] Thyroid Stimulating Hormone (TSH) 2.77 uIU/mL 0.358-3.74 [facility] No Panel InformationOrdered By: Ivette Barton on 02-05-2023 Miscellaneous Test See comment [facility] Comment on above: TEST RESULTS LIMITSV itamin D, 25-HydroxyVitamin D, 25-Hydroxy 43.4 ng/mL 30.0-100.0Vitamin D deficiency has been defined by the [place] [employer] and an Endocrine Society practice guideline as alevel of serum 25-OH vitamin D less than 20 ng/mL (1,2).The Endocrine Society went on to further define vitamin Dinsufficiency as a level between 21 and 29 ng/mL (2).1. IOM ([place] [employer]). 2010. Dietary reference intakes for calcium and D. [place]: The National Academies Press.2. Ibrahima MF, Abbie SIERRA, Nallely SHEPHERD, et al. Evaluation, treatment, and prevention of vitamin D deficiency: an Endocrine Society clinical practice guideline. JCEM. 2010; 96(7):1911-30. TESTING PERFORMED AT [facility]. ORIGINAL REPORT ON FILE IN LAB CONTAINS ADDITIONAL TEST SITE INFORMATION. Serum or plasma calcitriol m easurement (mass/volume)Ordered By: Dr. Barton on 02-05-2023 1,25-dihydroxyvitamin D3 [Mass/Vol] 100.0 pg/mL 24.8-81.5 [facility] Comment on above: Performed at: - [facility] [employer] [id number] Director: Matthew Fierro MD, Phone: [phone] Serum or plasma calcium will urement (mass/volume)Ordered By: Dr. Barton on 02-05-2023 Calcium [Mass/Vol] 8.9 mg/dL 8.5-10.1 [facility] Serum or plasma cholesterol in HDL measurement (mass/volume)Ordered By: Dr. Barton on 02-05-2023 Cholesterol in HDL [Mass/Vol] 60 mg/dL >40 [facility] Comment on above: The drugs N-Acetylcy steine and Metamizole may falsely depress this assay. Reference Range HDL <40 mg/dL Low HDL Cholesterol HDL >or= 60 mg/dL High HDL Cholesterol Serum or plasma cholesterol in VLDL measurement (mass/volume)Ordered By: Dr. Barton on 02-05-2023 Cholesterol in VLDL [Mass/Vol] 24 mg/dL 5-40 [facility] Serum or plasma creatinine m easurement (mass/volume)Ordered By: Dr. Barton on 02-05-2023 Creatinine [Mass/Vol] 0.63 mg/dL 0.55-1.02 [facility] Comment on above: The validity of the calculated GFR & GFRAA in patients over 70 years has not been determined. Clinical correlation is essential. Serum or plasma low density lipoprotein (LDL) cholesterol measurement (mass/volume)Ordered By: Dr. Barton on 02-05-2023 Cholesterol in LDL [Mass/Vol] 120 mg/dL 0-130 [facility] Serum or plasma urea nitroge n measurement (mass/volume)Ordered By: Dr. Barton on 02-05-2023 Urea nitrogen [Mass/Vol] 15 mg/dL 7-18 [facility] Thin prep Papanicolaou smear with manual screeningOrdered By: Dr. Barton on 02-05-2023 Thin prep Papanicolaou smear with manual screening 48 U/L 15-37 [facility] Thin prep Papanicolaou smear with manual screening 5 5-15 [facility] Thin prep Papanicolaou smear with manual screening 11.1 mg/L NO RANGE EST. [facility] Whole blood hemoglobin A1c/t otal hemoglobin ratio (mass fraction)Ordered By: Dr. Barton on 02-05-2023 HbA1c (Bld) [Mass fraction] 5.8 % 3.8-5.6 [facility] Comment on above: Normal < 5.7 % Predi abetic 5.7 - 6.4 % Diabetic >or= 6.5 % Please note range changes. Basophil percentageOrdered B y: Dr. Barton on 10-22-2022 Bilirubin [Mass/Vol] 0.40 mg/dL 0.20-1.00 [facility] Comment on above: For patients on eltr ombopag therapy, use of Dimension Whately TBIL is not recommended. Protein [Mass/Vol] 7.6 g/dL 6.4-8.2 [facility] Direct bilirubinOrdered By: Dr. Barton on 10-22-2022 Bilirubin.direct [Mass/Vol] 0.10 mg/dL 0.00-0.30 [facility] - Chemistry and C hemistry - challengeOrdered By: Dr. Barton on 10-22-2022 ALP [Catalytic activity/Vol] 89 U/L 45-117 [facility] ALT [Catalytic activity/Vol] 79 U/L [facility] Globulin (S) [Mass/Vol] 3.8 g/dL 2.2-4.2 [facility] Serum or plasma albumin will urement (mass/volume)Ordered By: Dr. Barton on 10-22-2022 Albumin [Mass/Vol] 3.8 g/dL 3.2-5.0 [facility] Thin prep Papanicolaou smear with manual screeningOrdered By: Dr. Barton on 10-22-2022 Thin prep Papanicolaou smear with manual screening 44 U/L 15-37 [facility] Basophil percentageOrdered B y: Dr. Barton on 10-05-2022 Chloride [Moles/Vol] 108 mmol/L 98-107 [facility] Glucose [Mass/Vol] 99 mg/dL 74-106 [facility] Potassium [Moles/Vol] 3.7 mmol/L 3.5-5.1 [facility] Sodium [Moles/Vol] 142 mmol/L 136-145 [facility] - Chemistry and C hemistry - challengeOrdered By: Dr. Barton on 10-05-2022 ALT [Catalytic activity/Vol] 71 U/L [facility] CO2 [Moles/Vol] 32.0 mmol/L 21.0-32.0 [facility] Urea nitrogen/Creatinine [Mass ratio] 19.4 mg/mg 10-20 [facility] No Panel InformationOrdered By: Dr. Barton on 10-05-2022 Estimated GFR (MDRD) Amer 108 mL/min >60 [facility] Comment on above: GFR Calc Estimated GFR (MDRD) Non-Af Amer 90 mL/min >60 [facility] Comment on above: Non- GFR Calc Thyroid Stimulating Hormone (TSH) 1.07 uIU/mL 0.358-3.74 [facility] Serum or plasma calcium will urement (mass/volume)Ordered By: Dr. Barton on 10-05-2022 Calcium [Mass/Vol] 9.4 mg/dL 8.5-10.1 [facility] Serum or plasma creatinine m easurement (mass/volume)Ordered By: Dr. Barton on 10-05-2022 Creatinine [Mass/Vol] 0.72 mg/dL 0.55-1.02 [facility] Comment on above: The validity of the calculated GFR & GFRAA in patients over 70 years has not been determined. Clinical correlation is essential. Serum or plasma urea nitroge n measurement (mass/volume)Ordered By: Dr. Barton on 10-05-2022 Urea nitrogen [Mass/Vol] 14 mg/dL 7-18 [facility] Thin prep Papanicolaou smear with manual screeningOrdered By: Dr. Barton on 10-05-2022 Thin prep Papanicolaou smear with manual screening 42 U/L 15-37 [facility] Thin prep Papanicolaou smear with manual screening 2 5-15 [facility] Whole blood hemoglobin A1c/t otal hemoglobin ratio (mass fraction)Ordered By: Dr. Barton on 10-05-2022 HbA1c (Bld) [Mass fraction] 5.8 % 3.8-5.6 [facility] Comment on above: Normal < 5.7 % Predi abetic 5.7 - 6.4 % Diabetic >or= 6.5 % Please note range changes. BASIC METABOLIC PANELon 2 Anion gap [Moles/Vol] 12 mmol/L Normal 10 - 20 [facility] Comment on above: Performed By: #### B MP #### [address] [address] Calcium [Mass/Vol] 8.8 mg/dL Normal 8.6 - 10.3 [facility] Comment on above: Performed By: #### B MP #### [address] [address] Chloride [Moles/Vol] 104 mmol/L Normal 98 - 107 [facility] Comment on above: Performed By: #### B MP #### [address] [address] Creatinine [Mass/Vol] 0.62 mg/dL Normal 0.50 - 1.05 [facility] Comment on above: Performed By: #### B MP #### [address] [address] eGFR FEMALE >90 Normal >90 [facility] Comment on above: Result Comment: CALC ULATIONS OF ESTIMATED GFR ARE PERFORMED USING THE 2020 CKD-EPI STUDY REFIT EQUATION WITHOUT THE RACE VARIABLE FOR THE IDMS-TRACEABLE CREATININE METHODS. https://jasn.asnjournals.org/content/early//ASN.166783 1642 Performed By: #### B MP #### [address] [address] Glucose [Mass/Vol] 102 mg/dL High 74 - 99 [facility] Comment on above: Performed By: #### B MP #### [address] [address] HCO3 (Bld) [Moles/Vol] 27 mmol/L Normal 21 - 32 [facility] Comment on above: Performed By: #### B MP #### [address] [address] Potassium [Moles/Vol] 3.8 mmol/L Normal 3.5 - 5.3 [facility] Comment on above: Performed By: #### B MP #### [address] [address] Sodium [Moles/Vol] 139 mmol/L Normal 136 - 145 [facility] Comment on above: Performed By: #### B MP #### [address] [address] Urea nitrogen [Mass/Vol] 13 mg/dL Normal 6 - 23 [facility] Comment on above: Performed By: #### B MP #### [address] [address] CBC AND DIFFERENTIALon 06-02 Basophils (Bld) [#/Vol] 0.00 10*3/uL Normal 0.00 - 0.10 [facility] Comment on above: Performed By: #### C BCDF #### [address] [address] Basophils/100 WBC (Bld) 0.4 % Normal 0.0 - 2.0 [facility] Comment on above: Performed By: #### C BCDF #### [address] [address] Eosinophils (Bld) [#/Vol] 0.10 10*3/uL Normal 0.00 - 0.70 [facility] Comment on above: Performed By: #### C BCDF #### [address] [address] Eosinophils/100 WBC (Bld) 1.5 % Normal 0.0 - 6.0 [facility] Comment on above: Performed By: #### C BCDF #### [address] [address] Erythrocyte distribution width (RBC) [Ratio] 15.7 % High 11.5 - 14.5 [facility] Comment on above: Performed By: #### C BCDF #### [address] [address] Hematocrit (Bld) [Volume fraction] 36.1 % Normal 36.0 - 46.0 [facility] Comment on above: Performed By: #### C BCDF #### [address] [address] Hemoglobin (Bld) [Mass/Vol] 11.8 g/dL Low 12.0 - 16.0 [facility] Comment on above: Performed By: #### C BCDF #### [address] [address] Lymphocytes (Bld) [#/Vol] 1.90 10*3/uL Normal 1.20 - 4.80 [facility] Comment on above: Performed By: #### C BCDF #### [address] [address] Lymphocytes/100 WBC (Bld) 22.8 % Normal 13.0 - 44.0 [facility] Comment on above: Performed By: #### C BCDF #### [address] [address] MCHC (RBC) [Mass/Vol] 32.7 g/dL Normal 32.0 - 36.0 [facility] Comment on above: Performed By: #### C BCDF #### [address] [address] MCV (RBC) [Entitic vol] 76 fL Low 80 - 100 [facility] Comment on above: Performed By: #### C BCDF #### [address] [address] Monocytes (Bld) [#/Vol] 0.60 10*3/uL Normal 0.10 - 1.00 [facility] Comment on above: Performed By: #### C BCDF #### [address] [address] Monocytes/100 WBC (Bld) 7.0 % Normal 2.0 - 10.0 [facility] Comment on above: Performed By: #### C BCDF #### [address] [address] Neutrophils (Bld) [#/Vol] 5.60 10*3/uL Normal 1.20 - 7.70 [facility] Comment on above: Result Comment: Perc ent differential counts (%) should be interpreted in the context of the absolute cell counts (cells/L). Performed By: #### C BCDF #### [address] [address] Neutrophils/100 WBC (Bld) 68.3 % Normal 40.0 - 80.0 [facility] Comment on above: Performed By: #### C BCDF #### [address] [address] NUCLEATED RBC 0.1 /100 WBC Normal [facility] Comment on above: Performed By: #### C BCDF #### [address] [address] Platelets (Bld) [#/Vol] 185 10*3/uL Normal 150 - 450 [facility] Comment on above: Performed By: #### C BCDF #### [address] [address] RBC 4.76 x10E12/L Normal 4.00 - 5.20 [facility] Comment on above: Performed By: #### C BCDF #### [address] [address] WBC (Bld) [#/Vol] 8.2 10*3/uL Normal 4.4 - 11.3 [facility] Comment on above: Performed By: #### C BCDF #### [address] [address] CHEST 2 VIEW PA AND LATon CHEST 2 VIEW PA AND LAT Patient Name: SINA WALKER STUDY: CHEST 2 VIEW PA AND LAT; 06/02/2022 9:44 am INDICATION: CHEST PAIN/LEFT SIDED . COMPARISON: 05/12/2020 ACCESSION NUMBER(S): [id number] ORDERING CLINICIAN: SEYMOUR CALLEJAS FINDINGS: CHEST/LUNGS: The cardiac and mediastinal silhouettes are unchanged in size and configuration. No focal areas of consolidation are noted. No effusion or pneumothorax is seen. UPPER ABDOMEN: No remarkable upper abdominal findings. OSSEOUS STRUCTURES: No acute changes. IMPRESSION: No radiographic evidence of an acute cardiopulmonary process. Electronically signed by: JHOANA WOODWARD MD Normal [facility] CORONAVIRUS 2019 BY PCRon SARS-CoV-2 (COVID-19) RNA KAY+probe Ql (Unsp spec) Not detected Normal Not Detected [facility] Comment on above: Result Comment: . This test has received FDA Emergency Use Authorization (EUA) and has been verified by [facility]. This test is only authorized for the duration of time that circumstances exist to justify the authorization of the emergency use of in vitro diagnostic tests for the detection of SARS-CoV-2 virus and/or diagnosis of COVID-19 infection under section 564(b)(1) of the Act, 21 U.S.C. 360bbb-3(b)(1), unless the authorization is terminated or revoked sooner. [facility] is certified under CLIA-88 as qualified to perform high complexity testing. Testing is performed in the [facility] laboratory located at [address] [place] [address]. SARS-CoV-2/Flu/RSV Multiplex Test: Fact sheet for providers: https://www.fda.gov/media/412755/download Fact sheet for patients: https://www.fda.gov/media/940892/download Performed By: #### C OV19 #### [place] [address] Lab Specimen Source Nasal, Nasopharyngeal Normal [facility] Comment on above: Performed By: #### C OV19 #### [place] [address] CT ANGIO CHEST FOR PEon 08-2 CT ANGIO CHEST FOR PE Patient Name: SINA WALKER STUDY: CT ANGIO CHEST FOR PE; 06/02/2022 12:11 pm INDICATION: CP/SOB/+d dIMER . COMPARISON: None. ACCESSION NUMBER(S): [id number] ORDERING CLINICIAN: SEYMOUR CALLEJAS TECHNIQUE: Helical data [...] above. Electronically signed by: JHOANA WOODWARD MD [facility] Covid 19 Resultson 2 SARS-CoV-2 (COVID-19) RNA [...] You may also be contacted by the [facility] to see if any of your close [...] or Naproxen (Aleve) can also be used. Celv-den-oylzsvu cough and cold medicines can be used according to the instructions on the package. Some tdol-tuw-vdvmdsn medicines also contain acetaminophen. Make sure you [...] water are not available, use alcohol-based hand casing in line feeder. Avoid touching your eyes, nose, and mouth [...] 24 judi (more content not included)... 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 Normal [facility] TROPONIN I, HIGH SENSITIVITY on 06-02-2022 TROPONIN I, HIGH SENSITIVITY 3 ng/L Normal 0 - 13 [facility] Comment on above: Result Comment: . [...] performed using a different testing methodology at [facility] than at other [facility]. Direct result comparisons should only be made within the same method. Performed By: #### T [facility] #### [place] [address] Triage - EDon 06-02-2022 Triage - ED [...] BMI (kg/m2): 35.967 Calculated BSA (m2) 1.93 [place] Coma Scale: Best Eye Response: (E4) spontaneous Best Motor Response: (M6) obeys commands Best Verbal Response: (V5) oriented Radhames Score: 15 Radhames Assessment Qualifiers: patient not sedated/intubated Cough lasting [...] Pain, Travel History, Chart Review, Scores Luda Castro) (Signed 02-Jun-2022 09:51) Authored: Quick Triage, Chart Review, Past Medical History Last Updated: 02-Jun-2022 09:51 by Luda Castro) [facility] percentageon 2021 Chloride [Moles/Vol] 109 mmol/L 98-107 [facility] Work Phone: Cholesterol [Mass/Vol] 186 mg/dL <200 [facility] Work Phone: Comment on above: <200 mg/dL Desirable 200-240 mg/dL Borderline >240 mg/dL High Risk Glucose [Mass/Vol] 113 mg/dL 74-106 [facility] Work Phone: Comment on above: Fasting Glucose resu lt from 100 to 125 mg/dL suggests IMPAIRED HOMEOSTASIS per A.D.A. criteria. Potassium [Moles/Vol] 3.9 mmol/L 3.5-5.1 [facility] Work Phone: Sodium [Moles/Vol] 139 mmol/L 136-145 [facility] Work Phone: Triglyceride [Mass/Vol] 136 mg/dL <199 [facility] Work Phone: Comment on above: The drugs N-Acetylcy steine and Metamizole may falsely depress this assay.Serum Triglycerides Reference Interval Normal <150 mg/dL Borderline high 150 - 199 mg/dL High 200 - 499 mg/dL Very High > or = 500 mg/dL Laboratory - Chemistry and C hemistry - challengeon 04-16-2022 ALT [Catalytic activity/Vol] 47 U/L 13-56 [facility] Work Phone: CO2 [Moles/Vol] 27.0 mmol/L 21.0-32.0 [facility] Work Phone: Urea nitrogen/Creatinine [Mass ratio] 25.6 mg/mg 10-20 [facility] Work Phone: No Panel Informationon 04-16 Estimated GFR (MDRD) Amer 128 mL/min >60 [facility] Work Phone: Comment on above: GFR Calc Estimated GFR (MDRD) Non-Af Amer 106 mL/min >60 [facility] Work Phone: Comment on above: Non- GFR Calc Parathyroid Hormone (Intact) 76.5 pg/mL 18.4-80.1 [facility] Work Phone: Thyroid Stimulating Hormone (TSH) 4.80 uIU/mL 0.358-3.74 [facility] Work Phone: Vitamin D 25-Hydroxy 36.5 ng/mL [facility] Work Phone: Comment on above: Vitamin D 25(OH) Sta tus Range Deficiency <20 ng/mL (50nmol/L) Insufficiency 20 - 30 ng/mL (50 - 75 nmol/L) Sufficiency 30 - 100 ng/mL (75 - 250 nmol/L) Toxicity >100 ng/mL (>250 nmol/L) Serum or plasma calcium will urement (mass/volume)on 04-16-2022 Calcium [Mass/Vol] 9.0 mg/dL 8.5-10.1 [facility] Work Phone: Serum or plasma cholesterol in HDL measurement (mass/volume)on 04-16-2022 Cholesterol in HDL [Mass/Vol] 50 mg/dL >40 [facility] Work Phone: Comment on above: The drugs N-Acetylcy steine and Metamizole may falsely depress this assay. Reference Range HDL <40 mg/dL Low HDL Cholesterol HDL >or= 60 mg/dL High HDL Cholesterol Serum or plasma cholesterol in VLDL measurement (mass/volume)on 04-16-2022 Cholesterol in VLDL [Mass/Vol] 27 mg/dL 5-40 [facility] Work Phone: Serum or plasma creatinine m easurement (mass/volume)on 04-16-2022 Creatinine [Mass/Vol] 0.62 mg/dL 0.55-1.02 [facility] Work Phone: Comment on above: The validity of the calculated GFR & GFRAA in patients over 70 years has not been determined. Clinical correlation is essential. Serum or plasma low density lipoprotein (LDL) cholesterol measurement (mass/volume)on 04-16-2022 Cholesterol in LDL [Mass/Vol] 109 mg/dL 0-130 [facility] Work Phone: Serum or plasma urea nitroge n measurement (mass/volume)on 04-16-2022 Urea nitrogen [Mass/Vol] 16 mg/dL 7-18 [facility] Work Phone: Thin prep Papanicolaou smear with manual screeningon 04-16-2022 Thin prep Papanicolaou smear with manual screening 32 U/L 15-37 [facility] Work Phone: Thin prep Papanicolaou smear with manual screening 3 5-15 [facility] Work Phone: Whole blood hemoglobin A1c/t otal hemoglobin ratio (mass fraction)on 04-16-2022 HbA1c (Bld) [Mass fraction] 5.8 % 3.8-5.6 [facility] Work Phone: Comment on above: Normal < 5.7 % Predi abetic 5.7 - 6.4 % Diabetic >or= 6.5 % Please note range changes. BMP with eGFRon 08-19-2020 Age - Reported 50 years Normal [facility] Comment on above: Performed By: #### 2 35939 #### [facility],[address] [place] [address] Anion gap [Moles/Vol] 10 mmol/L Normal 10 - 20 [facility] Comment on above: Performed By: #### 2 69781 #### [facility],[address] [place] [address] Calcium [Mass/Vol] 8.1 mg/dL Low 8.5 - 10.1 [facility] Comment on above: Performed By: #### 2 50607 #### [facility],[address] [place] [address] Chloride [Moles/Vol] 100 mmol/L Normal 98 - 107 [facility] Comment on above: Performed By: #### 2 56386 #### [facility],[address] [place] [address] CO2 [Moles/Vol] 27.3 mmol/L Normal 21.0 - 32.0 [facility] Comment on above: Performed By: #### 2 00185 #### [facility],[address] [place] [address] Creatinine [Mass/Vol] 0.6 mg/dL Normal 0.5 - 1.0 [facility] Comment on above: Performed By: #### 2 75998 #### [facility],[address] [place] [address] GFR/1.73 sq M predicted among non-blacks MDRD (S/P/Bld) [Vol rate/Area] Normal [facility] Comment on above: Result Comment: BASI C METABOLIC PANEL Performed By: #### 2 84936 #### [facility],[address] [place] [address] GFR/1.73 sq M predicted among non-blacks MDRD (S/P/Bld) [Vol rate/Area] mL/min/{1.73_m2} Normal 60 - 999 [facility] Comment on above: Result Comment: ACCO RDING TO THE NATIONAL KIDNEY DISEASE EDUCATION PROGRAM(NKDE), A NORMAL eGFR IS A VALUE GREATER THAN OR EQUAL TO 60 ML/MIN/1.73 SQ METERS. CHRONIC KIDNEY DISEASE: <60mL/MIN/1.73 SQ METERS KIDNEY FAILURE: <15mL/MIN/1.73 SQ METERS THIS TEST SHOULD ONLY BE USED FOR PATIENTS 18 YEARS OF AGE AND OLDER. Performed By: #### 2 25904 #### [facility],[address] [place] [address] Glucose [Mass/Vol] 102 mg/dL Normal 74 - 106 [facility] Comment on above: Performed By: #### 2 61539 #### [facility],[address] [place] [address] Potassium [Moles/Vol] 3.9 mmol/L Normal 3.5 - 5.1 [facility] Comment on above: Performed By: #### 2 93613 #### [facility],[address] [place] [address] Sodium [Moles/Vol] 133 mmol/L Low 136 - 145 [facility] Comment on above: Performed By: #### 2 70083 #### [facility],[address] [place] [address] Urea nitrogen [Mass/Vol] 9 mg/dL Normal 7 - 18 [facility] Comment on above: Performed By: #### 2 59730 #### [facility],[address] [place] [address] CBC + DIFFon 08-19-2020 Basophils (Bld) [#/Vol] 0.00 x10EE3/UL Normal 0.00 - 0.10 [facility] Comment on above: Performed By: #### 2 12194 #### [facility],[address] [place] [address] Basophils/100 WBC (Bld) 0.3 % Normal 0.0 - 2.0 [facility] Comment on above: Performed By: #### 2 08757 #### [facility],[address] [place] [address] CBC + DIFF Normal [facility] Comment on above: Result Comment: CBC- COMPLETE BLOOD COUNT Performed By: #### 2 99532 #### [facility],[address] [place] [address] Eosinophils (Bld) [#/Vol] 0.10 x10EE3/UL Normal 0.00 - 0.50 [facility] Comment on above: Performed By: #### 2 29883 #### [facility],[address] [place] [address] Eosinophils/100 WBC (Bld) 1.4 % Normal 0.0 - 7.0 [facility] Comment on above: Performed By: #### 2 01522 #### [facility],[address] [place] [address] Erythrocyte distribution width (RBC) [Ratio] 15.0 % Normal 12.0 - 15.6 [facility] Comment on above: Performed By: #### 2 18635 #### [facility],[address] [place] [address] Hematocrit (Bld) [Volume fraction] 27.7 % Low 34.0 - 46.0 [facility] Comment on above: Performed By: #### 2 29352 #### [facility],[address] [place] [address] Hemoglobin (Bld) [Mass/Vol] 9.4 g/dL Low 12.0 - 16.0 [facility] Comment on above: Performed By: #### 2 39956 #### [facility],[address] [place], [place] [address] Lymphocytes (Bld) [#/Vol] 1.10 x10EE3/UL Normal 0.80 - 2.80 [facility] Comment on above: Performed By: #### 2 37506 #### [facility],[address] [place] [address] Lymphocytes/100 WBC (Bld) 11.6 % Low 20.0 - 45.0 [facility] Comment on above: Performed By: #### 2 46444 #### [facility],[address] [place] [address] MANUAL DIFF N/A Normal [facility] Comment on above: Performed By: #### 2 01578 #### [facility],[address] [place] [address] MCH (RBC) [Entitic mass] 26 pg Low 27 - 33 [facility] Comment on above: Performed By: #### 2 04740 #### [facility],[address] [place] [address] MCHC (RBC) [Mass/Vol] 34 X10 3 Normal 32 - 36 [facility] Comment on above: Performed By: #### 2 84436 #### [facility],[address] [place] [address] MCV (RBC) [Entitic vol] 76 fL Low 80 - 99 [facility] Comment on above: Performed By: #### 2 38366 #### [facility],[address] [place] [address] Monocytes (Bld) [#/Vol] 0.80 x10EE3/UL Normal 0.20 - 1.00 [facility] Comment on above: Performed By: #### 2 09296 #### [facility],[address] [place] [address] MONOS % 8.2 % Normal 0.0 - 10.0 [facility] Comment on above: Performed By: #### 2 39837 #### [facility],[address] [place] [address] Morphology Kenneth (Bld) [Interp] N/A Normal [facility] Comment on above: Performed By: #### 2 89298 #### [facility],[address] [place] [address] Neutrophils (Bld) [#/Vol] 7.40 x10EE3/UL High 1.50 - 7.10 [facility] Comment on above: Performed By: #### 2 73257 #### [facility],[address] [place] [address] Neutrophils/100 WBC (Bld) 78.5 % High 46.0 - 76.0 [facility] Comment on above: Performed By: #### 2 36157 #### [facility],[address] [place] [address] Platelet mean volume (Bld) [Entitic vol] 9.0 fL Normal 6.6 - 10.5 [facility] Comment on above: Result Comment: AUTO MATED DIFFERENTIAL Performed By: #### 2 46069 #### [facility],[address] [place] [address] Platelets (Bld) [#/Vol] 185 x10EE3/UL Normal 150 - 450 [facility] Comment on above: Performed By: #### 2 59605 #### [facility],[address] [place] [address] RBC (Bld) [#/Vol] 3.64 x 10EE6/UL Low 4.10 - 5.30 [facility] Comment on above: Performed By: #### 2 01678 #### [facility],[address] [place] [address] WBC (Bld) [#/Vol] 9.4 x 10EE3/UL Normal 4.5 - 10.8 [facility]hoana l [facility] Comment on above: Performed By: #### 2 51562 #### [facility],[address] [place] [address] OPERATIVE PROCEDURESon 08-19 OPERATIVE PROCEDURES [facility] OPERATIVE REPORT NAME ACCOUNT SEX AGE ADMIT DISCHARGE PT MED. RECORD# NUMBER DATE DATE TYPE BELKYS [id number] F 50 08/18/20 2 SINA [id number] ROOM: [id number] DATE OF : 1970 DICTATING PHYSICIAN: Frankie Sneed DATE OF SURGERY: August 18, 2020 SURGEON: Frankie Sneed MD RETURN AGENT AIRPORT: Ellie Laws PA-C./RANDY Chambers. ANESTHESIOLOGIST: Halie Jones [...] Mepilex dressing. Page 1 of 3 SINA JENESN Operative Report SINA JENSEN : 1970 hr assistant, physician retail administrative assistant, was utilized throughout the entire procedure. She helped with patient positioning, holding of limb, holding of retractors. She helped with exposure throughout. She helped with closing of the right knee while the surgeon and second retail administrative assistant proceeded with the left knee. She also helped with closing of the left knee. Without assistant signal maintainer, surgical time would have been significantly increased. [...] the femur with the help of the retail administrative assistant. Once this was done, we went [...] was held by the surgeon while the retail administrative assistant drilled 3 holes through that. Once [...] full extension while the cement hardened. The retail administrative assistant injected the pain reliving solution throughout [...] this point, the surgeon and the second retail administrative assistant went to the left knee to perform the same procedure there. The right knee was closed by the retail administrative assistant using some deep 0 Vicryl, running #2 Stratafix, a mid-layer of 0 Vicryl followed by a deep layer of 0 Stratafix followed by skin cholo and a Mepilex type dressing. Nicanor wrap was placed. While that was going on, the surgeon and second retail administrative assistant proceeded with the left knee done [...] Frankie Sneed MD 08/18/20 11:58 JOB #: [id number] Transcribed By: am 08/18/20 17:44 Electronically signed by: E-SIGN DR. FRANKIE SNEED M.D. 08/19/20 07:50 Page 3 of 3 SINA JENSEN Operative Report Normal [facility] KNEE 2 VIEWS LTon 08-18-2020 KNEE 2 VIEWS [address] [address] Patient: SINA JENSEN Phone#: : 1970 Age: 50 Gender: F Pt. Type: Out Account: [id number] Location: 062 Ordering: FRANKIE SNEED Exam Date: 08/18/2020/12:11 Family Phys: GIULIANO HARRIS Charge Code: 424189 Physician: [place] Order #: [id number] DLP Dose#: PROCEDURE: X-RAY KNEE LT 2 VIEWS COMPARISON: None. INDICATIONS: Postoperative test. FINDINGS: BONES: Total knee prosthesis is present. The adjacent bony architecture is intact. SOFT TISSUES: Postsurgical soft tissue air is present. Skin clips are present anteriorly. EFFUSION: None visible. OTHER: Negative. CONCLUSION: 1. Total knee prosthesis. Dictated by: Jolanta Martinez MD on 08/18/2020 at 12:25 Approved by: Jolanta Martinze MD on 08/18/2020 at 12:25 Normal [facility] KNEE 2 VIEWS RTon 08-18-2020 KNEE 2 VIEWS RT [address] [address] Patient: SINA JENSEN Phone#: : 1970 Age: 50 Gender: F Pt. Type: Out Account: [id number] Location: 062 Ordering: FRANKIE SNEED Exam Date: 08/18/2020/12:07 Family Phys: GIULIANO McgowanYessi STEVEN Charge Code: 338246 Physician: [place] Order #: [id number] DLP Dose#: PROCEDURE: X-RAY KNEE RT 2 [...] Martinez MD on 08/18/2020 at 12:27 Normal [facility] BMP with eGFRon 08-08-2020 Age - Reported 50 years Normal [facility] Comment on above: Performed By: #### 2 86136 ####[facility],[address] [place] [address]273 Anion gap [Moles/Vol] 9 mmol/L Low 10 - [facility] Comment on above: Performed By: #### 2 28468 ####[facility],[address] [place] [address]659 Calcium [Mass/Vol] 9.3 mg/dL Normal 8.5 - 10.1 [facility] Comment on above: Performed By: #### 2 20966 ####[facility],[address] [place] [address] 18190 Chloride [Moles/Vol] 104 mmol/L Normal 98 - 107 [facility] Comment on above: Performed By: #### 2 76398 ####[facility],[address] [place] [address] 44366 CO2 [Moles/Vol] 30.8 mmol/L Normal 21.0 - 32.0 [facility] Comment on above: Performed By: #### 2 04377 ####[facility],[address] [place] [address]12 Creatinine [Mass/Vol] 0.7 mg/dL Normal 0.5 - 1.0 [facility] Comment on above: Performed By: #### 2 64470 ####[facility],[address] [place] [address] 56719 GFR/1.73 sq M predicted among non-blacks MDRD (S/P/Bld) [Vol rate/Area] mL/min/{1.73_m2} Normal 60 - 999 [facility] Comment on above: Performed By: #### 2 38911 ####[facility],[address] [place] [address] 56494 Result Comment: ACCO RDING TO THE NATIONAL KIDNEY DISEASE EDUCATION PROGRAM(NKDE), A NORMAL eGFR IS A VALUE GREATER THAN OR EQUAL TO 60 ML/MIN/1.73 SQ METERS. CHRONIC KIDNEY DISEASE: <60mL/MIN/1.73 SQ METERS KIDNEY FAILURE: <15mL/MIN/1.73 SQ METERS THIS TEST SHOULD ONLY BE USED FOR PATIENTS 18 YEARS OF AGE AND OLDER. GFR/1.73 sq M predicted among non-blacks MDRD (S/P/Bld) [Vol rate/Area] Normal [facility] Comment on above: Result Comment: BASI C METABOLIC PANEL Performed By: #### 2 56516 ####[facility] [facility],[address] [place] [address] 86498 Glucose [Mass/Vol] 84 mg/dL Normal 74 - 106 [facility] Comment on above: Performed By: #### 2 [id number] ####[facility],[address] [place] [address] 95584 Potassium [Moles/Vol] 3.4 mmol/L Low 3.5 - 5.1 [facility] Comment on above: Performed By: #### 2 27666 ####[facility],[address] [place] [address] 17442 Sodium [Moles/Vol] 140 mmol/L Normal 136 - 145 [facility] Comment on above: Performed By: #### 2 52818 ####[facility],[address] [place], [place] [id number] Urea nitrogen [Mass/Vol] 20 mg/dL High 7 - 18 [facility] Comment on above: Performed By: #### 2 07456 ####[facility],[address] [place] [address] CBC (NO DIFF)on 08-08-2020 CBC (NO DIFF) Normal [facility] Comment on above: Result Comment: CBC( WITHOUT DIFFERENTIAL) Performed By: #### 2 02238 #### [facility],[address] [place], [place] [id number] Erythrocyte distribution width (RBC) [Ratio] 15.4 % Normal 12.0 - 15.6 [facility] Comment on above: Performed By: #### 2 41750 #### [facility],[address] [place], [place] [id number] Hematocrit (Bld) [Volume fraction] 36.4 % Normal 34.0 - 46.0 [facility] Comment on above: Performed By: #### 2 05454 #### [facility],[address] [place] [address] 82767 Hemoglobin (Bld) [Mass/Vol] 12.1 g/dL Normal 12.0 - 16.0 [facility] Comment on above: Performed By: #### 2 55350 #### [facility],[address] [place] [address] 62352 MCH (RBC) [Entitic mass] 26 pg Low 27 - 33 [facility] Comment on above: Performed By: #### 2 88316 #### [facility],[address] [place] [address] 74128 MCHC (RBC) [Mass/Vol] 33 X10 3 Normal 32 - 36 [facility] Comment on above: Performed By: #### 2 80832 #### [facility],[address] [place] [address] 29698 MCV (RBC) [Entitic vol] 77 fL Low 80 - 99 [facility] Comment on above: Performed By: #### 2 11202 #### [facility],[address] [place] [address] 58847 Platelet mean volume (Bld) [Entitic vol] 8.9 fL Normal 6.6 - 10.5 [facility] Comment on above: Performed By: #### 2 95295 #### [facility],[address] [place] [address] 61147 Platelets (Bld) [#/Vol] 227 x10EE3/UL Normal 150 - 450 [facility] Comment on above: Performed By: #### 2 96303 #### [facility],[address] [place] [address] 72874 RBC (Bld) [#/Vol] 4.72 x 10EE6/UL Normal 4.10 - 5.30 [facility] Comment on above: Performed By: #### 2 88827 #### [facility],[address] [place] [address] 91816 WBC (Bld) [#/Vol] 6.7 x 10EE3/UL Normal 4.5 - 10.8 [facility] Comment on above: Performed By: #### 2 46202 #### [facility],[address] [place] [address] 14022 CHEST 2 VIEWSon 08-08-2020 CHEST 2 VIEWS [place] [address] Patient: SINA JENSEN Phone#: : 1970 Age: 50 Gender: F Pt. Type: Out Account: [id number] Location: Ordering: FRANKIE SNEED Exam Date: 08/08/2020/10:55 Family Phys: GIULIANO HARRIS Charge Code: 278285 Physician: [place] Order #: [id number] DLP Dose#: PROCEDURE: X-RAY CHEST 2 VIEWS [...] Martinez MD on 08/08/2020 at 11:21 Normal [facility] CT LOWER EXTREMITY LT WOon 0 07-04-2020 CT LOWER EXTREMITY LT [place] [address] Patient: SINA JENSEN Phone#: : 1970 Age: 50 Gender: F Pt. Type: Out Account: [id number] Location: Ordering: FRANKIE SNEED Exam Date: 07/04/2020/8:09 Family Phys: GIULIANO HARRIS Charge Code: 425202 Physician: [place] Order #: [id number] DLP Dose#: 34.10 PROCEDURE: CT LOWER EXTREMITY [...] 3. Lateral patellar tilt Dictated by: Lara Xaio MD on 07/04/2020 at 13:19 Approved by: Lara Xiao MD on 07/04/2020 at 13:19 Normal [facility] CT LOWER EXTREMITY RT WOon 0 07-04-2020 CT LOWER EXTREMITY RT [address] [address] Patient: SINA JENSEN Phone#: : 1970 Age: 50 Gender: F Pt. Type: Out Account: [id number] Location: Ordering: [employer] Exam Date: 07/04/2020/8:09 Family Phys: GIULIANO HARRIS Charge Code: [id number] Physician: [place] Order #: [id number] DLP Dose#: 34.10 PROCEDURE: CT LOWER EXTREMITY [...] 50 Gender: F Pt. Type: Out Account: [id number] Location: Ordering: FRANKIEVIANEY SNEED Exam Date: 07/04/2020/8:09 Family Phys: GIULIANO HARRIS Charge Code: 139454 Physician: [place] Order #: [id number] DLP Dose#: 34.10 Approved by: Lara Xiao MD on 07/04/2020 at 13:30 Normal [facility] CNOVon 07-09-2019 CNOV Office Visit (UCWSTR ) BELKYSSINA R ([id number]) 1970 F Date Time Provider Department 07/09/19 5:30 PM MIRIAM TAYLOR ([facility]) [facility] During your visit today, we recorded the following information about you: Temperature Pulse Respiration Blood pressure 100.1 degrees 110/minute 18/minute 130/82 Weight 89.9 kg Miriam Taylor APRN.DICTATING MACHINE MECHANIC 07/09/2019 6:07 PM Signed Subjective Sina Velasquezalexander is a 49 year old female who [...] no real findings - LIGATE FALLOPIAN TUBE 2002 Tubal ligation - PAST SURGICAL HISTORY OF [...] Discussed expected course of illness Miriam Taylor APRN.[employer]CTATING [employer]ACH[employer]CH[employer] [facility] PATIENT INFO SKIN INFECTION OVERVIEW [...] pain Date Reviewed: 07/09/2019 Reviewed by: Miriam Rendon) Claudia - Fully Assessed Reason for Visit: sore [...] CONSULT TO GENERAL SURGERY [9011] Order #: [id number]: 1 WOUND CULTURE AND GRAM STAIN [SQWCUL] Order #: [id number] Prescriptions as of 07/09/2019 Sig: LEVOTHYROXINE 137 [...] Discussed expected course of illness Miriam Taylor APRN.[facility] CARE PATIENT INFO SKIN INFECTION OVERVIEW Cellulitis [...] Encounter Status:Closed by MIRIAM TAYLOR on 07/09/19 [facility] 07-09-2019 PROGRESS HNO ID: [id number] Author: Miriam (Ronald) Claudia Service: ? Author Type: Nurse Practitioner Type: [...] Discussed expected course of illness Miriam Taylor APRN.DICTATING MACHINE MECHANIC Normal [facility] Wound Culture/Stainon 2018 Wound Culture/Stain Sp. Request/Comment: - Swab Smear Result - Few Gram positive cocci in clusters --> ABNORMAL ALERT Rare Polymorphonuclear leukocytes Rare Epithelial cells Culture Result - Moderate Methicillin resistant Staphylococcus aureus --> ABNORMAL ALERT For wound culture, tissue or aspirates are superior to swab specimens. If a swab must be used, eSwab is preferred (Schreiber no. [id number]). ORGANISM: Methicillin resistant Staphylococcus aureus METHOD: Minimum [...] F Doxycycline SUSCEPTIBLE <=0.5 F Critically abnormal [facility] Comment on above: Performed By: #### W CUL #### [place] [id number] [place] [id number] Vital Signs Date Time Vital Sign Value Performing Clinician Facility 05-24-2023 14:58-0400 Body height 154.9 cm Alisa Marques CNP Work Phone: [facility] 05-24-2023 14:58-0400 Body mass index (BMI) [Ratio] 35.52 kg/m2 Alisa Marques CNP Work Phone: [facility] 05-24-2023 14:58-0400 Body weight 85.28 kg Alisa Marques CNP Work Phone: [facility] 06-02-2022 15:15-0400 Diastolic blood pressure 80 mm[Hg] Giuliano Harris Other Phone: [facility] 06-02-2022 15:15-0400 Heart rate 82 /min Giuliano Harris Other Phone: [facility] 06-02-2022 15:15-0400 Respiratory rate 15 /min Giuliano Harris Other Phone: [facility] 06-02-2022 15:15-0400 SaO2% (BldA) [Mass fraction] 96 % Giuliano Harris Other Phone: [facility] 06-02-2022 15:15-0400 Systolic blood pressure 132 mm[Hg] Giuliano Harris Other Phone: [facility] 06-02-2022 11:26-0400 Body height 154.9 cm Giuliano Harris Other Phone: [facility] 06-02-2022 11:26-0400 Body temperature 98.06 [degF] Giuliano Harris Other Phone: [facility] 06-02-2022 11:26-0400 Body weight 86.3 kg Giuliano Harris Other Phone: [facility] Encounters Encounter Date Encounter Type Care Provider Facility Start: 05-24-2025 ambulatory Tatum Stevens Facility:[facility] Start: 03-29-2025 End: 03-29-2025 ambulatory HOLDEN PERALTA Work Phone: [facility] Work Phone: Start: 03-29-2025 End: 03-29-[address] Ivette Barton MD -Pulmonary Services/Neurology Work Phone: Start: 03-29-2025 End: 03-29-2025 ambulatory Ivette Barton Facility:[facility] Start: 02-09-2025 End: 02-09-2025 ambulatory HOLDEN PERALTA Work Phone: [facility] Work Phone: Start: 02-09-2025 End: 02-09-[address] Ivette Barton MD -Laboratory Work Phone: Start: 02-09-2025 End: 02-09-2025 ambulatory Ivette Barton Facility:[facility] Start: 01-19-2025 End: 01-19-2025 ambulatory Tatum Stevens [employer] O[employer]-C Work Phone: [facility] Work Phone: Start: 01-19-2025 End: 01-19-2025 Patient encounter procedure Tatum Marion [employer] OPERATOR-C -MRI - [facility] Work Phone: Start: 01-19-2025 End: 01-19-2025 ambulatory Tatum Stevens Facility:[facility] Start: 12-07-2024 End: 12-07-2024 ambulatory Tatum Stevens [employer] OPERATOR-C Work Phone: [facility] Work Phone: Start: 12-07-2024 End: 12-07-2024 Patient encounter procedure Tatum Marion [employer] OPERATOR-C Work Phone: -Laboratory Work Phone: Start: 12-07-2024 End: 12-07-2024 ambulatory CRYSTAL SAPP Facility:[facility] Start: 10-09-2024 End: 10-09-[address] Ivette Barton MD -Laboratory Work Phone: Start: 10-09-2024 End: 10-09-2024 ambulatory Ivette Barton Facility:[facility] Start: 09-28-2024 End: 09-28-2024 Patient encounter procedure Tatum Marion E[employer] OPERATOR-C -Radiology, [facility] Work Phone: Start: 09-28-2024 End: 09-28-2024 ambulatory [facility] Facility:[facility] Start: 09-03-2024 End: 09-03-2024 Emergency department patient visit MAHESH DORSEY SALAS [facility] Start: 08-18-2024 End: 08-18-2024 ambulatory [facility] Facility:[facility] Start: 06-08-2024 End: 06-08-2024 ambulatory [facility] Facility:[facility] Start: 06-04-2024 End: 06-04-2024 ambulatory [facility] Facility:[facility] Start: 05-29-2024 End: 05-29-2024 ambulatory [facility] Facility:[facility] Start: 05-18-2024 End: 05-18-2024 ambulatory [facility] Facility:[facility] Start: 05-07-2024 End: 05-11-2024 ambulatory CLAUDETTE ARTEAGA MD Facility:B Start: 05-07-2024 End: 05-11-2024 Encounter for gynecological examination (general) (routine) without abnormal findings CLAUDETTE ARTEAGA MD Facility:B Start: 05-07-2024 End: 05-11-2024 Outreach Lab CLAUDETTE ARTEAGA MD [facility] Start: 10-11-2023 End: 10-11-2023 ambulatory [facility] Work Phone: Start: 10-11-2023 End: 10-11-2023 Patient encounter procedure [facility]-Laboratory Work Phone: Start: 07-22-2023 End: 07-22-2023 Postop follow up visit related to original px Enrike Mcgee MD Work Phone: [facility] Comment on above: Trigger middle finge r of right hand (Primary Dx); Painful orthopaedic hardware (HCC) Start: 07-08-2023 End: 07-08-2023 ambulatory PHYSICIAN [facility] Start: 06-15-2023 [facility] Enrike Mcgee MD Work Phone: [facility] Comment on above: Trigger middle finge r of right hand (Primary Dx); Painful orthopaedic hardware (HCC) Start: 05-25-2023 Documentation procedure Araseli munoz MA [facility] Start: 05-24-2023 End: 05-28-2023 ambulatory ALISA MARQUES [facility] Ambulatory Start: 05-24-2023 End: 05-24-2023 Office outpatient new 30 minutes Alisa Alvarez Marques CNP Work Phone: [facility] Comment on above: Trigger middle finge r of right hand (Primary Dx); Painful orthopaedic hardware (HCC) Start: 05-06-2023 End: 05-06-2023 ambulatory [facility] Work Phone: Start: 05-06-2023 End: 05-06-2023 Patient encounter procedure [facility]-Outpatient Breast Imaging Work Phone: Start: 02-05-2023 End: 02-05-2023 ambulatory [facility] Work Phone: Start: 02-05-2023 End: 02-05-2023 Patient encounter procedure [facility]-Laboratory Start: 10-29-2022 End: 10-29-2022 ambulatory [facility] Work Phone: Start: 10-29-2022 End: 10-29-2022 Patient encounter procedure [facility]-Ultrasound, [facility] Start: 10-22-2022 End: 10-22-2022 ambulatory [facility] Work Phone: Start: 10-22-2022 End: 10-22-2022 Patient encounter procedure [facility]-Laboratory Start: 10-05-2022 End: 10-05-2022 ambulatory [facility] Work Phone: Start: 10-05-2022 End: 10-05-2022 Patient encounter procedure [facility]-Laboratory Start: 06-02-2022 End: 06-02-2022 Emergency department patient visit Seymour Callejas [facility] Emergency 12 Start: 04-16-2022 End: 04-16-2022 Patient encounter procedure [facility]-Outpatient Breast Imaging Start: 08-18-2020 End: 08-19-2020 Patient encounter procedure FRANKIE BALBUENA [facility] Start: 08-08-2020 Encounter for other preprocedural examination FRANKIE [facility] Start: 08-08-2020 End: 08-08-2020 Patient encounter procedure FRANKIE BALBUENA [facility] Start: 07-04-2020 End: 07-04-2020 Patient encounter procedure FRANKIE SNEED [facility] Encounter for other preprocedural examination FRANKIE [facility] Procedures Date Procedure Procedure Detail Performing Clinician Start: 02-09-2025 Parathyroid hormone measurement HOLDEN PERALTA Work Phone: Start: 02-09-2025 Vitamin D, 25-hydrox y measurement HOLDEN PERALTA Work Phone: Comment on above: Vitamin D StatusDefi ciency: <20 ng/mL (50nmol/L)Insufficiency: 20-30 ng/mL (50-75 nmol/L)Sufficiency: 30-100 ng/mL (75-250 nmol/L)Toxicity: >100 ng/mL (>250 nmol/L) Start: 01-19-2025 MRI of lumbar spine Katrin Stevens [employer] OPERATOR-C Work Phone: Start: 12-07-2024 Parathyroid hormone measurement HOLDEN PERALTA Work Phone: Start: 09-28-2024 Plain x-ray of pelvi s and lower extremity Tatum Stevens [employer] OPERATOR-C Work Phone: Start: 09-28-2024 X-ray of lumbar spin e, two or three views Tatum Stevens [employer] CR[employer] OPERATOR-C Work Phone: Start: 05-06-2023 Screening mammography Start: [...] mass Comment on above: Right lower back- Li garrett- 12/29/18 H/O: surgery S/P thyroid biopsy History [...] Start: 07-06-2030 Tetanus vaccination Tetanus: Every 10yrs [facility] Start: 07-22-2023 End: 07-22-2023 Follow-up encounter 07/22/2023 1:15 PM EDT Follow-Up [facility] [address] [place] [address] Enrike Mcgee MD [address] [place] [address] [facility] Start: 07-08-2023 Subsequent hospital visit by physician 07/08/2023 Hospital Encounter [facility] [address] [place] [phone] Enrike Mcgee MD [address] [place] [address] [facility] Start: 06-10-2023 COVID-19 Vaccine ( season) COVID-19 Vaccine ( season) [facility] Start: 06-10-2023 Influenza vaccination Sequential Influenza Vaccine (#1) [facility] Start: 02-09-2023 Procedure [facility] Start: 09-24-2021 COVID-19 Vaccine (2 - Booster for Shawn series) COVID-19 Vaccine (2 - Booster for Shawn series) [facility] Start: 2019 Administration of herpes zoster vaccine Zoster Vaccines (1 of 2) [facility] Start: 2019 Screening for malignant neoplasm of colon Flexible sigmoidoscopy [facility] Start: 2009 Screening for malignant neoplasm of breast Mammogram [facility] Start: 1990 Screening for malignant neoplasm of cervix Pap Smear [facility] Start: 1987 Hepatitis C screening Hepatitis C Screening [facility] Start: 1984 HIV screening HIV Screening [facility] Start: 1981 Depression screening using PHQ-9 (Patient Health Questionnaire 9) score Depression Screening (PHQ-2/9) [facility] Start: 1979 Diabetic foot examination Foot Exam [facility] Start: 1979 Glaucoma screening Diabetic Eye Exam [facility] Start: 1979 Urine screening for protein Urine Microalbumin [facility] Start: 1972 History and physical examination, annual for health maintenance Wellness Visit [facility] Start: 1970 Hemoglobin A1c measurement A1C [facility] Start: 1969 Screening for malignant neoplasm of colon [facility] HARDWARE REMOVAL UPP ER EXTREMITY HARDWARE REMOVAL UPPER EXTREMITY Trigger middle finger of right hand Painful orthopaedic hardware (HCC) [facility] Procedure [facility] Immunizations Immunization Date Immunization Notes Care Provider Fa mihirty 07-06-2020 tetanus toxoid, redu filiberto diphtheria toxoid, and acellular pertussis vaccine, adsorbed [facility] Payers Date Payer Category Payer Self-pay [id number] 2023 Department of Counts Include [facility] ( [facility] others) [id number] 2023 Unknown 2023 Unknown [id number] 2016 Unknown [id number] 1970 Unknown [id number] 2.16.840.1.866931.3.579.2.651 1970 Unknown [id number] 2.16.840.1.271586.3.579.2.651 1970 Unknown [id number] 2.16.840.1.588801.3.579.2.651 1970 Unknown [id number] 2.16.840.1.033516.3.579.2.1069 1970 Unknown [id number] 2.16.840.1.442293.3.579.2.903 1970 Unknown [id number] 2.840.1.786642.3.579.2.903 1970 Unknown [id number] 2.840.1.158474.3.579.2.903 1970 Unknown [id number] 2.840.1.189478.3.579.2.627 1970 Unknown [id number] 2.840.1.861180.3.579.2.902 Department [facility] ([facility] and others) [facility] [id number] Unknown [id number] Unknown [id number] 2.16840.1.592887.3.579.2.462 Unknown [id number] 2.16840.1.911565.3.579.2.462 Unknown [id number] 2.16840.1.230402.3.579.2.462 Unknown [id number] 2.16.840.1.463352.3.579.2.462 Unknown [id number] 2.16840.1.498342.3.579.2.462 Unknown [id number] 2.840.1.235343.3.579.2.462 Unknown [id number] 2.16.840.1.445098.3.579.2.462 Unknown [id number] 2.16.840.1.922683.3.579.2.462 Unknown [id number] 2.16.840.1.321870.3.579.2.462 Unknown [id number] 2.16.840.1.499339.3.579.2.462 Unknown [id number] 2.16.840.1.164891.3.579.2.462 Unknown [id number] 2.16.840.1.692600.3.579.2.462 Unknown [id number] 2.16.840.1.588476.3.579.2.462 Social History Date Type Detail Facility Start: 08-06-2020 End: 08-07-2020 Tobacco smoking status NHIS Unknown if ever smoked [facility] Start: 07-06-2020 Occasional [facility] Start: 07-06-2020 None [facility] Start: 07-06-2020 With Family [facility] Start: 08-06-2020 Cigarettes [facility] Start: 1970 Sex Assigned At Female [facility] Start: 08-06-2020 End: 05-24-2023 Tobacco smoking status NHIS Never smoked tobacco [facility] Start: 05-24-2023 Tobacco use and exposure Smokeless tobacco non-user [facility] Start: 05-24-2023 End: 07-24-2023 Alcohol intake Ex-drinker (finding) [facility] Start: 05-24-2023 End: 07-24-2023 History of Social function [facility] Start: 05-24-2023 End: 07-24-2023 Tobacco use panel [facility] Start: 1970 Sex Assigned At Not on file [facility] Start: 05-23-2023 Gender identity Identifies as female gender (finding) [facility] Start: 05-23-2023 Sexual orientation Heterosexual (finding) [facility] Sex Assigned At Sex [facility] Start: 12-20-2024 End: 01-22-2025 Sex Female (finding) [facility] Clinical Notes 05-25-2023 to 05-09-2024 [facility] - 07/24/2023 9:35 AM Araseli Reynolds MA - 05/25/2023 11:28 AM Alisa Ojeda CNP - 05/25/2023 8:33 AM EDT Note Date & Type Note Facility 05-09-2024 Note SATISFACTORY FOR EVALUATION Endocervical/Transformational zone component present [facility] 05-09-2024 Note SATISFACTORY FOR EVALUATION Endocervical/Transformational zone component present [facility] 05-09-2024 Note SATISFACTORY FOR EVALUATION Endocervical/Transformational zone component present [facility] 05-09-2024 Note SATISFACTORY FOR EVALUATION Endocervical/Transformational zone component present [facility] 05-09-2024 Note SATISFACTORY FOR EVALUATION Endocervical/Transformational zone component present [facility] 05-09-2024 Note SATISFACTORY FOR EVALUATION Endocervical/Transformational zone component present [facility] 05-09-2024 Note SATISFACTORY FOR EVALUATION Endocervical/Transformational zone component present [facility] 05-09-2024 Note SATISFACTORY FOR EVALUATION Endocervical/Transformational zone component present [facility] 05-07-2024 Evaluation + Plan note Future Scheduled TestsMA Mammo Screening Bilateral w/ John 05/07/24MA Mammo Screening Bilateral w/ John 05/07/24MA Mammo Screening Bilateral w/ John 05/07/24 [facility] 07-24-2023 History of Present illness Narrative Sina [...] a p.r.n. basis. documented in this encounter [facility] 05-25-2023 History of Present illness Narrative I called Sina to let her know our looping machine operator would be giving her a call to schedule her trigger release and hardware removal surgery in 10 to 14 days patient was understanding. documented in this encounter [facility] 05-25-2023 History of Present illness Narrative Images from the original note were not included. [employer] [address] [facility] [address] [facility] [id number] Chief Complaint Patient presents with Right Hand [...] prior to surgery. documented in this encounter [facility] Evaluation note No assessment inform ation available [facility] Work Phone: Evaluation note Diagnosis Trigger middle finger of right hand- Primary Painful orthopaedic hardware (HCC) [facility] Trigger middle finger of right hand- Primary Painful orthopaedic hardware (HCC) [facility] Trigger middle finger of right hand- Primary Painful orthopaedic hardware (HCC) [facility] Narr[facility] No data available for this section [facility] Hospital Discharge instructions No data available for this section [facility] Reason for referral (narrative)No reason for referral [facility] Work Phone: Summary Purpose Family History No Family History Records Found Relationship Condition Age at Onset Recorded Date/T maddie father Cardiac disease Unknown Diabetes mellitus Unknown mother Chronic obstructive pulmonary disease Unk nown Advance Directives No Advanced Directives Records Found Advance Directive Response Recorded Date/ Time Advance Directives No November 12:16am Living Will No August 06 11:38pm Power of Guitar Teacher No August 06, 2020 11:38pm Advance Directive Response Recorded Date/ Time Advance Directives No November 11:16pm Living Will No August 06 10:38pm Power of Guitar Teacher No August 06, 2020 10:38pm Advance Directive Response Recorded Date/ Time Advance Directives No November 12:16am Hospital Course Note [facility] DISCHARGE SUMMARY NAME ACCOUNT SEX AGE ADMIT DISCHARGE PT MED. RECORD# NUMBER DATE DATE SINA JENNINGS [id number] F 50 08/18/20 2 [id number] ROOM: [id number] DATE OF : 1970 ATTENDING PHYSICIAN: Frankie [...] Date SCIATICIA January 19, 2025 7:2 0am Chief Complaint Admit Date SCIATICIA January 19, 2025 7:2 0am TYPE 2 DIABETES March 29, 2025 7:16 am Additional Source Comments INFORMATION SOURCE (unrecogn ized section and content) DATE CREATED AUTHOR 07/13/2019 [facility] DATE CREATED AUTHOR AUTHOR'S ORGANIZ ATION 08/25/2020 [facility] DATE CREATED AUTHOR AUTHOR'S ORGANIZ ATION 09/07/2022 [facility] DATE CREATED AUTHOR AUTHOR'S ORGANIZ ATION 05/28/2023 [facility] DATE CREATED AUTHOR AUTHOR'S ORGANIZ ATION 07/15/2023 [facility] DATE CREATED AUTHOR AUTHOR'S ORGANIZ ATION 05/20/2024 [facility] DATE CREATED AUTHOR AUTHOR'S ORGANIZ ATION 09/09/2024 [facility] DATE CREATED AUTHOR AUTHOR'S ORGANIZ ATION 05/18/2025 [facility] Goals (unrecognized section and content) Goals [...] Dr. Giuliano Harris MD Family Provider Active Tatum Marion , ELECTRIC TRUCK CRANE OPERATOR-C Primary Care Provider Active Team Status: Inactive Member Role Status Dates Tatum Stevens ELECTRIC TRUCK CRANE OPERATOR-C Primary Care Provide r, Attending Provider, Referring Provider Active Physical Therapy Aides Teacher Relationship Specialty Start Date End Date No, Physician [facility] PCP - General 05/24/23 Physical Therapy Aides Teacher Relationship Specialty Start Date End Date No, Physician [facility] PCP - General 05/24/23 Physical Therapy Aides Teacher Relationship Specialty Start Date End Date No, Physician [facility] PCP - General 05/24/23 Physical Therapy Aides Teacher Relationship Specialty Start Date End Date No, Physician [facility] PCP - General 05/24/23 Team Status: Inactive Member Role Status Dates Tatum Stevens ELECTRIC TRUCK CRANE OPERATOR-C Primary Care Provider Active Dr. Ivette Barton MD Attending Provider, Referring Provider Active Team Status: Active Member Role Status Dates Tatum Stevens ELECTRIC TRUCK CRANE OPERATOR-C Primary Care Provider Active Team Status: Inactive Member Role Status Dates Tatum Stevens ELECTRIC TRUCK CRANE OPERATOR-C Primary Care Provider Active Start: September 28, 2024 End: September 28, 2024 Tatum Stevens NP-C Attending Provider Active St art: September 28, 2024 End: September 28, 2024 Tatum Stevens ELECTRIC TRUCK CRANE OPERATOR-C Referring Provider Active St art: September 28, 2024 End: September 28, 2024 Team Status: Inactive Member Role Status Dates Tatum Stevens ELECTRIC TRUCK CRANE OPERATOR-C Primary Care Provider Active Start: October 09, [...] December 07, 2024 End: December 07, 2024 Tatum Stevens ELECTRIC TRUCK CRANE OPERATOR-C Primary Care Provider Active Start: December 07, 2024 End: December 07, 2024 Team Status: Inactive Member Role Status Dates Tatum Stevens ELECTRIC TRUCK CRANE OPERATOR-C Primary Care Provider Active Start: January 19, 2025 End: January 19, 2025 Tatum Stevens NP-C Attending Provider Active St art: January 19, [...] February 09, 2025 End: February 09, 2025 Team Status: Inactive Member Role Status Dates LIGIA Romero Primary Care Provider Active Start: March 29, 2025 End: March 29, 2025 Dr. Ivette Barton MD Attending Provider Active Start: March 29, 2025 End: March 29, 2025 Dr. Ivette Barton MD Referring Provider Active Start: March 29, 2025 End: March 29, 2025 Reason for Visit (unrecogniz ed section [...] BE BASED ON THE PRIMARY CLINICAL RECORDS. [facility] [employer] [facility]. provides no warranty or guarantee of the accuracy or completeness of information in this document.
== END | disposition home or self-care (01) ==
LOC: OPBI 07:08
PROVIDERS: PCP Nurse Practitioner Family; Referring Provider Nurse Practitioner Family; Visit Provider Nurse Practitioner Family
DX: Z12.31 Encounter for screening mammogram for malignant neoplasm of breast (principal)
CPT/HCPCS: 77063; 77067

== ENCOUNTER → 2025-06-29 | Outpatient (CLI) | payer OTHER, SELFPAY ==
--- OUTSIDE RECORDS SUMMARY | 2025-06-29 10:13 | XMS RPT_ITS | CCD ---
Author Organization [facility] Care Team Providers Care Surveyor Rod Helper Name Role Phone FRANKIE SNEED DR Attending [...] kathie HARRIS MD, GIULIANO Primary Care Physician [phone] CLAUDETTE NAVAS MD Attending Unavailable GIULIANO HARRIS MD Primary Care Unavailable MAHESH SALAS Attending Unavailable MARION, TATUM Primary Care Unavailable Marion FORENSIC SCIENCE EXAMINER-C, Tatum Primary Care Provider [phone] Marion FORENSIC SCIENCE EXAMINER-C, Tatum Attending Provider [phone] Marion FORENSIC SCIENCE EXAMINER-C, Tatum Referring Provider Mick JO, Dr. Steele Attending Provider Dr. Ivette Barton MD Referring Provider HOLDEN PERALTA Attending Provider HOLDEN PERALTA Referring Provider Marion FORENSIC SCIENCE EXAMINER-C, Tatum Primary Care Provider Marion FORENSIC SCIENCE EXAMINER-C, Tatum Attending Provider [phone] Marion FORENSIC SCIENCE EXAMINER-C, Tatum Referring Provider Mick JO, Dr. Steele Attending Provider Dr. Ivette Barton MD Referring Provider Marion FORENSIC SCIENCE EXAMINER-C, Tatum Primary Care Provider Dr. Jerman Lepe MD Attending Provider Marion FORENSIC SCIENCE EXAMINER-C, Tatum Attending Provider [phone] Marion FORENSIC SCIENCE EXAMINER-C, Tatum Referring Provider [phone] Marion, Tatum Primary Care Unavailable RUBIO SEQUEIRA Attending Unavailable PUCH, RUBIO Referring Unavailable Ivette Barton Attending Unavailable Mick, Ivette [...] Tatum Referring Unavailable Jerman Lepe Attending Unavailable Marion, Tatum Primary Care Unavailable Mick, Ivette Referring Unavailable Marion, Tatum Attending Unavailable Marion, Tatum Referring Unavailable Marion, Tatum Primary Care Unavailable Marion, Tatum Attending Unavailable Marion, Tatum Referring Unavailable Marion, Tatum Primary Care Unavailable Marion, Tatum Primary Care Unavailable Nori Bartone Attending Unavailable Mick, Ivette Referring Unavailable Allergies Allergy Classification Reported Allergen(s) Allergy Type Date of Onset Reaction(s) Facility (4 sources) ceFAZolin; Translations: [CEFAZOLIN] Drug Allergy 3 [facility] Repository (4 sources) Codeine; Translations: [CODEINE] Drug Allergy 7 [facility] Repository (1 source) BEE STING; Translations: [BEE STING] Propensity to adverse reactions (disorder) [facility] Repository (18 sources) ceFAZolin; Translations: [cefazolin] Drug Allergy 0 Unknown, Hives [facility] Work Phone: (18 sources) Codeine; Translations: [codeine] Drug Allergy 7 Hives, Other (See Comments) [facility] Work Phone: (19 sources) bee venom protein (honey bee); Translations: [BEE VENOM PROTEIN (HONEY BEE)] Allergy to substance 0 Unknown [facility] (2 sources) Bee/Wasp/Ant venom Anaphylaxis [facility] (3 sources) KIWI; Translations: [KIWI] Propensity to adverse reactions to drug (disorder) 3 Anaphylaxis [facility] Repository (1 source) ceFAZolin Drug Allergy 0 [facility] Repository (1 source) Codeine Drug Allergy 0 [facility] Repository (1 source) bee venom protein (honey bee) Drug allergy (disorder) 0 [facility] Repository Medications Current Medications Medication Drug Class(es) Dates Sig (Normalized) Sig (Original) aspirin 81 mg oral tablet (2 sources) Platelet Aggregation Inhibitor, Nonsteroidal Anti-inflammatory Drug Start: 02-05-2021 Aspirin Low Dose 81 mg oral tablet, chewable Dose : 81 mg = 1 tab(s), Chewed, qDay, 0 Refill(s) Start Date: 02/05/21 Status: Ordered calcitriol 0.32398 mg oral capsule (6 sources) Vitamin D3 [...] day(s), # 45 gram(s), 1 Refill(s), Pharmacy: [id number], Cream, 155, cm, 05/07/24 11:44:00 EDT, Height, 89.9, kg, 05/07/24 11:44:00 EDT, Dosing Weight Start Date: 05/07/24 Stop Date: 07/06/24 Status: Ordered [id number] 0.3 ml EPINEPHrine 1 mg/ml auto-injector (13 sources) alpha-Adrenergic Agonist, beta-Adrenergic Agonist, Catecholamine Start : 08-07 inject 0.3 mg by intramuscular injection once Epinephrine 0.3 MG syringe Active 0.3 mg IM ONE TIME 2 0 August 07, 2020 12:00am EPINEPHrine 0.1 mg injectable kit ; 1 dose(s) injectable , As Needed Quantity: 0 Refills: 0 Ordered: 02-Jun-2022 Emily Smith Generic Substitution Allowed ergocalciferol 1.25 mg oral capsule (13 sources) Provitamin D2 Compound Start: 11-24-2016 Ergocalciferol (Shila min D2) 50,000 UNIT capsule Active 25315 U PO MOWEFR November 24, 2016 1:00am [...] day Quantity: 30 Refills: 0 Ordered: 02-Jun-2022 Malinda Seymour Start: 02-Jun-2022 End: 11-Jun-2022 Generic Substitution Allowed [...] Substitution Allowed predniSONE 20 mg oral tablet (12 sources) Start: 08-07-2020 take 2 tablets by mouth once daily at mealtime Prednisone 20 MG tablet Active 40 mg PO DAILY August 07, 2020 12:00am With food Start: 08-07-2020 take 40 mg by mouth once daily at mealtime Prednisone Active 40 MG PO DAILY August 06, 2020 11:00pm With food vitamin B12 (13 sources) Vitamin B12 Start: 02-05-2021 Vitamin B12 0 Refill(s) Start Date: 02/05/21 Status: Ordered Start: 11-24-2016 take 3 tablets by mo uth once daily Cyanocobalamin (Vitamin B-12) 1,000 MCG tablet Active 3000 ug PO DAILY November 24, 2016 1:00am SUPPLEMENT Start: 11-24-2016 take 3000 ug by mout [...] 03, 2019 12:00am January 04, 2019 12:08am Disorder of the skin and subcutaneous tissue, unspecified Start: 12-29-2018 End: 01-04-2019 take 1 tablet by mouth every four hours as needed Oxycodone-Acetaminophen Discontinued 1 - 2 TABLET PO EVERY 4 HOURS NEEDED 30 December 28, 2018 11:00pm January 03, 2019 11:08pm Start: 11-26-2016 End: 10-07-2017 Oxycodone-Acetaminophen 1 TA BLET tablet Discontinued 1 - 2 {tbl} PO EVERY 4 HOURS NEEDED as needed for Pain 40 0 November 26, 2016 1:00am October 07, 2017 [...] 4 Refill(s), Pharmacy: [id number], 153, cm, 02/18/22 8:29:00 EDT, Height [...] 1 Refill(s), Pharmacy: [facility] #[id number], 153, cm, 02/18/22 8:29:00 EDT, Height Start Date: 06/03/22 Stop Date: 10/01/22 Status: Ordered take 1 tablet by aaron once daily after dinner Prempro 0.45 mg-1.5 mg oral tablet ; 1 tab(s) orally once a day, after dinner Quantity: 0 Refills: 0 Ordered: 02-Jun-2022 Emily Smith Generic Substitution Allowed pantoprazole 40 mg delayed release oral tablet (12 sources) Proton Pump Inhibitor Start: 11-26-2016 End: 10-07-2017 take 1 tablet by mouth twice daily Pantoprazole 40 MG tablet Discontinued 40 mg PO TWICE A DAY 60 2 November 26, 2016 1:00am October 07, 2017 10:34am sucralfate 1000 mg oral tablet (12 sources) Aluminum Complex Start: 11-26-2016 End: 10-07-2017 take 1 tablet by mouth four times daily Sucralfate 1 GM tablet Discontinued 1 g PO 4 TIMES DAILY 120 0 November 26, 2016 1:00am October 07, 2017 10:34am Problems Active Problems Problem Classification Problem Date Documented Date Episodic/Chronic Abdominal pain (12 sources) Right upper quadrant pain; Translations: [Right upper quadrant pain] 12-29-2018 Episodic Complication of device; implant or graft (9 sources) Pain; Translations: [Pain due to internal orthopedic prosthetic devices, implants and grafts, initial encounter] Onset: 05-24-2023 05-25-2023 Episodic Deficiency and other anemia (12 sources) Iron deficiency anemia; Translations: [Iron deficiency anemia, unspecified] 12-29-2018 Episodic Diabetes mellitus without complication (2 sources) Type 2 diabetes mellitus without complications; Translations: [Type 2 diabetes mellitus without complications] Onset: 08-18-2020 Chronic Gastritis and duodenitis (12 sources) Gastroduodenitis; Translations: [Gastroduodenitis, unspecified, without bleeding] 12-29-2018 Episodic Nutritional deficiencies (15 sources) Vitamin D deficiency; Translations: [Vitamin D deficiency, unspecified] Onset: 08-21-2018 12-29-2018 Chronic Open wounds of extremities (20 sources) Traumatic amputation of fingertip; Translations: [Unspecified open wound of unspecified finger without damage to nail, initial encounter] 07-07-2020 Episodic Osteoarthritis (18 sources) Bilateral post-traumatic osteoarthritis of knee; Translations: [...] mammogram for malignant neoplasm of breast] Onset: 05-29-2025 Episodic Other skin disorders (12 sources) Disorder of subcutaneous tissue; Translations: [Disorder of the skin and subcutaneous tissue, unspecified] 07-06-2020 Episodic Residual codes; unclassified (11 sources) Past history of procedure; Translations: [Other [...] 06-02-2022 06-02-2022 Episodic Other aftercare (1 source) residential (current) use of aspirin; Translations: [residential (current) use of aspirin] Onset: 06-02-2022 Episodic [...] Test Name Value Interpretation Reference Range Facility Breast imaging reportOrdered By: Mignon Dobbins on 05-24-2025 Study report [facility] Imaging Services [address] [place], [place] [address] SCRN MAMM (CAD)W/JOHN BILAT MR#: [id number] Acct: [id number] Name: GARRISON WALKER Rep #: [id number] : 1970 F 55 From: Nalini Dobbins MD PCP: LIGIA Romero Status: REG CLI Study:SCRN MAMM (CAD)W/JOHN BILAT Date of Exa m: 05/24/25 Exam# [id number] Ordering Dr: Ra cinda Stevens EXAM: SCRN MAMM (CAD)W/JOHN BILAT DATE: 05/24/2025 CLINICAL HISTORY: F, Age 55 y/o , SCREENING TECHNIQUE: SCRN MAMM (CAD)W/JOHN BILAT COMPARISON: Prior exam(s) dated 05/18/2024, 04/28/2023, 04/16/2022. FINDINGS: TISSUE DENSITY: There are scattered areas of fibroglandular density. Bilateral Breast Mammographic Findings: No significant masses, calcifications or other abnormalities are identified. BI/SCRN MAMM (CAD)W/JOHN BILAT IMPRESSION: There is no mammographic evidence of malignancy. OVERALL FINAL ASSESSMENT BI-RADS 1: NEGATIVE. RECOMMENDATION: Routine annual follow-up in 1 Year A letter with findings and recommendations will be mailed to the patient. Reading Location: [id number] CC: FORENSIC SCIENCE EXAMINERAdi Stevens ~ Child Custody Evaluator: Signed [facility] SCRN MAMM (CAD)W/JOHN BILATo n 05-24-2025 SCRN MAMM (CAD)W/JOHN BILAT [facility] Imaging Services [address] [place] [id number] SCRN MAMM (CAD)W/JOHN BILAT MR#: [id number] Acct: [id number] Name: GARRISON WALKER Rep #: [id number] : 1970 F 55 From: Mignon Dobbins MD PCP: LIGIA Romero Status: REG CLI Study: SCRN MAMM (CAD)W/JOHN BILAT Date of Exam: 05/10 03/03 Exam# [id number] Ordering Dr: Tatum Stevens EXAM: SCRN MAMM (CAD)W/JOHN BILAT DATE: 05/24/2025 CLINICAL HISTORY: F, Age 55 y/o , SCREENING TECHNIQUE: SCRN MAMM (CAD)W/JOHN BILAT COMPARISON: Prior exam(s) dated 05/18/2024, 04/28/2023, 04/16/2022. FINDINGS: TISSUE DENSITY: There are scattered areas of fibroglandular density. Bilateral Breast Mammographic Findings: No significant masses, calcifications or other abnormalities are identified. BI/SCRN MAMM (CAD)W/JOHN BILAT IMPRESSION: There is no mammographic evidence of malignancy. OVERALL FINAL ASSESSMENT BI-RADS 1: NEGATIVE. RECOMMENDATION: Routine annual follow-up in 1 Year A letter with findings and recommendations will be mailed to the patient. Reading Location: [facility] CC: FORENSIC SCIENCE EXAMINER-C Tatum Stevens Child Custody Evaluator: Signed Normal [facility] Electrocardiogram reportOrde red By: Kedra Mo on 04-02-2025 EKG study [facility] Cardiovascular Services [address] [place] [address] 12 Lead EKG 03/29/25 0728 MR#: [id number] Acct: [id number] Name: GARRISON WALKER Rep #:[id number] : 1970 55 From: Kedar Mo MD Attending Dr: Dr. Ivette Barton MD Status: REG CLI Ordering Dr: Ivette Barton MD Date: 03/29/25 Location: N Sex: F C Admitted: Test Reason : [...] was found Confirmed by KEDAR MO MD ([id number]), book or script editor DEANGELO MAGANA ([id number]) on 04/02/2025 6:42:48 AM Referred By: Ivette Barton Confirmed By: KEDAR MO MD 04/02/2542 Date _ Kedar Mo MD CC: FORENSIC SCIENCE EXAMINER-C Tatum Stevens; Dr. Ivette Barton MD ~ Signed [facility] Other 12 Lead EKGon 03-29-2025 12 Lead EKG [facility] Cardiovascular Services [address] [place] [address] 12 Lead EKG 03/29/25 0728 MR#: [id number] Acct: [id number] Name: GARRISON WALKER Rep #: [id number] : 1970 55 From: Kedar Mo MD Attending Dr: Dr. Ivette Barton MD Status: RE G CLI Ordering Dr: Ivette Barton MD Date: 03/29/25 Location: [facility] Sex: F C Admitted: Test Reason : [...] was found Confirmed by KEDAR MO MD ([id number]), book or script editor DEANGELO MAGANA ([id number]) on 04/02/2025 6:42:48 AM Referred By: Ivette Barton Confirmed By: KEDAR MO MD 06/641 Kedar Mo MD CC: FORENSIC SCIENCE EXAMINER-Sherrell Stevens; Dr. Ivette Barton MD Signed Normal [facility] AST(SGOT)on 02-09-2025 AST [Catalytic activity/Vol] 24 U/L Normal <=31 [facility] Comment on above: Performed By: #### L 509.1000, L500.2500, L501.4100, L501.4405, L501.9520, L506.1001, L500.4100, L501.9985 #### [facility] Laboratory [address] [place], [address] Alanine Aminotransferas (SGP T)on 02-09-2025 ALT [Catalytic activity/Vol] 28 U/L Normal <=34 [facility] Comment on above: Performed By: #### L 509.1000, L500.2500, L501.4100, L501.4405, L501.9520, L506.1001, L500.4100, L501.9985 #### [facility] Laboratory [address] [place], [address] Anion gap in Serum or Plasma Ordered By: Ivette Barton on 02-09-2025 Anion gap [Moles/Vol] 10 mmol/L 02-21 [facility] BUN/creatinine ratioOrdered By: Ivette Barton on 02-09-2025 Urea nitrogen/Creatinine [Mass ratio] 18.0 mg/mg - [facility] Basic Metabolic Profile (BMP )on 02-09-2025 BUN/CRE 18.0 RATIO Normal 07-29 [facility] Comment on above: Performed By: #### L 509.1000, L500.2500, L501.4100, L501.4405, L501.9520, L506.1001, L500.4100, L501.9985 #### [facility] Laboratory [address] [place], [address] Calcium [Mass/Vol] 9.7 mg/dL Normal 7.6-11.0 [facility] Comment on above: Performed By: #### L 509.1000, L500.2500, L501.4100, L501.4405, L501.9520, L506.1001, L500.4100, L501.9985 #### [facility] Laboratory [address] [place], [address] Chloride [Moles/Vol] 104 mmol/L Normal 98-108 [facility] Comment on above: Performed By: #### L 509.1000, L500.2500, L501.4100, L501.4405, L501.9520, L506.1001, L500.4100, L501.9985 #### [facility] Laboratory [address] [place], [address] CO2 [Moles/Vol] 26.3 mmol/L Normal 21.0-32.0 [facility] Comment on above: Performed By: #### L 509.1000, L500.2500, L501.4100, L501.4405, L501.9520, L506.1001, L500.4100, L501.9985 #### [facility] Laboratory [address] [place], [address] Creatinine [Mass/Vol] 0.62 mg/dL Low 0.70-1.20 [facility] Comment on above: Performed By: #### L 509.1000, L500.2500, L501.4100, L501.4405, L501.9520, L506.1001, L500.4100, L501.9985 #### [facility] Laboratory [address] [place], [address] GAP 10 Normal 5-15 [facility] Comment on above: Performed By: #### L 509.1000, L500.2500, L501.4100, L501.4405, L501.9520, L506.1001, L500.4100, L501.9985 #### [facility] Laboratory [address], [address] GFR/1.73 sq M.predicted among non-blacks MDRD (S/P/Bld) [Vol rate/Area] 105 mL/min/{1.73_m2} Normal >60 [facility] Comment on above: Result Comment: mL/m in/1.73m2 CKD-EPI Creatinine Equation (2020) Performed By: #### L 509.1000, L500.2500, L501.4100, L501.4405, L501.9520, L506.1001, L500.4100, L501.9985 #### [facility] Laboratory [address] [place], [address] Glucose [Mass/Vol] 109 mg/dL High 70-99 [facility] Comment on above: Performed By: #### L 509.1000, L500.2500, L501.4100, L501.4405, L501.9520, L506.1001, L500.4100, L501.9985 #### [facility] Laboratory [address] [place], [address] Potassium [Moles/Vol] 4.5 mmol/L Normal 3.3-5.1 [facility] Comment on above: Performed By: #### L 509.1000, L500.2500, L501.4100, L501.4405, L501.9520, L506.1001, L500.4100, L501.9985 #### [facility] Laboratory [address] [place], [address] Sodium [Moles/Vol] 139 mmol/L Normal 133-145 [facility] Comment on above: Performed By: #### L 509.1000, L500.2500, L501.4100, L501.4405, L501.9520, L506.1001, L500.4100, L501.9985 #### [facility] Laboratory [address] [place], [address] Urea nitrogen [Mass/Vol] 11 mg/dL Normal 4-19 [facility] Comment on above: Performed By: #### L 509.1000, L500.2500, L501.4100, L501.4405, L501.9520, L506.1001, L500.4100, L501.9985 #### [facility] Laboratory [address] [place], [address] Calculated very low density lipoprotein (VLDL) cholesterol measurementOrdered By: Ivette Barton on 02-09-2025 Calculated very low density lipoprotein (VLDL) cholesterol measurement 51 mg/dL High 5-40 [facility] Carbon dioxide, total [Moles /volume] in Central venous bloodOrdered By: Ivette Barton on 02-09-2025 CO2 [Moles/Vol] 26.3 mmol/L 21.0-32.0 [facility] Chloride assayOrdered By: Nikki Barton on 02-09-2025 Chloride [Moles/Vol] 104 mmol/L 98-108 [facility] Glomerular filtration rate ( GFR) estimation/1.73 sq m using serum, plasma, or whole bOrdered By: Ivette Barton on 02-09-2025 GFR/1.73 sq M.predicted among non-blacks MDRD (S/P/Bld) [Vol rate/Area] 105 mL/min/{1.73_m2} >60 [facility] Comment on above: mL/min/1.73m2 CKD-EP I Creatinine Equation (2020) Hemoglobin A1con 02-09-2025 HbA1c (Bld) [Mass fraction] 5.4 % Normal <=5.6 [facility] Comment on above: Result Comment: Norm al < 5.7 % Prediabetic 5.7 - 6.4 % Diabetic >or= 6.5 % Please note range changes. Performed By: #### L 500.2500, L501.4100, L501.4405, L501.9520, L509.1000 #### [facility] Laboratory [address] [place], [place], [address] Hemoglobin A1c percentageOrd ered By: Ivette Barton on 02-09-2025 HbA1c (Bld) [Mass fraction] 5.4 % <5.7 [facility] Comment on above: Normal < 5.7 % Predi abetic 5.7 - 6.4 % Diabetic >or= 6.5 % Please note range changes. LDL calc ser/plasOrdered By: Ivette Barton on 02-09-2025 Cholesterol in LDL [Mass/Vol] 105 mg/dL [facility] Comment on above: Ubnofjhoaw=380-787 m g/dL & Higher Qajw=752 mg/dL or greater Laboratory - Chemistry and C hemistry - challengeOrdered By: Ivette Barton on 02-09-2025 AST [Catalytic activity/Vol] 24 U/L <32 [facility] Lipid Profileon 02-09-2025 CHOL:HDL 4.54 Normal [facility] Comment on above: Performed By: #### L 500.2500, L501.4100, L501.4405, L501.9520, L509.1000 #### [facility] Laboratory [address], [address] Cholesterol [Mass/Vol] 200 mg/dL Normal <=200 [facility] Comment on above: Result Comment: Chol esterol level, Desirable <200 mg/dL Borderline high cholesterol 200-239 mg/dL High cholesterol >=240 mg/dL Recommendations of the NCEP Adult Treatment Panel for the following risk-cutoff thresholds for the [place] population. Performed By: #### L 500.2500, L501.4100, L501.4405, L501.9520, L509.1000 #### [facility] Laboratory [address] [place], [address] Cholesterol in HDL [Mass/Vol] 44 mg/dL Normal [facility] Comment on above: Result Comment: Kathie onal Cholesterol Education Program (NCEP) guidelines: <40 mg/dL: Low HDL-cholesterol (major risk factor for CHD) >= 60 mg/dL: High HDL-cholesterol (negative risk factor for CHD) HDL-cholesterol is affected by a number of factors, e.g. smoking, exercise, hormones, sex and age. Performed By: #### L 500.2500, L501.4100, L501.4405, L501.9520, L509.1000 #### [facility] Laboratory [address] [place], [address] Cholesterol in LDL [Mass/Vol] 105 mg/dL Normal [facility] Comment on above: Result Comment: Bord qiwlxt=254-538 mg/dL Higher Frrl=160 mg/dL or greater Performed By: #### L 500.2500, L501.4100, L501.4405, L501.9520, L509.1000 #### [facility] [address] [place], [address] Cholesterol in VLDL [Mass/Vol] 51 mg/dL High 5-40 [facility] Comment on above: Performed By: #### L 500.2500, L501.4100, L501.4405, L501.9520, L509.1000 #### [facility] Laboratory [address] [place], [address] Triglyceride [Mass/Vol] 254 mg/dL High [facility] Comment on above: Result Comment: The drugs N-Acetylcysteine and Metamizole may falsely depress this assay. Normal range: <150 mg/dL Borderline High: 150-199 mg/dL High: 200-499 mg/dL Very High: >500 mg/dL Performed By: #### L 500.2500, L501.4100, L501.4405, L501.9520, L509.1000 #### [facility] Laboratory [address] [place], [address] PTHINon 02-09-2025 PTH 59 pg/mL Normal - [facility] Comment on above: Performed By: #### L 509.1000, L500.2500, L501.4100, L501.4405, L501.9520, L506.1001, L500.4100, L501.9985 #### [facility] Laboratory [place], [address] Potassium measurement (mass/ volume)Ordered By: Ivette Barton on 02-09-2025 Potassium (Unsp spec) [Mass/Vol] 4.5 mmol/L 3.3-5.1 [facility] Screening total cholesterol/ high density lipoprotein (HDL) cholesterol ratioOrdered By: Ivette Barton on 02-09-2025 Cholesterol.total/Cho lesterol in HDL [Mass ratio] 4.54 {ratio} [facility] Serum creatinine measurement (mass/volume)Ordered By: Ivette Barton on 02-09-2025 Creatinine [Mass/Vol] 0.62 mg/dL Low 0.70-1.20 [facility] Serum glucose measurement (m ass/volume)Ordered By: Ivette Barton on 02-09-2025 Glucose [Mass/Vol] 109 mg/dL High 70-99 [facility] Serum or plasma alanine tubbs otransferase (ALT) measurementOrdered By: Ivette Barton on 02-09-2025 ALT [Catalytic activity/Vol] 28 U/L <35 [facility] Serum or plasma calcium will urement (mass/volume)Ordered By: Ivette Barton on 02-09-2025 Calcium [Mass/Vol] 9.7 mg/dL 7.6-11.0 [facility] Serum or plasma cholesterol in HDL measurement (mass/volume)Ordered By: vIette Barton on 02-09-2025 Cholesterol in HDL [Mass/Vol] 44 mg/dL >40 [facility] Comment on above: National Cholesterol Education Program (NCEP) guidelines:<40 mg/dL: Low HDL-cholesterol (major risk factor for CHD)>= 60 mg/dL: High HDL-cholesterol (negative risk factor for CHD)HDL-cholesterol is affected by a number of factors, e.g. smoking, exercise, hormones, sex and age. Serum or plasma cholesterol measurement (mass/volume)Ordered By: Ivette Barton on 02-09-2025 Cholesterol [Mass/Vol] 200 mg/dL <201 [facility] Comment on above: Cholesterol level, D esirable <200 mg/dLBorderline high cholesterol 200-239 mg/dLHigh cholesterol >=240 mg/dLRecommendations of the NCEP Adult Treatment Panel for the following risk-cutoff thresholds for the [place] population. Serum or plasma urea nitroge n measurement (mass/volume)Ordered By: Ivette Barton on 02-09-2025 Urea nitrogen [Mass/Vol] 11 mg/dL 4-19 [facility] Sodium levelOrdered By: Chau Barton on 02-09-2025 Sodium [Moles/Vol] 139 mmol/L 133-145 [facility] TSH DL <= 0.005 mIU/L QnOrde red By: Ivette Barton on 02-09-2025 TSH Qn 2.550 uIU/mL 0.300-4.200 [facility] Thyroid Stim Hormone (TSH)on 02-09-2025 TSH 2.550 uIU/mL Normal 0.300-4.200 [facility] Comment on above: Performed By: #### L 509.1000, L500.2500, L501.4100, L501.4405, L501.9520, L506.1001, L500.4100, L501.9985 #### [facility] Laboratory [facility] [address] [place], [place], [id number] Triglycerides measurementOrd ered By: Ivette Barton on 02-09-2025 Triglyceride [Mass/Vol] 254 mg/dL High <199 [facility] Comment on above: The drugs N-Acetylcy steine and Metamizole may falsely depress this assay. Normal range: <150 mg/dLBorderline High: 150-199 mg/dLHigh: 200-499 mg/dLVery High: >500 mg/dL Vitamin D,25 Hydroxyon 02-09 Vitamin D 25-OH 89.0 ng/mL Normal 30-100 [facility] Comment on above: Result Comment: Shila min D Status Deficiency: <20 ng/mL (50nmol/L) Insufficiency: 20-30 ng/mL (50-75 nmol/L) Sufficiency: 30-100 ng/mL (75-250 nmol/L) Toxicity: >100 ng/mL (>250 nmol/L) Performed By: #### L 500.2500, L501.4100, L501.4405, L501.9520, L509.1000 #### [facility] [address] [place], [place], [address] Magnetic resonance imaging r eportOrdered By: Vinnie Ferraro on 01-19-2025 Study report [facility] Imaging Services [address] [place], [place] [address] Spine Lumbar (Routine) MR#: [id number] Acct: [id number] Name: GARRISON WALKER Rep #: [id number] : 1970 F 54 From: Laz Ferraro DO PCP: LIGIA Romero Status: REG CLI Study:Spine Lumbar (Routine) Date of Exam: 01/19/25 Exam# [id number] Ordering Dr: Ra cinda Stevens PROCEDURE: SPINE [...] Reading Location: [facility] CC: LIGIA Stevens ~ Child Custody Evaluator: Signed [facility] Spine Lumbar (Routine)on Spine Lumbar (Routine) [facility] Imaging Services [address] [place], [place] [address] Spine Lumbar (Routine) MR#: [id number] Acct: [id number] Name: GARRISON WALKER Rep #: [id number] : 1970 F 54 From: Vinnie Kohler PCP: LIGIA Romero Status: REG CLI Study: Spine Lumbar (Routine) Date of Exam: 01/19/25 Exam# [id number] Ordering Dr: Tatum Stevens FORENSIC SCIENCE EXAMINERAdi PROCEDURE: SPINE LUMBAR (ROUTINE) 01/19/2025 REASON FOR [...] or foraminal narrowing. Reading Location: [facility] CC: FORENSIC SCIENCE EXAMINER-C Tatum Stevens Child Custody Evaluator: Signed Normal [facility] Intact parathyroid hormone ( iPTH) measurementon 12-07-2024 Parathyroid Hormone (Intact) 55 pg/mL [facility] PTHINon 12-07-2024 PTH 55 pg/mL Normal [facility] Comment on above: Performed By: #### L 500.2500, L501.4100, L501.4405, L501.9520, L509.1000 #### [facility] [address] [place], [address] [id number] DOrdered By: Marlene Barton on 10-09-2024 Vitamin D 25-Hydroxy 67.1 ng/mL [facility] Comment on above: Vitamin D 25(OH) Sta tus Range Deficiency <20 ng/mL (50nmol/L) Insufficiency 20 - 30 ng/mL (50 - 75 nmol/L) Sufficiency 30 - 100 ng/mL (75 - 250 nmol/L) Toxicity >100 ng/mL (>250 nmol/L) AST(SGOT)on 10-09-2024 AST [Catalytic activity/Vol] 21 U/L Normal 15-37 [facility] Comment on above: Performed By: #### L 500.2500, L501.4100, L501.4405, L501.9520, L509.1000 #### [facility] [address] [place], [address] Alanine Aminotransferas (SGP T)on 10-09-2024 ALT [Catalytic activity/Vol] 33 U/L Normal 13-56 [facility] Comment on above: Performed By: #### L 500.2500, L501.4100, L501.4405, L501.9520, L509.1000 #### [facility] [address] [place], [address] Basic Metabolic Profile (BMP )on 10-09-2024 BUN/CRE 22.2 RATIO High 10-20 [facility] Comment on above: Performed By: #### L 500.2500, L501.4100, L501.4405, L501.9520, L509.1000 #### [facility] [address] [place], [address] CA,Total 8.8 mg/dL Normal 8.5-10.1 [facility] Comment on above: Performed By: #### L 500.2500, L501.4100, L501.4405, L501.9520, L509.1000 #### [facility] [address] [place], [address] Chloride [Moles/Vol] 106 mmol/L Normal 98-107 [facility] Comment on above: Performed By: #### L 500.2500, L501.4100, L501.4405, L501.9520, L509.1000 #### [facility] [address] [place], [address] CO2 [Moles/Vol] 27.0 mmol/L Normal 21.0-32.0 [facility] Comment on above: Performed By: #### L 500.2500, L501.4100, L501.4405, L501.9520, L509.1000 #### [facility] [address] [place], [address] Creatinine [Mass/Vol] 0.68 mg/dL Normal 0.55-1.02 [facility] Comment on above: Result Comment: The validity of the calculated GFR GFRAA in patients over 70 years has not been determined. Clinical correlation is essential. Performed By: #### L 500.2500, L501.4100, L501.4405, L501.9520, L509.1000 #### [facility] [address] [place], [address] EST GFR - AA 116 mL/min Normal >60 [facility] Comment on above: Result Comment: Afri can Jamaican GFR Calc Performed By: #### L 500.2500, L501.4100, L501.4405, L501.9520, L509.1000 #### [facility] [address] [place], [address] GAP 6 Normal 5-15 [facility] Comment on above: Performed By: #### L 500.2500, L501.4100, L501.4405, L501.9520, L509.1000 #### [facility] [address] [place], [address] GFR/1.73 sq M.predicted among non-blacks MDRD (S/P/Bld) [Vol rate/Area] 96 mL/min/{1.73_m2} Normal >60 [facility] Comment on above: Result Comment: Non- GFR Calc Performed By: #### L 500.2500, L501.4100, L501.4405, L501.9520, L509.1000 #### [facility] [address] [place], [address] Glucose [Mass/Vol] 109 mg/dL High 74-106 [facility] Comment on above: Result Comment: Fast ing Glucose result from 100 to 125 mg/dL suggests IMPAIRED HOMEOSTASIS per A.D.A. criteria. Performed By: #### L 500.2500, L501.4100, L501.4405, L501.9520, L509.1000 #### [facility] [address] [place], [address] Potassium [Moles/Vol] 4.0 mmol/L Normal 3.5-5.1 [facility] Comment on above: Performed By: #### L 500.2500, L501.4100, L501.4405, L501.9520, L509.1000 #### [facility] [address] [place], [address] Sodium [Moles/Vol] 139 mmol/L Normal 136-145 [facility] Comment on above: Performed By: #### L 500.2500, L501.4100, L501.4405, L501.9520, L509.1000 #### [facility] [address] [place], [address] Urea nitrogen [Mass/Vol] 15 mg/dL Normal 7-18 [facility] Comment on above: Performed By: #### L 500.2500, L501.4100, L501.4405, L501.9520, L509.1000 #### [facility] [address] [place], [address] Blood urea nitrogen (BUN)/cr eatinine ratioOrdered By: Ivette Barton on 10-09-2024 Urea nitrogen/Creatinine [Mass ratio] 22.2 mg/mg High 10-20 [facility] Carbon dioxide measurementOr dered By: Ivette Barton on 10-09-2024 CO2 [Moles/Vol] 27.0 mmol/L 21.0-32.0 [facility] Chloride measurementOrdered By: Ivette Barton on 10-09-2024 Chloride [Moles/Vol] 106 mmol/L 98-107 [facility] Estimated glomerular filtrat ion rate (GFR) AmericanOrdered By: Ivette Barton on 10-09-2024 Estimated GFR (MDRD) Amer 116 mL/min >60 [facility] Comment on above: GFR Calc Glomerular filtration rate ( GFR) estimationOrdered By: Ivette Barton on 10-09-2024 Estimated GFR (MDRD) Non-Af Amer 96 mL/min >60 [facility] Comment on above: Non- GFR Calc Glucose measurementOrdered B y: Ivette Barton on 10-09-2024 Glucose [Mass/Vol] 109 mg/dL High 74-106 [facility] Comment on above: Fasting Glucose resu lt from 100 to 125 mg/dL suggests IMPAIRED HOMEOSTASIS per A.D.A. criteria. Hemoglobin A1con 10-09-2024 HbA1c (Bld) [Mass fraction] 5.5 % Normal 3.8-5.6 [facility] Comment on above: Result Comment: Norm al < 5.7 % Prediabetic 5.7 - 6.4 % Diabetic >or= 6.5 % Please note range changes. Performed By: #### L 500.2500, L501.4100, L501.4405, L501.9520, L509.1000 #### [facility] [address] [place], [address] Hemoglobin A1c percentageOrd ered By: Ivette Barton on 10-09-2024 HbA1c (Bld) [Mass fraction] 5.5 % 3.8-5.6 [facility] Comment on above: Normal < 5.7 % Predi abetic 5.7 - 6.4 % Diabetic >or= 6.5 % Please note range changes. High density lipoprotein (HD L) measurementOrdered By: Ivette Barton on 10-09-2024 Cholesterol in HDL [Mass/Vol] 51 mg/dL >40 [facility] Comment on above: The drugs N-Acetylcy steine and Metamizole may falsely depress this assay. Reference Range HDL <40 mg/dL Low HDL Cholesterol HDL >or= 60 mg/dL High HDL Cholesterol Intact parathyroid hormone ( iPTH) measurementOrdered By: Ivette Barton on 10-09-2024 Parathyroid Hormone (Intact) 105.9 pg/mL High 18.4-80.1 [facility] Laboratory - Chemistry and C hemistry - challengeOrdered By: Ivette Barton on 10-09-2024 AST [Catalytic activity/Vol] 21 U/L 15-37 [facility] Lipid Profileon 10-09-2024 Cholesterol [Mass/Vol] 193 mg/dL Normal 200 [facility] Comment on above: Result Comment: <200 mg/dL Desirable 200-240 mg/dL Borderline >240 mg/dL High Risk Performed By: #### L 500.2500, L501.4100, L501.4405, L501.9520, L509.1000 #### [facility] [address] [place], [address] Cholesterol in HDL [Mass/Vol] 51 mg/dL Normal [facility] Comment on above: Result Comment: The drugs N-Acetylcysteine and Metamizole may falsely depress this assay. Reference Range HDL <40 mg/dL Low HDL Cholesterol HDL >or= 60 mg/dL High HDL Cholesterol Performed By: #### L 500.2500, L501.4100, L501.4405, L501.9520, L509.1000 #### [facility] [address] [place], [address] Cholesterol in LDL [Mass/Vol] 95 mg/dL Normal 0-130 [facility] Comment on above: Performed By: #### L 500.2500, L501.4100, L501.4405, L501.9520, L509.1000 #### [facility] [address] [place], [address] Cholesterol in VLDL [Mass/Vol] 47 mg/dL High 5-40 [facility] Comment on above: Performed By: #### L 500.2500, L501.4100, L501.4405, L501.9520, L509.1000 #### [facility] [address] [place], [address] Triglyceride [Mass/Vol] 237 mg/dL High [facility] Comment on above: Result Comment: The drugs N-Acetylcysteine and Metamizole may falsely depress this assay. Serum Triglycerides Reference Interval Normal <150 mg/dL Borderline high 150 - 199 mg/dL High 200 - 499 mg/dL Very High > or = 500 mg/dL Performed By: #### L 500.2500, L501.4100, L501.4405, L501.9520, L509.1000 #### [facility] [address], [address] Low density lipoprotein (LDL ) cholesterol measurementOrdered By: Ivette Barton on 10-09-2024 Cholesterol in LDL [Mass/Vol] 95 mg/dL 0-130 [facility] PTHINon 10-09-2024 PTH 105.9 pg/mL High 18.4-80.1 [facility] Comment on above: Performed By: #### L 500.2500, L501.4100, L501.4405, L501.9520, L509.1000 #### [facility] [address] [place], [address] Potassium measurementOrdered By: Ivette Barton on 10-09-2024 Potassium [Moles/Vol] 4.0 mmol/L 3.5-5.1 [facility] Serum anion gap measurementO rdered By: Ivette Barton on 10-09-2024 Anion gap [Moles/Vol] 6 mmol/L 5-15 [facility] Serum or plasma alanine tubbs otransferase (ALT) measurementOrdered By: Ivette Barton on 10-09-2024 ALT [Catalytic activity/Vol] 33 U/L 13-56 [facility] Serum or plasma calcium will urement (mass/volume)Ordered By: Ivette Barton on 10-09-2024 Calcium [Mass/Vol] 8.8 mg/dL 8.5-10.1 [facility] Serum or plasma cholesterol measurement (mass/volume)Ordered By: Ivette Barton on 10-09-2024 Cholesterol [Mass/Vol] 193 mg/dL <200 [facility] Comment on above: <200 mg/dL Desirable 200-240 mg/dL Borderline >240 mg/dL High Risk Serum or plasma creatinine m easurement (mass/volume)Ordered By: Ivette Barton on 10-09-2024 Creatinine [Mass/Vol] 0.68 mg/dL 0.55-1.02 [facility] Comment on above: The validity of the calculated GFR & GFRAA in patients over 70 years has not been determined. Clinical correlation is essential. Serum or plasma urea nitroge n measurement (mass/volume)Ordered By: Ivette Barton on 10-09-2024 Urea nitrogen [Mass/Vol] 15 mg/dL 7-18 [facility] Sodium levelOrdered By: Chau Barton on 10-09-2024 Sodium [Moles/Vol] 139 mmol/L 136-145 [facility] TSH QnOrdered By: Ivette cancino on 10-09-2024 Thyroid Stimulating Hormone (TSH) 0.620 uIU/mL 0.358-3.740 [facility] Thyroid Stim Hormone (TSH)on 10-09-2024 TSH 0.620 uIU/mL Normal 0.358-3.740 [facility] Comment on above: Performed By: #### L 500.2500, L501.4100, L501.4405, L501.9520, L509.1000 #### [facility] [address] [place], [address] Triglycerides measurementOrd ered By: Ivette Barton on 10-09-2024 Triglyceride [Mass/Vol] 237 mg/dL High <199 [facility] Comment on above: The drugs N-Acetylcy steine and Metamizole may falsely depress this assay.Serum Triglycerides Reference Interval Normal <150 mg/dL Borderline high 150 - 199 mg/dL High 200 - 499 mg/dL Very High > or = 500 mg/dL Very low density lipoprotein (VLDL) cholesterol measurementOrdered By: Ivette Barton on 10-09-2024 VLDL Cholesterol 47 mg/dL High 5-40 [facility] Vitamin D,25 Hydroxyon 10-09 Vitamin D 25-OH 67.1 ng/mL Normal [facility] Comment on above: Result Comment: Shila min D 25(OH) Status Range Deficiency <20 ng/mL (50nmol/L) Insufficiency 20 - 30 ng/mL (50 - 75 nmol/L) Sufficiency 30 - 100 ng/mL (75 - 250 nmol/L) Toxicity >100 ng/mL (>250 nmol/L) Performed By: #### L 500.2500, L501.4100, L501.4405, L501.9520, L509.1000 #### [facility] [address] [place], [address] HIP, UNI W/ Pelvis 2-3 Views on 09-28-2024 HIP, UNI W/ Pelvis 2-3 Views [facility] Imaging Services [address] [place] [address] HIP, UNI W/ Pelvis 2-3 Views MR#: [id number] Acct: [id number] Name: GARRISON WALKER Rep #: [id number] : 1970 F 54 From: Yeyo wilburn MD PCP: LIGIA Romero Status: REG CLI Study: HIP, UNI W/ Pelvis 2-3 Views Date of Exam: Exam# [id number] Ordering Dr: Tatum Stevens [id number] INDICATION: ASSESS VERTBRAL ALIGNMENT DISC SPACE EXAMINATION/TECHNIQUE: [...] Olea MD at 17:59 EST , CC: FORENSIC SCIENCE EXAMINERRocioC Tatum Stevens Child Custody Evaluator: Signed Normal [facility] Lumbar Spine 2 or 3 Viewson 09-28-2024 Lumbar Spine 2 or 3 Views [facility] Imaging Services [address] [place], [place] [address] Lumbar Spine 2 or 3 Views MR#: [id number] Acct: [id number] Name: GARRISON WALKER Rep #: [id number] : 1970 F 54 From: Alphonso Pierre MD PCP: LIGIA Romero Status: REG CLI Study: Lumbar Spine 2 or 3 Views Date of Exam: Exam# [id number] Ordering Dr: Tatum Stevens [id number] STUDY: X-RAY - LUMBAR SPINE REASON FOR [...] at 11:32 EST , CC: LIGIA Stevens Child Custody Evaluator: Signed Normal [facility] ED Prov Noteon 09-03-2024 ED Prov Note [...] - PAST HISTORY - Past Medical History: @[facility]@ Past Surgical History: has a past [...] ms QTC Calculation (Bezet) 408 ms P [place] 34 degrees R [place] 10 degrees T [place] 32 degrees POC CBC and Differential Collection [...] DISPOSITION Di (more content not included)... Normal [facility] PTHINon 08-20-2024 PTH 65.7 pg/mL Normal 18.4-80.1 [facility] Comment on above: Performed By: #### L 500.2500, L501.4100, L501.4405, L501.9520, L509.1000 #### [facility] [address] [place], [address] AST(SGOT)on 08-18-2024 AST [Catalytic activity/Vol] 43 U/L High 15-37 [facility] Comment on above: Performed By: #### L 500.2500, L501.4100, L501.4405, L501.9520, L509.1000 #### [facility] [address] [place], [address] Alanine Aminotransferas (SGP T)on 08-18-2024 ALT [Catalytic activity/Vol] 67 U/L High 13-56 [facility] Comment on above: Performed By: #### L 500.2500, L501.4100, L501.4405, L501.9520, L509.1000 #### [facility] [address] [place], [address] Basic Metabolic Profile (BMP )on 08-18-2024 BUN/CRE 25.6 RATIO High 10-20 [facility] Comment on above: Performed By: #### L 500.2500, L501.4100, L501.4405, L501.9520, L509.1000 #### [facility] [address] [place], [address] CA,Total 8.9 mg/dL Normal 8.5-10.1 [facility] Comment on above: Performed By: #### L 500.2500, L501.4100, L501.4405, L501.9520, L509.1000 #### [facility] [address] [place], [address] Chloride [Moles/Vol] 108 mmol/L High 98-107 [facility] Comment on above: Performed By: #### L 500.2500, L501.4100, L501.4405, L501.9520, L509.1000 #### [facility] [address] [place], [address] CO2 [Moles/Vol] 27.0 mmol/L Normal 21.0-32.0 [facility] Comment on above: Performed By: #### L 500.2500, L501.4100, L501.4405, L501.9520, L509.1000 #### [facility] [address] [place], [address] Creatinine [Mass/Vol] 0.62 mg/dL Normal 0.55-1.02 [facility] Comment on above: Result Comment: The validity of the calculated GFR GFRAA in patients over 70 years has not been determined. Clinical correlation is essential. Performed By: #### L 500.2500, L501.4100, L501.4405, L501.9520, L509.1000 #### [facility] [address] [place], [address] EST GFR - AA 127 mL/min Normal >60 [facility] Comment on above: Result Comment: Afri can Jamaican GFR Calc Performed By: #### L 500.2500, L501.4100, L501.4405, L501.9520, L509.1000 #### [facility] [address] [place], [address] GAP 5 Normal 5-15 [facility] Comment on above: Performed By: #### L 500.2500, L501.4100, L501.4405, L501.9520, L509.1000 #### [facility] [address], [address] GFR/1.73 sq M.predicted among non-blacks MDRD (S/P/Bld) [Vol rate/Area] 105 mL/min/{1.73_m2} Normal >60 [facility] Comment on above: Result Comment: Non- GFR Calc Performed By: #### L 500.2500, L501.4100, L501.4405, L501.9520, L509.1000 #### [facility] [address], [address] Glucose [Mass/Vol] 127 mg/dL High 74-106 [facility] Comment on above: Result Comment: Fast ing Glucose result greater than or equal to 126 mg/dL suggests DIABETES MELLITUS per A.D.A. criteria. Performed By: #### L 500.2500, L501.4100, L501.4405, L501.9520, L509.1000 #### [facility] [address] [place], [address] Potassium [Moles/Vol] 4.3 mmol/L Normal 3.5-5.1 [facility] Comment on above: Performed By: #### L 500.2500, L501.4100, L501.4405, L501.9520, L509.1000 #### [facility] [address] [place], [address] Sodium [Moles/Vol] 140 mmol/L Normal 136-145 [facility] Comment on above: Performed By: #### L 500.2500, L501.4100, L501.4405, L501.9520, L509.1000 #### [facility] [address] [place], [address] Urea nitrogen [Mass/Vol] 16 mg/dL Normal 7-18 [facility] Comment on above: Performed By: #### L 500.2500, L501.4100, L501.4405, L501.9520, L509.1000 #### [facility] [address] [facility] [place], [address] Thyroid Stim Hormone (TSH)on 08-18-2024 TSH 0.059 uIU/mL Low 0.358-3.740 [facility] Comment on above: Performed By: #### L 500.2500, L501.4100, L501.4405, L501.9520, L509.1000 #### [facility] [address] [place], [address] Thyroidon 06-08-2024 Thyroid [facility] Imaging Services [address] [place] [address] Thyroid MR#: [id number] Acct: [id number] Name: GARRISON WALKER Rep #: [id number] : 1970 F 54 From: Donta dennis MD PCP: LIGIA Romero Status: REG [facility] Study: Thyroid Date of Exam: 06/08/24 Exam# [id number] Ordering Dr: Tatum Stevens [id number] STUDY: THYROID ULTRASOUND REASON FOR EXAM: Female, [...] or cystic lesion is seen. Electronically Signed: Dnota Rainey MD at 14:47 EDT Reading Location ID and State: [facility] / [place] , Service support , CC: LIGIA Stevens Child Custody Evaluator: Signed Normal [facility] Cerv Spine 4 or 5 Viewson Cerv Spine 4 or 5 Views [facility] Imaging Services [address] [place] [address] Cerv Spine 4 or 5 Views MR#: [id number] Acct: [id number] Name: GARRISON WALKER Rep #: [id number] : 1970 F 54 From: Donta dennis MD PCP: LIGIA Romero Status: REG CLI Study: Cerv Spine 4 or 5 Views Date of Exam: 06/04/24 Exam# [id number] Ordering Dr: Tatum Stevens [id number] STUDY: X-RAY - CERVICAL SPINE REASON FOR [...] at 12:44 EDT , CC: LIGIA Stevens Child Custody Evaluator: Signed Normal [facility] Layout Operator Cytology Reporton 2023 Layout Operator Cytology Report . Pathology Reports Accession: Collected Date/Time: Received Date/Time: Pathologist: [id number] 05/07/2024 12:06 EDT 05/07/2024 18:00 EDT Layout Operator Cytology Report SPECIMEN: Specimen Description: Liquid Prep [...] and evaluated with the assistance of the Flared3D ThinPrep Test Imaging System. Pathology Reports Accession: Collected Date/Time: Received Date/Time: Pathologist: [id number] 05/07/2024 12:06 EDT 05/07/2024 18:00 EDT Electronically Signed by Pathology report verified by [facility] Screened by: [place] Electronically signed by Miriam LYLES (ASCP) Sign-Out Date: 05/09/2024 14:50 Performing Lab: [facility], [address] [place] [address] Pathology Dept Disclaimer The Pap test is a screening test for cervical cancer. As evidenced by published data, it is subject to both inherent false negative and false positive results. Your patient's results should be interpreted in context with pertinent clinical history including gynecological examination. Normal [facility] ([place]) HPVon 05-09-2024 HPV Interp Normal See Interp HPVN [facility] ([place]) Comment on above: Order Comment: Order placed by AP_HPV_ORDER rule from [id number] Result Comment: High Risk HPV Typing: NEGATIVE [...] HPVN Performed By: #### H PV #### [place] [address] HPV Source Cervix Normal [facility] ([place]) Comment on above: Order Comment: Order placed by AP_HPV_ORDER rule from [id number] Performed By: #### H #### [place] [address] LABORATORYOrdered By: Win Zavala on 05-07-2024 HPV [...] on 10-11-2023 Chloride [Moles/Vol] 106 mmol/L 98-107 [facility] Glucose [Mass/Vol] 117 mg/dL 74-106 [facility] Comment on above: Fasting Glucose resu lt from 100 to 125 mg/dL suggests IMPAIRED HOMEOSTASIS per A.D.A. criteria. Potassium [Moles/Vol] 4.1 mmol/L 3.5-5.1 [facility] Sodium [Moles/Vol] 140 mmol/L 136-145 [facility] - Chemistry and C hemistry - challengeOrdered By: Ivette Barton on 10-11-2023 ALT [Catalytic activity/Vol] 60 U/L 13-56 [facility] CO2 [Moles/Vol] 30.0 mmol/L 21.0-32.0 [facility] Urea nitrogen/Creatinine [Mass ratio] 21.2 mg/mg 10-20 [facility] No Panel InformationOrdered By: Ivette Barton on 10-11-2023 Estimated GFR (MDRD) Amer 130 mL/min >60 [facility] Comment on above: GFR Calc Estimated GFR (MDRD) Non-Af Amer 108 mL/min >60 [facility] Comment on above: Non- GFR Calc Parathyroid Hormone (Intact) 68.9 pg/mL 18.4-80.1 [facility] Thyroid Stimulating Hormone (TSH) 0.25 uIU/mL 0.358-3.74 [facility] Vitamin D 25-Hydroxy 30.3 ng/mL [facility] Comment on above: Vitamin D 25(OH) Sta tus Range Deficiency <20 ng/mL (50nmol/L) Insufficiency 20 - 30 ng/mL (50 - 75 nmol/L) Sufficiency 30 - 100 ng/mL (75 - 250 nmol/L) Toxicity >100 ng/mL (>250 nmol/L) Serum or plasma calcium will urement (mass/volume)Ordered By: Ivette Barton on 10-11-2023 Calcium [Mass/Vol] 9.0 mg/dL 8.5-10.1 [facility] Serum or plasma creatinine m easurement (mass/volume)Ordered By: Ivette Barton on 10-11-2023 Creatinine [Mass/Vol] 0.61 mg/dL 0.55-1.02 [facility] Comment on above: The validity of the calculated GFR & GFRAA in patients over 70 years has not been determined. Clinical correlation is essential. Serum or plasma urea nitroge n measurement (mass/volume)Ordered By: Ivette Barton on 10-11-2023 Urea nitrogen [Mass/Vol] 13 mg/dL 7-18 [facility] Thin prep Papanicolaou smear with manual screeningOrdered By: Ivette Barton on 10-11-2023 Thin prep Papanicolaou smear with manual screening 28 U/L 15-37 [facility] Thin prep Papanicolaou smear with manual screening 4 5-15 [facility] Whole blood hemoglobin A1c/t otal hemoglobin ratio (mass fraction)Ordered By: Ivette Barton on 10-11-2023 HbA1c (Bld) [Mass fraction] 5.6 % 3.8-5.6 [facility] Comment on above: Normal < 5.7 % [...] ID: [id number] Dictated by: KYLE MARK on [facility] [[email or web address]] Jul 09, 2023 12:16:59 AM EDT Transcribed by: KYLE MARK on [facility] [[email or web address]] Jul 09, 2023 12:16:59 AM EDT Finalized by: KYLE MARK on [facility] [[email or web address]] Jul 09, 2023 12:16:59 AM EDT Normal [facility] Comment on above: Order Comment: Injur y/Trauma or Illness?:Illness/Other How long have you had these symptoms (acute/chronic)?:Unknown Reason for exam?:HARDWARE REMOVAL Type of Exam?:Subsequent/Follow-up Additional signs and symptoms?:R HAND PAIN Fluoro time in minutes:0.02 Fluoro dose in mGy?:0.03 XR HAND RIGHT 3+ VIEWS (SINDHU ALFREDO)on 05-24-2023 XR HAND RIGHT 3+ VIEWS (STANDARD) [...] TueMay 26, 2023 9:14:35 AM EDT Normal 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 Barton on 02-05-2023 Chloride [Moles/Vol] 105 mmol/L 98-107 [facility] Cholesterol [Mass/Vol] 204 mg/dL <200 [facility] Comment on above: <200 mg/dL Desirable 200-240 mg/dL Borderline >240 mg/dL High Risk Glucose [Mass/Vol] 116 mg/dL 74-106 [facility] Comment on above: Fasting Glucose resu lt from 100 to 125 mg/dL suggests IMPAIRED HOMEOSTASIS per A.D.A. criteria. Potassium [Moles/Vol] 4.0 mmol/L 3.5-5.1 [facility] Sodium [Moles/Vol] 138 mmol/L 136-145 [facility] Triglyceride [Mass/Vol] 121 mg/dL <199 [facility] Comment on above: The drugs N-Acetylcy steine and Metamizole may falsely depress this assay.Serum Triglycerides Reference Interval Normal <150 mg/dL Borderline high 150 - 199 mg/dL High 200 - 499 mg/dL Very High > or = 500 mg/dL Laboratory - Chemistry and C hemistry - challengeOrdered By: Dr. Barton on 02-05-2023 ALT [Catalytic activity/Vol] 85 U/L 13-56 [facility] CO2 [Moles/Vol] 28.0 mmol/L 21.0-32.0 [facility] Urea nitrogen/Creatinine [Mass ratio] 23.9 mg/mg 10-20 [facility] No Panel InformationOrdered By: Dr. Barton on 02-05-2023 Estimated GFR (MDRD) Amer 127 mL/min >60 [facility] Comment on above: GFR Calc Estimated GFR (MDRD) Non-Af Amer 105 mL/min >60 [facility] Comment on above: Non- GFR Calc Parathyroid Hormone (Intact) 82.0 pg/mL 18.4-80.1 [facility] Thyroid Stimulating Hormone (TSH) 2.77 uIU/mL 0.358-3.74 [facility] No Panel InformationOrdered By: Ivette Barton on 02-05-2023 Miscellaneous Test See comment [facility] Comment on above: TEST RESULTS LIMITSV itamin D, 25-HydroxyVitamin D, 25-Hydroxy 43.4 ng/mL 30.0-100.0Vitamin D deficiency has been defined by the [place] [employer] and an Endocrine Society practice guideline as alevel of serum 25-OH vitamin D less than 20 ng/mL (1,2).The Endocrine Society went on to further define vitamin Dinsufficiency as a level between 21 and 29 ng/mL (2).1. IOM ([place] [employer]). 2010. Dietary reference intakes for calcium and D. [place]: The National Academies Press.2. Ibrahima MF, Abbie SIERRA, Nallely SHEPHERD, et al. Evaluation, treatment, and prevention of vitamin D deficiency: an Endocrine Society clinical practice guideline. JCEM. 2011 Apr; 96(7):1911-30. TESTING PERFORMED AT [facility]. ORIGINAL REPORT ON FILE IN LAB CONTAINS ADDITIONAL TEST SITE INFORMATION. Serum or plasma calcitriol m easurement (mass/volume)Ordered By: Dr. Barton on 02-05-2023 1,25-dihydroxyvitamin D3 [Mass/Vol] 100.0 pg/mL 24.8-81.5 [facility] Comment on above: Performed at: [facility] [address] [id number] Director: Matthew Fierro MD, Phone: [phone] Serum or plasma calcium will urement (mass/volume)Ordered By: Dr. Barton on 02-05-2023 Calcium [Mass/Vol] 8.9 mg/dL 8.5-10.1 [facility] Serum or plasma cholesterol in HDL measurement (mass/volume)Ordered By: Dr. Barton on 02-05-2023 Cholesterol in HDL [Mass/Vol] 60 mg/dL >40 [facility] Comment on above: The drugs N-Acetylcy steine and Metamizole may falsely depress this assay. Reference Range HDL <40 mg/dL Low HDL Cholesterol HDL >or= 60 mg/dL High HDL Cholesterol Serum or plasma cholesterol in VLDL measurement (mass/volume)Ordered By: Dr. Barton on 02-05-2023 Cholesterol in VLDL [Mass/Vol] 24 mg/dL 5-40 [facility] Serum or plasma creatinine m easurement (mass/volume)Ordered By: Dr. Barton on 02-05-2023 Creatinine [Mass/Vol] 0.63 mg/dL 0.55-1.02 [facility] Comment on above: The validity of the calculated GFR & GFRAA in patients over 70 years has not been determined. Clinical correlation is essential. Serum or plasma low density lipoprotein (LDL) cholesterol measurement (mass/volume)Ordered By: Dr. Barton on 02-05-2023 Cholesterol in LDL [Mass/Vol] 120 mg/dL 0-130 [facility] Serum or plasma urea nitroge n measurement (mass/volume)Ordered By: Dr. Barton on 02-05-2023 Urea nitrogen [Mass/Vol] 15 mg/dL 7-18 [facility] Thin prep Papanicolaou smear with manual screeningOrdered By: Dr. Barton on 02-05-2023 Thin prep Papanicolaou smear with manual screening 48 U/L 15-37 [facility] Thin prep Papanicolaou smear with manual screening 5 5-15 [facility] Thin prep Papanicolaou smear with manual screening 11.1 mg/L NO RANGE EST. [facility] Whole blood hemoglobin A1c/t otal hemoglobin ratio (mass fraction)Ordered By: Dr. Barton on 02-05-2023 HbA1c (Bld) [Mass fraction] 5.8 % 3.8-5.6 [facility] Comment on above: Normal < 5.7 % Predi abetic 5.7 - 6.4 % Diabetic >or= 6.5 % Please note range changes. Basophil percentageOrdered B y: Dr. Barton on 10-22-2022 Bilirubin [Mass/Vol] 0.40 mg/dL 0.20-1.00 [facility] Comment on above: For patients on eltr ombopag therapy, use of Dimension [place] TBIL is not recommended. Protein [Mass/Vol] 7.6 g/dL 6.4-8.2 [facility] Direct bilirubinOrdered By: Dr. Barton on 10-22-2022 Bilirubin.direct [Mass/Vol] 0.10 mg/dL 0.00-0.30 [facility] Laboratory - Chemistry and C hemistry - challengeOrdered By: Dr. Barton on 10-22-2022 ALP [Catalytic activity/Vol] 89 U/L 45-117 [facility] ALT [Catalytic activity/Vol] 79 U/L [facility] Globulin (S) [Mass/Vol] 3.8 g/dL 2.2-4.2 [facility] Serum or plasma albumin will urement (mass/volume)Ordered By: Dr. Barton on 10-22-2022 Albumin [Mass/Vol] 3.8 g/dL 3.2-5.0 [facility] Thin prep Papanicolaou smear with manual screeningOrdered By: Dr. Barton on 10-22-2022 Thin prep Papanicolaou smear with manual screening 44 U/L 15-37 [facility] Basophil percentageOrdered B y: Dr. Barton on 10-05-2022 Chloride [Moles/Vol] 108 mmol/L 98-107 [facility] Glucose [Mass/Vol] 99 mg/dL 74-106 [facility] Potassium [Moles/Vol] 3.7 mmol/L 3.5-5.1 [facility] Sodium [Moles/Vol] 142 mmol/L 136-145 [facility] - Chemistry and C hemistry - challengeOrdered By: Dr. Barton on 10-05-2022 ALT [Catalytic activity/Vol] 71 U/L [facility] CO2 [Moles/Vol] 32.0 mmol/L 21.0-32.0 [facility] Urea nitrogen/Creatinine [Mass ratio] 19.4 mg/mg 10-20 [facility] No Panel InformationOrdered By: Dr. Barton on 10-05-2022 Estimated GFR (MDRD) Amer 108 mL/min >60 [facility] Comment on above: GFR Calc Estimated GFR (MDRD) Non-Af Amer 90 mL/min >60 [facility] Comment on above: Non- GFR Calc Thyroid Stimulating Hormone (TSH) 1.07 uIU/mL 0.358-3.74 [facility] Serum or plasma calcium will urement (mass/volume)Ordered By: Dr. Barton on 10-05-2022 Calcium [Mass/Vol] 9.4 mg/dL 8.5-10.1 [facility] Serum or plasma creatinine m easurement (mass/volume)Ordered By: Dr. Barton on 10-05-2022 Creatinine [Mass/Vol] 0.72 mg/dL 0.55-1.02 [facility] Comment on above: The validity of the calculated GFR & GFRAA in patients over 70 years has not been determined. Clinical correlation is essential. Serum or plasma urea nitroge n measurement (mass/volume)Ordered By: Dr. Barton on 10-05-2022 Urea nitrogen [Mass/Vol] 14 mg/dL 7-18 [facility] Thin prep Papanicolaou smear with manual screeningOrdered By: Dr. Barton on 10-05-2022 Thin prep Papanicolaou smear with manual screening 42 U/L 15-37 [facility] Thin prep Papanicolaou smear with manual screening 2 5-15 [facility] Whole blood hemoglobin A1c/t otal hemoglobin ratio (mass fraction)Ordered By: Dr. Barton on 10-05-2022 HbA1c (Bld) [Mass fraction] 5.8 % 3.8-5.6 [facility] Comment on above: Normal < 5.7 % Predi abetic 5.7 - 6.4 % Diabetic >or= 6.5 % Please note range changes. BASIC METABOLIC PANELon 08- Anion gap [Moles/Vol] 12 mmol/L Normal 10 - 20 [facility] Comment on above: Performed By: #### B MP #### SCIENTOLOGIST [address] [address] Calcium [Mass/Vol] 8.8 mg/dL Normal 8.6 - 10.3 [facility] Comment on above: Performed By: #### B MP #### [address] [address] Chloride [Moles/Vol] 104 mmol/L Normal 98 - 107 [facility] Comment on above: Performed By: #### B MP #### [address] [address] Creatinine [Mass/Vol] 0.62 mg/dL Normal 0.50 - 1.05 [facility] Comment on above: Performed By: #### B MP #### [address] [address] eGFR FEMALE >90 Normal >90 [facility] Comment on above: Result Comment: CALC ULATIONS OF ESTIMATED GFR ARE PERFORMED USING THE 2020 CKD-EPI STUDY REFIT EQUATION WITHOUT THE RACE VARIABLE FOR THE IDMS-TRACEABLE CREATININE METHODS. https://jasn.asnjournals.org/content/early//ASN.262755 3278 Performed By: #### B MP #### [address] [address] Glucose [Mass/Vol] 102 mg/dL High 74 - 99 [facility] Comment on above: Performed By: #### B MP #### [address] [address] HCO3 (Bld) [Moles/Vol] 27 mmol/L Normal 21 - 32 [facility] Comment on above: Performed By: #### B MP #### [address] [address] Potassium [Moles/Vol] 3.8 mmol/L Normal 3.5 - 5.3 [facility] Comment on above: Performed By: #### B MP #### [address] [address] Sodium [Moles/Vol] 139 mmol/L Normal 136 - 145 [facility] Comment on above: Performed By: #### B MP #### [address] [address] Urea nitrogen [Mass/Vol] 13 mg/dL Normal 6 - 23 [facility] Comment on above: Performed By: #### B MP #### [address] [address] CBC AND DIFFERENTIALon 06-02 Basophils (Bld) [#/Vol] 0.00 10*3/uL Normal 0.00 - 0.10 [facility] Comment on above: Performed By: #### C BCDF #### [address] [address] Basophils/100 WBC (Bld) 0.4 % Normal 0.0 - 2.0 [facility] Comment on above: Performed By: #### C BCDF #### [address] [address] Eosinophils (Bld) [#/Vol] 0.10 10*3/uL Normal 0.00 - 0.70 [facility] Comment on above: Performed By: #### C BCDF #### [address] [address] Eosinophils/100 WBC (Bld) 1.5 % Normal 0.0 - 6.0 [facility] Comment on above: Performed By: #### C BCDF #### [address] [address] Erythrocyte distribution width (RBC) [Ratio] 15.7 % High 11.5 - 14.5 [facility] Comment on above: Performed By: #### C BCDF #### [address] [address] Hematocrit (Bld) [Volume fraction] 36.1 % Normal 36.0 - 46.0 [facility] Comment on above: Performed By: #### C BCDF #### [address] [address] Hemoglobin (Bld) [Mass/Vol] 11.8 g/dL Low 12.0 - 16.0 [facility] Comment on above: Performed By: #### C BCDF #### [place] [id number] Lymphocytes (Bld) [#/Vol] 1.90 10*3/uL Normal 1.20 - 4.80 [facility] Comment on above: Performed By: #### C BCDF #### [address] [address] Lymphocytes/100 WBC (Bld) 22.8 % Normal 13.0 - 44.0 [facility] Comment on above: Performed By: #### C BCDF #### [address] [address] MCHC (RBC) [Mass/Vol] 32.7 g/dL Normal 32.0 - 36.0 [facility] Comment on above: Performed By: #### C BCDF #### [address] [address] MCV (RBC) [Entitic vol] 76 fL Low 80 - 100 [facility] Comment on above: Performed By: #### C BCDF #### [address] [address] Monocytes (Bld) [#/Vol] 0.60 10*3/uL Normal 0.10 - 1.00 [facility] Comment on above: Performed By: #### C BCDF #### [address] [address] Monocytes/100 WBC (Bld) 7.0 % Normal 2.0 - 10.0 [facility] Comment on above: Performed By: #### C BCDF #### [address] [address] Neutrophils (Bld) [#/Vol] 5.60 10*3/uL Normal 1.20 - 7.70 [facility] Comment on above: Result Comment: Perc ent differential counts (%) should be interpreted in the context of the absolute cell counts (cells/L). Performed By: #### C BCDF #### [address] [address] Neutrophils/100 WBC (Bld) 68.3 % Normal 40.0 - 80.0 [facility] Comment on above: Performed By: #### C BCDF #### [address] [address] NUCLEATED RBC 0.1 /100 WBC Normal [facility] Comment on above: Performed By: #### C BCDF #### [address] [address] Platelets (Bld) [#/Vol] 185 10*3/uL Normal 150 - 450 [facility] Comment on above: Performed By: #### C BCDF #### [address] [address] RBC 4.76 x10E12/L Normal 4.00 - 5.20 [facility] Comment on above: Performed By: #### C BCDF #### [address] [address] WBC (Bld) [#/Vol] 8.2 10*3/uL Normal 4.4 - 11.3 [facility] Comment on above: Performed By: #### C BCDF #### [address] [address] CHEST 2 VIEW PA AND LATon CHEST 2 VIEW PA AND LAT Patient Name: SINA WALKER STUDY: CHEST 2 VIEW PA AND LAT; 06/02/2022 9:44 am INDICATION: CHEST PAIN/LEFT SIDED . COMPARISON: 05/12/2020 ACCESSION NUMBER(S): [id number] ORDERING CLINICIAN: SEYMOUR CALLEJAS FINDINGS: CHEST/LUNGS: The cardiac and mediastinal silhouettes are unchanged in size and configuration. No focal areas of consolidation are noted. No effusion or pneumothorax is seen. UPPER ABDOMEN: No remarkable upper abdominal findings. OSSEOUS STRUCTURES: No acute changes. IMPRESSION: No radiographic evidence of an acute cardiopulmonary process. Electronically signed by: JHOANA WOODWARD MD Normal [facility] CORONAVIRUS 2019 BY PCRon SARS-CoV-2 (COVID-19) RNA KAY+probe Ql (Unsp spec) Not detected Normal Not Detected [facility] Comment on above: Result Comment: . This test has received FDA Emergency Use Authorization (EUA) and has been verified by [facility]. This test is only authorized for the duration of time that circumstances exist to justify the authorization of the emergency use of in vitro diagnostic tests for the detection of SARS-CoV-2 virus and/or diagnosis of COVID-19 infection under section 564(b)(1) of the Act, 21 U.S.C. 360bbb-3(b)(1), unless the authorization is terminated or revoked sooner. [facility] is certified under CLIA-88 as qualified to perform high complexity testing. Testing is performed in the [facility] laboratory located at [address] [place] [address]. SARS-CoV-2/Flu/RSV Multiplex Test: Fact sheet for providers: https://www.fda.gov/media/479410/download Fact sheet for patients: https://www.fda.gov/media/742366/download Performed By: #### C OV19 #### [place] [address] Lab Specimen Source Nasal, Nasopharyngeal Normal [facility] Comment on above: Performed By: #### C OV19 #### [place] [address] CT ANGIO CHEST FOR PEon 08-2 CT ANGIO CHEST FOR PE Patient Name: SINA WALKER STUDY: CT ANGIO CHEST FOR PE; 06/02/2022 12:11 pm INDICATION: CP/SOB/+d dIMER . COMPARISON: None. ACCESSION NUMBER(S): [id number] ORDERING CLINICIAN: SEYMOUR CALLEJAS TECHNIQUE: Helical data [...] above. Electronically signed by: JHOANA WOODWARD MD [facility] Covid 19 Resultson 2 SARS-CoV-2 (COVID-19) RNA [...] You may also be contacted by the [facility] to see if any of your [...] or Naproxen (Aleve) can also be used. Gjzr-mlp-jwhxpkn cough and cold medicines can be used according to the instructions on the package. Some liqk-qen-drfmcdk medicines also contain acetaminophen. Make sure you [...] water are not available, use alcohol-based hand radiation therapy technician. Avoid touching your eyes, nose, and mouth [...] 24 judi (more content not included)... 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 Normal [facility] TROPONIN I, HIGH SENSITIVITY on 06-02-2022 TROPONIN I, HIGH SENSITIVITY 3 ng/L Normal 0 - 13 [facility] Comment on above: Result Comment: . [...] performed using a different testing methodology at [facility] than at other [facility]. Direct result comparisons should only be made within the same method. Performed By: #### T [facility] #### [place] [address] Triage - EDon 06-02-2022 Triage - ED [...] BMI (kg/m2): 35.967 Calculated BSA (m2) 1.93 [place] Coma Scale: Best Eye Response: (E4) spontaneous Best Motor Response: (M6) obeys commands Best Verbal Response: (V5) oriented Radhames Score: 15 [place] Assessment Qualifiers: patient not sedated/intubated Cough lasting [...] Travel History, Chart Review, Scores Luda Castro (RN) (Signed 02-Jun-2022 09:51) Authored: Quick Triage, Chart Review, Past Medical History Last Updated: 02-Jun-2022 09:51 by Luda Castro (RN) [facility] percentageon 2021 Chloride [Moles/Vol] 109 mmol/L 98-107 [facility] Work Phone: Cholesterol [Mass/Vol] 186 mg/dL <200 [facility] Work Phone: Comment on above: <200 mg/dL Desirable 200-240 mg/dL Borderline >240 mg/dL High Risk Glucose [Mass/Vol] 113 mg/dL 74-106 [facility] Work Phone: Comment on above: Fasting Glucose resu lt from 100 to 125 mg/dL suggests IMPAIRED HOMEOSTASIS per A.D.A. criteria. Potassium [Moles/Vol] 3.9 mmol/L 3.5-5.1 [facility] Work Phone: Sodium [Moles/Vol] 139 mmol/L 136-145 [facility] Work Phone: Triglyceride [Mass/Vol] 136 mg/dL <199 [facility] Work Phone: Comment on above: The drugs N-Acetylcy steine and Metamizole may falsely depress this assay.Serum Triglycerides Reference Interval Normal <150 mg/dL Borderline high 150 - 199 mg/dL High 200 - 499 mg/dL Very High > or = 500 mg/dL Laboratory - Chemistry and C hemistry - challengeon 04-16-2022 ALT [Catalytic activity/Vol] 47 U/L 13-56 [facility] Work Phone: CO2 [Moles/Vol] 27.0 mmol/L 21.0-32.0 [facility] Work Phone: Urea nitrogen/Creatinine [Mass ratio] 25.6 mg/mg 10-20 [facility] Work Phone: No Panel Informationon 04-16 Estimated GFR (MDRD) Amer 128 mL/min >60 [facility] Work Phone: Comment on above: GFR Calc Estimated GFR (MDRD) Non-Af Amer 106 mL/min >60 [facility] Work Phone: Comment on above: Non- GFR Calc Parathyroid Hormone (Intact) 76.5 pg/mL 18.4-80.1 [facility] Work Phone: Thyroid Stimulating Hormone (TSH) 4.80 uIU/mL 0.358-3.74 [facility] Work Phone: Vitamin D 25-Hydroxy 36.5 ng/mL [facility] Work Phone: Comment on above: Vitamin D 25(OH) Sta tus Range Deficiency <20 ng/mL (50nmol/L) Insufficiency 20 - 30 ng/mL (50 - 75 nmol/L) Sufficiency 30 - 100 ng/mL (75 - 250 nmol/L) Toxicity >100 ng/mL (>250 nmol/L) Serum or plasma calcium will urement (mass/volume)on 04-16-2022 Calcium [Mass/Vol] 9.0 mg/dL 8.5-10.1 [facility] Work Phone: Serum or plasma cholesterol in HDL measurement (mass/volume)on 04-16-2022 Cholesterol in HDL [Mass/Vol] 50 mg/dL >40 [facility] Work Phone: Comment on above: The drugs N-Acetylcy steine and Metamizole may falsely depress this assay. Reference Range HDL <40 mg/dL Low HDL Cholesterol HDL >or= 60 mg/dL High HDL Cholesterol Serum or plasma cholesterol in VLDL measurement (mass/volume)on 04-16-2022 Cholesterol in VLDL [Mass/Vol] 27 mg/dL 5-40 [facility] Work Phone: Serum or plasma creatinine m easurement (mass/volume)on 04-16-2022 Creatinine [Mass/Vol] 0.62 mg/dL 0.55-1.02 [facility] Work Phone: Comment on above: The validity of the calculated GFR & GFRAA in patients over 70 years has not been determined. Clinical correlation is essential. Serum or plasma low density lipoprotein (LDL) cholesterol measurement (mass/volume)on 04-16-2022 Cholesterol in LDL [Mass/Vol] 109 mg/dL 0-130 [facility] Work Phone: Serum or plasma urea nitroge n measurement (mass/volume)on 04-16-2022 Urea nitrogen [Mass/Vol] 16 mg/dL 7-18 [facility] Work Phone: Thin prep Papanicolaou smear with manual screeningon 04-16-2022 Thin prep Papanicolaou smear with manual screening 32 U/L 15-37 [facility] Work Phone: Thin prep Papanicolaou smear with manual screening 3 5-15 [facility] Work Phone: Whole blood hemoglobin A1c/t otal hemoglobin ratio (mass fraction)on 04-16-2022 HbA1c (Bld) [Mass fraction] 5.8 % 3.8-5.6 [facility] Work Phone: Comment on above: Normal < 5.7 % Predi abetic 5.7 - 6.4 % Diabetic >or= 6.5 % Please note range changes. BMP with eGFRon 08-19-2020 Age - Reported [address] [facility] Comment on above: Performed By: #### 2 49373 #### [facility],[address] [place] [address] 51562 Anion gap [Moles/Vol] 10 mmol/L Normal 10 - 20 [facility] Comment on above: Performed By: #### 2 65304 #### [facility],[address] [place] [address] 10165 Calcium [Mass/Vol] 8.1 mg/dL Low 8.5 - 10.1 [facility] Comment on above: Performed By: #### 2 82238 #### [facility],[address] [place] [address] 64611 Chloride [Moles/Vol] 100 mmol/L Normal 98 - 107 [facility] Comment on above: Performed By: #### 2 35376 #### [facility],[address] [place] [address] 52692 CO2 [Moles/Vol] 27.3 mmol/L Normal 21.0 - 32.0 [facility] Comment on above: Performed By: #### 2 20446 #### [facility],[address] [place], [place] [id number] Creatinine [Mass/Vol] 0.6 mg/dL Normal 0.5 - 1.0 [facility] Comment on above: Performed By: #### 2 52670 #### [facility],[address] [place] [address] 94606 GFR/1.73 sq M predicted among non-blacks MDRD (S/P/Bld) [Vol rate/Area] Normal [facility] Comment on above: Result Comment: BASI C METABOLIC PANEL Performed By: #### 2 67115 #### [facility],[address] [place] [address] 68347 GFR/1.73 sq M predicted among non-blacks MDRD (S/P/Bld) [Vol rate/Area] mL/min/{1.73_m2} Normal 60 - 999 [facility] Comment on above: Result Comment: ACCO RDING TO THE NATIONAL KIDNEY DISEASE EDUCATION PROGRAM(NKDE), A NORMAL eGFR IS A VALUE GREATER THAN OR EQUAL TO 60 ML/MIN/1.73 SQ METERS. CHRONIC KIDNEY DISEASE: <60mL/MIN/1.73 SQ METERS KIDNEY FAILURE: <15mL/MIN/1.73 SQ METERS THIS TEST SHOULD ONLY BE USED FOR PATIENTS 18 YEARS OF AGE AND OLDER. Performed By: #### 2 56459 #### [facility],[address] [place] [address] 97604 Glucose [Mass/Vol] 102 mg/dL Normal 74 - 106 [facility] Comment on above: Performed By: #### 2 98631 #### [facility],[address] [place] [address] 39712 Potassium [Moles/Vol] 3.9 mmol/L Normal 3.5 - 5.1 [facility] Comment on above: Performed By: #### 2 74249 #### [facility],[address] [place] [address] 36278 Sodium [Moles/Vol] 133 mmol/L Low 136 - 145 [facility] Comment on above: Performed By: #### 2 92324 #### [facility],[address] [place], [place] [phone] Urea nitrogen [Mass/Vol] 9 mg/dL Normal 7 - 18 [facility] Comment on above: Performed By: #### 2 62933 #### [facility],[address] [place] [address] 77696 CBC + DIFFon 08-19-2020 Basophils (Bld) [#/Vol] 0.00 x10EE3/UL Normal 0.00 - 0.10 [facility] Comment on above: Performed By: #### 2 41557 #### [facility],[address] [place] [address] 86808 Basophils/100 WBC (Bld) 0.3 % Normal 0.0 - 2.0 [facility] Comment on above: Performed By: #### 2 60009 #### [facility],[address] [place] [address] 13492 CBC + DIFF Normal [facility] Comment on above: Result Comment: CBC- COMPLETE BLOOD COUNT Performed By: #### 2 55954 #### [facility],[address] [place] [address] 37659 Eosinophils (Bld) [#/Vol] 0.10 x10EE3/UL Normal 0.00 - 0.50 [facility] Comment on above: Performed By: #### 2 30150 #### [facility],[address] [place], [place] [address] Eosinophils/100 WBC (Bld) 1.4 % Normal 0.0 - 7.0 [facility] Comment on above: Performed By: #### 2 95965 #### [facility],[address] [place] [address] Erythrocyte distribution width (RBC) [Ratio] 15.0 % Normal 12.0 - 15.6 [facility] Comment on above: Performed By: #### 2 84457 #### [facility],[address] [place] [address] Hematocrit (Bld) [Volume fraction] 27.7 % Low 34.0 - 46.0 [facility] Comment on above: Performed By: #### 2 19685 #### [facility],[address] [place] [address] Hemoglobin (Bld) [Mass/Vol] 9.4 g/dL Low 12.0 - 16.0 [facility] Comment on above: Performed By: #### 2 10089 #### [facility],[address] [place], [place] [address] Lymphocytes (Bld) [#/Vol] 1.10 x10EE3/UL Normal 0.80 - 2.80 [facility] Comment on above: Performed By: #### 2 65367 #### [facility],[address] [place], [place] [phone] Lymphocytes/100 WBC (Bld) 11.6 % Low 20.0 - 45.0 [facility] Comment on above: Performed By: #### 2 03195 #### [facility],[address] [place], [place] [phone] MANUAL DIFF N/A Normal [facility] Comment on above: Performed By: #### 2 21959 #### [facility],[address],[place] [address] MCH (RBC) [Entitic mass] 26 pg Low 27 - 33 [facility] Comment on above: Performed By: #### 2 98613 #### [facility],[address] [place] [address] 76185 MCHC (RBC) [Mass/Vol] 34 X10 3 Normal 32 - 36 [facility] Comment on above: Performed By: #### 2 16579 #### [facility],[address] [place] [address] 84616 MCV (RBC) [Entitic vol] 76 fL Low 80 - 99 [facility] Comment on above: Performed By: #### 2 20973 #### [facility],[address] [place] [address] 98860 Monocytes (Bld) [#/Vol] 0.80 x10EE3/UL Normal 0.20 - 1.00 [facility] Comment on above: Performed By: #### 2 62458 #### [facility],[address] [place] [address] 30486 MONOS % 8.2 % Normal 0.0 - 10.0 [facility] Comment on above: Performed By: #### 2 75391 #### [facility],[address] [place] [address] 49494 Morphology Kenneth (Bld) [Interp] N/A Normal [facility] Comment on above: Performed By: #### 2 23865 #### [facility],[address] [place] [address] 42088 Neutrophils (Bld) [#/Vol] 7.40 x10EE3/UL High 1.50 - 7.10 [facility] Comment on above: Performed By: #### 2 32055 #### [facility],[address] [place] [address] 55190 Neutrophils/100 WBC (Bld) 78.5 % High 46.0 - 76.0 [facility] Comment on above: Performed By: #### 2 29208 #### [facility],[address] [place] [address] 84866 Platelet mean volume (Bld) [Entitic vol] 9.0 fL Normal 6.6 - 10.5 [facility] Comment on above: Result Comment: AUTO MATED DIFFERENTIAL Performed By: #### 2 09573 #### [address] [address] Platelets (Bld) [#/Vol] 185 x10EE3/UL Normal 150 - 450 [facility] Comment on above: Performed By: #### 2 45032 #### [facility],[address] [place] [address] 73625 RBC (Bld) [#/Vol] 3.64 x 10EE6/UL Low 4.10 - 5.30 [facility] Comment on above: Performed By: #### 2 90532 #### [address] [address] WBC (Bld) [#/Vol] 9.4 x 10EE3/UL Normal 4.5 - 10.8 [facility] Comment on above: Performed By: #### 2 63897 #### [facility],[address] [place] [address] 11249 OPERATIVE PROCEDURESon 08-19 [facility] PROCEDURES [facility] OPERATIVE REPORT NAME ACCOUNT SEX AGE ADMIT DISCHARGE PT MED. RECORD# NUMBER DATE DATE TYPE MIKEY [id number] F 50 08/18/20 2 SINA [id number] ROOM: [id number] DATE OF : 1970 DICTATING PHYSICIAN: Frankie Sneed DATE OF SURGERY: August 18, 2020 SURGEON: Frankie Sneed MD SENIOR DESIGNER: Ellie Laws PA-C./RANDY Chambers. ANESTHESIOLOGIST: Halie Jones [...] JENSEN Operative Report SINA JENSEN : 1970 operator assistant i cementing, physician underwriting assistant, was utilized throughout the entire procedure. She helped with patient positioning, holding of limb, holding of retractors. She helped with exposure throughout. She helped with closing of the right knee while the surgeon and second underwriting assistant proceeded with the left knee. She also helped with closing of the left knee. Without surgical clinical reviewer, surgical time would have been significantly increased. [...] the femur with the help of the underwriting assistant. Once this was done, we went [...] was held by the surgeon while the underwriting assistant drilled 3 holes through that. Once [...] full extension while the cement hardened. The underwriting assistant injected the pain reliving solution throughout [...] this point, the surgeon and the second underwriting assistant went to the left knee to perform the same procedure there. The right knee was closed by the underwriting assistant using some deep 0 Vicryl, running #2 Stratafix, a mid-layer of 0 Vicryl followed by a deep layer of 0 Stratafix followed by skin cholo and a Mepilex type dressing. Nicanor wrap was placed. While that was going on, the surgeon and second underwriting assistant proceeded with the left knee done [...] Frankie Sneed MD 08/18/20 11:58 JOB #: [id number] Transcribed By: am 08/18/20 17:44 Electronically signed by: E-SIGN DR. FRANKIE SNEED M.D. 08/19/20 07:50 Page 3 of 3 SINA JENSEN Operative Report Normal [facility] KNEE 2 VIEWS LTon 08-18-2020 KNEE [address] [address] Patient: SINA JENSEN Phone#: : 1970 Age: 50 Gender: F Pt. Type: Out Account: [id number] Location: 062 Ordering: FRANKIE SNEED Exam Date: 08/18/2020/12:11 Family Phys: GIULIANO HARRIS Charge Code: [id number] Physician: Pawnee Order #: [id number] DLP Dose#: PROCEDURE: X-RAY KNEE LT 2 [...] Martinez MD on 08/18/2020 at 12:25 Normal [facility] KNEE 2 VIEWS RTon 08-18-2020 KNEE 2 VIEWS RT [place] [address] Patient: SINA JENSEN Phone#: : 1970 Age: 50 Gender: F Pt. Type: Out Account: [id number] Location: [facility] Ordering: FRANKIE SNEED Exam Date: 08/18/2020/12:07 Family Phys: GIULIANO HARRIS Charge Code: [id number] Physician: Pawnee Order #: [id number] DLP Dose#: PROCEDURE: X-RAY KNEE RT 2 [...] Jolanta Martinez MD on 08/18/2020 at 12:27 [facility] BMP with eGFRon 08-08-2020 Age - Reported [address] [facility] Comment on above: Performed By: #### 2 80227 ####[facility],[address] [place] [address] 11788 Anion gap [Moles/Vol] 9 mmol/L Low 10 - 20 [facility] Comment on above: Performed By: #### 2 48087 ####[facility],[address] [place] [address] 15629 Calcium [Mass/Vol] 9.3 mg/dL Normal 8.5 - 10.1 [facility] Comment on above: Performed By: #### 2 71864 ####[facility],[address] [place] [address] 50798 Chloride [Moles/Vol] 104 mmol/L Normal 98 - 107 [facility] Comment on above: Performed By: #### 2 26222 ####[facility],[address] [place] [address] 17165 CO2 [Moles/Vol] 30.8 mmol/L Normal 21.0 - 32.0 [facility] Comment on above: Performed By: #### 2 54872 ####[facility],[address] [place] [address] 94031 Creatinine [Mass/Vol] 0.7 mg/dL Normal 0.5 - 1.0 [facility] Comment on above: Performed By: #### 2 60207 ####[facility],[address] [place] [address] 34138 GFR/1.73 sq M predicted among non-blacks MDRD (S/P/Bld) [Vol rate/Area] mL/min/{1.73_m2} Normal 60 - 999 [facility] Comment on above: Performed By: #### 2 89870 ####[facility],[address] [place], [place] [address] Result Comment: ACCO RDING TO THE NATIONAL KIDNEY DISEASE EDUCATION PROGRAM(NKDE), A NORMAL eGFR IS A VALUE GREATER THAN OR EQUAL TO 60 ML/MIN/1.73 SQ METERS. CHRONIC KIDNEY DISEASE: <60mL/MIN/1.73 SQ METERS KIDNEY FAILURE: <15mL/MIN/1.73 SQ METERS THIS TEST SHOULD ONLY BE USED FOR PATIENTS 18 YEARS OF AGE AND OLDER. GFR/1.73 sq M predicted among non-blacks MDRD (S/P/Bld) [Vol rate/Area] Normal [facility] Comment on above: Result Comment: BASI C METABOLIC PANEL Performed By: #### 2 19116 ####[facility],[address] [place] [address] 20427 Glucose [Mass/Vol] 84 mg/dL Normal 74 - 106 [facility] Comment on above: Performed By: #### 2 78382 ####[facility],[address] [place], [place] [address] Potassium [Moles/Vol] 3.4 mmol/L Low 3.5 - 5.1 [facility] Comment on above: Performed By: #### 2 39644 ####[facility],[address] [place] [address] Sodium [Moles/Vol] 140 mmol/L Normal 136 - 145 [facility] Comment on above: Performed By: #### 2 09517 ####[place] [id number] Urea nitrogen [Mass/Vol] 20 mg/dL High [facility] Comment on above: Performed By: #### 2 48767 ####[facility],[address] [place], [place] [address] CBC (NO DIFF)on 08-08-2020 CBC (NO DIFF) Normal [facility] Comment on above: Result Comment: CBC( WITHOUT DIFFERENTIAL) Performed By: #### 2 98320 #### [place] [id number] Erythrocyte distribution width (RBC) [Ratio] 15.4 % Normal 12.0 - 15.6 [facility] Comment on above: Performed By: #### 2 18547 #### [facility],[address] [place], [place] [address] Hematocrit (Bld) [Volume fraction] 36.4 % Normal 34.0 - 46.0 [facility] Comment on above: Performed By: #### 2 79365 #### [facility],[address] [place] [address] 48570 Hemoglobin (Bld) [Mass/Vol] 12.1 g/dL Normal 12.0 - 16.0 [facility] Comment on above: Performed By: #### 2 47954 #### [place] [address],[place] [address] MCH (RBC) [Entitic mass] 26 pg Low 27 - 33 [facility] Comment on above: Performed By: #### 2 48791 #### [facility],[address] [place] [address] 70364 MCHC (RBC) [Mass/Vol] 33 X10 3 Normal 32 - 36 [facility] Comment on above: Performed By: #### 2 68198 #### [facility],[address] [place] [address] 33754 MCV (RBC) [Entitic vol] 77 fL Low 80 - 99 [facility] Comment on above: Performed By: #### 2 61396 #### [facility],[address] [place] [address] 73773 Platelet mean volume (Bld) [Entitic vol] 8.9 fL Normal 6.6 - 10.5 [facility] Comment on above: Performed By: #### 2 93642 #### [facility],[address] [place] [address] 83045 Platelets (Bld) [#/Vol] 227 x10EE3/UL Normal 150 - 450 [facility] Comment on above: Performed By: #### 2 39595 #### [facility],[address] [place] [address] 32344 RBC (Bld) [#/Vol] 4.72 x 10EE6/UL Normal 4.10 - 5.30 [facility] Comment on above: Performed By: #### 2 10777 #### [facility],[address] [place] [address] 84703 WBC (Bld) [#/Vol] 6.7 x 10EE3/UL Normal 4.5 - 10.8 [facility] Comment on above: Performed By: #### 2 35683 #### [facility],[address] [place] [address] 85607 CHEST 2 VIEWSon 08-08-2020 CHEST [address] [address] Patient: SINA JENSEN Phone#: : 1970 Age: 50 Gender: F Pt. Type: Out Account: [id number] Location: Ordering: [facility] Exam Date: 08/08/2020/10:55 Family Phys: GIULIANO HARRIS Charge Code: [id number] Physician: Pawnee Order #: [id number] DLP Dose#: PROCEDURE: X-RAY CHEST 2 VIEWS [...] Martinez MD on 08/08/2020 at 11:21 Normal [facility] CT LOWER EXTREMITY LT WOon 0 07-04-2020 CT LOWER EXTREMITY LT WO [address] [address] Patient: SINA JENSEN Phone#: : 1970 Age: 50 Gender: F Pt. Type: Out Account: [id number] Location: Ordering: [facility] Exam Date: 07/04/2020/8:09 Family Phys: GIULIANO HARRIS Charge Code: [id number] Physician: Pawnee Order #: [id number] DLP Dose#: 34.10 PROCEDURE: CT LOWER EXTREMITY [...] Xiao MD on 07/04/2020 at 13:19 Normal [facility] CT LOWER EXTREMITY RT WOon 0 07-04-2020 CT LOWER EXTREMITY RT [place] [address] Patient: SINA JENSEN Phone#: : 1970 Age: 50 Gender: F Pt. Type: Out Account: [id number] Location: Ordering: FRANKIE SNEED Exam Date: 07/04/2020/8:09 Family Phys: GIULIANO HARRIS Charge Code: [id number] Physician: Pawnee Order #: [id number] DLP Dose#: 34.10 PROCEDURE: CT LOWER EXTREMITY [...] 50 Gender: F Pt. Type: Out Account: [id number] Location: Ordering: FRANKIE SNEED Exam Date: 07/04/2020/8:09 Family Phys: GIULIANO RoslynYessi STEVEN Charge Code: [id number] Physician: Pawnee Order #: [id number] DLP Dose#: 34.10 Approved by: Lara Xiao MD on 07/04/2020 at 13:30 [facility] CNOVon 07-09-2019 CNOV Office Visit (UCTR ) SINA JENSEN ([id number]) 1970 F Date Time Provider Department 07/09/19 5:30 PM MIRIAM TAYLOR ([facility]) [facility] During your visit today, we recorded the following information about you: Temperature Pulse Respiration Blood pressure 100.1 degrees 110/minute 18/minute 130/82 Weight 89.9 kg Miriam Taylor APRN.CNP 07/09/2019 6:07 PM Signed Subjective Sina Rincon [...] Discussed expected course of illness Miriam Taylor APRN.CNP [facility] PATIENT INFO SKIN INFECTION OVERVIEW Cellulitis is an infection of the skin and soft tissue of the skin. The infection is usually caused by bacteria that normally live on the skin, such as staphylococci ("Staph") or streptococci ("Strep"). The infection develops when there is a [...] types of skin infections include abscesses, furuncles ("boils"), and carbuncles. These usually cause a collection [...] mouth for one to two weeks. The "best" antibiotic depends upon your situation. If the [...] pain Date Reviewed: 07/09/2019 Reviewed by: Miriam ([facility]) Claudia - Fully Assessed Reason for Visit: [...] CONSULT TO GENERAL SURGERY [9011] Order #: [id number]: 1 WOUND CULTURE AND GRAM STAIN [SQWCUL] Order #: [id number] Prescriptions as of 07/09/2019 Sig: LEVOTHYROXINE 137 [...] Discussed expected course of illness Miriam Taylor APRN.DETENTION SERGEANT [facility] PATIENT INFO SKIN INFECTION OVERVIEW Cellulitis is an infection of the skin and soft tissue of the skin. The infection is usually caused by bacteria that normally live on the skin, such as staphylococci ("Staph") or streptococci ("Strep"). The infection develops when there is a [...] types of skin infections include abscesses, furuncles ("boils"), and carbuncles. These usually cause a collection [...] mouth for one to two weeks. The "best" antibiotic depends upon your situation. If the [...] Encounter Status:Closed by MIRIAM TAYLOR on 07/09/19 Normal [facility] PROGRESSon 07-09-2019 PROGRESS HNO ID: [id number] Author: Miriam ([facility]) Claudia Service: ? Author Type: Nurse Practitioner [...] Discussed expected course of illness Miriam Taylor APRN.DETENTION SERGEANT Normal [facility] Wound Culture/Stainon 2018 Wound Culture/Stain Sp. Request/Comment: - Swab Smear Result - Few Gram positive cocci in clusters --> ABNORMAL ALERT Rare Polymorphonuclear leukocytes Rare Epithelial cells Culture Result - Moderate Methicillin resistant Staphylococcus aureus --> ABNORMAL ALERT For wound culture, tissue or aspirates are superior to swab specimens. If a swab must be used, eSwab is preferred (Schreiber no. [id number]). ORGANISM: Methicillin resistant Staphylococcus aureus METHOD: Minimum [...] F Doxycycline SUSCEPTIBLE <=0.5 F Critically abnormal [facility] Comment on above: Performed By: #### W CUL #### [facility] [address] [place] [id number] Vital Signs Date Time Vital Sign Value Performing Clinician Facility 05-24-2023 14:58-0400 Body height 154.9 cm Alisa [employer] Work Phone: [facility] 05-24-2023 14:58-0400 Body mass index (BMI) [Ratio] 35.52 kg[facility]m2 [facility] 05-24-2023 14:58-0400 Body weight 85.28 [facility] 06-02-2022 15:15-0400 Diastolic blood pressure 80 mm[Hg] Giuliano Harris Other Phone: [facility] 06-02-2022 15:15-0400 Heart rate 82 /min Giuliano Harris Other Phone: [facility] 06-02-2022 15:15-0400 Respiratory rate 15 /min Giuliano Harris Other Phone: [facility] 06-02-2022 15:15-0400 SaO2% (BldA) [Mass fraction] 96 % Giuliano Harris Other Phone: [facility] 06-02-2022 15:15-0400 Systolic blood pressure 132 mm[Hg] Giuliano Harris Other Phone: [facility] 06-02-2022 11:26-0400 Body height 154.9 cm Giuliano Harris Other Phone: [facility] 06-02-2022 11:26-0400 Body temperature 98.06 [degF] Giuliano Steven Other Phone: [facility] 06-02-2022 11: Body weight 86.3 kg Giuliano Harris Other Phone: [facility] Encounters Encounter Date Encounter Type Care Provider Facility Start: 05-24-2025 End: 05-24-2025 ambulatory Tatum Stevens [employer] Work Phone: -[facility] Start: 05-24-2025 End: 05-24-2025 Patient encounter procedure Tatum Stevens [employer]AMIN[employer]C -Outpatient Breast Imaging Work Phone: Start: 05-24-2025 End: 05-24-2025 ambulatory Tatum Marion Facility:[facility] Start: 03-29-2025 End: 03-29-2025 Non-patient / Non-visit Dr. Jerman Lepe MD -[facility] Work Phone: Start: 03-29-2025 End: 03-29-2025 ambulatory HOLDEN PERALTA Work Phone: [facility] Work Phone: Start: 03-29-2025 End: 03-29-[address] Ivette Barton MD -Pulmonary Services/Neurology Work Phone: Start: 03-29-2025 End: 03-29-2025 ambulatory [facility] Facility:[facility] Start: 02-09-2025 End: 02-09-2025 ambulatory HOLDEN PERALTA Work Phone: [facility] Work Phone: Start: 02-09-2025 End: 02-09-[address] Ivette Barton MD -Laboratory Work Phone: Start: 02-09-2025 End: 02-09-2025 ambulatory Ivette Barton Facility:[facility] Start: 01-19-2025 End: 01-19-2025 ambulatory Tatum Stevens FORENSIC SCIENCE EXAMINER-C Work Phone: [facility] Work Phone: Start: 01-19-2025 End: 01-19-2025 Patient encounter procedure Tatum Stevens FORENSIC SCIENCE EXAMINER-C -MRI - [facility] Work Phone: Start: 01-19-2025 End: 01-19-2025 ambulatory [facility] Facility:[facility] Start: 12-07-2024 End: 12-07-2024 ambulatory Tatum Stevens FORENSIC SCIENCE EXAMINER-C Work Phone: [facility] Work Phone: Start: 12-07-2024 End: 12-07-2024 Patient encounter procedure Tatum Stevens FORENSIC SCIENCE EXAMINER-C Work Phone: -Laboratory Work Phone: Start: 12-07-2024 End: 12-07-2024 ambulatory [facility] Facility:[facility] Start: 10-09-2024 End: 10-09-[address] Ivette Barton MD -Laboratory Work Phone: Start: 10-09-2024 End: 10-09-2024 ambulatory [facility] Facility:[facility] Start: 09-28-2024 End: 09-28-2024 Patient encounter procedure Tatum Stevens FORENSIC SCIENCE EXAMINER-C -Radiology, [facility] Work Phone: Start: 09-28-2024 End: 09-28-2024 ambulatory [facility] Facility:[facility] Start: 09-03-2024 End: 09-03-2024 Emergency department patient visit MAHESH DORSEY SALAS [facility] Start: 08-18-2024 End: 08-18-2024 ambulatory Ivette Barton Facility:[facility] Start: 06-08-2024 End: 06-08-2024 ambulatory [facility] Facility:[facility] Start: 06-04-2024 End: 06-04-2024 ambulatory [facility] Facility:[facility] Start: 05-07-2024 End: 05-11-2024 ambulatory CLAUDETTE NAVAS MD Facility:B Start: 05-07-2024 End: 05-11-2024 Encounter for gynecological examination (general) (routine) without abnormal findings CLAUDETTE NAVAS MD Facility:B Start: 05-07-2024 End: 05-11-2024 Outreach Lab CLAUDETTE NAVAS MD [facility] Start: 10-11-2023 End: 10-11-2023 ambulatory [facility] Work Phone: Start: 10-11-2023 End: 10-11-2023 Patient encounter procedure [facility]-Laboratory Work Phone: Start: 07-22-2023 End: 07-22-2023 Postop follow up visit related to original px Enrike Mcgee MD Work Phone: [facility] Comment on above: Trigger middle finge r of right hand (Primary Dx); Painful orthopaedic hardware (HCC) Start: 07-08-2023 End: 07-08-2023 ambulatory PHYSICIAN [facility] Start: 06-15-2023 Admission to [facility] Enrike Mcgee MD Work Phone: [facility] Comment on above: Trigger middle finge r of right hand (Primary Dx); Painful orthopaedic hardware (HCC) Start: 05-25-2023 Documentation procedure Araseli munoz MA [facility] Start: 05-24-2023 End: 05-28-2023 ambulatory ALISA MARQUES [facility] Ambulatory Start: 05-24-2023 End: 05-24-2023 Office outpatient new 30 minutes Alisa Marques [facility] Work Phone: [facility] Comment on above: Trigger middle finge r of right hand (Primary Dx); Painful orthopaedic hardware (HCC) Start: 05-06-2023 End: 05-06-2023 ambulatory [facility] Work Phone: Start: 05-06-2023 End: 05-06-2023 Patient encounter procedure [facility]-Outpatient Breast Imaging Work Phone: Start: 02-05-2023 End: 02-05-2023 ambulatory [facility] Work Phone: Start: 02-05-2023 End: 02-05-2023 Patient encounter procedure [facility]-Laboratory Start: 10-29-2022 End: 10-29-2022 ambulatory [facility] Work Phone: Start: 10-29-2022 End: 10-29-2022 Patient encounter procedure [facility]-Ultrasound, [facility] Start: 10-22-2022 End: 10-22-2022 ambulatory [facility] Work Phone: Start: 10-22-2022 End: 10-22-2022 Patient encounter procedure [facility]-Laboratory Start: 10-05-2022 End: 10-05-2022 ambulatory [facility] Work Phone: Start: 10-05-2022 End: 10-05-2022 Patient encounter procedure [facility]-Laboratory Start: 06-02-2022 End: 06-02-2022 Emergency department patient visit [facility] Emergency 12 Start: 04-16-2022 End: 04-16-2022 Patient encounter procedure [facility]-Outpatient Breast Imaging Start: 08-18-2020 End: 08-19-2020 Patient encounter procedure FRANKIE BALBUENA [facility] Start: 08-08-2020 Encounter for other preprocedural examination FRANKIE [facility] Start: 08-08-2020 End: 08-08-2020 Patient encounter procedure FRANKIE BALBUENA [facility] Start: 07-04-2020 End: 07-04-2020 Patient encounter procedure FRANKIE BALBUENA [facility] Encounter for other preprocedural examination FRANKIE [facility] Procedures Date Procedure Procedure Detail Performing Clinician Start: 05-24-2025 Screening mammography Sergey STRONG Work Phone: Start: 02-09-2025 Parathyroid hormone measurement HOLDEN PERALTA Work Phone: Start: 02-09-2025 Vitamin D, 25-hydrox y measurement HOLDEN PERALTA Work Phone: Comment on above: Vitamin D StatusDefi ciency: <20 ng/mL (50nmol/L)Insufficiency: 20-30 ng/mL (50-75 nmol/L)Sufficiency: 30-100 ng/mL (75-250 nmol/L)Toxicity: >100 ng/mL (>250 nmol/L) Start: 01-19-2025 MRI of lumbar spine Katrin karyn Marion FORENSIC SCIENCE EXAMINER-C Work Phone: Start: 12-07-2024 Parathyroid hormone measurement HOLDEN PERALTA Work Phone: Start: 09-28-2024 Plain x-ray of pelvi s and lower extremity Tatum Stevens FORENSIC SCIENCE EXAMINER-C Work Phone: Start: 09-28-2024 X-ray of lumbar spin e, two or three views Tatum Stevens FORENSIC SCIENCE EXAMINER-C Work Phone: Start: 05-06-2023 Screening mammography Start: 10-29-2022 Ultrasonography of abdomen Start: 06-02-2022 End: 06-02-2022 EKG impression Seymour Callejas Start: 04-16-2022 Screening mammography Start: 10-10-2019 Bilateral replacemen t of knee joints CLAUDETTE NAVAS MD Arthroscopic knee operation CLAUDETTE NAVAS MD Comment on above: x3 each knee section CLAUDETTE NAVAS MD Comment on above: x2 H/O: section S/P sectio n H/O: surgery Hx of excision of mass Comment on above: Right lower back- Nubia hutchinsona- 12/29/18 H/O: surgery S/P thyroid biopsy History of operative procedure on knee S/P knee surgery Comment on above: Bilateral X3 History of repair of musculotendinous cuff of shoulder S/P rotator cuff repair Comment on above: Left History of tonsillectomy S/P tonsillectom y Repair of musculoten dinous cuff of shoulder CLAUDETTE NAVAS MD Tonsillectomy CLAUDETTE NAVAS MD Plan of Treatment Date Care Activity Detail Author Start: 07-06-2030 Tetanus vaccination Tetanus: Every 10yrs [facility] Start: 07-22-2023 End: 07-22-2023 Follow-up encounter 07/22/2023 1:15 PM EDT Follow-Up [facility] [address] [place] [address] Enrike Mcgee MD [address] [place] [address] [facility] Start: 07-08-2023 Subsequent hospital visit by physician 07/08/2023 Hospital Encounter [facility] [address] [place] [phone] Enrike Mcgee MD [address] [place] [address] [facility] Start: 06-10-2023 COVID-19 Vaccine ( season) COVID-19 Vaccine ( season) [facility] Start: 06-10-2023 Influenza vaccination Sequential Influenza Vaccine (#1) [facility] Start: 02-09-2023 [facility] Start: 09-24-2021 COVID-19 Vaccine (2 - Booster for Shawn series) COVID-19 Vaccine (2 - Booster for Shawn series) [facility] Start: 2019 Administration of herpes zoster vaccine Zoster Vaccines (1 of 2) [facility] Start: 2019 Screening for malignant neoplasm of colon Flexible sigmoidoscopy [facility] Start: 2009 Screening for malignant neoplasm of breast Mammogram [facility] Start: 1990 Screening for malignant neoplasm of cervix Pap Smear [facility] Start: 1987 Hepatitis C screening Hepatitis C Screening [facility] Start: 1984 HIV screening HIV Screening [facility] Start: 1981 Depression screening using PHQ-9 (Patient Health Questionnaire 9) score Depression Screening (PHQ-2/9) [facility] Start: 1979 Diabetic foot examination Foot Exam [facility] Start: 1979 Glaucoma screening Diabetic Eye Exam [facility] Start: 1979 Urine screening for protein Urine Microalbumin [facility] Start: 1972 History and physical examination, annual for health maintenance Wellness Visit [facility] Start: 1969 Hemoglobin A1c measurement A1C [facility] Start: 1969 Screening for malignant neoplasm of colon [facility] HARDWARE REMOVAL UPP ER EXTREMITY HARDWARE REMOVAL UPPER EXTREMITY Trigger middle finger of right hand Painful orthopaedic hardware (HCC) [facility] Procedure [facility] Immunizations Immunization Date Immunization Notes Care Provider Fa mihirty 07-06-2020 tetanus toxoid, redu filiberto diphtheria toxoid, and acellular pertussis vaccine, adsorbed [facility] Payers Date Payer Category Payer Self-pay [id number] 2023 Department of [facility] ( and others) [id number] 2023 Unknown 2023 Unknown [id number] 2016 Unknown [id number] 1969 Unknown [id number] [id number] 1969 Unknown [id number] 2.840.1.200343.3.579.2.651 1969 Unknown [id number] 2.840.1.075812.3.579.2.651 1969 Unknown [id number] 2.840.1.165825.3.579.2.1069 1969 Unknown [id number] 2.840.1.755810.3.579.2.903 1969 Unknown [id number] 2.16.840.1.626384.3.579.2.903 1969 Unknown [id number] 2.16840.1.820031.3.579.2.903 1969 Unknown [id number] 2..840.1.596044.3.579.2.627 1969 Unknown [id number] 2.16.840.1.346639.3.579.2.902 Department of [facility] ( and others) [facility] [id number] Unknown [id number] Unknown [id number] 2.16.840.1.917024.3.579.2.462 Unknown [id number] 2.16.840.1.552616.3.579.2.462 Unknown [id number] 2.16.840.1.751000.3.579.2.462 Unknown [id number] 2.16.840.1.482389.3.579.2.462 Unknown [id number] 2.16.840.1.206445.3.579.2.462 Unknown [id number] 2.16.840.1.301989.3.579.2.462 Unknown [id number] 2.16.840.1.765405.3.579.2.462 Unknown [id number] 2.16.840.1.657669.3.579.2.462 Unknown [id number] 2.16.840.1.968630.3.579.2.462 Unknown [id number] 2.16.840.1.243572.3.579.2.462 Unknown [id number] 2.16.840.1.595066.3.579.2.462 Social History Date Type Detail Facility Start: 08-06-2020 End: 08-07-2020 Tobacco smoking status NHIS Unknown if ever smoked [facility] Start: 07-06-2020 Occasional [facility] Start: 07-06-2020 None [facility] Start: 07-06-2020 With Family [facility] Start: 08-06-2020 Cigarettes [facility] Start: 1970 Sex Assigned At Female [facility] Start: 08-06-2020 End: 05-24-2023 Tobacco smoking status NHIS Never smoked tobacco [facility] Start: 05-24-2023 Tobacco use and exposure Smokeless tobacco non-user [facility] Start: 05-24-2023 End: 07-24-2023 Alcohol intake Ex-drinker (finding) [facility] Start: 05-24-2023 End: 07-24-2023 History of Social function [facility] Start: 05-24-2023 End: 07-24-2023 Tobacco use panel [facility] Start: 1970 Sex Assigned At Not on file [facility] Start: 05-23-2023 Gender identity Identifies as female gender (finding) [facility] Start: 05-23-2023 Sexual orientation Heterosexual (finding) [facility] Sex Assigned At Sex [facility] Start: 12-20-2024 End: 01-22-2025 Sex Female (finding) [facility] Clinical Notes 05-25-2023 to 05-09-2024 Enrike Sandoval MD - 07/24/2023 9:35 AM Araseli Reynolds MA - 05/25/2023 11:28 AM Alisa Ojeda CNP - 05/25/2023 8:33 AM EDT Note Date & Type Note Facility 05-09-2024 Note SATISFACTORY FOR EVALUATION Endocervical/Transformational zone component present [facility] 05-09-2024 Note SATISFACTORY FOR EVALUATION Endocervical/Transformational zone component present [facility] 05-09-2024 Note SATISFACTORY FOR EVALUATION Endocervical/Transformational zone component present [facility] 05-09-2024 Note SATISFACTORY FOR EVALUATION Endocervical/Transformational zone component present [facility] 05-09-2024 Note SATISFACTORY FOR EVALUATION Endocervical/Transformational zone component present [facility] 05-09-2024 Note SATISFACTORY FOR EVALUATION Endocervical/Transformational zone component present [facility] 05-09-2024 Note SATISFACTORY FOR EVALUATION Endocervical/Transformational zone component present [facility] 05-09-2024 Note SATISFACTORY FOR EVALUATION Endocervical/Transformational zone component present [facility] 05-07-2024 Evaluation + Plan note Future Scheduled TestsMA Mammo Screening Bilateral w/ John 05/07/24MA Mammo Screening Bilateral w/ John 05/07/24MA Mammo Screening Bilateral w/ John 05/07/24 [facility] 07-24-2023 History of Present illness Narrative Sina [...] a p.r.n. basis. documented in this encounter [facility] 05-25-2023 History of Present illness Narrative I called Sina to let her know our rn plastic surgery would be giving her a call to schedule her trigger release and hardware removal surgery in 10 to 14 days patient was understanding. documented in this encounter [facility] 05-25-2023 History of Present illness Narrative Images from the original note were not included. [facility] [address] [facility] [address] [facility] [id number] Chief Complaint Patient presents with Right Hand - Pain Sian Walker, 53-year-old female, presents to the office [...] prior to surgery. documented in this encounter [facility] Evaluation note No assessment inform ation available [facility] Work Phone: Evaluation note Diagnosis Trigger middle finger of right hand- Primary Painful orthopaedic hardware (HCC) [facility] Trigger middle finger of right hand- Primary Painful orthopaedic hardware (HCC) [facility] Diagnosis Trigger middle finger of right hand- Primary Painful orthopaedic hardware (HCC) documented in this encounter [facility] course Narrative No data available for this section [facility] Hospital Discharge instructions No data available for this section [facility] Reason for referral (narrative)[facility] Work [facility]: Summary Purpose Family History No Family History Records Found Relationship Condition Age at Onset Recorded Date/T maddie father Cardiac disease Unknown Diabetes mellitus Unknown mother Chronic obstructive pulmonary disease Unk nown Advance Directives No Advanced Directives Records Found Advance Directive Response Recorded Date/ Time Advance Directives No November 12:16am Living Will No August 06 11:38pm Power of Smoking Pipe Coater No August 06, 2020 11:38pm Advance Directive Response Recorded Date/ Time Advance Directives No November 11:16pm Living Will No August 06 10:38pm Power of Smoking Pipe Coater No August 06, 2020 10:38pm Advance Directive Response Recorded Date/ Time Advance Directives No November 12:16am Hospital Course Note [facility] DISCHARGE SUMMARY NAME ACCOUNT SEX AGE ADMIT DISCHARGE PT MED. RECORD# NUMBER DATE DATE TYPE SINA JENSEN [id number] F 50 08/18/20 2 [id number] ROOM: 206MS DATE OF : 1970 ATTENDING [...] function studies Chief Complaint Admit Date SCIATICIA Oralia 12th, 2025 7:2 0am Chief Complaint Admit Date SCIATICIA January 19, 2025 7:2 0am TYPE 2 DIABETES March 29, 2025 7:16 am Chief Complaint Admit Date TYPE 2 DIABETES March 29, 2025 7:16 am THYROID March 29, 2025 7:28 am SCREENING May 24, 2025 7: 07am Additional Source Comments INFORMATION SOURCE (unrecogn ized section and content) DATE CREATED AUTHOR 07/13/2019 [facility] DATE CREATED AUTHOR AUTHOR'S ORGANIZ ATION 08/25/2020 [facility] DATE CREATED AUTHOR AUTHOR'S ORGANIZ ATION 09/07/2022 [facility] DATE CREATED AUTHOR AUTHOR'S ORGANIZ ATION 05/28/2023 [facility] DATE CREATED AUTHOR AUTHOR'S ORGANIZ ATION 07/15/2023 [facility] DATE CREATED AUTHOR AUTHOR'S ORGANIZ ATION 05/20/2024 [facility] ([place]) DATE CREATED AUTHOR AUTHOR'S ORGANIZ ATION 09/09/2024 [facility] DATE CREATED AUTHOR AUTHOR'S ORGANIZ ATION 05/31/2025 [facility] Goals (unrecognized section and content) Goals may [...] Giuliano Harris MD Family Provider Active Tatum Stevens FORENSIC SCIENCE EXAMINER-C Primary Care Provider Active Team Status: Inactive Member Role Status Dates Tatum Stevens FORENSIC SCIENCE EXAMINER-C Primary Care Provide r, Attending Provider, Referring Provider Active Surveyor Rod Helper Relationship Specialty Start Date End Date No, Physician [facility] PCP - General 05/24/23 Surveyor Rod Helper Relationship Specialty Start Date End Date No, Physician [facility] PCP - General 05/24/23 Surveyor Rod Helper Relationship Specialty Start Date End Date No, Physician [facility] PCP - General 05/24/23 Surveyor Rod Helper Relationship Specialty Start Date End Date No, Physician [facility] PCP - General 05/24/23 Team Status: Inactive Member Role Status Dates Tatum Stevens FORENSIC SCIENCE EXAMINER-C Primary Care Provider Active Dr. Ivette Barton MD Attending Provider, Referring Provider Active Team Status: Active Member Role Status Dates Tatum Stevens FORENSIC SCIENCE EXAMINER-C Primary Care Provider Active Team Status: Inactive Member Role Status Dates Tatum Stevens FORENSIC SCIENCE EXAMINER-C Primary Care Provider Active Start: September 28, 2024 End: September 28, 2024 Tatum Stevens FORENSIC SCIENCE EXAMINER-C Attending Provider Active St art: September 28, 2024 End: September 28, 2024 Tatum Stevens FORENSIC SCIENCE EXAMINER-C Referring Provider Active St art: September 28, 2024 End: September 28, 2024 Team Status: Inactive Member Role Status Dates Tatum Stevens FORENSIC SCIENCE EXAMINER-C Primary Care Provider Active Start: October 09, [...] 2024 End: December 07, 2024 Tatum Stevens FORENSIC SCIENCE EXAMINER-C Primary Care Provider Active Start: December 07, 2024 End: December 07, 2024 Team Status: Inactive Member Role Status Dates Tatum Stevens FORENSIC SCIENCE EXAMINER-C Primary Care Provider Active Start: January 19, 2025 End: January 19, 2025 Tatum Stevens FORENSIC SCIENCE EXAMINER-C Attending Provider Active St art: January 19, 2025 End: January 19, 2025 Tatum Stevens FORENSIC SCIENCE EXAMINER-C Referring Provider Active St art: January 19, 2025 End: January 19, 2025 Team Status: Inactive Member Role Status Dates Tatum Stevens FORENSIC SCIENCE EXAMINER-C Primary Care Provider Active Start: February 09, 2025 End: February 09, 2025 Dr. Ivette Barton MD Attending Provider Active Start: February 09, 2025 End: February 09, 2025 Dr. Ivette Barton MD Referring Provider Active Start: February 09, 2025 End: February 09, 2025 Team Status: Inactive Member Role Status Dates Tatum Stevens FORENSIC SCIENCE EXAMINER-C Primary Care Provider Active Start: March 29, 2025 End: March 29, 2025 Dr. Ivette Barton MD Attending Provider Active Start: March 29, 2025 End: March 29, 2025 Dr. Ivette Barton MD Referring Provider Active Start: March 29, 2025 End: March 29, 2025 Team Status: Active Member Role/Relationship Status Dates Tatum Stevens FORENSIC SCIENCE EXAMINER-C Primary Care Provider Active Team Status: Inactive Member Role/Relationship Status Dates Tatum Stevens FORENSIC SCIENCE EXAMINER-C Primary Care Provider Active Start: February 09, 2025 End: February 09, 2025 Dr. Ivette Barton MD Attending Provider Active Start: February 09, 2025 End: February 09, 2025 Dr. Ivette Barton MD Referring Provider Active Start: February 09, 2025 End: February 09, 2025 Team Status: Inactive Member Role/Relationship Status Dates Tatum Stevens NP-C Primary Care Provider Active Start: March 29, 2025 End: March 29, 2025 Dr. Ivette Barton MD Attending Provider Active Start: March 29, 2025 End: March 29, 2025 Dr. Ivette Barton MD Referring Provider Active Start: March 29, 2025 End: March 29, 2025 Team Status: Active Member Role/Relationship Status Dates Tatum Stevens NP-C Primary Care Provider Active Start: March 29, 2025 End: March 29, 2025 Dr. Jerman Lepe MD Attending Provider Active Start: March 29, 2025 End: March 29, 2025 Dr. Ivette Barton MD Referring Provider Active Start: March 29, 2025 End: March 29, 2025 Team Status: Inactive Member Role/Relationship Status Dates Tatum Stevens NP-C Primary Care Provider Active Start: May 24, 2025 End: May 24, 2025 Tatum Stevens NP-C Attending Provider Active St art: May 24, 2025 End: May 24, 2025 Tatum Stevens NP-C Referring Provider Active St art: May 24, 2025 End: May 24, 2025 Reason for Visit (unrecogniz ed section [...] BE BASED ON THE PRIMARY CLINICAL RECORDS. [employer] [facility]. provides no warranty or guarantee of the accuracy or completeness of information in this document.
[2025-06-29 11:11] LABS: AST(SGOT) 25 U/L (<=31); Alanine Aminotransfer ALT/SGPT 31 U/L (<=34); Anion Gap 10 (5-15); BUN 18 mg/dL (4-19); BUN/Creat Ratio 27.5 RATIO (10-20); Calcium,Total 9.4 mg/dL (7.6-11.0); Carbon Dioxide 24.7 mmol/L (21.0-32.0); Chloride 106 mmol/L (98-108); Glucose 129 mg/dL (70-99); Potassium 4.0 mmol/L (3.3-5.1)
== END | disposition home or self-care (01) ==
LOC: LAB 10:10
PROVIDERS: PCP Nurse Practitioner Family; Referring Provider Internal Medicine Endocrinology, Diabetes & Metabolism; Visit Provider Internal Medicine Endocrinology, Diabetes & Metabolism
DX: E11.9 Type 2 diabetes mellitus without complications (principal)
CPT/HCPCS: 36415; 80048; 83036; 84450; 84460